=== PATIENT | male | born 1970 | race Caucasian/White ===

== ENCOUNTER 2018-02-09 08:24 | Day surgery (SDC) | payer OTHER ==
[2018-02-07 12:22] VITALS: BMI 23.4
[~2018-02-09 08:24] MED LIST: LACTATED RINGERS 1,000 ML IV SCH; LIDOCAINE 1% 20 ML VIAL (10MG/ML) FOR IV START INTRADERMA PRN; MIDAZOLAM 2 MG/2 ML VIAL IV PRN; TETRACAINE 0.5% OPHTH (PF) DROPS 4 ML BTL OP ONE
[2018-02-09] MEDS: CYCLOPENTOLATE 1% OPHTH SOLN 2 ML BTL OP ONE ×3 (09:08→09:19)
[2018-02-09] MEDS: PHENYLEPHRINE 2.5% OPHTH DRP 2ML OP NR ×3 (09:11→09:33)
[2018-02-09 09:20] VITALS: TEMP 97.7
[2018-02-09] MEDS ORDERED: MIDAZOLAM 2 MG/2 ML VIAL ONE (10:08)
[2018-02-09] MEDS ORDERED: fentaNYL (PF) 50 MCG/ML 2 ML AMP ONE (10:08)
[2018-02-09] MEDS ORDERED: EPINEPHrine (PF) 0.3 ML in BALANCED SALT IRRIG SOLN COMB2 500 ML IRRIGATION ONE (10:10)
[2018-02-09] MEDS ORDERED: DUOVISC KIT (GREEN BOX) INTRAOCULA ONE ×2 (10:11→10:18)
[2018-02-09] MEDS ORDERED: BALANCED SALT IRRIG SOLN COMB2 15 ML IRRIG.SOLN INTRAOCULA ONE ×2 (10:11→10:18)
[2018-02-09] MEDS: MOXIFLOXACIN HCL 0.5% DROPS 3 ML BTL OP ONE ×2 (10:12→10:18)
[2018-02-09] MEDS ORDERED: LIDOCAINE 1% (PF) 10MG/ML VIAL MISCELLANE ONE ×2 (10:12→10:18)
[2018-02-09] MEDS: TIMOLOL 0.5% OPHTH DROPS 5 ML BTL OP ONE ×2 (10:12→10:18)
--- NOTE | 2018-02-09 10:38 | P.OP ---
Date of Procedure: 02/09/18 Preoperative Diagnosis: NS & CS & PSC Postoperative Diagnosis: same Procedure(s) Performed: PIOL, OD Implants: PCB00 21.00 Anesthesia: MAC Surgeon: Blanco Farah Estimated Blood Loss (ml): 0 Pathology: none sent Condition: stable Disposition: same day Indications for Procedure: blurry vision Operative Findings: No complications
[2018-02-09 10:46] VITALS: RESP 16
[2018-02-09 11:11] VITALS: BP 125/72; PULSE 57
--- NOTE | 2018-02-09 12:34 | OP ---
OPERATIVE REPORT DATE OF SURGERY: 02/09/2018 PROCEDURE: Phacoemulsification of cataract and intraocular lens implant of the right eye. PREOPERATIVE DIAGNOSIS: Nuclear sclerosis, cortical sclerosis. POSTOPERATIVE DIAGNOSIS:: Subcapsular cataract. OPERATION:: Clear cornea phacoemulsification of cataract of the right eye. ESTIMATED BLOOD LOSS:: Zero. SPECIMEN TAKEN:: None. NARRATIVE:: After obtaining the appropriate consent, the patient was brought to the Operating Room where the patient was placed under cardiac monitoring and prepped and draped in the usual sterile manner. At the 11 o'clock position a 15 degree super sharp blade was used to create a paracentesis followed by instillation of 1% Xylocaine MPF 50:50 mix with BSS into the anterior chamber. This was followed by Duovisc to stabilize the anterior chamber. At the 9 o'clock position a self-sealing corneal flap incision was created using 2.8 mm anselmo keratome. A cystatome was used to initiate a continuous tear capsulorrhexis which was completed with the Utrata forceps. A Binkhorst cannula was used to hydrodissect the lens nucleus followed by hydrodelineation. Phacoemulsification of the lens was performed utilizing phacochop in 14.48 seconds at 11% power. The remaining cortical material was removed using the irrigation aspiration mode followed by additional 1% Xylocaine MPF into the anterior chamber followed by viscoelastic to stabilize the capsular bag. An [id number] 21.0 Diopters posterior chamber lens was placed into the capsular bag without difficulty. The remaining viscoelastic material was removed from the anterior chamber with the irrigation/aspiration. Balanced salt solution was used to normalize the intraocular pressure. The incision was checked for watertight integrity. The patient then received two drops of 0.5% timolol followed by two drops Vigamox, was lightly patched and shielded in the usual manner. There were no complications from the procedure. The patient tolerated the procedure well and was returned to recovery in good condition. MMODL / IJN: [id number] /
== END 2018-02-09 11:28 | disposition home or self-care (01) ==
LOC: OR 08:24
PROVIDERS: ATTEND Ophthalmology
DX: H25.13 Age-related nuclear cataract, bilateral (principal); H25.043 Posterior subcapsular polar age-related cataract, bilateral; H52.13 Myopia, bilateral; H52.4 Presbyopia; H25.013 Cortical age-related cataract, bilateral; F17.210 Nicotine dependence, cigarettes, uncomplicated; H04.203 Unspecified epiphora, bilateral; Z79.899 Other long term (current) drug therapy
CPT/HCPCS: 66984; C1780; J2250; J0171; J3010; J2001

== ENCOUNTER 2018-02-23 08:22 | Day surgery (SDC) | payer OTHER ==
[2018-02-17 11:14] VITALS: BMI 23.7
[~2018-02-23 08:22] MED LIST changes: +DEXAMETHASONE SOD PHOSPHATE 10 MG/ML 1 ML VIAL IV ONE; -MIDAZOLAM 2 MG/2 ML VIAL IV PRN; -TETRACAINE 0.5% OPHTH (PF) DROPS 4 ML BTL OP ONE
[2018-02-23 08:58] VITALS: RESP 18; TEMP 98.4
[2018-02-23] MEDS: CYCLOPENTOLATE 1% OPHTH SOLN 2 ML BTL OP ONE ×3 (09:02→09:14)
[2018-02-23] MEDS: PHENYLEPHRINE 2.5% OPHTH DRP 2ML OP NR ×3 (09:05→09:20)
[2018-02-23] MEDS ORDERED: HYALURONATE SODIUM INTRAOCULAR 1 EACH SYRINGE (12MG/ML) INTRAOCULA ONE (10:04)
[2018-02-23] MEDS ORDERED: BALANCED SALT IRRIG SOLN COMB2 15 ML IRRIG.SOLN IRRIGATION ONE (10:05)
[2018-02-23] MEDS ORDERED: LIDOCAINE 1% (PF) 10MG/ML VIAL SQ ONE (10:05)
[2018-02-23] MEDS ORDERED: EPINEPHrine (PF) 0.3 ML in BALANCED SALT IRRIG SOLN COMB2 500 ML IRRIGATION ONE (10:06)
[2018-02-23] MEDS ORDERED: MIDAZOLAM 2 MG/2 ML VIAL ONE (10:09)
[2018-02-23] MEDS ORDERED: fentaNYL (PF) 50 MCG/ML 2 ML AMP ONE (10:09)
[2018-02-23] MEDS ORDERED: FLUORESCEIN STRIPS 1 MG STRIP LEFT EYE ONE (10:38)
[2018-02-23] MEDS ORDERED: TETRACAINE 0.5% OPHTH (PF) DROPS 4 ML BTL LEFT EYE ONE (10:39)
--- NOTE | 2018-02-23 10:42 | P.OP ---
Date of Procedure: 02/23/18 Preoperative Diagnosis: NS & CS & PSC Postoperative Diagnosis: same Procedure(s) Performed: PIOL, OS Implants: PCB00 19.00 & CTR [id number] Anesthesia: MAC Surgeon: Blanco Farah Estimated Blood Loss (ml): 0 Pathology: none sent Condition: stable Disposition: same day Indications for Procedure: blurry vision Operative Findings: No complications
[2018-02-23 11:00] VITALS: PULSE 59
[2018-02-23 11:11] VITALS: BP 157/90
--- NOTE | 2018-02-23 21:55 | OP ---
OPERATIVE REPORT DATE OF SURGERY: 02/23/2018 PROCEDURE: Phacoemulsification of cataract and intraocular lens implant of the left eye. PREOPERATIVE DIAGNOSIS: Nuclear sclerosis, cortical sclerosis, posterior subcapsular cataract. POSTOPERATIVE DIAGNOSIS: Nuclear sclerosis, cortical sclerosis, posterior subcapsular cataract with zonular dehiscence. SURGEON: Dr. Blanco Farah. ANESTHESIA: Topical. ESTIMATED BLOOD LOSS: None. SPECIMEN TAKEN: None. NARRATIVE: After obtaining the appropriate consent, the patient was brought to the operating room. There he was placed on cardiac monitoring, prepped and draped in the usual sterile manner. He was approached from his left temporal side, and at the 5 o'clock position a 1.1 mm stab blade was used to create a paracentesis port. Through this opening 1% Xylocaine MPF 50/50 mix with balanced salt solution was injected into the anterior chamber. This was followed by stabilization of the anterior chamber with Amvisc. At the 3 o'clock position a 2.5 mm keratome was used to create a self-sealing corneal flap incision in a Langerman's fashion. Through this opening a cystotome was introduced to begin a continuous tear capsulorrhexis which was completed using the Utrata forceps. Hydrodissection and hydrodelineation of the lens was accomplished with balanced salt solution. Phacoemulsification of the lens utilizing phaco chop was accomplished in 2.31 seconds at 12% power. Additional Xylocaine MPF was instilled into the anterior chamber of the eye. Irrigation and aspiration of the posterior capsule was begun, including careful polishing of the posterior capsule. However, during the course of the cleaning of the posterior capsule there was some zonular laxity and some folding of the posterior capsule from the 10 o'clock to 2 o'clock position. Additional careful posterior capsule polishing was accomplished away from this area to avoid any further damage to the zonules. Amvisc was then used to stabilize the capsular bag and an JAZZMINE capsular tension ring model [id number] was inserted in a clockwise fashion without difficulty. Once the capsular tension ring was placed, an JAZZMINE PCB00 19.0 diopter posterior chamber intraocular lens was then inserted into the capsular bag without incident. Removal of the viscoelastic was accomplished in and around the intraocular lens under irrigation and aspiration. The eye was then brought to normal intraocular pressure through the paracentesis port with balanced salt solution, confirming the incisions to be watertight. The patient then received 2 drops of 0.5% timolol followed by 2 drops of Vigamox and then was lightly patched and shielded in the usual manner. There were no additional difficulties encountered during the procedure. He tolerated the procedure well and was returned to Outpatient Recovery in good condition. DINA / CRIS: [id number] /
[2018-02-24] MEDS ORDERED: MOXIFLOXACIN HCL 0.5% DROPS 3 ML BTL OP ONE (05:00)
[2018-02-24] MEDS ORDERED: TETRACAINE 0.5% OPHTH (PF) DROPS 4 ML BTL OP ONE (05:00)
[2018-02-24] MEDS ORDERED: TIMOLOL 0.5% OPHTH DROPS 5 ML BTL OP ONE (05:00)
== END 2018-02-23 11:22 | disposition home or self-care (01) ==
LOC: OR 08:22
PROVIDERS: ATTEND Ophthalmology
DX: H52.13 Myopia, bilateral (principal); H52.4 Presbyopia; Z96.1 Presence of intraocular lens; F17.210 Nicotine dependence, cigarettes, uncomplicated; Z79.52 Long term (current) use of systemic steroids; Z79.899 Other long term (current) drug therapy
CPT/HCPCS: 66984; L8610; C1780; J2250; J0171; J3010; J2001

== ENCOUNTER 2018-05-29 19:15 | Emergency (ER) | payer OTHER ==
[2018-05-29 20:03] VITALS: BP 143/82; PULSE 61; RESP 20; TEMP 97.8
--- NOTE | 2018-05-29 20:32 | ED ---
Lower Extremity Injury HPI - General Chief Complaint: Extremity Injury, Lower Stated Complaint: pain in right thigh Time Seen by Provider: 05/29/18 20:20 Source: patient, RN notes reviewed Mode of arrival: ambulatory Limitations: no limitations - History of Present Illness Initial Comments: This a 48-year-old male with past history of left eye cataract who presents today for chief complaint of bruising to the right upper thigh. 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 He was tied into a tree cutting down the top of it when a large branch about 6 inches in diameter hit him in the right upper thigh. He stated that he continued to work and didnt think anything of it. He was able to fully weight bear and it didnt hurt "that bad". Pt denied hitting his head, falling from tree , injury to any other extremity. When he got home he noticed it was sore, he took tylenol and alleve for pain mgmt. Pt noticed bruising at area of contact, as well as an overlying redness that appeared to be ontop of the bruise pt stated. He thought that it was an abrasion but he looked closer and noticed it was actually just his skin turned this color. Pt was concerned and presented to the ER today for further evaluation. Pt states that his tetatnus is up to date. Patient denies any urinary color changes, malaise, weakness, pain out of proportion, difficulty in breathing, decreased range motion, numbness, tingling , paresthesia or loss of sensation, muscle weakness, open abrasion or laceration , pallor or coolness of extremity. Remainder of ROS (-) - Related Data Home Medications Medication Instructions Recorded Confirmed No Known Home Medications 02/07/18 05/29/18 Allergies Allergy/AdvReac Type Severity Reaction Status Date / Time ibuprofen [From Motrin] AdvReac Nausea & Verified 05/29/18 20:04 Vomiting Review of Systems ROS Statement: Those systems with pertinent positive or pertinent negative responses have been documented in the HPI. ROS Other: All systems not noted in ROS Statement are negative. Constitutional: Denies: fever, chills Respiratory: Denies: cough, dyspnea, wheezes, hemoptysis, stridor Cardiovascular: Denies: chest pain, palpitations Gastrointestinal: Denies: abdominal pain, nausea, vomiting, diarrhea, constipation Genitourinary: Denies: urgency, dysuria, frequency, hematuria, discharge Musculoskeletal: Reports: myalgia. Denies: back pain, joint swelling, arthralgia Skin: Reports: as per HPI. Denies: rash, lesions, change in color Neurological: Denies: headache, weakness, numbness, paresthesias, confusion, abnormal gait Past Medical History Past Medical History: No Reported History, Eye Disorder Additional Past Medical History / Comment(s): LT CATARACT History of Any Multi-Drug Resistant Organisms: None Reported Past Surgical History: Orthopedic Surgery Additional Past Surgical History / Comment(s): rt leg plates and screws. RT CATARACT REMOVED 02/09/18 Past Anesthesia/Blood Transfusion Reactions: No Reported Reaction Past Psychological History: No Psychological Hx Reported Smoking Status: Current every day smoker Past Alcohol Use History: None Reported Past Drug Use History: None Reported - Past Family History Mother Family Medical History: Cancer, COPD General Exam - General Exam Comments Initial Comments: General: The patient is awake and alert, in no distress, and does not appear acutely ill. Eye: +3 mm pupils are equal, round and reactive to light, extra-ocular movements are intact. No nystagmus. There is normal conjunctiva bilaterally. No signs of icterus. Neck: The neck is supple, there is no tenderness or JVD. Cardiovascular: There is a regular rate and rhythm. No murmur, rub or gallop is appreciated. Respiratory: Lungs are clear to auscultation, respirations are non-labored, breath sounds are equal. No wheezes, stridor, rales, or rhonchi. Musculoskeletal: No gross deformity, visible masses, abrasion or lesions over thighs b/l. There is a 4cm in diameter circular area of ecchymosis, no palpable masses or hematoma. There are broken capillary of the skin over the area of ecchymosis. Full ROM with hip flexion, extension, internal and external rotation, as well as knee extension/flexion, without tenderness with motions. Strength with all motions 5/5. Pt able to fully weight bear without pain. Sensation intact of the LE equally b/l. DP pulses equal bilaterally 2+. Neurological: A&O x 3. CN II-XII intact, There are no obvious motor or sensory deficits. Coordination appears grossly intact. Speech is normal. Skin: Skin is warm and dry and no rashes. Psychiatric: Cooperative, appropriate mood & affect, normal judgment. . Limitations: no limitations Course Vital Signs 05/29/18 20:00 Temperature 97.8 F Pulse Rate 61 Respiratory 20 Rate Blood Pressure 143/82 O2 Sat by Pulse 98 Oximetry Medical Decision Making - Medical Decision Making 48yo with CC of bruising to right anterior thigh. Upon physical exam, there was no evidence of muscular rupture/tear- no palpable muscle belly or masses. Pt is not extremely tender to palpation. There are overlying broken capillary beds on the area of ecchymosis that pt mistook for an abrasion and was concerned about. There is no palpable hematoma. At this time given ROM and no pain with weight bearing I have no suspicion for a femur fracture at this time. Compartments are soft and compressible, pt neurovascuarly intact. I inquired about signs and symptoms of rhabdo although I have low suspicions including urine colors changes (coke colored urine), oliguria, general malaise, weakness or muscle aches. Pt denies these symptoms at this time. I feel pt has a contusion to the right anterior thigh. Pt can apply ice and heat alternating for symptoms relief as well as continue over the counter pain relievers for pain mgmt as needed. Case discussed in detail with Dr. Nj who agreed pt is stable for d/c with PCP f/u. I answered all patients questions to the best of my ability and pt was discharged in stable condition. Disposition Clinical Impression: Thigh contusion Disposition: HOME SELF-CARE Condition: Good Instructions: Contusion in Adults (ED) Additional Instructions: Please use over the counter medication as discussed. Please follow-up with family doctor in the next 2 days of symptoms have not improved. Please return to emergency room if the symptoms increase or worsen or for any other concerns, as discussed including urine changes, generalized weakness, pain out of proportion, increased warmth/tenderness. Is patient prescribed a controlled substance at d/c from ED?: No Referrals: Nazario Lima DO [Primary Care Provider] - 1-2 days Time of Disposition: 20:32
== END 2018-05-29 20:47 | disposition home or self-care (01) ==
LOC: EC 19:15
DX: S70.11XA Contusion of right thigh, initial encounter (principal); F17.200 Nicotine dependence, unspecified, uncomplicated; Z98.890 Other specified postprocedural states; Z88.6 Allergy status to analgesic agent; W20.8XXA Other cause of strike by thrown, projected or falling object, initial encounter; Y92.69 Other specified industrial and construction area as the place of occurrence of the external cause; Y99.0 Civilian activity done for income or pay
CPT/HCPCS: 99283

== ENCOUNTER 2018-07-22 02:34 | Emergency (ER) | payer OTHER ==
[2018-07-22 02:41] VITALS: TEMP 98
[2018-07-22] MEDS ORDERED: SODIUM CHLORIDE 0.9% 1,000 ML IV ONE (03:12)
[2018-07-22] MEDS ORDERED: KETOROLAC 30 MG/ML 1 ML VIAL IVP STA (03:12)
--- NOTE | 2018-07-22 03:19 | ED ---
Extremity Problem HPI - General Source: patient Mode of arrival: ambulatory Limitations: no limitations <Jeaneth Nevarez - Last Filed: 07/22/18 04:42> <Dipika Mayen - Last Filed: 07/22/18 05:13> - General Chief complaint: Extremity Problem,Nontraumatic Stated complaint: hand pain Time Seen by Provider: 07/22/18 03:05 - History of Present Illness Initial comments: 48-year-old male patient presents to the emergency department today with multiple complaints. Patient states she is complaint is left hand and wrist pain and swelling. Patient states that the pain and swelling started spontaneously couple of days ago. Patient states the hand is hot. Patient states that the pain increases whenever he attempts to move his fingers or arm. Patient states pain radiates into his forearm. Patient denies any numbness or tingling to the arm. States he is also having pain and swelling to the right forearm. Sensation states that this area started to become painful and swollen approximately 2 days ago. States that that started as a pimple and worsened. Patient states it is painful and tender to touch. States he did try to drain it but no drainage came out. Patient is also complaining of left foot pain. Patient states he was at work yesterday when he dropped a log on top of his boot. 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 Patient also reports lower abdominal pain. She describes the pain as a burning. States that when he lifted a log at the pain towards to his abdomen. States that occasionally he will still have pain. He denies any diarrhea, hematuria, dysuria, urinary frequency, urinary urgency. Denies any fevers or chills. States he did take ibuprofen earlier but it did not help. Patient denies any recent rash, shortness breath, chest pain, nausea, vomiting, back pain, dizziness, weakness, hematuria, dysuria , urinary urgency, urinary frequency, headache, visual changes, or any other complaints. (Jeaneth Nevarez) - Related Data Previous Rx's Medication Instructions Recorded Ibuprofen [Motrin] 600 mg PO Q8HR PRN #30 tab 07/22/18 Sulfamethoxazole/Trimethoprim 1 each PO BID #20 tablet 07/22/18 [Bactrim DS 800-160 mg] Allergies Allergy/AdvReac Type Severity Reaction Status Date / Time ibuprofen [From Motrin] AdvReac Nausea & Verified 07/22/18 02:41 Vomiting Review of Systems ROS Other: All systems not noted in ROS Statement are negative. <Jeaneth Nevarez M - Last Filed: 07/22/18 04:42> ROS Other: All systems not noted in ROS Statement are negative. <Dipika Mayen P - Last Filed: 07/22/18 05:13> ROS Statement: Those systems with pertinent positive or pertinent negative responses have been documented in the HPI. Past Medical History Past Medical History: No Reported History, Eye Disorder Additional Past Medical History / Comment(s): LT CATARACT History of Any Multi-Drug Resistant Organisms: None Reported Past Surgical History: Orthopedic Surgery Additional Past Surgical History / Comment(s): rt leg plates and screws. RT CATARACT REMOVED 02/09/18 Past Anesthesia/Blood Transfusion Reactions: No Reported Reaction Past Psychological History: No Psychological Hx Reported Smoking Status: Current every day smoker Past Alcohol Use History: None Reported Past Drug Use History: None Reported - Past Family History Mother Family Medical History: Cancer, COPD <Jeaneth Nevarez Abhilash - Last Filed: 07/22/18 04:42> General Exam Limitations: no limitations General appearance: alert, in no apparent distress, other (This is a well- developed, well-nourished adult male patient in no acute distress. Vital signs upon presentation are temperature 98.0F, pulse 71, respirations 18, blood pressure 152/96, pulse ox 99% on room air.) Eye exam: Present: normal appearance, PERRL, EOMI. Absent: scleral icterus, conjunctival injection, periorbital swelling ENT exam: Present: normal exam, normal oropharynx, mucous membranes moist Respiratory exam: Present: normal lung sounds bilaterally. Absent: respiratory distress, wheezes, rales, rhonchi, stridor Cardiovascular Exam: Present: regular rate, normal rhythm, normal heart sounds. Absent: systolic murmur, diastolic murmur, rubs, gallop, clicks GI/Abdominal exam: Present: soft, normal bowel sounds. Absent: distended, tenderness, guarding, rebound, rigid Extremities exam: Present: full ROM, tenderness (Patient has tenderness over the dorsum of the left wrist and hand. Tenderness over the volar aspect of the right forearm. Tenderness over the dorsal aspect of foot.), normal capillary refill, other (Patient has left hand and wrist swelling, generalized, nonpitting. Tenderness over the dorsum of the hand and wrist. No erythema, no pain with passive range of motion, temperature is normal. Patient also has evidence of abscess to the volar aspect of the right forearm, there is surrounding cellulitis with lymphangitis extending up to the antecubital region. Patient has ecchymosis noted to the dorsal aspect of the left foot. Patient has full range of motion of the toes. Remainder of skin to all extremities is pink, warm, and dry. Cap refills less than 3 seconds. Radial pulses 2+ and equal bilaterally. Pedal pulses 2+.) Neurological exam: Present: alert, oriented X3, CN II-XII intact Psychiatric exam: Present: normal affect, normal mood Skin exam: Present: warm, dry, intact, normal color. Absent: rash <Jeaneth Nevarez M - Last Filed: 07/22/18 04:42> Vital Signs 07/22/18 07/22/18 02:38 04:41 Temperature 98.0 F Pulse Rate 71 64 Respiratory 18 19 Rate Blood Pressure 152/96 141/89 O2 Sat by Pulse 99 100 Oximetry Medical Decision Making - Lab Data Result diagrams: 07/22/18 03:00 07/22/18 03:00 - Radiology Data Radiology results: report reviewed, image reviewed <Jeaneth Nevarez - Last Filed: 07/22/18 04:42> - Lab Data Result diagrams: 07/22/18 03:00 07/22/18 03:00 <Dipika Mayen - Last Filed: 07/22/18 05:13> - Medical Decision Making 48-year-old male patient presented to the emergency department today for multiple complaints. Patient is complaining of left hand pain and swelling, right forearm erythema and pain, and left foot pain. Patient also mentioned some abdominal discomfort. Physical examination did reveal generalized swelling to the right hand and wrist. There was some dorsal hand tenderness. Patient has full range of motion of the hand, no pain on passive range of motion , no erythema, hand was normal temperature. Radial pulses 2+ and equal bilaterally. Right volar forearm did exhibit a tiny abscess with surrounding cellulitis. No fluctuance. Left-sided did exhibit some dorsal ecchymosis and tenderness. X-ray of the left foot was negative for any evidence of fracture. Did obtain x-ray of the left hand and right forearm which showed no evidence for foreign body, bony infection, or free air. Labs reviewed and did reveal a normal white blood cell count. Patient did have mildly elevated liver enzymes and lipase. Asians abdomen was soft and nontender. Patient is unable to provide urine sample while in the department despite receiving IV fluids. Patient will be discharged home with prescription for anti-inflammatories. Patient does have an ALLERGY listed to ibuprofen but his complaint is nausea, he is instructed to take this medication with a nail to avoid this. He'll be given a starter pack of Tylenol with codeine for breakthrough pain. He is instructed to apply warm compresses to the right forearm. He is instructed to ice and elevate the left hand and the left foot. Patient will be given follow- up with hand specialty for further evaluation of the left hand. He is also instructed to follow-up with his primary care physician for recheck in 1-2 days. He was educated regarding return parameters he verbalizes understanding and agrees with this plan. My attending Dr. Mayen was in to evaluate the patient, she agrees with this plan. (Jeaneth Nevarez) I personally saw and examined the patient. I reviewed and agree with the mid- level provider findings including all diagnostic interpretations and treatment plans as written unless otherwise stated. I was present for bender portions of any procedures performed. (Dipika Mayen) - Lab Data Lab Results 07/22/18 07/22/18 Range/Units 03:00 03:00 WBC 5.6 (3.8-10.6) k/uL RBC 4.14 L (4.30-5.90) m/uL Hgb 13.1 (13.0-17.5) gm/dL Hct 39.3 (39.0-53.0) % MCV 94.8 (80.0-100.0) fL MCH 31.5 (25.0-35.0) pg MCHC 33.3 (31.0-37.0) g/dL RDW 13.1 (11.5-15.5) % Plt Count 171 (150-450) k/uL Neutrophils % 55 % Lymphocytes % 34 % Monocytes % 7 % Eosinophils % 3 % Basophils % 0 % Neutrophils # 3.1 (1.3-7.7) k/uL Lymphocytes # 1.9 (1.0-4.8) k/uL Monocytes # 0.4 (0-1.0) k/uL Eosinophils # 0.2 (0-0.7) k/uL Basophils # 0.0 (0-0.2) k/uL Sodium 137 (137-145) mmol/L Potassium 3.7 (3.5-5.1) mmol/L Chloride 100 (98-107) mmol/L Carbon Dioxide 26 (22-30) mmol/L Anion Gap 11 mmol/L BUN 12 (9-20) mg/dL Creatinine 0.85 (0.66-1.25) mg/dL Est GFR (CKD-EPI)AfAm >90 (>60 ml/min/1.73 sqM) Est GFR (CKD-EPI)NonAf >90 (>60 ml/min/1.73 sqM) Glucose 92 (74-99) mg/dL Calcium 9.2 (8.4-10.2) mg/dL Total Bilirubin 0.5 (0.2-1.3) mg/dL AST 119 H (17-59) U/L ALT 162 H (21-72) U/L Alkaline Phosphatase 77 (38-126) U/L Total Protein 7.3 (6.3-8.2) g/dL Albumin 4.4 (3.5-5.0) g/dL Amylase 74 (30-110) U/L Lipase 475 H (23-300) U/L - Radiology Data Views of the left foot are obtained. Metatarsals appear intact. This no fracture nor dislocation. Joint spaces appear normal. There is small plantar calcaneal spur. Impression by Dr. Becerra shows no acute abnormality of the left foot. (Jeaneth Nevarez) Disposition Is patient prescribed a controlled substance at d/c from ED?: No Time of Disposition: 04:40 <Jeaneth Nevarez - Last Filed: 07/22/18 04:42> <Dipika Mayen - Last Filed: 07/22/18 05:13> Clinical Impression: Arthritis of left hand, Abscess of right forearm, Contusion of left foot Disposition: HOME SELF-CARE Condition: Good Instructions: Contusion in Adults (ED), Abscess (ED), Arthralgia (ED) Additional Instructions: Apply warm compresses to the right forearm 20 minutes at a time at least 4 times daily. Keep left hand elevated apply ice. Take medications as directed. Take ibuprofen with a meal to avoid nausea. Follow-up with the orthopedic hand specialist for further evaluation. Return here immediately for any new, worsening, or concerning symptoms. Prescriptions: Ibuprofen [Motrin] 600 mg PO Q8HR PRN #30 tab PRN Reason: Pain Sulfamethoxazole/Trimethoprim [Bactrim DS 800-160 mg] 1 each PO BID #20 tablet Referrals: Nazario Lima DO [Primary Care Provider] - 1-2 days Clement Box DO [Doctor of Osteopathic Medicine] - 1-2 days
[2018-07-22 03:33] LABS: ALT 162 U/L (21-72); AST 119 U/L (17-59); Albumin 4.4 g/dL (3.5-5.0); Alkaline Phosphatase 77 U/L (38-126); Amylase 74 U/L (30-110); Anion Gap 11 mmol/L; Blood Urea Nitrogen 12 mg/dL (9-20); Calcium 9.2 mg/dL (8.4-10.2); Carbon Dioxide 26 mmol/L (22-30); Chloride 100 mmol/L (98-107); Glucose 92 mg/dL (74-99); Lipase 475 U/L (23-300); Potassium 3.7 mmol/L (3.5-5.1); Sodium 137 mmol/L (137-145); Total Bilirubin 0.5 mg/dL (0.2-1.3); Total Protein 7.3 g/dL (6.3-8.2)
--- NOTE | 2018-07-22 03:35 | XR ---
EXAMINATION TYPE: XR foot complete LT DATE OF EXAM: 07/22/2018 COMPARISON: NONE HISTORY: Bruising TECHNIQUE: 3 views FINDINGS: Metatarsals appear intact. I see no fracture nor dislocation. Joint spaces appear normal. T here is small plantar calcaneal spur. IMPRESSION: No acute abnormality of the left foot.
[2018-07-22 03:36] LABS: Basophils % (A) 0 %; Eosinophils # (A) 0.2 k/uL (0-0.7); Eosinophils % (A) 3 %; HCT 39.3 % (39.0-53.0); HGB 13.1 gm/dL (13.0-17.5); Lymphocytes # (A) 1.9 k/uL (1.0-4.8); Lymphocytes % (A) 34 %; MCH 31.5 pg (25.0-35.0); MCHC 33.3 g/dL (31.0-37.0); MCV 94.8 fL (80.0-100.0); Mean Platelet Volume 7.8; Monocytes # (A) 0.4 k/uL (0-1.0); Monocytes % (A) 7 %; Neutrophils # (A) 3.1 k/uL (1.3-7.7); Neutrophils % (A) 55 %; Platelet Count 171 k/uL (150-450); RBC 4.14 m/uL (4.30-5.90); RDW 13.1 % (11.5-15.5); WBC 5.6 k/uL (3.8-10.6)
[2018-07-22] MEDS ORDERED: ACET/COD 300 MG/30 MG STARTER PACK 6 TAB BTL PO STA (04:36)
[2018-07-22] MEDS ORDERED: IBUPROFEN 600 MG STARTER PACK 4 TAB BTL PO STA (04:37)
[2018-07-22 04:42] VITALS: BP 141/89; PULSE 64; RESP 19
--- NOTE | 2018-07-22 04:48 | XR ---
EXAM: XR Right Forearm, 2 Views CLINICAL HISTORY: Pain TECHNIQUE: Frontal and lateral views of the right forearm. COMPARISON: No relevant prior studies available. FINDINGS: Bones/joints: Unremarkable. No acute fracture. No dislocation. Soft tissues: Unremarkable. IMPRESSION: Normal right forearm x-rays.
[2018-07-22] MEDS ORDERED: SULFAMETH-TMP DS STARTER PACK 2 TAB BTL PO STA (04:49)
--- NOTE | 2018-07-22 04:50 | XR ---
EXAM: XR Left Hand Complete, 3 or More Views CLINICAL HISTORY: Pain TECHNIQUE: Frontal, lateral and oblique views of the left hand. COMPARISON: No relevant prior studies available. FINDINGS: Bones/joints: Unremarkable. No acute fracture. No dislocation. Soft tissues: Unremarkable. No radiopaque foreign body. IMPRESSION: Normal left hand x-rays.
== END 2018-07-22 05:03 | disposition home or self-care (01) ==
LOC: EC 02:34
DX: S90.32XA Contusion of left foot, initial encounter (principal); L02.413 Cutaneous abscess of right upper limb; M19.042 Primary osteoarthritis, left hand; R74.8 Abnormal levels of other serum enzymes; R10.30 Lower abdominal pain, unspecified; F17.200 Nicotine dependence, unspecified, uncomplicated; Z88.6 Allergy status to analgesic agent; W20.8XXA Other cause of strike by thrown, projected or falling object, initial encounter
CPT/HCPCS: 36415; 80053; 82150; 83690; 85025; 87040; 73090; 73130; 73630; 99284; 96374; 96361; J1885

== ENCOUNTER 2021-01-10 20:16 | Inpatient (IN) | payer OTHER ==
[2021-01-10] MEDS ORDERED: SODIUM CHLORIDE 0.9% 500 ML 500 ML IV ONE ×2 (20:20→22:11)
--- NOTE | 2021-01-10 20:23 | ED ---
General Adult HPI - General Stated complaint: Cardiac Arrest Time Seen by Provider: 01/10/21 20:17 Source: EMS, RN notes reviewed, old records reviewed - History of Present Illness Initial comments: 50-year-old male who presents as out of Hospital unwitnessed cardiac arrest. Patient had been found down on his driveway. There was some vomit adjacent to the patient. He was asystole upon water filtration technician arrival. CPR was initiated unknown how long the patient had been down. He was intubated, chest compressions initiated and 3 rounds of epinephrine did result in return of spontaneous circulation. He was transported to the hospital for evaluation treatment. Patient had been intubated with a 7.5 ET tube prior to arrival. He had an elevated blood pressure and was sinus rhythm on the monitor during transport. EMS did find pink vomiting in the oropharynx. - Related Data Home Medications Medication Instructions Recorded Confirmed No Known Home Medications 01/10/21 01/10/21 Allergies Allergy/AdvReac Type Severity Reaction Status Date / Time ibuprofen [From Motrin] AdvReac Nausea & Verified 01/10/21 20:44 Vomiting Review of Systems ROS Statement: Those systems with pertinent positive or pertinent negative responses have been documented in the HPI. ROS Other: All systems not noted in ROS Statement are negative. Past Medical History Past Medical History: No Reported History, Eye Disorder Additional Past Medical History / Comment(s): LT CATARACT History of Any Multi-Drug Resistant Organisms: None Reported Past Surgical History: Orthopedic Surgery Additional Past Surgical History / Comment(s): rt leg plates and screws. RT CATARACT REMOVED 02/09/18 Past Anesthesia/Blood Transfusion Reactions: No Reported Reaction Past Psychological History: No Psychological Hx Reported Past Alcohol Use History: None Reported Past Drug Use History: None Reported - Past Family History Mother Family Medical History: Cancer, COPD General Exam General appearance: other (Intubated, BVM, cyanotic) Head exam: Present: other (Abrasion forehead) Eye exam: Present: PERRL (3 mm bilaterally, sluggish) ENT exam: Present: other (ET tube 25 at the teeth) Respiratory exam: Present: respiratory distress, rhonchi, other (Bilateral breath sounds with BVM) Cardiovascular Exam: Present: regular rate, normal rhythm GI/Abdominal exam: Present: soft. Absent: distended, tenderness, guarding Extremities exam: Absent: normal capillary refill, pedal edema Neurological exam: Present: other (Patient intubated, no spontaneous movement, no corneal reflex, no gag reflex) Skin exam: Present: warm, cyanosis Course Vital Signs 01/10/21 01/10/21 01/10/21 20:21 20:52 20:55 Temperature 97.3 F L Pulse Rate 91 89 Respiratory 18 18 16 Rate Blood Pressure 167/97 128/73 128/73 O2 Sat by Pulse 98 100 Oximetry 01/10/21 01/10/21 01/10/21 21:00 21:05 21:10 Temperature Pulse Rate 92 95 82 Respiratory 17 21 20 Rate Blood Pressure 138/84 135/77 135/72 O2 Sat by Pulse 99 94 L 97 Oximetry EKG Findings - EKG Comments: EKG Findings:: Normal sinus rhythm, rate of 86, HI interval 176, QRS duration 108, QTC 449, no ST segment elevation. Medical Decision Making - Medical Decision Making 50-year-old male status post cardiac arrest, unwitnessed out of Hospital cardiac arrest, asystole initial rhythm patient did have return of spontaneous circulation. He had been intubated by EMS prior to arrival. EMS reported vomiting in the oropharynx, there was concern for aspiration. Chest x-ray showing a right air space infiltrate possible aspiration. Patient started on antibiotics. He started on IV fluids. He is responsive and requiring sedation in the emergency department. Vitals are stable throughout, stable blood pressure, normal heart rate, normal oxygenation on a ventilator. He has leukocytosis 21.2. She renal failure with a creatinine 2.32. Lactic acid 10.9 status post cardiac arrest. He has an elevated troponin 0.14. CT of the brain is negative for intracranial hemorrhage or mass effect. Patient will continue IV antibiotics for suspected aspiration pneumonia. He will be continued on IV fluids. Case has been discussed both with the admitting physician Dr. Sung, and Dr. Margaret dubon for the ICU. Urine drug screen is positive for both methamphetamine and cocaine. Uncertain if this contributed to the restaurant this was aspiration and hypoxia. - Lab Data Result diagrams: 01/10/21 20:25 01/10/21 20:25 Lab Results 01/10/21 01/10/21 01/10/21 Range/Units 20:25 20:25 20:25 WBC 21.2 H (3.8-10.6) k/uL RBC 4.46 (4.30-5.90) m/uL Hgb 14.6 (13.0-17.5) gm/dL Hct 43.5 (39.0-53.0) % MCV 97.4 (80.0-100.0) fL MCH 32.8 (25.0-35.0) pg MCHC 33.7 (31.0-37.0) g/dL RDW 12.5 (11.5-15.5) % Plt Count 257 (150-450) k/uL MPV 7.5 Neutrophils % 53 % Lymphocytes % 37 % Monocytes % 6 % Eosinophils % 1 % Basophils % 1 % Neutrophils # 11.2 H (1.3-7.7) k/uL Lymphocytes # 7.9 H (1.0-4.8) k/uL Monocytes # 1.4 H (0-1.0) k/uL Eosinophils # 0.2 (0-0.7) k/uL Basophils # 0.2 (0-0.2) k/uL PT 12.1 H (9.0-12.0) sec INR 1.2 H (<1.2) APTT 21.2 L (22.0-30.0) sec VBG pH (7.31-7.41) VBG pCO2 (37-51) mmHg VBG HCO3 (24-28) mmol/L Sodium 138 (137-145) mmol/L Potassium 5.2 H (3.5-5.1) mmol/L Chloride 99 (98-107) mmol/L Carbon Dioxide 17 L (22-30) mmol/L Anion Gap 22 mmol/L BUN 41 H (9-20) mg/dL Creatinine 2.23 H (0.66-1.25) mg/dL Est GFR (CKD-EPI)AfAm 38 (>60 ml/min/1.73 sqM) Est GFR (CKD-EPI)NonAf 33 (>60 ml/min/1.73 sqM) Glucose 383 H (74-99) mg/dL Plasma Lactic Acid Paresh (0.7-2.0) mmol/L Calcium 8.6 (8.4-10.2) mg/dL Magnesium 3.8 H (1.6-2.3) mg/dL Total Bilirubin 1.7 H (0.2-1.3) mg/dL AST 414 H (17-59) U/L ALT 104 H (4-49) U/L Alkaline Phosphatase 40 (38-126) U/L Troponin I (0.000-0.034) ng/mL Total Protein 7.5 (6.3-8.2) g/dL Albumin 4.7 (3.5-5.0) g/dL Urine Color Urine Appearance (Clear) Urine pH (5.0-8.0) Ur Specific Egnar (1.001-1.035) Urine Protein (Negative) Urine Glucose (UA) (Negative) Urine Ketones (Negative) Urine Blood (Negative) Urine Nitrite (Negative) Urine Bilirubin (Negative) Urine Urobilinogen (<2.0) mg/dL Ur Leukocyte Esterase (Negative) Urine RBC (0-5) /hpf Urine WBC (0-5) /hpf Ur Squamous Epith Cells (0-4) /hpf Urine Bacteria (None) /hpf Hyaline Casts (0-2) /lpf Urine Mucus (None) /hpf Urine Opiates Screen (NotDetected) Ur Oxycodone Screen (NotDetected) Urine Methadone Screen (NotDetected) Ur Propoxyphene Screen (NotDetected) Ur Barbiturates Screen (NotDetected) U Tricyclic Antidepress (NotDetected) Ur Phencyclidine Scrn (NotDetected) Ur Amphetamines Screen (NotDetected) U Methamphetamines Scrn (NotDetected) U Benzodiazepines Scrn (NotDetected) Urine Cocaine Screen (NotDetected) U Marijuana (THC) Screen (NotDetected) Serum Alcohol <10 mg/dL 01/10/21 01/10/21 01/10/21 Range/Units 20:25 20:25 20:25 WBC (3.8-10.6) k/uL RBC (4.30-5.90) m/uL Hgb (13.0-17.5) gm/dL Hct (39.0-53.0) % MCV (80.0-100.0) fL MCH (25.0-35.0) pg MCHC (31.0-37.0) g/dL RDW (11.5-15.5) % Plt Count (150-450) k/uL MPV Neutrophils % % Lymphocytes % % Monocytes % % Eosinophils % % Basophils % % Neutrophils # (1.3-7.7) k/uL Lymphocytes # (1.0-4.8) k/uL Monocytes # (0-1.0) k/uL Eosinophils # (0-0.7) k/uL Basophils # (0-0.2) k/uL PT (9.0-12.0) sec INR (<1.2) APTT (22.0-30.0) sec VBG pH (7.31-7.41) VBG pCO2 (37-51) mmHg VBG HCO3 (24-28) mmol/L Sodium (137-145) mmol/L Potassium (3.5-5.1) mmol/L Chloride (98-107) mmol/L Carbon Dioxide (22-30) mmol/L Anion Gap mmol/L BUN (9-20) mg/dL Creatinine (0.66-1.25) mg/dL Est GFR (CKD-EPI)AfAm (>60 ml/min/1.73 sqM) Est GFR (CKD-EPI)NonAf (>60 ml/min/1.73 sqM) Glucose (74-99) mg/dL Plasma Lactic Acid Paresh 10.9 H* (0.7-2.0) mmol/L Calcium (8.4-10.2) mg/dL Magnesium (1.6-2.3) mg/dL Total Bilirubin (0.2-1.3) mg/dL AST (17-59) U/L ALT (4-49) U/L Alkaline Phosphatase (38-126) U/L Troponin I 0.114 H* (0.000-0.034) ng/mL Total Protein (6.3-8.2) g/dL Albumin (3.5-5.0) g/dL Urine Color Yellow Urine Appearance Cloudy (Clear) Urine pH 5.5 (5.0-8.0) Ur Specific Egnar 1.030 (1.001-1.035) Urine Protein 2+ H (Negative) Urine Glucose (UA) 1+ H (Negative) Urine Ketones Trace H (Negative) Urine Blood Moderate H (Negative) Urine Nitrite Negative (Negative) Urine Bilirubin Negative (Negative) Urine Urobilinogen <2.0 (<2.0) mg/dL Ur Leukocyte Esterase Negative (Negative) Urine RBC 1 (0-5) /hpf Urine WBC 4 (0-5) /hpf Ur Squamous Epith Cells <1 (0-4) /hpf Urine Bacteria Occasional H (None) /hpf Hyaline Casts 3 H (0-2) /lpf Urine Mucus Occasional H (None) /hpf Urine Opiates Screen Detected H (NotDetected) Ur Oxycodone Screen Not Detected (NotDetected) Urine Methadone Screen Not Detected (NotDetected) Ur Propoxyphene Screen Not Detected (NotDetected) Ur Barbiturates Screen Not Detected (NotDetected) U Tricyclic Antidepress Not Detected (NotDetected) Ur Phencyclidine Scrn Not Detected (NotDetected) Ur Amphetamines Screen Not Detected (NotDetected) U Methamphetamines Scrn Detected H (NotDetected) U Benzodiazepines Scrn Not Detected (NotDetected) Urine Cocaine Screen Detected H (NotDetected) U Marijuana (THC) Screen Not Detected (NotDetected) Serum Alcohol mg/dL 01/10/21 Range/Units 20:25 WBC (3.8-10.6) k/uL RBC (4.30-5.90) m/uL Hgb (13.0-17.5) gm/dL Hct (39.0-53.0) % MCV (80.0-100.0) fL MCH (25.0-35.0) pg MCHC (31.0-37.0) g/dL RDW (11.5-15.5) % Plt Count (150-450) k/uL MPV Neutrophils % % Lymphocytes % % Monocytes % % Eosinophils % % Basophils % % Neutrophils # (1.3-7.7) k/uL Lymphocytes # (1.0-4.8) k/uL Monocytes # (0-1.0) k/uL Eosinophils # (0-0.7) k/uL Basophils # (0-0.2) k/uL PT (9.0-12.0) sec INR (<1.2) APTT (22.0-30.0) sec VBG pH 7.00 L* (7.31-7.41) VBG pCO2 74 H* (37-51) mmHg VBG HCO3 17 L (24-28) mmol/L Sodium (137-145) mmol/L Potassium (3.5-5.1) mmol/L Chloride (98-107) mmol/L Carbon Dioxide (22-30) mmol/L Anion Gap mmol/L BUN (9-20) mg/dL Creatinine (0.66-1.25) mg/dL Est GFR (CKD-EPI)AfAm (>60 ml/min/1.73 sqM) Est GFR (CKD-EPI)NonAf (>60 ml/min/1.73 sqM) Glucose (74-99) mg/dL Plasma Lactic Acid Paresh (0.7-2.0) mmol/L Calcium (8.4-10.2) mg/dL Magnesium (1.6-2.3) mg/dL Total Bilirubin (0.2-1.3) mg/dL AST (17-59) U/L ALT (4-49) U/L Alkaline Phosphatase (38-126) U/L Troponin I (0.000-0.034) ng/mL Total Protein (6.3-8.2) g/dL Albumin (3.5-5.0) g/dL Urine Color Urine Appearance (Clear) Urine pH (5.0-8.0) Ur Specific Egnar (1.001-1.035) Urine Protein (Negative) Urine Glucose (UA) (Negative) Urine Ketones (Negative) Urine Blood (Negative) Urine Nitrite (Negative) Urine Bilirubin (Negative) Urine Urobilinogen (<2.0) mg/dL Ur Leukocyte Esterase (Negative) Urine RBC (0-5) /hpf Urine WBC (0-5) /hpf Ur Squamous Epith Cells (0-4) /hpf Urine Bacteria (None) /hpf Hyaline Casts (0-2) /lpf Urine Mucus (None) /hpf Urine Opiates Screen (NotDetected) Ur Oxycodone Screen (NotDetected) Urine Methadone Screen (NotDetected) Ur Propoxyphene Screen (NotDetected) Ur Barbiturates Screen (NotDetected) U Tricyclic Antidepress (NotDetected) Ur Phencyclidine Scrn (NotDetected) Ur Amphetamines Screen (NotDetected) U Methamphetamines Scrn (NotDetected) U Benzodiazepines Scrn (NotDetected) Urine Cocaine Screen (NotDetected) U Marijuana (THC) Screen (NotDetected) Serum Alcohol mg/dL Critical Care Time Critical Care Time: Yes Total Critical Care Time: 35 Disposition Clinical Impression: Cardiac arrest, Signs of return of spontaneous circulation, Aspiration into respiratory tract, Lactic acid acidosis Disposition: ADMITTED IP TO THIS HOSP Condition: Serious Is patient prescribed a controlled substance at d/c from ED?: No Referrals: None,Stated [Primary Care Provider] - 1-2 days Decision to Admit Reason: Admit from EC Decision Date: 01/10/21 Decision Time: 22:15
[2021-01-10] MEDS: SODIUM CHLORIDE 0.9% 1,000 ML IV SCH (20:32)
[2021-01-10 20:35] LABS: Basophils # (A) 0.2 k/uL (0-0.2); Basophils % (A) 1 %; Eosinophils # (A) 0.2 k/uL (0-0.7); Eosinophils % (A) 1 %; HCT 43.5 % (39.0-53.0); HGB 14.6 gm/dL (13.0-17.5); Lymphocytes # (A) 7.9 k/uL (1.0-4.8); Lymphocytes % (A) 37 %; MCH 32.8 pg (25.0-35.0); MCHC 33.7 g/dL (31.0-37.0); MCV 97.4 fL (80.0-100.0); Mean Platelet Volume 7.5; Monocytes # (A) 1.4 k/uL (0-1.0); Monocytes % (A) 6 %; Neutrophils # (A) 11.2 k/uL (1.3-7.7); Neutrophils % (A) 53 %; Platelet Count 257 k/uL (150-450); RBC 4.46 m/uL (4.30-5.90); RDW 12.5 % (11.5-15.5); WBC 21.2 k/uL (3.8-10.6)
[2021-01-10 20:39] LABS: Appearance,Urine Cloudy (Clear); Bacteria,Urine Occasional /hpf; Bilirubin,Urine Negative (Negative); Blood,Urine Moderate (Negative); Color,Urine Yellow; Glucose,Urine (UA) 1+ (Negative); Hyaline Casts,Urine 3 /lpf (0-2); Ketones,Urine Trace (Negative); Leukocyte Esterase,Urine Negative (Negative); Mucus,Urine Occasional /hpf; Nitrite,Urine Negative (Negative); PH, Urine 5.5 (5.0-8.0); Protein,Urine 2+ (Negative); RBC,Urine 1 /hpf (0-5); Squamous Epithelial Cell,Urine <1 /hpf (0-4); Urobilinogen,Urine <2.0 mg/dL (<2.0); WBC,Urine 4 /hpf (0-5)
[2021-01-10 20:50] LABS: AST 414 U/L (17-59); African American GFR (CKD) 38 (>60 ml/min/1.73 sqM); Albumin 4.7 g/dL (3.5-5.0); Alcohol <10 mg/dL; Alkaline Phosphatase 40 U/L (38-126); Anion Gap 22 mmol/L; Blood Urea Nitrogen 41 mg/dL (9-20); Calcium 8.6 mg/dL (8.4-10.2); Carbon Dioxide 17 mmol/L (22-30); Chloride 99 mmol/L (98-107); Glucose 383 mg/dL (74-99); Magnesium 3.8 mg/dL (1.6-2.3); Non-African American GFR(CKD) 33 (>60 ml/min/1.73 sqM); Sodium 138 mmol/L (137-145); Total Bilirubin 1.7 mg/dL (0.2-1.3); Total Protein 7.5 g/dL (6.3-8.2)
[2021-01-10 20:56] LABS: ALT 104 U/L (4-49)
[2021-01-10 20:58] LABS: Potassium 5.2 mmol/L (3.5-5.1)
[2021-01-10 21:00] LABS: Amphetamine Screen,Urine Not Detected (NotDetected); Barbiturate Screen,Urine Not Detected (NotDetected); Benzodiazepines Screen,Urine Not Detected (NotDetected); Cocaine Screen,Urine Detected (NotDetected); Methadone Screen, Urine Not Detected (NotDetected); Opiate Screen,Urine Detected (NotDetected); Oxycodone Screen, Urine Not Detected (NotDetected); Phencyclidine Screen,Urine Not Detected (NotDetected); Tricyclic Antidepressant,Urine Not Detected (NotDetected); Urn Cannabinoid Scrn Not Detected (NotDetected)
[2021-01-10 21:04] LABS: ABG Base Excess -11.4 mmol/L; ABG HCO3 20 mmol/L (21-25); ABG Oxygen Saturation 98.8 % (94-97); ABG PO2 214 mmHg (83-108); ABG TCO2 22 mmol/L (19-24); Allen Test Performed? Yes
--- NOTE | 2021-01-10 21:10 | XR ---
EXAMINATION TYPE: XR chest 1V portable DATE OF EXAM: 01/10/2021 COMPARISON: None INDICATION: Cardiac arrest TECHNIQUE: Single frontal view of the chest is obtained. FINDINGS: The heart size is normal. The pulmonary vasculature is prominent. There are increased infiltrates in the upper lung marroquin greater on the right. These appear more cent ral. Findings are nonspecific. There is been placement of an endotracheal tube with the tip 2.5 cm above the poli. Nasogastric tub e transverses the thorax with the tip in the midline. Cardiac pads are present. Small nodules in the periphery of the right lower lung field. IMPRESSION: 1. Lines and catheters discussed above. 2. Increased central upper lobe lung markings of uncertain etiology. This is greater on the right. Fo llow-up is recommended.
[2021-01-10] MEDS ORDERED: AMPICILLIN-SULBACTAM 3 GM in SODIUM CHLORIDE 0.9% 100 ML IVPB STA (21:12)
[2021-01-10 21:23] LABS: INR 1.2 (<1.2); Partial Thromboplastin Time 21.2 sec (22.0-30.0); Prothrombin Time 12.1 sec (9.0-12.0)
--- NOTE | 2021-01-10 22:04 | CT ---
EXAMINATION TYPE: CT brain cspine wo con DATE OF EXAM: 01/10/2021 COMPARISON: 06/10/2013 HISTORY: ams, unresponsive CT DLP: 1639.2 mGycm, Automated exposure control for dose reduction was used. CONTRAST: None CT of the brain is performed utilizing 3 mm thick sections through the posterior fossa and 3 mm thick sections through the remaining calvarium. Study is performed within 24 hours of arrival to the hospital. No abnormal hyperdensity is present to suggest an acute intracranial hemorrhage. No mass lesion is evident. No acute infarcts are evident. Ventricles and sulci are appropriate for the patient age. There is an air-fluid level within the left maxillary sinus. Mucosal thickening is 2 ethmoid air cell s. Some fluid is in the posterior nasal passage. Findings could be related to patient's intubation an d nasogastric tube. Mastoid air cells remain clear. IMPRESSIONS: 1. No acute intracranial process. CT cervical spine. COMPARISON: None CT of the cervical spine is performed in the axial plane at 2 mm thick sections. Reconstructed image s in the coronal, and sagittal plane are reviewed on the computer. No acute fractures are evident. Vertebral body alignment is normal. Disc heights are preserved. Vertebral body heights are preserved. No spinal canal stenosis is evident. No neural foraminal stenosis is evident. Patient is intubated and has a nasogastric tube. This may account for air-fluid level within the left maxillary sinus and mucosal thickening through the ethmoid air cells. Some right apical infiltrate is present. Correlate for pneumonia. Consider atypical pneumonia. This w ould be an unusual location for aspiration. IMPRESSIONS: 1. Acute osseous abnormality cervical spine
[2021-01-10] MEDS ORDERED: HYDROmorphone 0.5 MG/0.5 ML SYRINGE IVP PRN (22:09)
[2021-01-10] MEDS ORDERED: NALOXONE 0.4 MG/ML 1 ML VIAL IV PRN (22:09)
[2021-01-10 23:21] LABS: ABG Base Excess -3.5 mmol/L; ABG HCO3 23 mmol/L (21-25); ABG Oxygen Saturation 99.7 % (94-97); ABG PCO2 51 mmHg (35-45); ABG PH 7.27 (7.35-7.45); ABG PO2 226 mmHg (83-108); ABG TCO2 25 mmol/L (19-24); Allen Test Performed? Yes
[2021-01-11] MEDS: AMPICILLIN-SULBACTAM 3 GM in SODIUM CHLORIDE 0.9% 100 ML IVPB SCH ×3 (00:31→17:54)
--- NOTE | 2021-01-11 01:14 | P.HPIM ---
History of Present Illness H&P Date: 01/11/21 The patient is a 50-year-old male with a PMH of cataracts who was brought in after an unwitnessed arrest. The patient was found laying in his driveway by his significant other who subsequently activated EMS. As per the ED physician, the patient was found by EMS with vomitus nearby. Patient was intubated and CPR was performed with IVP Epinephrine x 3 with subsequent ROSC. Patient was also reported to have pink vomitus appearing material in the oropharynx during the intubation. The patient was intubated during the interview and thereby history obtained from the chart review. Attended to contact the daughter on the listed number in the chart with no answer. Head and cervical spine CT in the emergency room was unremarkable with EKG also showing normal sinus rhythm at [address]/T-wave changes noted as reviewed by me. Chest x-ray revealed increased infiltrates in the upper lung marroquin with right greater than left. After evaluation was remarkable for leukocytosis 21.2, lactic acid 10.9, troponin 0.114, magnesium 3.8, total bili 1.7, AST 414, ALT 104, glucose 383, BUN 41, cr eatinine 2.23, potassium 5.2 (hemolyzed specimen), with urine toxicology positive for amphetamines and cocaine. Review of Systems Pertinent positives and negatives as discussed in HPI, a complete review of systems was performed and all other systems are negative. Past Medical History Past Medical History: No Reported History, Eye Disorder Additional Past Medical History / Comment(s): LT CATARACT History of Any Multi-Drug Resistant Organisms: None Reported Past Surgical History: Orthopedic Surgery Additional Past Surgical History / Comment(s): rt leg plates and screws. RT CATARACT REMOVED 02/09/18 Past Anesthesia/Blood Transfusion Reactions: No Reported Reaction Past Psychological History: No Psychological Hx Reported Past Alcohol Use History: None Reported Past Drug Use History: None Reported - Past Family History Mother Family Medical History: Cancer, COPD Medications and Allergies Home Medications Medication Instructions Recorded Confirmed Type No Known Home Medications 01/10/21 01/10/21 History Allergies Allergy/AdvReac Type Severity Reaction Status Date / Time ibuprofen [From Motrin] AdvReac Nausea & Verified 01/10/21 20:44 Vomiting Physical Exam Vitals: Vital Signs Temp Pulse Resp BP Pulse Ox 01/10/21 21:10 82 20 135/72 97 01/10/21 21:05 95 21 135/77 94 L 01/10/21 21:00 92 17 138/84 99 01/10/21 20:55 89 16 128/73 01/10/21 20:52 18 128/73 100 01/10/21 20:21 97.3 F L 91 18 167/97 98 Intake and Output 01/10/21 01/10/21 01/10/21 06:59 14:59 22:59 Intake Total 1.721 Balance 1.721 Intake: Intake, IV Titration 1.721 Amount propofoL 1,000 mg In 1.721 Empty Bag 1 bag @ Titrate IV .Q0M [facility] Rx#: [id number] Other: Weight 92.986 kg General: Intubated male, non toxic, no distress, appears at stated age, overweight Derm: no unusual rashes/lesions no unusual ecchymoses, warm, dry Head: atraumatic, normocephalic, symmetric Eyes: anicteric sclera, pupils equal round reactive to light ENT: Nose and ears atraumatic, no thrush, no pharyngeal erythema Neck: No thyromegaly, no cervical lymphadenopathy, trachea midline, supple Mouth: no lip lesion, ET tube in place Cardiovascular: S1S2 reg, no murmur, positive posterior tibial pulse bilateral, no edema, capillary refill less than 2 seconds Lungs: CTA bilateral, no rhonchi, no rales , no accessory muscle use Abdominal: soft, nontender to palpation, no guarding, no appreciable organomegaly, normal bowel sounds Ext: Unable to perform, patient grimacing on noxious stimuli Neuro: Patient grimacing on noxious stimuli, unable to perform, moving all extremities Results CBC & Chem 7: 01/10/21 20:25 01/10/21 20:25 Labs: Abnormal Lab Results - Last 24 Hours (Table) 01/10/21 01/10/21 01/10/21 Range/Units 20:25 20:25 20:25 WBC 21.2 H (3.8-10.6) k/uL Neutrophils # 11.2 H (1.3-7.7) k/uL Lymphocytes # 7.9 H (1.0-4.8) k/uL Monocytes # 1.4 H (0-1.0) k/uL VBG pH (7.31-7.41) VBG pCO2 (37-51) mmHg VBG HCO3 (24-28) mmol/L Potassium 5.2 H (3.5-5.1) mmol/L Carbon Dioxide 17 L (22-30) mmol/L BUN 41 H (9-20) mg/dL Creatinine 2.23 H (0.66-1.25) mg/dL Glucose 383 H (74-99) mg/dL Plasma Lactic Acid Paresh (0.7-2.0) mmol/L Magnesium 3.8 H (1.6-2.3) mg/dL Total Bilirubin 1.7 H (0.2-1.3) mg/dL AST 414 H (17-59) U/L ALT 104 H (4-49) U/L Troponin I 0.114 H* (0.000-0.034) ng/mL Urine Protein (Negative) Urine Glucose (UA) (Negative) Urine Ketones (Negative) Urine Blood (Negative) Urine Bacteria (None) /hpf Hyaline Casts (0-2) /lpf Urine Mucus (None) /hpf Urine Opiates Screen (NotDetected) U Methamphetamines Scrn (NotDetected) Urine Cocaine Screen (NotDetected) 01/10/21 01/10/21 01/10/21 Range/Units 20:25 20:25 20:25 WBC (3.8-10.6) k/uL Neutrophils # (1.3-7.7) k/uL Lymphocytes # (1.0-4.8) k/uL Monocytes # (0-1.0) k/uL VBG pH 7.00 L* (7.31-7.41) VBG pCO2 74 H* (37-51) mmHg VBG HCO3 17 L (24-28) mmol/L Potassium (3.5-5.1) mmol/L Carbon Dioxide (22-30) mmol/L BUN (9-20) mg/dL Creatinine (0.66-1.25) mg/dL Glucose (74-99) mg/dL Plasma Lactic Acid Paresh 10.9 H* (0.7-2.0) mmol/L Magnesium (1.6-2.3) mg/dL Total Bilirubin (0.2-1.3) mg/dL AST (17-59) U/L ALT (4-49) U/L Troponin I (0.000-0.034) ng/mL Urine Protein 2+ H (Negative) Urine Glucose (UA) 1+ H (Negative) Urine Ketones Trace H (Negative) Urine Blood Moderate H (Negative) Urine Bacteria Occasional H (None) /hpf Hyaline Casts 3 H (0-2) /lpf Urine Mucus Occasional H (None) /hpf Urine Opiates Screen Detected H (NotDetected) U Methamphetamines Scrn Detected H (NotDetected) Urine Cocaine Screen Detected H (NotDetected) Assessment and Plan Plan: Unwitnessed cardiac arrest, suspected secondary to aspiration -Trend troponin -Cardiology consult -Cardiac monitoring -Continue with ventilator bundle -Continue with Unasyn -Follow-up sputum cultures Lactic acidosis -Monitor for resolution -IV fluids Elevated troponin, unclear if type II AL versus NSTEMI -Continue to trend for now -Cardiac monitoring Hyperglycemia -Check A1c -Lispro insulin sliding scale blood glucose monitoring Abnormal kidney function, acute versus chronic -Continue with IV fluids -Monitor BMP for now Leukocytosis -Likely due to acute stressor Substance abuse -Monitor for signs of withdrawal DVT prophylaxis -Heparin The patient is admitted with an anticipated greater than 2 midnight stay for evaluation of cardiac arrest CODE STATUS: Full Code Discussed with: RN Anticipated discharge date: 4-[address]: Home A total of 40 minutes was spent on the care of this complex patient more than 50% of the time was spent in counseling and care coordination.
[2021-01-11 05:38] LABS: HCT 38.7 % (39.0-53.0); HGB 13.7 gm/dL (13.0-17.5); MCH 33.2 pg (25.0-35.0); MCHC 35.5 g/dL (31.0-37.0); MCV 93.7 fL (80.0-100.0); Mean Platelet Volume 7.1; Platelet Count 197 k/uL (150-450); RBC 4.13 m/uL (4.30-5.90); RDW 12.6 % (11.5-15.5); WBC 14.4 k/uL (3.8-10.6)
[2021-01-11 05:49] LABS: Albumin 3.7 g/dL (3.5-5.0); Calcium 7.5 mg/dL (8.4-10.2); Potassium 5.7 mmol/L (3.5-5.1); Total Protein 6.3 g/dL (6.3-8.2)
[2021-01-11 06:55] LABS: Glucose,Whole Blood 139 mg/dL (75-99)
[2021-01-11] MEDS ORDERED: INSULIN ASPART (NovoLOG) 100 UNIT/ML VIAL SQ SCH (07:30)
--- NOTE | 2021-01-11 10:16 | P.CNPUL ---
History of Present Illness Consult date: 01/11/21 Requesting physician: Olena Sung Reason for consult: other Chief complaint: Out of hospital cardiopulmonary arrest. History of present illness: 50-year-old male, who had a unwitnessed cardiac arrest, out of the hospital. He was apparently found down on his driveway. Apparently there was also some vomit neck to the patient, so I it was thought that he may be aspirated. When EMS arrived, he was asystole. CPR was initiated, but it was unclear how long he was down. He underwent chest compressions, rounds of epinephrine, and then eventually had return of spontaneous circulation. He was intubated in the field with a 7-1/2 endotracheal tube. I was called by the ER physician. The patien t's currently in the emergency room still. He isn't ER trauma to room. He is on the ventilator. He is on the volume assist control mode, rate 20, tidal volume 450, FiO2 50%, PEEP of 5. Gases from yesterday, show a PaO2 of 226, pCO2 of 51, and pH is 7.27. Repeat blood gases have not yet been done. The patient's on propofol at 5 g kilogram per minute, and saline at 75 mL an hour. Appears to be an infiltrate in the right midlung right upper lobe, may be from aspiration. Head CT and C-spine x-rays are all negative. Patient is currently unresponsive in part related to his sedation. Apparently there is no past medical history other than a cataract in the left eye, and some sort of surgery with plates and screws to his right leg. White count 14.4, hemoglobin 13.7, hematocrit 38.7, platelet count 197,000. Sodium 139, potassium 5.7, chlorides 108, CO2 26, anion gap 5, BUN 36, creatinine 1.39. AST was 42, ALT 95, troponin 0.147. Coronavirus testing was negative. Review of Systems REVIEW OF SYSTEMS: Review of systems cannot be obtained as the patient is currently ventilated, and unresponsive. CONSTITUTIONAL: [Negative.] NEUROLOGIC: [ Negative.] HEENT: [ Negative.] CARDIAC: [Negative.] PULMONARY: [Negative.] GI: [Negative.] : [Negative.] RHEUMATOLOGIC: [ Negative.] IMMUNOLOGIC: [ Negative.] ENDOCRINE: [Negative. ] DERMATOLOGIC: [Negative.] Past Medical History Past Medical History: No Reported History, Eye Disorder Additional Past Medical History / Comment(s): LT CATARACT History of Any Multi-Drug Resistant Organisms: None Reported Past Surgical History: Orthopedic Surgery Additional Past Surgical History / Comment(s): rt leg plates and screws. RT CATARACT REMOVED 02/09/18 Past Anesthesia/Blood Transfusion Reactions: No Reported Reaction Past Psychological History: No Psychological Hx Reported Past Alcohol Use History: None Reported Past Drug Use History: None Reported - Past Family History Mother Family Medical History: Cancer, COPD Medications and Allergies Home Medications Medication Instructions Recorded Confirmed Type No Known Home Medications 01/10/21 01/10/21 History Allergies Allergy/AdvReac Type Severity Reaction Status Date / Time ibuprofen [From Motrin] AdvReac Nausea & Verified 01/10/21 20:44 Vomiting Physical Exam Osteopathic Statement: *. No significant issues noted on an osteopathic structural exam other than those noted in the History and Physical/Consult. Vitals: Vital Signs Temp Pulse Resp BP Pulse Ox 01/11/21 09:00 72 20 102/53 95 01/11/21 08:37 92 22 129/63 96 01/11/21 08:00 78 20 99/57 01/11/21 07:00 64 20 98/61 98 01/11/21 06:00 99.0 F 64 20 101/57 98 01/11/21 05:00 64 20 103/57 98 01/11/21 04:00 64 20 108/60 98 01/11/21 03:00 66 20 110/59 98 01/11/21 02:00 70 20 107/60 98 01/11/21 01:00 62 20 110/64 98 01/11/21 00:00 75 20 107/67 99 01/10/21 22:50 66 15 104/65 97 01/10/21 22:45 68 19 106/61 98 01/10/21 22:40 69 23 102/62 98 01/10/21 22:35 71 14 103/63 98 01/10/21 22:30 72 22 103/62 98 01/10/21 22:25 74 24 98/58 99 01/10/21 22:20 75 24 104/64 100 01/10/21 22:15 74 21 104/66 100 01/10/21 22:10 76 25 H 106/66 100 01/10/21 22:05 77 15 113/67 100 01/10/21 22:00 82 25 H 103/65 99 01/10/21 21:55 93 8 L 111/63 97 01/10/21 21:40 98 18 129/69 01/10/21 21:35 88 16 129/69 01/10/21 21:30 93 15 124/74 98 01/10/21 21:25 94 22 125/72 96 01/10/21 21:20 94 21 130/86 98 01/10/21 21:15 93 19 127/69 99 01/10/21 21:10 82 20 135/72 97 01/10/21 21:05 95 21 135/77 94 L 01/10/21 21:00 92 17 138/84 99 01/10/21 20:55 89 16 128/73 01/10/21 20:52 18 128/73 100 01/10/21 20:37 18 01/10/21 20:21 97.3 F L 91 18 167/97 98 Intake and Output 01/10/21 01/11/21 01/11/21 22:59 06:59 14:59 Intake Total 13.438 35.385 Output Total 700 Balance 13.438 -700 35.385 Intake: Intake, IV Titration 13.438 35.385 Amount propofoL 1,000 mg In 13.438 35.385 Empty Bag 1 bag @ Titrate IV .Q0M [facility] Rx#: [id number] Output: Urine 700 Other: Weight 92.986 kg No acute distress, sedated, and mechanically ventilated. HEENT examination is grossly unremarkable. There is an orally placed endotracheal tube and NG tube. Neck supple. Full range of motion. No adenopathy thyromegaly or neck vein distention. Cardiovascular examination reveals regular rhythm rate. S1-S2 normal. No S3 or S4. No discernible murmur noted. Heart sounds are distant. Heart rate 72 bpm. Lungs reveal mostly clear breath sounds. A few scattered rhonchi are noted. No wheezes or crackles. Breath sounds equal. Abdomen soft bowel sounds are heard. No masses or tenderness. Extremities are intact. No cyanosis clubbing or edema. Skin is without rash or lesion. Neurologic examination cannot be adequately assessed. The patient is currently ventilated and sedated. Results - Laboratory Findings CBC and BMP: 01/11/21 05:05 01/11/21 05:05 ABG ABG pH 7.27 (7.35-7.45) L 01/10/21 23:16 ABG pCO2 51 mmHg (35-45) H 01/10/21 23:16 ABG pO2 226 mmHg (83-108) H 01/10/21 23:16 ABG O2 Saturation 99.7 % (94-97) H 01/10/21 23:16 PT/INR, D-dimer PT 12.1 sec (9.0-12.0) H 01/10/21 20:25 INR 1.2 (<1.2) H 01/10/21 20:25 Abnormal lab findings: Abnormal Labs 01/10/21 01/10/21 01/10/21 20:25 20:25 20:25 WBC 21.2 H RBC Hct Neutrophils # 11.2 H Lymphocytes # 7.9 H Monocytes # 1.4 H PT 12.1 H INR 1.2 H APTT 21.2 L ABG pH ABG pCO2 ABG pO2 ABG Total CO2 ABG O2 Saturation VBG pH VBG pCO2 VBG HCO3 Potassium 5.2 H Chloride Carbon Dioxide 17 L BUN 41 H Creatinine 2.23 H Glucose 383 H POC Glucose (mg/dL) Plasma Lactic Acid Paresh Calcium Magnesium 3.8 H Total Bilirubin 1.7 H AST 414 H ALT 104 H Troponin I Urine Protein Urine Glucose (UA) Urine Ketones Urine Blood Urine Bacteria Hyaline Casts Urine Mucus Urine Opiates Screen U Methamphetamines Scrn Urine Cocaine Screen 01/10/21 01/10/21 01/10/21 20:25 20:25 20:25 WBC RBC Hct Neutrophils # Lymphocytes # Monocytes # PT INR APTT ABG pH ABG pCO2 ABG pO2 ABG Total CO2 ABG O2 Saturation VBG pH VBG pCO2 VBG HCO3 Potassium Chloride Carbon Dioxide BUN Creatinine Glucose POC Glucose (mg/dL) Plasma Lactic Acid Paresh 10.9 H* Calcium Magnesium Total Bilirubin AST ALT Troponin I 0.114 H* Urine Protein 2+ H Urine Glucose (UA) 1+ H Urine Ketones Trace H Urine Blood Moderate H Urine Bacteria Occasional H Hyaline Casts 3 H Urine Mucus Occasional H Urine Opiates Screen Detected H U Methamphetamines Scrn Detected H Urine Cocaine Screen Detected H 01/10/21 01/10/21 01/11/21 20:25 23:16 05:05 WBC 14.4 H RBC 4.13 L Hct 38.7 L Neutrophils # Lymphocytes # Monocytes # PT INR APTT ABG pH 7.27 L ABG pCO2 51 H ABG pO2 226 H ABG Total CO2 25 H ABG O2 Saturation 99.7 H VBG pH 7.00 L* VBG pCO2 74 H* VBG HCO3 17 L Potassium Chloride Carbon Dioxide BUN Creatinine Glucose POC Glucose (mg/dL) Plasma Lactic Acid Paresh Calcium Magnesium Total Bilirubin AST ALT Troponin I Urine Protein Urine Glucose (UA) Urine Ketones Urine Blood Urine Bacteria Hyaline Casts Urine Mucus Urine Opiates Screen U Methamphetamines Scrn Urine Cocaine Screen 01/11/21 01/11/21 01/11/21 05:05 05:05 06:53 WBC RBC Hct Neutrophils # Lymphocytes # Monocytes # PT INR APTT ABG pH ABG pCO2 ABG pO2 ABG Total CO2 ABG O2 Saturation VBG pH VBG pCO2 VBG HCO3 Potassium 5.7 H Chloride 108 H Carbon Dioxide BUN 36 H Creatinine 1.39 H Glucose 115 H POC Glucose (mg/dL) 139 H Plasma Lactic Acid Paresh Calcium 7.5 L Magnesium Total Bilirubin AST 242 H ALT 95 H Troponin I 0.147 H* Urine Protein Urine Glucose (UA) Urine Ketones Urine Blood Urine Bacteria Hyaline Casts Urine Mucus Urine Opiates Screen U Methamphetamines Scrn Urine Cocaine Screen - Diagnostic Findings Chest x-ray: image reviewed Assessment and Plan Assessment: [id number] cardiopulmonary arrest, with unknown downtime, status post cardiopulmonary resuscitation with return of spontaneous circulation (CPA/CPR/ROSC). The patient is currently sedated, intubated and mechanically ventilated in the emergency room. Rule out anoxic brain injury. Possible aspiration pneumonia, right upper lung. History of cataract, left eye. Plan: Plan dated 01/11/2021. Currently, the patient is on Unasyn. He is also getting IV fluids. The patient should be started on albuterol sulfate, and ipratropium bromide, every 4 hours around the clock. He also needs both GI and DVT prophylaxis. We will attempt to make a bed for him in the intensive care unit. Additional recommendations and suggestions are forthcoming. Prognosis is guarded. He will likely need an arterial line, and a central line. Chest x-ray, labs, and medications are all reviewed. Time with Patient: Greater than 30
[2021-01-11 11:24] LABS: Glucose,Whole Blood 163 mg/dL (75-99)
[2021-01-11] MEDS: INSULIN ASPART (NovoLOG) 100 UNIT/ML VIAL SQ SCH ×3 (11:35→18:40)
[2021-01-11] MEDS: SODIUM CHLORIDE 0.9% 1,000 ML IV SCH (11:43)
[2021-01-11] MEDS: HEPARIN SODIUM,PORCINE/PF 5,000 UNIT/0.5 ML SYRINGE SQ SCH ×2 (11:47→17:53)
[2021-01-11] MEDS: ACETAMINOPHEN SUPPOSITORY 650 MG SUPP RECTAL PRN (11:48)
--- NOTE | 2021-01-11 12:00 | P.PN ---
Subjective Progress Note Date: 01/11/21 Pt is intubated and sedated. Has + gag reflex, ALVAREZ. Objective - Vital Signs Vital signs: Vital Signs Temp 99.0 F 01/11/21 06:00 Pulse 70 01/11/21 11:00 Resp 20 01/11/21 11:00 BP 98/51 01/11/21 11:00 Pulse Ox 95 01/11/21 11:00 Intake & Output 01/10/21 01/11/21 01/11/21 18:59 06:59 18:59 Intake Total 13.438 35.385 Output Total 700 600 Balance -686.562 -564.615 Weight 92.986 kg Intake: Intake, IV Titration 13.438 35.385 Amount propofoL 1,000 mg In 13.438 35.385 Empty Bag 1 bag @ Titrate IV .Q0M [facility] Rx#: [id number] Output: Urine 700 600 - Exam Gen: Intubated, sedated HEENT: normocephalic, atraumatic, good hearing acuity, moist mucous membranes Resp: good air exchange, breathing comfortably with no accessory muscle use CVS: good distal perfusion x 4, GI: soft, NTTP, ND : no SPT, no CVAT, manuel catheter is present MSK: no pitting edema, no clubbing Neuro: Positive gag reflex, moving all extremities - Labs CBC & Chem 7: 01/11/21 05:05 01/11/21 05:05 Labs: Abnormal Lab Results - Last 24 Hours (Table) 01/10/21 01/10/21 01/10/21 Range/Units 20:25 20:25 20:25 WBC 21.2 H (3.8-10.6) k/uL RBC (4.30-5.90) m/uL Hct (39.0-53.0) % Neutrophils # 11.2 H (1.3-7.7) k/uL Lymphocytes # 7.9 H (1.0-4.8) k/uL Monocytes # 1.4 H (0-1.0) k/uL PT 12.1 H (9.0-12.0) sec INR 1.2 H (<1.2) APTT 21.2 L (22.0-30.0) sec ABG pH (7.35-7.45) ABG pCO2 (35-45) mmHg ABG pO2 (83-108) mmHg ABG Total CO2 (19-24) mmol/L ABG O2 Saturation (94-97) % VBG pH (7.31-7.41) VBG pCO2 (37-51) mmHg VBG HCO3 (24-28) mmol/L Potassium 5.2 H (3.5-5.1) mmol/L Chloride (98-107) mmol/L Carbon Dioxide 17 L (22-30) mmol/L BUN 41 H (9-20) mg/dL Creatinine 2.23 H (0.66-1.25) mg/dL Glucose 383 H (74-99) mg/dL POC Glucose (mg/dL) (75-99) mg/dL Plasma Lactic Acid Paresh (0.7-2.0) mmol/L Calcium (8.4-10.2) mg/dL Magnesium 3.8 H (1.6-2.3) mg/dL Total Bilirubin 1.7 H (0.2-1.3) mg/dL AST 414 H (17-59) U/L ALT 104 H (4-49) U/L Troponin I (0.000-0.034) ng/mL Urine Protein (Negative) Urine Glucose (UA) (Negative) Urine Ketones (Negative) Urine Blood (Negative) Urine Bacteria (None) /hpf Hyaline Casts (0-2) /lpf Urine Mucus (None) /hpf Urine Opiates Screen (NotDetected) U Methamphetamines Scrn (NotDetected) Urine Cocaine Screen (NotDetected) 01/10/21 01/10/21 01/10/21 Range/Units 20:25 20:25 20:25 WBC (3.8-10.6) k/uL RBC (4.30-5.90) m/uL Hct (39.0-53.0) % Neutrophils # (1.3-7.7) k/uL Lymphocytes # (1.0-4.8) k/uL Monocytes # (0-1.0) k/uL PT (9.0-12.0) sec INR (<1.2) APTT (22.0-30.0) sec ABG pH (7.35-7.45) ABG pCO2 (35-45) mmHg ABG pO2 (83-108) mmHg ABG Total CO2 (19-24) mmol/L ABG O2 Saturation (94-97) % VBG pH (7.31-7.41) VBG pCO2 (37-51) mmHg VBG HCO3 (24-28) mmol/L Potassium (3.5-5.1) mmol/L Chloride (98-107) mmol/L Carbon Dioxide (22-30) mmol/L BUN (9-20) mg/dL Creatinine (0.66-1.25) mg/dL Glucose (74-99) mg/dL POC Glucose (mg/dL) (75-99) mg/dL Plasma Lactic Acid Paresh 10.9 H* (0.7-2.0) mmol/L Calcium (8.4-10.2) mg/dL Magnesium (1.6-2.3) mg/dL Total Bilirubin (0.2-1.3) mg/dL AST (17-59) U/L ALT (4-49) U/L Troponin I 0.114 H* (0.000-0.034) ng/mL Urine Protein 2+ H (Negative) Urine Glucose (UA) 1+ H (Negative) Urine Ketones Trace H (Negative) Urine Blood Moderate H (Negative) Urine Bacteria Occasional H (None) /hpf Hyaline Casts 3 H (0-2) /lpf Urine Mucus Occasional H (None) /hpf Urine Opiates Screen Detected H (NotDetected) U Methamphetamines Scrn Detected H (NotDetected) Urine Cocaine Screen Detected H (NotDetected) 01/10/21 01/10/21 01/11/21 Range/Units 20:25 23:16 05:05 WBC 14.4 H (3.8-10.6) k/uL RBC 4.13 L (4.30-5.90) m/uL Hct 38.7 L (39.0-53.0) % Neutrophils # (1.3-7.7) k/uL Lymphocytes # (1.0-4.8) k/uL Monocytes # (0-1.0) k/uL PT (9.0-12.0) sec INR (<1.2) APTT (22.0-30.0) sec ABG pH 7.27 L (7.35-7.45) ABG pCO2 51 H (35-45) mmHg ABG pO2 226 H (83-108) mmHg ABG Total CO2 25 H (19-24) mmol/L ABG O2 Saturation 99.7 H (94-97) % VBG pH 7.00 L* (7.31-7.41) VBG pCO2 74 H* (37-51) mmHg VBG HCO3 17 L (24-28) mmol/L Potassium (3.5-5.1) mmol/L Chloride (98-107) mmol/L Carbon Dioxide (22-30) mmol/L BUN (9-20) mg/dL Creatinine (0.66-1.25) mg/dL Glucose (74-99) mg/dL POC Glucose (mg/dL) (75-99) mg/dL Plasma Lactic Acid Paresh (0.7-2.0) mmol/L Calcium (8.4-10.2) mg/dL Magnesium (1.6-2.3) mg/dL Total Bilirubin (0.2-1.3) mg/dL AST (17-59) U/L ALT (4-49) U/L Troponin I (0.000-0.034) ng/mL Urine Protein (Negative) Urine Glucose (UA) (Negative) Urine Ketones (Negative) Urine Blood (Negative) Urine Bacteria (None) /hpf Hyaline Casts (0-2) /lpf Urine Mucus (None) /hpf Urine Opiates Screen (NotDetected) U Methamphetamines Scrn (NotDetected) Urine Cocaine Screen (NotDetected) 01/11/21 01/11/21 01/11/21 Range/Units 05:05 05:05 06:53 WBC (3.8-10.6) k/uL RBC (4.30-5.90) m/uL Hct (39.0-53.0) % Neutrophils # (1.3-7.7) k/uL Lymphocytes # (1.0-4.8) k/uL Monocytes # (0-1.0) k/uL PT (9.0-12.0) sec INR (<1.2) APTT (22.0-30.0) sec ABG pH (7.35-7.45) ABG pCO2 (35-45) mmHg ABG pO2 (83-108) mmHg ABG Total CO2 (19-24) mmol/L ABG O2 Saturation (94-97) % VBG pH (7.31-7.41) VBG pCO2 (37-51) mmHg VBG HCO3 (24-28) mmol/L Potassium 5.7 H (3.5-5.1) mmol/L Chloride 108 H (98-107) mmol/L Carbon Dioxide (22-30) mmol/L BUN 36 H (9-20) mg/dL Creatinine 1.39 H (0.66-1.25) mg/dL Glucose 115 H (74-99) mg/dL POC Glucose (mg/dL) 139 H (75-99) mg/dL Plasma Lactic Acid Paresh (0.7-2.0) mmol/L Calcium 7.5 L (8.4-10.2) mg/dL Magnesium (1.6-2.3) mg/dL Total Bilirubin (0.2-1.3) mg/dL AST 242 H (17-59) U/L ALT 95 H (4-49) U/L Troponin I 0.147 H* (0.000-0.034) ng/mL Urine Protein (Negative) Urine Glucose (UA) (Negative) Urine Ketones (Negative) Urine Blood (Negative) Urine Bacteria (None) /hpf Hyaline Casts (0-2) /lpf Urine Mucus (None) /hpf Urine Opiates Screen (NotDetected) U Methamphetamines Scrn (NotDetected) Urine Cocaine Screen (NotDetected) 01/11/21 Range/Units 11:22 WBC (3.8-10.6) k/uL RBC (4.30-5.90) m/uL Hct (39.0-53.0) % Neutrophils # (1.3-7.7) k/uL Lymphocytes # (1.0-4.8) k/uL Monocytes # (0-1.0) k/uL PT (9.0-12.0) sec INR (<1.2) APTT (22.0-30.0) sec ABG pH (7.35-7.45) ABG pCO2 (35-45) mmHg ABG pO2 (83-108) mmHg ABG Total CO2 (19-24) mmol/L ABG O2 Saturation (94-97) % VBG pH (7.31-7.41) VBG pCO2 (37-51) mmHg VBG HCO3 (24-28) mmol/L Potassium (3.5-5.1) mmol/L Chloride (98-107) mmol/L Carbon Dioxide (22-30) mmol/L BUN (9-20) mg/dL Creatinine (0.66-1.25) mg/dL Glucose (74-99) mg/dL POC Glucose (mg/dL) 163 H (75-99) mg/dL Plasma Lactic Acid Paresh (0.7-2.0) mmol/L Calcium (8.4-10.2) mg/dL Magnesium (1.6-2.3) mg/dL Total Bilirubin (0.2-1.3) mg/dL AST (17-59) U/L ALT (4-49) U/L Troponin I (0.000-0.034) ng/mL Urine Protein (Negative) Urine Glucose (UA) (Negative) Urine Ketones (Negative) Urine Blood (Negative) Urine Bacteria (None) /hpf Hyaline Casts (0-2) /lpf Urine Mucus (None) /hpf Urine Opiates Screen (NotDetected) U Methamphetamines Scrn (NotDetected) Urine Cocaine Screen (NotDetected) Microbiology - Last 24 Hours (Table) 01/11/21 01:54 Sputum Culture - Preliminary Sputum 01/10/21 21:04 Sputum Culture - Preliminary Sputum Assessment and Plan Assessment: Unwitnessed cardiac arrest, suspected secondary to aspiration -Trend troponin -Cardiology consult -Cardiac monitoring -Continue with ventilator bundle -Continue with Unasyn -Follow-up sputum cultures Lactic acidosis -Monitor for resolution -IV fluids Elevated troponin, unclear if type II [place] versus NSTEMI -Continue to trend for now -Cardiac monitoring Hyperglycemia -Check A1c -Lispro insulin sliding scale blood glucose monitoring Abnormal kidney function, acute versus chronic -Continue with IV fluids -Monitor BMP for now Leukocytosis -Likely due to acute stressor Substance abuse -Monitor for signs of withdrawal DVT prophylaxis -Heparin The patient is admitted with an anticipated greater than 2 midnight stay for evaluation of cardiac arrest CODE STATUS: Full Code Discussed with: ENA Anticipated discharge date: 4-[address]: Home
--- NOTE | 2021-01-11 12:32 | P.CRDCN ---
History of Present Illness Consult date: 01/11/21 History of present illness: This is a 50-year-old gentleman who requested to see as a consult in the intensive care unit for further evaluation of cardiopulmonary arrest. The patient currently is intubated and he is on mechanical ventilation. The history was taken from the chart as well as from the nurse taking care of the patient. Apparently the patient found down on his driveway with unknown down time. EMS arrived and the patient was in asystole. CPR was initiated and the patient was brought to normal sinus rhythm. The CPR time is unknown at this point. The patient was intubated on the field and he was brought to the emergency department. Currently the patient is on ventilator and he is on mechanical ventilation. No history of coronary artery disease or congestive heart failure or cardiac arrhythmia and as a matter of fact the patient doesn't take any medications at home. He underwent a computed tomography scan of the brain and that showed no acute injury. Troponin was checked and came in to be slightly elevated. The creatinine is slightly elevated. Also the potassium is elevated. Hemoglobin is within normal limits. Platelet within normal limits. Sodium is within normal is. Liver function tests are within normal limits. The patient was tested for COVID-19 and the test came in to be unremarkable. The patient currently is hemodynamically stable and he is not on any vasopressors. Past Medical History Past Medical History: No Reported History, Eye Disorder Additional Past Medical History / Comment(s): LT CATARACT History of Any Multi-Drug Resistant Organisms: None Reported Past Surgical History: Orthopedic Surgery Additional Past Surgical History / Comment(s): rt leg plates and screws. RT CATARACT REMOVED 02/09/18 Past Anesthesia/Blood Transfusion Reactions: No Reported Reaction Past Psychological History: No Psychological Hx Reported Past Alcohol Use History: None Reported Past Drug Use History: None Reported - Past Family History Mother Family Medical History: Cancer, COPD Medications and Allergies Home Medications Medication Instructions Recorded Confirmed Type No Known Home Medications 01/10/21 01/10/21 History Allergies Allergy/AdvReac Type Severity Reaction Status Date / Time ibuprofen [From Motrin] AdvReac Nausea & Verified 01/10/21 20:44 Vomiting Physical Exam Vitals: Vital Signs Temp Pulse Resp BP Pulse Ox 01/11/21 12:00 101.3 F H 69 20 94/59 95 01/11/21 11:00 70 20 98/51 95 01/11/21 10:00 71 20 95/52 95 01/11/21 09:00 72 20 102/53 95 01/11/21 08:37 92 22 129/63 96 01/11/21 08:00 78 20 99/57 01/11/21 07:00 64 20 98/61 98 01/11/21 06:00 99.0 F 64 20 101/57 98 01/11/21 05:00 64 20 103/57 98 01/11/21 04:00 64 20 108/60 98 01/11/21 03:00 66 20 110/59 98 01/11/21 02:00 70 20 107/60 98 01/11/21 01:00 62 20 110/64 98 01/11/21 00:00 75 20 107/67 99 01/10/21 22:50 66 15 104/65 97 01/10/21 22:45 68 19 106/61 98 01/10/21 22:40 69 23 102/62 98 01/10/21 22:35 71 14 103/63 98 01/10/21 22:30 72 22 103/62 98 01/10/21 22:25 74 24 98/58 99 01/10/21 22:20 75 24 104/64 100 01/10/21 22:15 74 21 104/66 100 01/10/21 22:10 76 25 H 106/66 100 01/10/21 22:05 77 15 113/67 100 01/10/21 22:00 82 25 H 103/65 99 01/10/21 21:55 93 8 L 111/63 97 01/10/21 21:40 98 18 129/69 01/10/21 21:35 88 16 129/69 01/10/21 21:30 93 15 124/74 98 01/10/21 21:25 94 22 125/72 96 01/10/21 21:20 94 21 130/86 98 01/10/21 21:15 93 19 127/69 99 01/10/21 21:10 82 20 135/72 97 01/10/21 21:05 95 21 135/77 94 L 01/10/21 21:00 92 17 138/84 99 01/10/21 20:55 89 16 128/73 01/10/21 20:52 18 128/73 100 04/09/21 20:37 18 01/10/21 20:21 97.3 F L 91 18 167/97 98 Intake and Output 01/10/21 01/11/21 01/11/21 22:59 06:59 14:59 Intake Total 13.438 185.385 Output Total 700 696 Balance 13.438 -700 -510.615 Intake: Intake, IV Titration 13.438 185.385 Amount Sodium Chloride 0.9% 1, 150 000 ml @ 75 mls/hr IV . [id number] [facility] Rx#:[id number] propofoL 1,000 mg In 438 35.385 Empty Bag 1 bag @ Titrate IV .Q0M [facility] Rx#: [id number] Output: Urine 700 696 Other: Weight 92.986 kg - Constitutional General appearance: no acute distress - Respiratory Respiratory: bilateral: CTA - Cardiovascular Rhythm: regular Heart sounds: normal: S1, S2 Results 01/11/21 05:05 01/11/21 05:05 Cardiac Enzymes 01/10/21 01/10/21 01/11/21 Range/Units 20:25 20:25 05:05 AST 414 H 242 H (17-59) U/L Troponin I 0.114 H* (0.000-0.034) ng/mL 01/11/21 Range/Units 05:05 AST (17-59) U/L Troponin I 0.147 H* (0.000-0.034) ng/mL Coagulation 01/10/21 Range/Units 20:25 PT 12.1 H (9.0-12.0) sec APTT 21.2 L (22.0-30.0) sec CBC 01/10/21 01/11/21 Range/Units 20:25 05:05 WBC 21.2 H 14.4 H (3.8-10.6) k/uL RBC 4.46 4.13 L (4.30-5.90) m/uL Hgb 14.6 13.7 (13.0-17.5) gm/dL Hct 43.5 38.7 L (39.0-53.0) % Plt Count 257 197 (150-450) k/uL Comprehensive Metabolic Panel 01/10/21 01/11/21 Range/Units 20:25 05:05 Sodium 138 139 (137-145) mmol/L Potassium 5.2 H 5.7 H (3.5-5.1) mmol/L Chloride 99 108 H (98-107) mmol/L Carbon Dioxide 17 L 26 (22-30) mmol/L BUN 41 H 36 H (9-20) mg/dL Creatinine 2.23 H 1.39 H (0.66-1.25) mg/dL Glucose 383 H 115 H (74-99) mg/dL Calcium 8.6 7.5 L (8.4-10.2) mg/dL AST 414 H 242 H (17-59) U/L ALT 104 H 95 H (4-49) U/L Alkaline Phosphatase 40 46 (38-126) U/L Total Protein 7.5 6.3 (6.3-8.2) g/dL Albumin 4.7 3.7 (3.5-5.0) g/dL Current Medications Generic Name Dose Route Start Last Admin Trade Name Freq PRN Reason Stop Dose Admin Acetaminophen 650 mg 01/10/21 22:09 01/11/21 11:48 Acetaminophen Suppository 650 Mg Supp RECTAL 650 mg Q4HR PRN Administration Fever And/ Or Mild Pain Aspirin 81 mg 01/11/21 12:30 Aspirin 81 Mg PO DAILY [facility] Heparin Sodium (Porcine) 5,000 unit 01/11/21 08:00 01/11/21 11:47 Heparin Sodium,Porcine/Pf 5,000 Unit/0.5 Ml Syringe SQ 5,000 unit Q8HR [facility] Administration Hydromorphone HCl 0.5 mg 01/10/21 22:09 Hydromorphone 0.5 Mg/0.5 Ml Syringe IVP Q2HR PRN Pain Scale 4 to 5 Sodium Chloride 1,000 mls @ 75 mls/hr 01/10/21 20:30 01/11/21 11:43 Saline 0.9% IV 75 mls/hr .[id number] [facility] Administration Propofol 1,000 mg/ IV Solution 100 mls @ 0 mls/hr 01/10/21 20:45 01/11/21 09:30 IV 20 mcg/kg/min .Q0M [facility] 11.158 mls/hr Titration Protocol Titrate Ampicillin Sodium/Sulbactam 100 mls @ 200 mls/hr 01/11/21 00:00 01/11/21 10:55 Sodium 3 gm/ Sodium Chloride IVPB 200 mls/hr Q8HR [facility] Administration Insulin Aspart 0 unit 01/11/21 08:00 01/11/21 11:47 Insulin Aspart (Novolog) 100 Unit/Ml Vial SQ 1 unit Q6HR [facility] Administration Protocol Naloxone HCl 0.2 mg 01/10/21 22:09 Naloxone 0.4 Mg/Ml 1 Ml Vial IV Q2M PRN Opioid Reversal Intake and Output 01/10/21 01/11/21 01/11/21 22:59 06:59 14:59 Intake Total 13.438 185.385 Output Total 700 696 Balance 13.438 -700 -510.615 Intake: Intake, IV Titration 13.438 185.385 Amount Sodium Chloride 0.9% 1, 150 000 ml @ 75 mls/hr IV . [id number] [facility] Rx#:[id number] propofoL 1,000 mg In 13.438 35.385 Empty Bag 1 bag @ Titrate IV .Q0M [facility] Rx#: [id number] Output: Urine 700 696 Other: Weight 92.986 kg 01/11/21 05:05 01/11/21 05:05 Assessment and Plan Assessment: Assessment #1 out of the hospital cardiopulmonary arrest #2 renal failure #3 hyperkalemia #4 history of drug abuse Plan #1 rule out anoxic encephalopathy #2 obtain an echocardiogram to assess ejection fraction and rule out any cardiomyopathy which could be substrate for cardiac arrhythmia like V. fib or V. tach #3 monitor the kidney function and electrolytes #4 avoid any nephrotoxic medications #5 start the patient on aspirin #6 follow-up with the patient
[2021-01-11] MEDS ORDERED: CISATRACURIUM 2 MG/ML 5 ML VIAL IV ONE ×2 (13:08→13:09)
[2021-01-11] MEDS ORDERED: Dextrose 25% Syringe (PEDs) 10 ML SYRINGE IVP STA (13:33)
[2021-01-11 13:49] LABS: ABG HCO3 26 mmol/L (21-25); ABG Oxygen Saturation 97.6 % (94-97); ABG PCO2 45 mmHg (35-45); ABG PH 7.38 (7.35-7.45); ABG PO2 94 mmHg (83-108); ABG TCO2 28 mmol/L (19-24)
--- NOTE | 2021-01-11 13:52 | XR ---
EXAMINATION TYPE: XR chest 1V portable DATE OF EXAM: 01/11/2021 COMPARISON: 01/10/2021 INDICATION: Central line nasogastric tube insertion TECHNIQUE: Single frontal view of the chest is obtained. FINDINGS: The heart size is normal. The pulmonary vasculature is normal. Perihilar increase infiltrates are present. This may have some improvement over the interval. Upper l alexandra infiltrates. Diminished over the interval. Cardiac pads are present. Endotracheal tube tip is above the poli. Nasogastric tube transverses the thorax with tip in the left upper quadrant of the abdomen. Left central venous catheter has been vern aleksandra with the tip in the proximal right atrium. No pneumothorax is evident. IMPRESSION: 1. No pneumothorax post central line catheter placement, tip is in the proximal right atrium. 2. Nasogastric tube transverses the thorax with the tip in the left upper quadrant of the abdomen. 3. Mild perihilar infiltrates appear improved from comparison.
[2021-01-11] MEDS: ASPIRIN 81 MG PO SCH (13:57)
[2021-01-11] MEDS: SODIUM CHLORIDE 0.9% 1,000 ML IV ONE ×2 (13:58→14:36)
[2021-01-11] MEDS ORDERED: DEXTROSE 50% SYRINGE 50 ML IVP ONE (14:00)
[2021-01-11] MEDS ORDERED: INSULIN REGULAR 100 UNIT/ML VIAL IV ONE (14:15)
[2021-01-11] MEDS ORDERED: NOREPINEPHRIN 4 MG-0.9% NS PMX 0 MG/0 ML ML IV ONE (14:18)
[2021-01-11 14:35] LABS: ABG PCO2 76 mmHg (35-45); ABG PH 7.02 (7.35-7.45)
[2021-01-11] MEDS ORDERED: SODIUM CHLORIDE 0.9% 1,000 ML IV ONE (14:35)
[2021-01-11 15:18] LABS: Hemoglobin A1C 5.3 % (4.0-6.0)
--- NOTE | 2021-01-11 16:38 | PCN ---
PROCEDURE NOTE PROCEDURE PERFORMED: Left subclavian triple-lumen catheter. PREOP DIAGNOSIS: Administration of fluids and pressors. POSTOP DIAGNOSIS: Administration of fluids and pressors. FRONT DESK MANAGER: Dr. Robles and Dr. Mariscal. There was informed consent and universal timeout. TRIPLE LUMEN CATHETER PLACEMENT: Indication: Hemodynamic monitoring/Intravenous access. A time-out was completed verifying correct patient, procedure, site, positioning, and implant(s) or special equipment if applicable. The patient was placed in a dependent position appropriate for triple lumen catheter placement based on the vein to be cannulated. The patient's left shoulder was prepped and draped in sterile fashion. 1% Lidocaine was used to anesthetize the surrounding skin area. A triple lumen 9F Cordis catheter was introduced into the subclavian vein using Seldinger technique. The catheter was threaded smoothly over the guide wire and appropriate blood return was obtained. Each lumen of the catheter was evacuated of air and flushed with sterile saline. The catheter was then sutured in place to the skin and a sterile dressing applied. Perfusion to the extremity distal to the point of catheter insertion was checked and found to be adequate. There was no immediate complication. There was good blood return from all 3 ports. The tip of the catheter was seen in the area of the junction of the supra superior vena cava and right atrium. There was no immediate complication. The catheter was sutured in place. Sterile dressing was applied by the nurse. A chest x-ray was ordered to check placement. Again no immediate complication. The patient tolerated the procedure very well. MMODL / IJN: [id number] /
--- NOTE | 2021-01-11 16:41 | OP ---
OPERATIVE REPORT PROCEDURE PERFORMED: Right radial art line. PREOP DIAGNOSIS: Frequent blood draws. POSTOP DIAGNOSIS: Frequent blood draws. OPERATORS: Dr. Robles and Dr. Mariscal. There was informed consent and universal timeout. ARTERIAL LINE PLACEMENT: Indications: Hemodynamic monitoring. A time-out was completed verifying correct patient, procedure, site, positioning, and implant(s) or special equipment if applicable. Martell's test was performed to ensure adequate perfusion. The patient's right wrist was prepped and draped in sterile fashion. 1% Lidocaine was used to anesthetize the area. An 18G Arrow arterial line was introduced into the radial artery. The catheter was threaded over the guide wire and the needle was removed with appropriate pulsatile blood return. Blood loss was minimal. The catheter was then sutured in place to the skin and a sterile dressing applied. Perfusion to the extremity distal to the point of catheter insertion was checked and found to be adequate. The patient tolerated the procedure well and there were no complications. There was no immediate complication. There was good blood return and waveform. The catheter was sutured into place. A sterile dressing applied by the nurse. There was no immediate complication. The patient tolerated the procedure very well. MMODL / IJN: [id number] /
[2021-01-11] MEDS: NOREPINEPHRINE 8 MG in SODIUM CHLORIDE 0.9% 250 ML IV SCH (17:54)
[2021-01-11 18:29] LABS: Glucose,Whole Blood 100 mg/dL (75-99)
[2021-01-12 01:00] LABS: Glucose,Whole Blood 77 mg/dL (75-99)
[2021-01-12] MEDS: SODIUM CHLORIDE 0.9% 1,000 ML IV SCH ×2 (01:40→13:12)
[2021-01-12] MEDS: AMPICILLIN-SULBACTAM 3 GM in SODIUM CHLORIDE 0.9% 100 ML IVPB SCH ×4 (01:42→23:14)
[2021-01-12] MEDS: HEPARIN SODIUM,PORCINE/PF 5,000 UNIT/0.5 ML SYRINGE SQ SCH ×4 (01:42→23:14)
[2021-01-12] MEDS: INSULIN ASPART (NovoLOG) 100 UNIT/ML VIAL SQ SCH ×5 (01:43→23:23)
[2021-01-12 05:28] LABS: Glucose,Whole Blood 95 mg/dL (75-99)
[2021-01-12 05:28] LABS: Basophils % (A) 0 %; Eosinophils # (A) 0.1 k/uL (0-0.7); Eosinophils % (A) 1 %; HCT 35.4 % (39.0-53.0); HGB 12.6 gm/dL (13.0-17.5); Lymphocytes # (A) 1.5 k/uL (1.0-4.8); Lymphocytes % (A) 17 %; MCH 33.8 pg (25.0-35.0); MCHC 35.6 g/dL (31.0-37.0); MCV 94.9 fL (80.0-100.0); Mean Platelet Volume 7.5; Monocytes # (A) 0.5 k/uL (0-1.0); Monocytes % (A) 6 %; Neutrophils # (A) 6.5 k/uL (1.3-7.7); Neutrophils % (A) 75 %; Platelet Count 145 k/uL (150-450); RBC 3.73 m/uL (4.30-5.90); RDW 12.8 % (11.5-15.5); WBC 8.7 k/uL (3.8-10.6)
[2021-01-12 05:42] LABS: ABG Base Excess -1.8 mmol/L; ABG HCO3 24 mmol/L (21-25); ABG Oxygen Saturation 97.4 % (94-97); ABG PCO2 46 mmHg (35-45); ABG PH 7.33 (7.35-7.45); ABG PO2 94 mmHg (83-108); ABG TCO2 26 mmol/L (19-24); Allen Test Performed? Yes
[2021-01-12 05:43] LABS: AST 152 U/L (17-59); African American GFR (CKD) >90 (>60 ml/min/1.73 sqM); Albumin 3.1 g/dL (3.5-5.0); Alkaline Phosphatase 46 U/L (38-126); Blood Urea Nitrogen 21 mg/dL (9-20); Carbon Dioxide 24 mmol/L (22-30); Chloride 112 mmol/L (98-107); Glucose 89 mg/dL (74-99); Non-African American GFR(CKD) 87 (>60 ml/min/1.73 sqM); Total Bilirubin 0.7 mg/dL (0.2-1.3); Total Protein 5.5 g/dL (6.3-8.2)
[2021-01-12 05:45] LABS: ALT 64 U/L (4-49); Anion Gap 5 mmol/L; Calcium 7.5 mg/dL (8.4-10.2); Potassium 4.2 mmol/L (3.5-5.1); Sodium 141 mmol/L (137-145)
[2021-01-12] MEDS: ASPIRIN 81 MG PO SCH (09:15)
--- NOTE | 2021-01-12 11:18 | P.PN ---
Subjective Progress Note Date: 01/12/21 Principal diagnosis: Cardiopulmonary arrest This is a 50-year-old gentleman who we consulted yesterday for further evaluation off out of the hospital cardiopulmonary arrest. The patient was in renal failure and he had hyperkalemia. An echocardiogram was ordered and still in process to be done. The patient does have history of drug abuse in the past. The patient was seen today January 122020. He continues to be intubated on mechanical ventilation. Hemodynamically he is stable and not on any vasopressors was marginally low blood pressure. The kidney function has imp roved. The potassium has improved as well. There is some concern about anoxic encephalopathy because the down time is unknown at this point. Objective - Vital Signs Vital signs: Vital Signs Temp 99.9 F H 01/12/21 04:00 Pulse 67 01/12/21 05:00 Resp 20 01/12/21 05:00 BP 78/47 01/11/21 16:00 Pulse Ox 95 01/12/21 05:00 Intake & Output 01/11/21 01/12/21 01/12/21 18:59 06:59 18:59 Intake Total 2816.562 1407.306 152.253 Output Total 876 575 50 Balance 1940.562 832.306 102.253 Weight 87 kg 89.1 kg Intake: IV 30 897 81 .9 pressure bag 30 72 6 Sodium Chloride 0.9% 1, 825 75 000 ml @ 75 mls/hr IV . [id number] [facility] Rx#:[id number] Intake, IV Titration 2786.562 330.306 71.253 Amount Ampicillin-Sulbactam 3 gm 100 In Sodium Chloride 0.9% 100 ml @ 200 mls/hr IVPB Q8HR [facility] Rx#:[id number] Sodium Chloride 0.9% 1, 600 75 000 ml @ 75 mls/hr IV . [id number] [facility] Rx#:[id number] Sodium Chloride 0.9% 1, 2000 000 ml @ 999 mls/hr IV . Q1H1M [facility] Rx#:[id number] propofoL 1,000 mg In 86.562 255.306 71.253 Empty Bag 1 bag @ Titrate IV .Q0M [facility] Rx#: [id number] Tube Feeding 120 Other 60 Output: Urine 876 575 50 Other: Voiding Method Indwelling Catheter Indwelling Catheter ABP, PAP, CO, CI - Last Documented Arterial Blood Pressure 92/53 - Constitutional General appearance: Present: no acute distress - Respiratory Respiratory: bilateral: CTA - Cardiovascular Rhythm: regular - Labs CBC & Chem 7: 01/12/21 04:55 01/12/21 04:55 Labs: Abnormal Lab Results - Last 24 Hours (Table) 01/10/21 01/11/21 01/11/21 Range/Units 20:57 11:22 12:46 RBC (4.30-5.90) m/uL Hgb (13.0-17.5) gm/dL Hct (39.0-53.0) % Plt Count (150-450) k/uL ABG pH 7.02 L* (7.35-7.45) ABG pCO2 76 H* (35-45) mmHg ABG pO2 214 H (83-108) mmHg ABG HCO3 20 L (21-25) mmol/L ABG Total CO2 (19-24) mmol/L ABG O2 Saturation 98.8 H (94-97) % Chloride (98-107) mmol/L BUN (9-20) mg/dL POC Glucose (mg/dL) 163 H (75-99) mg/dL Calcium (8.4-10.2) mg/dL AST (17-59) U/L ALT (4-49) U/L Troponin I 0.100 H* (0.000-0.034) ng/mL Total Protein (6.3-8.2) g/dL Albumin (3.5-5.0) g/dL 01/11/21 01/11/21 01/12/21 Range/Units 13:47 18:26 04:55 RBC 3.73 L (4.30-5.90) m/uL Hgb 12.6 L (13.0-17.5) gm/dL Hct 35.4 L (39.0-53.0) % Plt Count 145 L (150-450) k/uL ABG pH (7.35-7.45) ABG pCO2 (35-45) mmHg ABG pO2 (83-108) mmHg ABG HCO3 26 H (21-25) mmol/L ABG Total CO2 28 H (19-24) mmol/L ABG O2 Saturation 97.6 H (94-97) % Chloride (98-107) mmol/L BUN (9-20) mg/dL POC Glucose (mg/dL) 100 H (75-99) mg/dL Calcium (8.4-10.2) mg/dL AST (17-59) U/L ALT (4-49) U/L Troponin I (0.000-0.034) ng/mL Total Protein (6.3-8.2) g/dL Albumin (3.5-5.0) g/dL 01/12/21 01/12/21 Range/Units 04:55 05:38 RBC (4.30-5.90) m/uL Hgb (13.0-17.5) gm/dL Hct (39.0-53.0) % Plt Count (150-450) k/uL ABG pH 7.33 L (7.35-7.45) ABG pCO2 46 H (35-45) mmHg ABG pO2 (83-108) mmHg ABG HCO3 (21-25) mmol/L ABG Total CO2 26 H (19-24) mmol/L ABG O2 Saturation 97.4 H (94-97) % Chloride 112 H (98-107) mmol/L BUN 21 H (9-20) mg/dL POC Glucose (mg/dL) (75-99) mg/dL Calcium 7.5 L (8.4-10.2) mg/dL AST 152 H (17-59) U/L ALT 64 H (4-49) U/L Troponin I (0.000-0.034) ng/mL Total Protein 5.5 L (6.3-8.2) g/dL Albumin 3.1 L (3.5-5.0) g/dL Microbiology - Last 24 Hours (Table) 01/10/21 21:04 Gram Stain - Preliminary Sputum Sputum Culture - Preliminary Strep agalactiae - (group b) 01/11/21 01:54 Gram Stain - Preliminary Sputum Sputum Culture - Preliminary Assessment and Plan Assessment: Assessment #1 out of the hospital cardiopulmonary arrest #2 renal failure #3 hyperkalemia #4 history of drug abuse Plan #1 rule out anoxic encephalopathy #2 obtain an echocardiogram to assess ejection fraction and rule out any cardiomyopathy which could be substrate for cardiac arrhythmia like V. fib or V. tach #3 the kidney function and electrolytes has improved #4 follow-up with the patient
--- NOTE | 2021-01-12 12:17 | P.PN ---
Subjective Progress Note Date: 01/12/21 Pt is still intubated/sedated. Sedation holiday with neuro exam pending today. Objective - Vital Signs Vital signs: Vital Signs Temp 99.9 F H 01/12/21 04:00 Pulse 67 01/12/21 05:00 Resp 20 01/12/21 05:00 BP 78/47 01/11/21 16:00 Pulse Ox 95 01/12/21 05:00 Intake & Output 01/11/21 01/12/21 01/12/21 18:59 06:59 18:59 Intake Total 2816.562 1407.306 152.253 Output Total 876 575 50 Balance 1940.562 832.306 102.253 Weight 87 kg 89.1 kg Intake: IV 30 897 81 .9 pressure bag 30 72 6 Sodium Chloride 0.9% 1, 825 75 000 ml @ 75 mls/hr IV . [id number] [facility] Rx#:[id number] Intake, IV Titration 2786.562 330.306 71.253 Amount Ampicillin-Sulbactam 3 gm 100 In Sodium Chloride 0.9% 100 ml @ 200 mls/hr IVPB Q8HR [facility] Rx#:[id number] Sodium Chloride 0.9% 1, 600 75 000 ml @ 75 mls/hr IV . [id number] [facility] Rx#:[id number] Sodium Chloride 0.9% 1, 2000 000 ml @ 999 mls/hr IV . Q1H1M [facility] Rx#:[id number] propofoL 1,000 mg In 86.562 255.306 71.253 Empty Bag 1 bag @ Titrate IV .Q0M [facility] Rx#: [id number] Tube Feeding 120 Other 60 Output: Urine 876 575 50 Other: Voiding Method Indwelling Catheter Indwelling Catheter ABP, PAP, CO, CI - Last Documented Arterial Blood Pressure 92/53 - Exam Gen: Intubated, sedated HEENT: normocephalic, atraumatic, good hearing acuity, moist mucous membranes Resp: good air exchange, breathing comfortably with no accessory muscle use CVS: good distal perfusion x 4, GI: soft, NTTP, ND : no SPT, no CVAT, manuel catheter is present MSK: no pitting edema, no clubbing Neuro: Positive gag reflex, moving all extremities - Labs CBC & Chem 7: 01/12/21 04:55 01/12/21 04:55 Labs: Abnormal Lab Results - Last 24 Hours (Table) 01/10/21 01/11/21 01/11/21 Range/Units 20:57 12:46 13:47 RBC (4.30-5.90) m/uL Hgb (13.0-17.5) gm/dL Hct (39.0-53.0) % Plt Count (150-450) k/uL ABG pH 7.02 L* (7.35-7.45) ABG pCO2 76 H* (35-45) mmHg ABG pO2 214 H (83-108) mmHg ABG HCO3 20 L 26 H (21-25) mmol/L ABG Total CO2 28 H (19-24) mmol/L ABG O2 Saturation 98.8 H 97.6 H (94-97) % Chloride (98-107) mmol/L BUN (9-20) mg/dL POC Glucose (mg/dL) (75-99) mg/dL Calcium (8.4-10.2) mg/dL AST (17-59) U/L ALT (4-49) U/L Troponin I 0.100 H* (0.000-0.034) ng/mL Total Protein (6.3-8.2) g/dL Albumin (3.5-5.0) g/dL 01/11/21 01/12/21 01/12/21 Range/Units 18:26 04:55 04:55 RBC 3.73 L (4.30-5.90) m/uL Hgb 12.6 L (13.0-17.5) gm/dL Hct 35.4 L (39.0-53.0) % Plt Count 145 L (150-450) k/uL ABG pH (7.35-7.45) ABG pCO2 (35-45) mmHg ABG pO2 (83-108) mmHg ABG HCO3 (21-25) mmol/L ABG Total CO2 (19-24) mmol/L ABG O2 Saturation (94-97) % Chloride 112 H (98-107) mmol/L BUN 21 H (9-20) mg/dL POC Glucose (mg/dL) 100 H (75-99) mg/dL Calcium 7.5 L (8.4-10.2) mg/dL AST 152 H (17-59) U/L ALT 64 H (4-49) U/L Troponin I (0.000-0.034) ng/mL Total Protein 5.5 L (6.3-8.2) g/dL Albumin 3.1 L (3.5-5.0) g/dL 01/12/21 Range/Units 05:38 RBC (4.30-5.90) m/uL Hgb (13.0-17.5) gm/dL Hct (39.0-53.0) % Plt Count (150-450) k/uL ABG pH 7.33 L (7.35-7.45) ABG pCO2 46 H (35-45) mmHg ABG pO2 (83-108) mmHg ABG HCO3 (21-25) mmol/L ABG Total CO2 26 H (19-24) mmol/L ABG O2 Saturation 97.4 H (94-97) % Chloride (98-107) mmol/L BUN (9-20) mg/dL POC Glucose (mg/dL) (75-99) mg/dL Calcium (8.4-10.2) mg/dL AST (17-59) U/L ALT (4-49) U/L Troponin I (0.000-0.034) ng/mL Total Protein (6.3-8.2) g/dL Albumin (3.5-5.0) g/dL Microbiology - Last 24 Hours (Table) 01/10/21 21:04 Gram Stain - Preliminary Sputum Sputum Culture - Preliminary Strep agalactiae - (group b) 01/11/21 01:54 Gram Stain - Preliminary Sputum Sputum Culture - Preliminary Assessment and Plan Assessment: Unwitnessed cardiac arrest, suspected secondary to aspiration -Trend troponin -Cardiology consult -Cardiac monitoring -Continue with ventilator bundle -Continue with Unasyn -Follow-up sputum cultures Lactic acidosis -Monitor for resolution -IV fluids Elevated troponin, unclear if type II MT versus NSTEMI -Continue to trend for now -Cardiac monitoring Hyperglycemia -Check A1c -Lispro insulin sliding scale blood glucose monitoring Abnormal kidney function, acute versus chronic -Continue with IV fluids -Monitor BMP for now Leukocytosis -Likely due to acute stressor Substance abuse -Monitor for signs of withdrawal DVT prophylaxis -Heparin The patient is admitted with an anticipated greater than 2 midnight stay for evaluation of cardiac arrest CODE STATUS: Full Code Discussed with: RN Anticipated discharge date: 4-[address]: Home
[2021-01-12 13:06] LABS: Glucose,Whole Blood 62 mg/dL (75-99)
--- NOTE | 2021-01-12 13:16 | XR ---
EXAMINATION TYPE: XR chest 1V portable DATE OF EXAM: 01/12/2021 COMPARISON: 01/11/2021 INDICATION: Difficulty breathing TECHNIQUE: Single frontal view of the chest is obtained. FINDINGS: The heart size is normal. The pulmonary vasculature is normal. Right lower lobe infiltrate is present. Correlate for aspiration pneumonia. Endotracheal tube tip is above the poli. Nasogastric tube transverses the thorax. Left central veno us catheter tip is in distal superior vena cava region. IMPRESSION: 1. Developing right lower lobe infiltrate.: For aspiration
--- NOTE | 2021-01-12 13:39 | P.PN ---
Subjective Progress Note Date: 01/12/21 Principal diagnosis: Cardiac arrest. 50-year-old male, who had a unwitnessed cardiac arrest, out of the hospital. He was apparently found down on his driveway. Apparently there was also some vomit neck to the patient, so I it was thought that he may be aspirated. When EMS arr ived, he was asystole. CPR was initiated, but it was unclear how long he was down. He underwent chest compressions, rounds of epinephrine, and then eventually had return of spontaneous circulation. He was intubated in the field with a 7-1/2 endotracheal tube. I was called by the ER physician. The patient's currently in the emergency room still. He isn't ER trauma to room. He is on the ventilator. He is on the volume assist control mode, rate 20, tidal volume 450, FiO2 50%, PEEP of 5. Gases from yesterday, show a PaO2 of 226, pCO2 of 51, and pH is 7.27. Repeat blood gases have not yet been done. The patient's on propofol at 5 g kilogram per minute, and saline at 75 mL an hour. Appears to be an infiltrate in the right midlung right upper lobe, may be from aspiration. Head CT and C-spine x-rays are all negative. Patient is currently unresponsive in part related to his sedation. Apparently there is no past medical history other than a cataract in the left eye, and some sort of surgery with plates and screws to his right leg. White count 14.4, hemoglobin 13.7, hematocrit 38.7, platelet count 197,000. Sodium 139, potassium 5.7, chlorides 108, CO2 26, anion gap 5, BUN 36, creatinine 1.39. AST was 42, ALT 95, troponin 0.147. Coronavirus testing was negative. Progress note dated 01/12/2021. 50-year-old male, who had an [id number] cardiopulmonary arrest. He had an unknown downtime, he had cardiopulmonary resuscitation with return of spontaneous circulation. The patient is currently in the intensive care unit, in room 266. He remains on the mechanical ventilator, volume assist control mode, rate of 20, tidal volume 450, FiO2 40%, PEEP of 5. Blood gases show a PaO2 of 94, pCO2 of 46, and a pH of 7.33. The patient's on propofol at 35 mcg/kg/m, saline at 75 mL an hour, and vital 1.2, at 60 miles every 4 hours. We will attempt a daily eruption of sedation today. Head CT and spine x-rays were all negative. White count 8.7, hemoglobin 12.6, hematocrit 35.4, and platelet count 145,000. Sodium 141, potassium 4.2, chlorides 112, CO2 24, anion gap 5, the UN 21, and creatinine 0.99. Albumin was 3.1. Chest x-ray was consistent with a right lower lobe infiltrate. The patient likely aspirated. Objective - Vital Signs Vital signs: Vital Signs Temp 99.9 F H 01/12/21 04:00 Pulse 67 01/12/21 05:00 Resp 20 01/12/21 05:00 BP 78/47 01/11/21 16:00 Pulse Ox 95 01/12/21 05:00 Intake & Output 01/11/21 01/12/21 01/12/21 18:59 06:59 18:59 Intake Total 2816.562 1407.306 224.420 Output Total 876 575 50 Balance 1940.562 832.306 174.420 Weight 87 kg 89.1 kg Intake: IV 30 897 81 .9 pressure bag 30 72 6 Sodium Chloride 0.9% 1, 825 75 000 ml @ 75 mls/hr IV . [id number] [facility] Rx#:[id number] Intake, IV Titration 2786.562 330.306 143.420 Amount Ampicillin-Sulbactam 3 gm 100 In Sodium Chloride 0.9% 100 ml @ 200 mls/hr IVPB Q8HR [facility] Rx#:[id number] Sodium Chloride 0.9% 1, 600 75 000 ml @ 75 mls/hr IV . [id number] [facility] Rx#:[id number] Sodium Chloride 0.9% 1, 2000 000 ml @ 999 mls/hr IV . Q1H1M [facility] Rx#:[id number] propofoL 1,000 mg In 86.562 255.306 143.420 Empty Bag 1 bag @ Titrate IV .[facility] Rx#: [id number] Tube Feeding 120 Other 60 Output: Urine 876 575 50 Other: Voiding Method Indwelling Catheter Indwelling Catheter ABP, PAP, CO, CI - Last Documented Arterial Blood Pressure 92/53 - Exam No acute distress, sedated, and mechanically ventilated. HEENT examination is grossly unremarkable. There is an orally placed endotracheal tube and NG tube. Neck supple. Full range of motion. No adenopathy thyromegaly or neck vein distention. Cardiovascular examination reveals regular rhythm rate. S1-S2 normal. No S3 or S4. No discernible murmur noted. Heart sounds are distant. Heart rate 67 bpm. Lungs reveal mostly clear breath sounds. A few scattered rhonchi are noted. No wheezes or crackles. Breath sounds equal. Abdomen soft bowel sounds are heard. No masses or tenderness. Extremities are intact. No cyanosis clubbing or edema. Skin is without rash or lesion. Neurologic examination cannot be adequately assessed. The patient is currently ventilated and sedated. - Labs CBC & Chem 7: 01/12/21 04:55 01/12/21 04:55 Labs: Abnormal Lab Results - Last 24 Hours (Table) 01/10/21 01/11/21 01/11/21 Range/Units 20:57 12:46 13:47 RBC (4.30-5.90) m/uL Hgb (13.0-17.5) gm/dL Hct (39.0-53.0) % Plt Count (150-450) k/uL ABG pH 7.02 L* (7.35-7.45) ABG pCO2 76 H* (35-45) mmHg ABG pO2 214 H (83-108) mmHg ABG HCO3 20 L 26 H (21-25) mmol/L ABG Total CO2 28 H (19-24) mmol/L ABG O2 Saturation 98.8 H 97.6 H (94-97) % Chloride (98-107) mmol/L BUN (9-20) mg/dL POC Glucose (mg/dL) (75-99) mg/dL Calcium (8.4-10.2) mg/dL AST (17-59) U/L ALT (4-49) U/L Troponin I 0.100 H* (0.000-0.034) ng/mL Total Protein (6.3-8.2) g/dL Albumin (3.5-5.0) g/dL 01/11/21 01/12/21 01/12/21 Range/Units 18:26 04:55 04:55 RBC 3.73 L (4.30-5.90) m/uL Hgb 12.6 L (13.0-17.5) gm/dL Hct 35.4 L (39.0-53.0) % Plt Count 145 L (150-450) k/uL ABG pH (7.35-7.45) ABG pCO2 (35-45) mmHg ABG pO2 (83-108) mmHg ABG HCO3 (21-25) mmol/L ABG Total CO2 (19-24) mmol/L ABG O2 Saturation (94-97) % Chloride 112 H (98-107) mmol/L BUN 21 H (9-20) mg/dL POC Glucose (mg/dL) 100 H (75-99) mg/dL Calcium 7.5 L (8.4-10.2) mg/dL AST 152 H (17-59) U/L ALT 64 H (4-49) U/L Troponin I (0.000-0.034) ng/mL Total Protein 5.5 L (6.3-8.2) g/dL Albumin 3.1 L (3.5-5.0) g/dL 01/12/21 01/12/21 Range/Units 05:38 13:04 RBC (4.30-5.90) m/uL Hgb (13.0-17.5) gm/dL Hct (39.0-53.0) % Plt Count (150-450) k/uL ABG pH 7.33 L (7.35-7.45) ABG pCO2 46 H (35-45) mmHg ABG pO2 (83-108) mmHg ABG HCO3 (21-25) mmol/L ABG Total CO2 26 H (19-24) mmol/L ABG O2 Saturation 97.4 H (94-97) % Chloride (98-107) mmol/L BUN (9-20) mg/dL POC Glucose (mg/dL) 62 L (75-99) mg/dL Calcium (8.4-10.2) mg/dL AST (17-59) U/L ALT (4-49) U/L Troponin I (0.000-0.034) ng/mL Total Protein (6.3-8.2) g/dL Albumin (3.5-5.0) g/dL Microbiology - Last 24 Hours (Table) 01/10/21 21:04 Gram Stain - Preliminary Sputum Sputum Culture - Preliminary Strep agalactiae - (group b) 01/11/21 01:54 Gram Stain - Preliminary Sputum Sputum Culture - Preliminary Assessment and Plan Assessment: [id number] cardiopulmonary arrest, with unknown downtime, status post cardiopulmonary resuscitation with return of spontaneous circulation (CPA/ CPR/ROSC). The patient is currently sedated, intubated and mechanically ventilated in the emergency room. Rule out anoxic brain injury. Possible aspiration pneumonia, right lung. History of cataract, left eye. Plan: Plan dated 01/11/2021. Currently, the patient is on Unasyn. He is also getting IV fluids. The patient should be started on albuterol sulfate, and ipratropium bromide, every 4 hours around the clock. He also needs both GI and DVT prophylaxis. We will attempt to make a bed for him in the intensive care unit. Additional recommendations and suggestions are forthcoming. Prognosis is guarded. He will likely need an arterial line, and a central line. Chest x-ray, labs, and medications are all reviewed. Plan dated 01/12/2021. The patient appears to be relatively stable. He continues on Unasyn. We will do a daily interruption of sedation today. Additional recommendations and suggestions are forthcoming. The patient may have sustained anoxic brain in jury. We will continue to follow. Prognosis is guarded. He's currently on GI and DVT prophylaxis. We will continue to follow make recommendations were appropriate. Time with Patient: Greater than 30
[2021-01-12 14:12] LABS: Glucose,Whole Blood 91 mg/dL (75-99)
[2021-01-12] MEDS: NOREPINEPHRINE 8 MG in SODIUM CHLORIDE 0.9% 250 ML IV SCH (14:18)
[2021-01-12] MEDS: IPRATROPIUM-ALBUTEROL 3 ML NEB INHALATION SCH ×2 (15:24→19:26)
[2021-01-12 17:37] LABS: Glucose,Whole Blood 78 mg/dL (75-99)
[2021-01-12 23:23] LABS: Glucose,Whole Blood 85 mg/dL (75-99)
[2021-01-13] MEDS: IPRATROPIUM-ALBUTEROL 3 ML NEB INHALATION SCH ×7 (00:05→23:00)
[2021-01-13 04:58] LABS: Basophils % (A) 0 %; Eosinophils # (A) 0.2 k/uL (0-0.7); Eosinophils % (A) 2 %; HCT 34.4 % (39.0-53.0); HGB 12.1 gm/dL (13.0-17.5); Lymphocytes # (A) 1.9 k/uL (1.0-4.8); Lymphocytes % (A) 16 %; MCH 33.6 pg (25.0-35.0); MCHC 35.2 g/dL (31.0-37.0); MCV 95.5 fL (80.0-100.0); Mean Platelet Volume 7.7; Monocytes # (A) 0.8 k/uL (0-1.0); Monocytes % (A) 6 %; Neutrophils # (A) 9.2 k/uL (1.3-7.7); Neutrophils % (A) 76 %; Platelet Count 142 k/uL (150-450); RBC 3.61 m/uL (4.30-5.90); RDW 12.8 % (11.5-15.5); WBC 12.2 k/uL (3.8-10.6)
[2021-01-13] MEDS: SODIUM CHLORIDE 0.9% 1,000 ML IV SCH ×2 (05:08→15:48)
[2021-01-13 05:11] LABS: ALT 51 U/L (4-49); AST 128 U/L (17-59); African American GFR (CKD) >90 (>60 ml/min/1.73 sqM); Albumin 3.1 g/dL (3.5-5.0); Alkaline Phosphatase 52 U/L (38-126); Anion Gap 6 mmol/L; Blood Urea Nitrogen 13 mg/dL (9-20); Calcium 7.9 mg/dL (8.4-10.2); Carbon Dioxide 24 mmol/L (22-30); Chloride 112 mmol/L (98-107); Glucose 96 mg/dL (74-99); Non-African American GFR(CKD) >90 (>60 ml/min/1.73 sqM); Sodium 142 mmol/L (137-145); Total Bilirubin 0.9 mg/dL (0.2-1.3); Total Protein 5.8 g/dL (6.3-8.2)
[2021-01-13 05:17] LABS: Glucose,Whole Blood 78 mg/dL (75-99)
--- NOTE | 2021-01-13 05:22 | P.PN ---
Subjective Progress Note Date: 01/13/21 01/13/2021, I am seeing this 50-year-old male patient who is post cardiac arrest. The patient was found on his driveway. He has aspirated and he had emesis on his head and face and neck. He was in asystole. Received CPR and compressions and epinephrine with a prolonged downtime. The patient was in tubated and placed on a mechanical ventilator and the patient was brought into the hospital. Is negative for COVID: 19. The patient remains on mechanical ventilator. Currently is on sedation with propofol running at 35 mcg/kg per minute. The patient on a assist-control mode of ventilation volume cycle with a tidal volume of 450, rate of 20, FiO2 of 40% with a PEEP of 5. CAT scan of the brain and the spine were negative. The patient's wish showing a right lower lobe pulmonary infiltration consistent with with aspiration and the patient is currently on IV Unasyn. Hemodynamically stable. The patient is not requiring any pressors. Kidney function improved. Potassium level is also improved. There is a concern of anoxic encephalopathy. The patient has history of drug abuse in the past. Echocardiogram was ordered by cardiology. There is a minimal troponin leak on his blood work. The urine drug screen was positive for methamphetamine, cocaine and opiates. As such, the patient has history of drug abuse. Confirmed by urine drug screen. The patient's this morning he remains sedated. White cell count is at 12.2 with a hemoglobin of 12.1. The rest of the electrolytes are all within normal and the patient is a normal renal function. Blood gases from today still pending. The chest x-ray from today was completed and the patient has a quick positioning of the ET tube. There is a right lower lobe consolidation and also some atelectasis/effusion and left lower lobe. The patient is a triple-lumen catheter in the left subclavian vein. The patient remains on IV fluids running at 75 mL an hour. Patient is receiving vital AF boluses asked to feeds. Is having low-grade fever. No pressors. Echocardiogram results is not available in the records. Objective - Vital Signs Vital signs: Vital Signs Temp 98.2 F 01/13/21 04:00 Pulse 73 01/13/21 05:00 Resp 17 01/13/21 05:00 BP 78/47 01/11/21 16:00 Pulse Ox 96 01/13/21 05:00 Intake & Output 01/12/21 01/12/21 01/13/21 06:59 18:59 06:59 Intake Total 3029.915 5713.729 1513.867 Output Total 575 505 460 Balance 056.617 8152.729 1053.867 Weight 89.1 kg 90.2 kg Intake: IV 897 1050 735 .9 pressure bag 72 75 60 Sodium Chloride 0.9% 1, 825 975 675 000 ml @ 75 mls/hr IV . [id number] [facility] Rx#:[id number] Intake, IV Titration 330.306 338.729 178.867 Amount Ampicillin-Sulbactam 3 gm 100 In Sodium Chloride 0.9% 100 ml @ 200 mls/hr IVPB Q8HR [facility] Rx#:[id number] Sodium Chloride 0.9% 1, 75 000 ml @ 75 mls/hr IV . [id number] [facility] Rx#:[id number] propofoL 1,000 mg In 255.306 238.729 178.867 Empty Bag 1 bag @ Titrate IV .Q0M [facility] Rx#: [id number] Tube Feeding 120 180 540 Other 60 60 Output: Urine 575 505 460 Other: Voiding Method Indwelling Catheter Indwelling Catheter Indwelling Catheter ABP, PAP, CO, CI - Last Documented Arterial Blood Pressure 114/56 - Exam No acute distress, sedated, and mechanically ventilated. HEENT examination is grossly unremarkable. There is an orally placed endotracheal tube and NG tube. Neck supple. Full range of motion. No adenopathy thyromegaly or neck vein distention. Cardiovascular examination reveals regular rhythm rate. S1-S2 normal. No S3 or S4. No discernible murmur noted. Heart sounds are distant. Lungs reveal mostly clear breath sounds. A few scattered rhonchi are noted. No wheezes or crackles. Breath sounds equal. Abdomen soft bowel sounds are heard. No masses or tenderness. Extremities are intact. No cyanosis clubbing or edema. Skin is without rash or lesion. Neurologic examination cannot be adequately assessed. The patient is currently ventilated and sedated. - Labs CBC & Chem 7: 01/13/21 04:45 01/13/21 04:45 Labs: Abnormal Lab Results - Last 24 Hours (Table) 01/12/21 01/12/21 01/12/21 Range/Units 04:55 04:55 05:38 WBC (3.8-10.6) k/uL RBC 3.73 L (4.30-5.90) m/uL Hgb 12.6 L (13.0-17.5) gm/dL Hct 35.4 L (39.0-53.0) % Plt Count 145 L (150-450) k/uL Neutrophils # (1.3-7.7) k/uL ABG pH 7.33 L (7.35-7.45) ABG pCO2 46 H (35-45) mmHg ABG Total CO2 26 H (19-24) mmol/L ABG O2 Saturation 97.4 H (94-97) % Chloride 112 H (98-107) mmol/L BUN 21 H (9-20) mg/dL POC Glucose (mg/dL) (75-99) mg/dL Calcium 7.5 L (8.4-10.2) mg/dL AST 152 H (17-59) U/L ALT 64 H (4-49) U/L Total Protein 5.5 L (6.3-8.2) g/dL Albumin 3.1 L (3.5-5.0) g/dL 01/12/21 01/13/21 01/13/21 Range/Units 13:04 04:45 04:45 WBC 12.2 H (3.8-10.6) k/uL RBC 3.61 L (4.30-5.90) m/uL Hgb 12.1 L (13.0-17.5) gm/dL Hct 34.4 L (39.0-53.0) % Plt Count 142 L (150-450) k/uL Neutrophils # 9.2 H (1.3-7.7) k/uL ABG pH (7.35-7.45) ABG pCO2 (35-45) mmHg ABG Total CO2 (19-24) mmol/L ABG O2 Saturation (94-97) % Chloride 112 H (98-107) mmol/L BUN (9-20) mg/dL POC Glucose (mg/dL) 62 L (75-99) mg/dL Calcium 7.9 L (8.4-10.2) mg/dL AST 128 H (17-59) U/L ALT 51 H (4-49) U/L Total Protein 5.8 L (6.3-8.2) g/dL Albumin 3.1 L (3.5-5.0) g/dL Microbiology - Last 24 Hours (Table) 01/11/21 14:27 Blood Culture - Preliminary Blood No Growth after 24 hours 01/10/21 21:04 Gram Stain - Preliminary Sputum Sputum Culture - Preliminary Strep agalactiae - (group b) 01/11/21 01:54 Gram Stain - Preliminary Sputum Sputum Culture - Preliminary Assessment and Plan Plan: 1 [id number] cardiopulmonary arrest, with unknown downtime, status post cardiopulmonary resuscitation with return of spontaneous circulation (CPA/CPR/ROSC). The patient is currently sedated, intubated and mechanically ventilated in the emergency room. The patient is currently hemodynamically stable. Cardiac rhythm is sinus. Echocardiogram was ordered by cardiology and the results are still pending for now. 2 Anoxic brain injury, secondary to cardiac arrest 3 Right lung aspiration pneumonia currently on IV Unasyn 4 troponin leak 5 multiple drug abuse and the patient was positive for cocaine, opiates and methamphetamine Plan Plan d give the patient is sedation holiday and assess the patient's mental status Consult neurology Order EEG for this morning repeat CAT scan of the brain specially there is no clinical response once the patient is off sedation Continue IV fluids 75 mL an hour of normal saline Continue IV Unasyn as there is concern of a lower lobe pneumonia of an aspiration type Neurologist on the case regarding hypoxic encephalopathy Cardiology consultation is in progress and awaiting the echocardiogram Hemodynamically stable Monitor right lower lobe pneumonia We'll continue to follow. Condition is critical. Critically care evaluation done more than 30 minutes Time with Patient: Greater than 30
[2021-01-13 06:04] LABS: ABG Base Excess -1.1 mmol/L; ABG HCO3 24 mmol/L (21-25); ABG Oxygen Saturation 93.8 % (94-97); ABG PCO2 43 mmHg (35-45); ABG PH 7.36 (7.35-7.45); ABG PO2 66 mmHg (83-108); ABG TCO2 26 mmol/L (19-24); Allen Test Performed? Yes
[2021-01-13] MEDS: INSULIN ASPART (NovoLOG) 100 UNIT/ML VIAL SQ SCH ×4 (07:11→23:33)
[2021-01-13] MEDS: CLEVIDIPINE BUTYRATE 25 MG in EMPTY BAG 1 BAG IV SCH (07:12)
--- NOTE | 2021-01-13 09:08 | XR ---
EXAMINATION TYPE: XR chest 1V portable DATE OF EXAM: 01/13/2021 COMPARISON: 01/12/2021 HISTORY: Shortness of breath TECHNIQUE: Single frontal view of the chest is obtained. FINDINGS: ET and NG tube and central line stable. Calcified granuloma right lower lobe. Bilateral lo wer lobe infiltrate and small effusion greater on the right stable. Mild interstitial prominence is n o pneumothorax. IMPRESSION: 1. Stable pleural-parenchymal findings correlate for pneumonia. Underlying CHF not excluded
--- NOTE | 2021-01-13 09:39 | PN ---
PROGRESS NOTE Mr. Fernando is a 50-year-old male who presented with cardiac arrest and unresponsiveness. It is unclear if it was related to drug overdose. He is negative for COVID-19. He is intubated. He is in sinus mechanism, require no vasopressor. His urine output is stable. His drug screen methamphetamine, cocaine, and opiate. He had no episode of ventricular tachycardia. He had an echocardiogram ordered and the results are not available at this point. He continues to be on low-dose aspirin, Unasyn, Protonix and heparin subcu. PHYSICAL EXAMINATION: Blood pressure 114/50 with the heart rate in 70s. Unresponsive to painful stimuli. LUNGS: Clear. HEART: Regular rate and rhythm. S1, S2. No S3. No rub. ABDOMEN: Soft. Positive bowel sounds. No organomegaly. EXTREMITIES: No edema. LAB DATA: Lab data revealed BUN and creatinine 13 and 0.91. His hemoglobin is 12.1. A pH 7.36 and his troponin peaked at 0.147. IMPRESSION: 1. Cardiac arrest and etiology unclear. No clear evidence to suggest primary ischemic event, could be related to drug overdose. 2. Probable anoxic brain injury. 3. Troponin elevation related to the cardiac arrest. 4. Multi drug abuse in the past. 5. Aspiration pneumonia. RECOMMENDATION: We will review the results of his echocardiogram. Continue supportive care. Weaning plan will be addressed by the pulmonary service and depending on his progress, further recommendation will made. The prognosis remains guarded. MMODL / IJN: [id number] /
--- NOTE | 2021-01-13 09:53 | ECHOF ---
Referral Reason:cardiac arrest MEASUREMENTS -------- HEIGHT: 177.8 cm WEIGHT: 93.0 kg BP: 94/59 RVIDd: 2.9 cm (< 3.3) IVSd: 1.3 cm (0.6 - 1.1) LVIDd: 3.4 cm (3.9 - 5.3) LVPWd: 1.2 cm (0.6 - 1.1) IVSs: 2.3 cm LVIDs: 2.7 cm LVPWs: 1.7 cm LA Diam: 3.4 cm (2.7 - 3.8) Ao Diam: 3.0 cm (2.0 - 3.7) MV EXCURSION: 25.770 mm (> 18.000) MV EF SLOPE: 144 mm/s (70 - 150) EPSS: 0.1 cm MV E Jarett: 0.62 m/s MV DecT: 306 ms MV A Jarett: 0.65 m/s MV E/A Ratio: 0.95 RAP: 5.00 mmHg RVSP: 20.18 mmHg FINDINGS -------- Sinus rhythm. This was a technically difficult study with suboptimal views. The left ventricular size is normal. There is mild concentric left ventricular hypertrophy. Overa ll left ventricular systolic function is normal with, an EF between 60 - 65 %. The right ventricle is normal in size. The left atrium is normal in size. The right atrium was not well visualized. 5 ml of Lumason was utilized for enhancement of images. Interatrial and interventricular septum intact. Aortic valve is trileaflet and is mildly thickened. The mitral valve is normal. Mild tricuspid regurgitation present. Right ventricular systolic pressure is normal at < 35 mmHg. There is no pulmonic regurgitation present. The aortic root size is normal. Normal inferior vena cava with normal inspiratory collapse consistent with estimated right atrial pre ssure of 5 mmHg. There is no pericardial effusion. CONCLUSIONS -------- 1. This was a technically difficult study with suboptimal views. 2. The left ventricular size is normal. 3. There is mild concentric left ventricular hypertrophy. 4. Overall left ventricular systolic function is normal with, an EF between 60 - 65 %. 5. 5 ml of Lumason was utilized for enhancement of images. 6. Aortic valve is trileaflet and is mildly thickened. 7. Mild tricuspid regurgitation present. 8. There is no pericardial effusion. CUSTOMER RETENTION SPECIALIST: Dulce Lee RDCS
[2021-01-13] MEDS: AMPICILLIN-SULBACTAM 3 GM in SODIUM CHLORIDE 0.9% 100 ML IVPB SCH ×3 (09:58→23:22)
[2021-01-13] MEDS: ASPIRIN 81 MG PO SCH (09:58)
[2021-01-13] MEDS: PANTOPRAZOLE 40 MG/10 ML VIAL IVP SCH (09:58)
[2021-01-13] MEDS: CHLORHEXIDINE GLUCONATE 15 ML CUP MUCOUS MEM SCH ×2 (09:59→21:12)
[2021-01-13] MEDS: HEPARIN SODIUM,PORCINE/PF 5,000 UNIT/0.5 ML SYRINGE SQ SCH ×3 (09:59→23:21)
--- NOTE | 2021-01-13 10:42 | P.CNNES ---
History of Present Illness Consult date: 01/13/21 Requesting physician: Sarita Cerrato Reason for Consult: post cardiac arrest History of Present Illness: This is a 50-year-old gentleman who presented emergency department on 01/10/2021 after a cardiac arrest. History is obtained from medical record since patient unable to provide that information. The patient was found on his driveway and he was found aspirated and had emesis on his head as well as the face. Patient was found to be in asystole. Per medical record seems that the patient the downtown was prolonged. It is unknown how long the patient was down for. Patient received CPR also he received epinephrine. As a result the patient was intubated and placed on mechanical ventilation and then was a brought to the hospital. Currently the patient is on Propfol 40mcg/kg/min. per the patient nurse she stated that it is noted that possibly the patient was down for 15 minutes per EMS. Also per the patient's nurse she spoke to one of the family members and they stated the patient has history of drug use and was in half-way in the past but nothing otherwise no terminal violation. Also seems that the patient choked on a hot dog but again the stories vague. CT of the head is reported as no acute intracranial process. CT of the cervical spine is a reported as acute osseous abnormality cervical s pine. And the body of the report it is reported as no acute fracture are evident. The vertebral body alignment is normal. Disc heights are preserved. No spinal canal stenosis is evident. It is reported that consider atypical pneumonia. Otherwise seems that that report stating acute osseous abnormality of the cervical spine might be the a missed dictation since I don't see any abnormality in the body of the report. EKG is reported as normal sinus rhythm. Normal EKG. Patient Covid 19 was negative. Patient the urine drug screen was positive for amphetamine, cocaine and opiate. Serum alcohol level is less than 10. Patient initial white blood cell was 21.2 and the last white blood cell is 12.2. Patient sodium is 142 on initial presentation was also normal was 138. Initial POC glucose on presentation was 139 during the hospital stay and it's been between 70 to 90s. Patient had 1 episode of 62 which is midly low. Calcium on initial presentation is 8.6. Last calcium is 7.9. Initial AST is 414 and the last AST is 128 which was done today. While ALT on initial presentation is 104 and the last ALT is 51. TSH is 0.731 which is normal. Magnesium was 3.8 on initial presentation which is elevated. Hemoglobin A1c is 5.3 which is considered normal. Initial creatinine is 2.23 and the last one is 0.91. On initial blood gas the venous pH was 7.0 the CO2 is 74 bicarb is 17. As a result of the patient's aspiration pneumonia patient is on IV unasyn. The patient that it continues to be on mechanical ventilation. Patient was on propofol IV drip running at 35mcg/kg/min. The patient has troponin leak and cardiology is on board. A 2-D echo was done and pending report. Review of Systems Review of system is limited the prone positive and negative as per HPI. Past Medical History Past Medical History: No Reported History, Eye Disorder Additional Past Medical History / Comment(s): LT CATARACT History of Any Multi-Drug Resistant Organisms: None Reported Past Surgical History: Orthopedic Surgery Additional Past Surgical History / Comment(s): rt leg plates and screws. RT CATARACT REMOVED 02/09/18 Past Anesthesia/Blood Transfusion Reactions: No Reported Reaction Past Psychological History: No Psychological Hx Reported Past Alcohol Use History: None Reported Past Drug Use History: None Reported - Past Family History Mother Family Medical History: Cancer, COPD Medications and Allergies Home Medications Medication Instructions Recorded Confirmed Type No Known Home Medications 01/10/21 01/10/21 History Allergies Allergy/AdvReac Type Severity Reaction Status Date / Time ibuprofen [From Motrin] AdvReac Nausea & Verified 01/10/21 20:44 Vomiting Physical Examination - Vital Signs Vital Signs: Vital Signs Temp Pulse Pulse Resp Pulse Ox 01/13/21 05:00 73 17 96 01/13/21 04:00 98.2 F 69 18 98 01/13/21 03:00 69 20 97 01/13/21 02:00 70 18 96 01/13/21 01:00 69 18 96 01/13/21 00:33 72 01/13/21 00:06 72 01/13/21 00:00 72 20 97 01/12/21 23:27 68 19 98 01/12/21 23:00 101 F H 67 20 98 01/12/21 22:00 65 20 98 01/12/21 21:00 67 20 98 01/12/21 20:00 101.0 F H 65 20 98 01/12/21 19:35 66 01/12/21 19:26 66 01/12/21 19:00 69 20 96 01/12/21 18:00 74 20 97 01/12/21 17:00 64 20 98 01/12/21 16:00 99.7 F H 65 20 99 01/12/21 15:00 63 20 98 01/12/21 14:00 69 23 97 01/12/21 13:38 70 20 97 01/12/21 13:00 60 22 01/12/21 12:00 58 L 27 H 01/12/21 11:00 62 20 01/12/21 10:00 64 20 01/12/21 09:00 60 20 Intake and Output 01/12/21 01/13/21 01/13/21 22:59 06:59 14:59 Intake Total 1223.262 967.914 Output Total 315 320 Balance 908.262 647.914 Intake: IV 570 567 .9 pressure bag 45 42 Sodium Chloride 0.9% 1, 525 525 000 ml @ 75 mls/hr IV . [id number] VERONICA Rx#:[id number] Intake, IV Titration 173.262 100.914 Amount propofoL 1,000 mg In 173.262 100.914 Empty Bag 1 bag @ Titrate IV .Q0M VERONICA Rx#: [id number] Tube Feeding 480 240 Other 60 Output: Urine 315 320 Other: Voiding Method Indwelling Catheter Indwelling Catheter Weight 90.2 kg ABP, PAP, CO, CI - Last 8 Hours Arterial Blood Pressure 114/56 Arterial Blood Pressure 119/56 Arterial Blood Pressure 122/56 Arterial Blood Pressure 108/55 Arterial Blood Pressure 118/54 GENERAL: The patient is lying in bed and does not seem in acute distress. The patient is intubated on ventilator and on IV propofol 40mcg/kg/min. HENT: NO nuchal rigidity. CHEST: The heart rate is regular rate rhythm. No murmurs to auscultation. No carotid bruit bilaterally. LUNG: Intubated on ventilator and on IV propofol 40mcg/kg/min. Clear to au scultation bilaterally throughout. Not labored breathing. Breathing over the vent. ABDOMEN/GI: Bowel sounds present in all 4 quadrants. No tenderness to palpation throughout. NEUROLOGICAL: Limited since patient is on IV Propofol 40mcg/kg/min and intubated and on ventilator. Higher mental function: GCS: 7 (E1, VT1, M5). Patient is comatose, non responsive or following commands. Cranial nerves: Pupils are 2mm and sluggishly reactive to light bilaterally. Primary gaze is midline. Negative corneal reflex bilaterally or oculocephalic reflex. No facial weakness throughout. +gag and cough. Motor: Strength: 0/5 throughout. No sponateous movement noted throughout. No posture noted. Normal bulk. Normal tone. Cerebellum: Could not assess. Sensation: Could not assess painful stimuli. Reflexes (right/left): Patellar 3+ bilaterally otherwise 2+ throughout. Plantars are upgoing bilaterally. Results Initial coagulation study: PT of 12.1, INR 1.2, PTT of 21.2. Urine drug screen is negative for urinary tract infection. - Laboratory Findings CBC and BMP: 01/13/21 04:45 01/13/21 04:45 Abnormal Lab Findings: Abnormal Labs 01/10/21 01/10/21 01/10/21 20:25 20:25 20:25 WBC 21.2 H RBC Hgb Hct Plt Count Neutrophils # 11.2 H Lymphocytes # 7.9 H Monocytes # 1.4 H PT 12.1 H INR 1.2 H APTT 21.2 L ABG pH ABG pCO2 ABG pO2 ABG HCO3 ABG Total CO2 ABG O2 Saturation VBG pH VBG pCO2 VBG HCO3 Potassium 5.2 H Chloride Carbon Dioxide 17 L BUN 41 H Creatinine 2.23 H Glucose 383 H POC Glucose (mg/dL) Plasma Lactic Acid Paresh Calcium Magnesium 3.8 H Total Bilirubin 1.7 H AST 414 H ALT 104 H Troponin I Total Protein Albumin Urine Protein Urine Glucose (UA) Urine Ketones Urine Blood Urine Bacteria Hyaline Casts Urine Mucus Urine Opiates Screen U Methamphetamines Scrn Urine Cocaine Screen 01/10/21 01/10/21 01/10/21 20:25 20:25 20:25 WBC RBC Hgb Hct Plt Count Neutrophils # Lymphocytes # Monocytes # PT INR APTT ABG pH ABG pCO2 ABG pO2 ABG HCO3 ABG Total CO2 ABG O2 Saturation VBG pH VBG pCO2 VBG HCO3 Potassium Chloride Carbon Dioxide BUN Creatinine Glucose POC Glucose (mg/dL) Plasma Lactic Acid Paresh 10.9 H* Calcium Magnesium Total Bilirubin AST ALT Troponin I 0.114 H* Total Protein Albumin Urine Protein 2+ H Urine Glucose (UA) 1+ H Urine Ketones Trace H Urine Blood Moderate H Urine Bacteria Occasional H Hyaline Casts 3 H Urine Mucus Occasional H Urine Opiates Screen Detected H U Methamphetamines Scrn Detected H Urine Cocaine Screen Detected H 01/10/21 01/10/21 01/10/21 20:25 20:57 23:16 WBC RBC Hgb Hct Plt Count Neutrophils # Lymphocytes # Monocytes # PT INR APTT ABG pH 7.02 L* 7.27 L ABG pCO2 76 H* 51 H ABG pO2 214 H 226 H ABG HCO3 20 L ABG Total CO2 25 H ABG O2 Saturation 98.8 H 99.7 H VBG pH 7.00 L* VBG pCO2 74 H* VBG HCO3 17 L Potassium Chloride Carbon Dioxide BUN Creatinine Glucose POC Glucose (mg/dL) Plasma Lactic Acid Paresh Calcium Magnesium Total Bilirubin AST ALT Troponin I Total Protein Albumin Urine Protein Urine Glucose (UA) Urine Ketones Urine Blood Urine Bacteria Hyaline Casts Urine Mucus Urine Opiates Screen U Methamphetamines Scrn Urine Cocaine Screen 01/11/21 01/11/21 01/11/21 05:05 05:05 05:05 WBC 14.4 H RBC 4.13 L Hgb Hct 38.7 L Plt Count Neutrophils # Lymphocytes # Monocytes # PT INR APTT ABG pH ABG pCO2 ABG pO2 ABG HCO3 ABG Total CO2 ABG O2 Saturation VBG pH VBG pCO2 VBG HCO3 Potassium 5.7 H Chloride 108 H Carbon Dioxide BUN 36 H Creatinine 1.39 H Glucose 115 H POC Glucose (mg/dL) Plasma Lactic Acid Paresh Calcium 7.5 L Magnesium Total Bilirubin AST 242 H ALT 95 H Troponin I 0.147 H* Total Protein Albumin Urine Protein Urine Glucose (UA) Urine Ketones Urine Blood Urine Bacteria Hyaline Casts Urine Mucus Urine Opiates Screen U Methamphetamines Scrn Urine Cocaine Screen 01/11/21 01/11/21 01/11/21 06:53 11:22 12:46 WBC RBC Hgb Hct Plt Count Neutrophils # Lymphocytes # Monocytes # PT INR APTT ABG pH ABG pCO2 ABG pO2 ABG HCO3 ABG Total CO2 ABG O2 Saturation VBG pH VBG pCO2 VBG HCO3 Potassium Chloride Carbon Dioxide BUN Creatinine Glucose POC Glucose (mg/dL) 139 H 163 H Plasma Lactic Acid Paresh Calcium Magnesium Total Bilirubin AST ALT Troponin I 0.100 H* Total Protein Albumin Urine Protein Urine Glucose (UA) Urine Ketones Urine Blood Urine Bacteria Hyaline Casts Urine Mucus Urine Opiates Screen U Methamphetamines Scrn Urine Cocaine Screen 01/11/21 01/11/21 01/12/21 13:47 18:26 04:55 WBC RBC 3.73 L Hgb 12.6 L Hct 35.4 L Plt Count 145 L Neutrophils # Lymphocytes # Monocytes # PT INR APTT ABG pH ABG pCO2 ABG pO2 ABG HCO3 26 H ABG Total CO2 28 H ABG O2 Saturation 97.6 H VBG pH VBG pCO2 VBG HCO3 Potassium Chloride Carbon Dioxide BUN Creatinine Glucose POC Glucose (mg/dL) 100 H Plasma Lactic Acid Paresh Calcium Magnesium Total Bilirubin AST ALT Troponin I Total Protein Albumin Urine Protein Urine Glucose (UA) Urine Ketones Urine Blood Urine Bacteria Hyaline Casts Urine Mucus Urine Opiates Screen U Methamphetamines Scrn Urine Cocaine Screen 01/12/21 01/12/21 01/12/21 04:55 05:38 13:04 WBC RBC Hgb Hct Plt Count Neutrophils # Lymphocytes # Monocytes # PT INR APTT ABG pH 7.33 L ABG pCO2 46 H ABG pO2 ABG HCO3 ABG Total CO2 26 H ABG O2 Saturation 97.4 H VBG pH VBG pCO2 VBG HCO3 Potassium Chloride 112 H Carbon Dioxide BUN 21 H Creatinine Glucose POC Glucose (mg/dL) 62 L Plasma Lactic Acid Paresh Calcium 7.5 L Magnesium Total Bilirubin AST 152 H ALT 64 H Troponin I Total Protein 5.5 L Albumin 3.1 L Urine Protein Urine Glucose (UA) Urine Ketones Urine Blood Urine Bacteria Hyaline Casts Urine Mucus Urine Opiates Screen U Methamphetamines Scrn Urine Cocaine Screen 01/13/21 01/13/21 01/13/21 04:45 04:45 05:59 WBC 12.2 H RBC 3.61 L Hgb 12.1 L Hct 34.4 L Plt Count 142 L Neutrophils # 9.2 H Lymphocytes # Monocytes # PT INR APTT ABG pH ABG pCO2 ABG pO2 66 L ABG HCO3 ABG Total CO2 26 H ABG O2 Saturation 93.8 L VBG pH VBG pCO2 VBG HCO3 Potassium Chloride 112 H Carbon Dioxide BUN Creatinine Glucose POC Glucose (mg/dL) Plasma Lactic Acid Paresh Calcium 7.9 L Magnesium Total Bilirubin AST 128 H ALT 51 H Troponin I Total Protein 5.8 L Albumin 3.1 L Urine Protein Urine Glucose (UA) Urine Ketones Urine Blood Urine Bacteria Hyaline Casts Urine Mucus Urine Opiates Screen U Methamphetamines Scrn Urine Cocaine Screen Assessment and Plan Assessment: Altered mental status due to multifactorial: metabolic encephalopathy (elevated LFT, HEIDY--improved and due to drug use (cocaine, amphetamine and opiates) and right lung aspiration pneumonia and sedation effect (Propofol) 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 The severity of the anoxic brain injury is unknown at this point Out of the hospital cardiopulmonary arrest unknown down time status post card iopulmonary resuscitation with return of spontaneous circulation Elevated LFT (AST 414 and ALT 104 on presentation. Since AST is >2 of ALT is concerning of alcohol use). Long aspiration pneumonia Troponin leak Polysubstance use (cocaine, amphetamine and opiates) Plan: EEG is ordered by ICU team. I will not start the patient on antiepileptic drug unless there is epidural performed discharge or seizure on the EEG. Also the ICU team ordered a repeat CT of the head. I ordered the ammonia level. Started the patient on thiamine 100 mg daily. Since the patient seems to have alcohol use I also ordered the vitamin B12 and folate level. Cardiology team is on board. A 2-D echo was done and pending report. Recommend [facility] protocol for concern of alcohol withdrawl seizure but will defer it to ICU team and primary team. We'll defer the rest of the medical management to the primary team as well as ICU team. We'll get more information from the family regarding the patient's event of what transpired. The plan is discussed with the patient nurse. Thank you for the consultation. UPDATE: STAT EEG: Is an abnormal routine EEG. The back was slowing is suggestive of se ashanti encephalopathy. The rare to occasional sharp and slow wave over the bilateral frontal degenerative is concerning for a couple from discharges. There is no seizure during this recording. The upper body jerks, predominantly left were captured during this recording without EEG correlation. Since the patient has these body jerks and especially with the patients with anoxic brain injury they have increased risk of seizures therefore am treating the patient the clinically even though it's not seen on the EEG especially that we don't have prolonged the manager long term care EEG. I ordered 2 mg Ativan stat then I loaded the patient with Keppra 2000 mg once and start with the patient on 750 mg of Keppra every 12 hours. I personally spoke with the patient's son (Jaime) who is at bedside regarding the patient's condition. Giorgio Robles M.D. Neuro-hospitalist Time with Patient: Greater than 30
[2021-01-13] MEDS: THIAMINE 100 MG/ML 2 ML VIAL IVP SCH (11:22)
--- NOTE | 2021-01-13 13:15 | P.PN ---
Subjective Progress Note Date: 01/13/21 Remains intubated on the ventilator. Objective - Vital Signs Vital signs: Vital Signs Temp 98.5 F 01/13/21 09:00 Pulse 68 01/13/21 12:00 Resp 20 01/13/21 12:00 BP 78/47 01/11/21 16:00 Pulse Ox 98 01/13/21 12:00 Intake & Output 01/12/21 01/13/21 01/13/21 18:59 06:59 18:59 Intake Total 9128.349 1939.867 846.695 Output Total 505 500 260 Balance 9100.611 7388.867 586.695 Weight 90.2 kg Intake: IV 1050 810 567 .9 pressure bag 75 60 42 Sodium Chloride 0.9% 1, 975 750 525 000 ml @ 75 mls/hr IV . [id number] VERONICA Rx#:[id number] Intake, IV Titration 338.729 178.867 99.695 Amount Ampicillin-Sulbactam 3 gm 100 In Sodium Chloride 0.9% 100 ml @ 200 mls/hr IVPB Q8HR VERONICA Rx#:[id number] propofoL 1,000 mg In 238.729 178.867 99.695 Empty Bag 1 bag @ Titrate IV .Q0M VERONICA Rx#: [id number] Tube Feeding 180 540 180 Other 60 Output: Urine 505 500 260 Other: Voiding Method Indwelling Catheter Indwelling Catheter Indwelling Catheter ABP, PAP, CO, CI - Last Documented Arterial Blood Pressure 99/45 - Exam Gen: Intubated, sedated, on ventilator HEENT: normocephalic, atraumatic Resp: Decreased breath sounds, no wheezing CVS: good distal perfusion x 4, GI: soft, nontender nondistended positive bowel sounds : no SPT, no CVAT, manuel catheter is present MSK: No clubbing cyanosis or edema Neuro: Intubated on vent - Labs CBC & Chem 7: 01/13/21 04:45 01/13/21 04:45 Labs: Abnormal Lab Results - Last 24 Hours (Table) 01/12/21 01/13/21 01/13/21 Range/Units 13:04 04:45 04:45 WBC 12.2 H (3.8-10.6) k/uL RBC 3.61 L (4.30-5.90) m/uL Hgb 12.1 L (13.0-17.5) gm/dL Hct 34.4 L (39.0-53.0) % Plt Count 142 L (150-450) k/uL Neutrophils # 9.2 H (1.3-7.7) k/uL ABG pO2 (83-108) mmHg ABG Total CO2 (19-24) mmol/L ABG O2 Saturation (94-97) % Chloride 112 H (98-107) mmol/L POC Glucose (mg/dL) 62 L (75-99) mg/dL Calcium 7.9 L (8.4-10.2) mg/dL AST 128 H (17-59) U/L ALT 51 H (4-49) U/L Total Protein 5.8 L (6.3-8.2) g/dL Albumin 3.1 L (3.5-5.0) g/dL 01/13/21 Range/Units 05:59 WBC (3.8-10.6) k/uL RBC (4.30-5.90) m/uL Hgb (13.0-17.5) gm/dL Hct (39.0-53.0) % Plt Count (150-450) k/uL Neutrophils # (1.3-7.7) k/uL ABG pO2 66 L (83-108) mmHg ABG Total CO2 26 H (19-24) mmol/L ABG O2 Saturation 93.8 L (94-97) % Chloride (98-107) mmol/L POC Glucose (mg/dL) (75-99) mg/dL Calcium (8.4-10.2) mg/dL AST (17-59) U/L ALT (4-49) U/L Total Protein (6.3-8.2) g/dL Albumin (3.5-5.0) g/dL Microbiology - Last 24 Hours (Table) 01/11/21 01:54 Gram Stain - Final Sputum Sputum Culture - Final 01/10/21 21:04 Gram Stain - Final Sputum Sputum Culture - Final Strep agalactiae - (group b) 01/11/21 14:27 Blood Culture - Preliminary Blood No Growth after 24 hours Assessment and Plan Plan: Unwitnessed cardiac arrest, suspected secondary to aspiration -Trend troponin -Cardiology consult -Cardiac monitoring -Continue with ventilator bundle -2-D echo pending results -Continue with Unasyn Neurology following Now on thiamine Lactic acidosis -Monitor Elevated troponin secondary to cardiac -Continue to trend for now -Cardiac monitoring Hyperglycemia -Lispro insulin sliding scale blood glucose monitoring Acute kidney injury -Continue with IV fluids scr up to 2.2 Leukocytosis -Likely due to acute stressor wbc up to 21,000 on abxs Substance abuse -Monitor for signs of withdrawal with meth and cocaine Right lung aspiration pneumonia : continue on IV Unasyn DVT prophylaxis -Heparin metabolic acidosis 2/2 suzanne bicarb down to 17,000 Disposition: pending clinical progression
[2021-01-13 13:50] LABS: Glucose,Whole Blood 96 mg/dL (75-99)
[2021-01-13] MEDS ORDERED: LORazepam 2 MG/ML INJ IV STA (14:58)
[2021-01-13] MEDS ORDERED: levETIRAcetam IV 2,000 MG in SODIUM CHLORIDE 0.9% 250 ML IVPB STA (14:59)
--- NOTE | 2021-01-13 15:29 | EEG ---
ELECTROENCEPHALOGRAM REPORT DATE OF SERVICE: 01/13/2021. CLINICAL HISTORY: This is a 50-year-old gentleman who had a cardiac arrest who continues to have altered mental status. This video EEG is obtained to evaluate for seizure epileptiform activity. RELEVANT MEDICATION: Patient is on IV propofol drip at 50 mcg/kg per minute. EEG TYPE: A routine 21-channel EEG was performed with video using the 10/20 electrode placement system. DESCRIPTION: The patient is intubated on a ventilator and is on IV propofol drip of 50 mcg/kg per minute. The background consists of moderate voltage, semi-rhythmic to nonrhythmic 1-2 hertz generalized delta slowing. During stimulation, there is a myogenic artifact. There is no focal slowing seen. Interictal and ictal: There are rare to occasional sharp and slow waves over the bilateral frontal derivatives without any evolution to seizures. During the recording, the patient had multiple brief jerks of the upper extremities, mostly the left, without any electrographic correlation. ACTIVATION PROCEDURE: Photic stimulation did not evoke a posterior driving response. Hyperventilation is not performed because of the patient's condition. CLINICAL INTERPRETATION: This is an abnormal routine EEG. The background slowing is suggestive of severe encephalopathy. The rare to occasional sharp and slow waves over the bilateral frontal derivatives is concerning of epileptiform discharges which increases risk of seizures. There is no seizures seen during this recording. The upper body jerk, predominantly left, were captured during this recording without EEG correlation. Clinical correlation is recommended. DINA / CRIS: [id number] / MTDD
--- NOTE | 2021-01-13 15:45 | CT ---
EXAMINATION TYPE: CT brain wo con DATE OF EXAM: 01/13/2021 COMPARISON: 01/10/2021 HISTORY: 50-year-old male confusion, Altered mental status TECHNIQUE: Examination was done in axial plane without intravenous contrast. Coronal and sagittal r econstructions performed. CT DLP: 1082.4 mGycm Automated exposure control for dose reduction was used. FINDINGS: There is no evidence of acute intracranial hemorrhage, acute ischemic changes, mass, mass-effect, or extra-axial fluid collection. There is no effacement of cerebral sulci or basal subarachnoid cister ns. There is no hydrocephalus. There is no midline shift. Cee-white matter distinction is preserv ed. Air-fluid levels in the maxillary, sphenoid, and frontal sinuses. Moderate to severe mucosal thickeni ng throughout the ethmoid air cells. Partial opacification within the mastoid air cells. Cerumen with in the right external auditory canal. Orbits and globes are intact. IMPRESSION: Pansinus air-fluid levels. Correlate for acute sinusitis. Some trapped fluid within the mastoid air c ells as well. Correlate for any mastoid pain to exclude mastoiditis. No acute intracranial abnormalit y seen.
--- NOTE | 2021-01-13 16:24 | CDI ---
Documentation Clarification Form Date: 01/13/2021 04:14:09 PM From: Helena Meyers RN, CCDS Admit Date: 01/10/2021 10:09:00 PM Patient Name: Rian Fernando Visit Number: [id number] ATTENTION: The Clinical Documentation Specialists (CDI) and [facility] Coding Staff appreciate your assistance in clarifying documentation. Please respond to the clarification below the line at the bottom and electronically sign. The CDI & [facility] Coding staff will review the response and follow-up if needed. Please note: Queries are made part of the Legal Health Record. If you have any questions, please contact the author of this message via ITS. Dr. Sarita Cerrato Your patient has been intubated and on the mechanical ventilator since admission. Based on this information and the findings below, is there an additional diagnosis that is clinically appropriate for this patient? History/Risk Factors: Cardiopulmonary Arrest with unknown downtime out of hospital Clinical Indicators: 01/10 2021 Vital signs: Temp 97.3, HR 91, RR 18, B/P 167/97, Spo2 98% MV 01/13 Pulmonary Lung/Breathing assessment: "Lungs reveal mostly clear breath sounds. A few scattered rhonchi are noted. No wheezes or crackles. Breath sounds equal." 01/10 2057 Admission ABG/CBG: pH: 7.02 pO2: 214 pCO2: 76 HCO3: 20 Base Excess -11.4 on 100% FIO2 Treatment: Breathing TX: Duoneb Q 4 hrs. scheduled Continuous Pulse ox: per ICU Protocol Vent Settings (as of 01/13 1615): AC 20, TV 450, Fio2 40% PEEP 5 Is there an additional diagnosis that is clinically appropriate for this patient? [ x] Acute Hypoxic Respiratory Failure (pO2 <60 mm Hg or SpO2 <91% on room air) [ ] Acute Hypercapnic Respiratory Failure (pCO2 >50 and pH <7.35) [ ] Other Diagnosis, please specify [ ] Unable to determine (Template Last Revised: December 2020) MTDD
[2021-01-13] MEDS: NOREPINEPHRINE 8 MG in SODIUM CHLORIDE 0.9% 250 ML IV SCH (17:21)
[2021-01-13 18:21] LABS: Glucose,Whole Blood 81 mg/dL (75-99)
[2021-01-13 19:29] LABS: Folate, Serum 19.6 ng/mL
[2021-01-13] MEDS: levETIRAcetam IV 750 MG in SODIUM CHLORIDE 0.9% 100 ML IVPB SCH (21:12)
[2021-01-13 23:35] LABS: Glucose,Whole Blood 102 mg/dL (75-99)
[2021-01-14] MEDS: IPRATROPIUM-ALBUTEROL 3 ML NEB INHALATION SCH ×5 (03:03→21:10)
[2021-01-14 04:13] LABS: Basophils % (A) 0 %; Eosinophils # (A) 0.4 k/uL (0-0.7); Eosinophils % (A) 5 %; HCT 32.4 % (39.0-53.0); HGB 11.5 gm/dL (13.0-17.5); Lymphocytes # (A) 1.3 k/uL (1.0-4.8); Lymphocytes % (A) 17 %; MCH 33.6 pg (25.0-35.0); MCHC 35.6 g/dL (31.0-37.0); MCV 94.3 fL (80.0-100.0); Mean Platelet Volume 8.3; Monocytes # (A) 0.5 k/uL (0-1.0); Monocytes % (A) 6 %; Neutrophils # (A) 5.2 k/uL (1.3-7.7); Neutrophils % (A) 70 %; Platelet Count 130 k/uL (150-450); RBC 3.43 m/uL (4.30-5.90); RDW 12.8 % (11.5-15.5); WBC 7.5 k/uL (3.8-10.6)
[2021-01-14 04:51] LABS: ALT 40 U/L (4-49); AST 92 U/L (17-59); African American GFR (CKD) >90 (>60 ml/min/1.73 sqM); Albumin 2.5 g/dL (3.5-5.0); Alkaline Phosphatase 46 U/L (38-126); Anion Gap 1 mmol/L; Blood Urea Nitrogen 12 mg/dL (9-20); Calcium 7.8 mg/dL (8.4-10.2); Carbon Dioxide 25 mmol/L (22-30); Chloride 116 mmol/L (98-107); Glucose 102 mg/dL (74-99); Non-African American GFR(CKD) >90 (>60 ml/min/1.73 sqM); Sodium 142 mmol/L (137-145); Total Bilirubin 0.8 mg/dL (0.2-1.3)
--- NOTE | 2021-01-14 05:29 | P.PN ---
Subjective Progress Note Date: 01/14/21 01/13/2021, I am seeing this 50-year-old male patient who is post cardiac arrest. The patient was found on his driveway. He has aspirated and he had emesis on his head and face and neck. He was in asystole. Received CPR and compressions and epinephrine with a prolonged downtime. The patient was in tubated and placed on a mechanical ventilator and the patient was brought into the hospital. Is negative for COVID: 19. The patient remains on mechanical ventilator. Currently is on sedation with propofol running at 35 mcg/kg per minute. The patient on a assist-control mode of ventilation volume cycle with a tidal volume of 450, rate of 20, FiO2 of 40% with a PEEP of 5. CAT scan of the brain and the spine were negative. The patient's wish showing a right lower lobe pulmonary infiltration consistent with with aspiration and the patient is currently on IV Unasyn. Hemodynamically stable. The patient is not requiring any pressors. Kidney function improved. Potassium level is also improved. There is a concern of anoxic encephalopathy. The patient has history of drug abuse in the past. Echocardiogram was ordered by cardiology. There is a minimal troponin leak on his blood work. The urine drug screen was positive for methamphetamine, cocaine and opiates. As such, the patient has history of drug abuse. Confirmed by urine drug screen. The patient's this morning he remains sedated. White cell count is at 12.2 with a hemoglobin of 12.1. The rest of the electrolytes are all within normal and the patient is a normal renal function. Blood gases from today still pending. The chest x-ray from today was completed and the patient has a quick positioning of the ET tube. There is a right lower lobe consolidation and also some atelectasis/effusion and left lower lobe. The patient is a triple-lumen catheter in the left subclavian vein. The patient remains on IV fluids running at 75 mL an hour. Patient is receiving vital AF boluses asked to feeds. Is having low-grade fever. No pressors. Echocardiogram results is not available in the records. 01/14/2021 on seeing the patient for a follow-up. The patient is post cardiac arrest and anoxic encephalopathy. He is still on sedation for now and propofol is running at 46 mcg/kg per minute. Yesterday we give the patient sedation holiday which she failed. He became very tachycardic and tachypneic and asynchronous with a mechanical ventilator. He was thrashing and he was not following any commands. Based on that, the child was discontinued. This morning, the family will be done. Meanwhile, the patient remains on a mechanical ventilator. He is an assist-control mode rate of 20 with tidal volume of 450 and FiO2 of 40% with a PEEP of 5. Blood gases from this morning is still pending. Otherwise, the rest of the labs are all within normal limits. The CAT scan of the brain was repeated yesterday and it showed no acute abnormalities. There is some 10 sinus air fluid levels, questionable sinusitis and some Fluid within the mastoid air cells as well. Also, EEG of the brain was also done and it showed abnormal EEG with background slowing suggestive of severe encephalopathy. There were some rare sharp and slow waves over the bilateral the liver tests concerning for epileptic discharges. The patient was seen by neurology already. He is currently on Keppra 750 mg every 12 hours. Is also on Unasyn for suspected aspiration pneumonia of the right lower lobe. Note that the chest x-ray from yesterday showed bilateral lower lobe pulmonary infiltrates. He remains nothing by mouth. IV fluids are running at 75 mL an hour. Otherwise, no other significant events overnight. He remains hemodyna mically stable on no pressors. No further cardiac arrhythmias. Echocardiogram was also done that showed a preserved LV function without any underlying abnormalities with an ejection fraction of 60-65%. Objective - Vital Signs Vital signs: Vital Signs Temp 98.9 F 01/14/21 04:00 Pulse 60 01/14/21 04:00 Resp 20 01/14/21 04:00 BP 78/47 01/11/21 16:00 Pulse Ox 97 01/14/21 04:00 Intake & Output 01/13/21 01/13/21 01/14/21 06:59 18:59 06:59 Intake Total 6680.203 6333.695 1302.525 Output Total 500 805 300 Balance 1088.867 280.219 8049.525 Weight 90.2 kg Intake: IV 810 1147 729 .9 pressure bag 60 72 54 Sodium Chloride 0.9% 1, 750 975 675 000 ml @ 75 mls/hr IV . [id number] [facility] Rx#:[id number] unasyn 100 Intake, IV Titration 178.867 199.695 183.525 Amount levETIRAcetam IV 750 mg 100 In Sodium Chloride 0.9% 100 ml @ 400 mls/hr IVPB Q12HR [facility] Rx#:[id number] propofoL 1,000 mg In 178.867 199.695 83.525 Empty Bag 1 bag @ Titrate IV .Q0M [facility] Rx#: [id number] Tube Feeding 540 360 360 Other 60 30 Output: Urine 500 805 300 Other: Voiding Method Indwelling Catheter Indwelling Catheter Indwelling Catheter ABP, PAP, CO, CI - Last Documented Arterial Blood Pressure 104/48 - Exam No acute distress, sedated, and mechanically ventilated. HEENT examination is grossly unremarkable. There is an orally placed endotr acheal tube and NG tube. Neck supple. Full range of motion. No adenopathy thyromegaly or neck vein distention. Cardiovascular examination reveals regular rhythm rate. S1-S2 normal. No S3 or S4. No discernible murmur noted. Heart sounds are distant. Lungs reveal mostly clear breath sounds. A few scattered rhonchi are noted. No wheezes or crackles. Breath sounds equal. Abdomen soft bowel sounds are heard. No masses or tenderness. Extremities are intact. No cyanosis clubbing or edema. Skin is without rash or lesion. Neurologic examination cannot be adequately assessed. The patient is currently ventilated and sedated. The patient is unresponsive to any painful stimulation. Pupils are round to 3 mm in size and there/reactive. No nystagmus. No clonus. No Babinski. No overt seizure activity noted on today's evaluation. Motor function cannot be assessed. The patient remains on propofol and sedation holiday will be offered. - Labs CBC & Chem 7: 01/14/21 03:50 01/14/21 03:50 Labs: Abnormal Lab Results - Last 24 Hours (Table) 01/13/21 01/13/21 01/14/21 Range/Units 05:59 23:33 03:50 RBC 3.43 L (4.30-5.90) m/uL Hgb 11.5 L (13.0-17.5) gm/dL Hct 32.4 L (39.0-53.0) % Plt Count 130 L (150-450) k/uL ABG pO2 66 L (83-108) mmHg ABG Total CO2 26 H (19-24) mmol/L ABG O2 Saturation 93.8 L (94-97) % Chloride (98-107) mmol/L Glucose (74-99) mg/dL POC Glucose (mg/dL) 102 H (75-99) mg/dL Calcium (8.4-10.2) mg/dL AST (17-59) U/L Total Protein (6.3-8.2) g/dL Albumin (3.5-5.0) g/dL 01/14/21 Range/Units 03:50 RBC (4.30-5.90) m/uL Hgb (13.0-17.5) gm/dL Hct (39.0-53.0) % Plt Count (150-450) k/uL ABG pO2 (83-108) mmHg ABG Total CO2 (19-24) mmol/L ABG O2 Saturation (94-97) % Chloride 116 H (98-107) mmol/L Glucose 102 H (74-99) mg/dL POC Glucose (mg/dL) (75-99) mg/dL Calcium 7.8 L (8.4-10.2) mg/dL AST 92 H (17-59) U/L Total Protein 5.0 L (6.3-8.2) g/dL Albumin 2.5 L (3.5-5.0) g/dL Microbiology - Last 24 Hours (Table) 01/11/21 14:27 Blood Culture - Preliminary Blood No Growth after 48 hours 01/11/21 01:54 Gram Stain - Final Sputum Sputum Culture - Final 01/10/21 21:04 Gram Stain - Final Sputum Sputum Culture - Final Strep agalactiae - (group b) Assessment and Plan Plan: 1 [id number] cardiopulmonary arrest, with unknown downtime, status post cardiopulmonary resuscitation with return of spontaneous circulation (CPA/CPR/ROSC). The patient is currently sedated, intubated and mechanically ventilated in the emergency room. The patient is currently hemodynamically stable. Cardiac rhythm is sinus. Echocardiogram is within normal and the patient remains hemodynamically stable. 2 Anoxic brain injury, secondary to cardiac arrest, with a CAT scan of the brain showing no acute abnormalities other than some chronic sinus disease and the patient has EEG that shows diffuse slowing with some questionable epileptic foci bilaterally and for that reason the patient was started on Keppra. He is also on propofol. 3 bilateral lower lobe pulmonary infiltrates, consider aspiration pneumonia currently on IV Unasyn. Chest x-ray from today showing bilateral lower lobe infiltrates/consolidation along with possibly development of a right-sided pleural effusion. 4 troponin leak 5 multiple drug abuse and the patient was positive for cocaine, opiates and methamphetamine Plan Sedation holiday and assess the patient's mental status Consult neurology was done and their input is appreciated EEG was noted and the repeat CAT scan was also noted. The patient will be started on feeding for nutritional support and dietary consultation will be obtained Continue IV Unasyn as there is concern of a lower lobe pneumonia of an aspiration type Echo was normal Hemodynamically stable We'll continue to follow. Condition is critical. Critically care evaluation done more than 30 minutes
[2021-01-14 05:35] LABS: ABG Base Excess 0.4 mmol/L; ABG HCO3 26 mmol/L (21-25); ABG Oxygen Saturation 96.6 % (94-97); ABG PCO2 45 mmHg (35-45); ABG PH 7.37 (7.35-7.45); ABG PO2 81 mmHg (83-108); ABG TCO2 27 mmol/L (19-24)
[2021-01-14] MEDS: SODIUM CHLORIDE 0.9% 1,000 ML IV SCH ×2 (07:02→16:02)
[2021-01-14] MEDS: INSULIN ASPART (NovoLOG) 100 UNIT/ML VIAL SQ SCH ×3 (08:29→19:06)
[2021-01-14] MEDS: CLEVIDIPINE BUTYRATE 25 MG in EMPTY BAG 1 BAG IV SCH (08:30)
[2021-01-14] MEDS: ASPIRIN 81 MG PO SCH (08:41)
[2021-01-14] MEDS: levETIRAcetam IV 750 MG in SODIUM CHLORIDE 0.9% 100 ML IVPB SCH (08:41)
[2021-01-14] MEDS: CHLORHEXIDINE GLUCONATE 15 ML CUP MUCOUS MEM SCH (08:41)
[2021-01-14] MEDS: HEPARIN SODIUM,PORCINE/PF 5,000 UNIT/0.5 ML SYRINGE SQ SCH ×2 (08:41→16:02)
[2021-01-14] MEDS: AMPICILLIN-SULBACTAM 3 GM in SODIUM CHLORIDE 0.9% 100 ML IVPB SCH (08:42)
[2021-01-14] MEDS: PANTOPRAZOLE 40 MG/10 ML VIAL IVP SCH (08:43)
[2021-01-14] MEDS: THIAMINE 100 MG/ML 2 ML VIAL IVP SCH (08:43)
--- NOTE | 2021-01-14 08:47 | PN ---
PROGRESS NOTE Mr. Fernando is a 50-year-old male who presented with a cardiac arrest. He is intubated. He was found in the drive way and there is evidence of aspiration. He has history of drug use. He remains intubated. Attempts to do a sedation holiday failed. He was nonresponsive. He is in sinus mechanism. His blood pressure is stable. There is no evidence of malignant arrhythmia. The echocardiogram revealed a preserved systolic function. He had an EEG that showed background slowing suggestive of severe encephalopathy. He continues to be at this time on aspirin in addition to thiamine, Unasyn, subcu heparin, insulin, Keppra. PHYSICAL EXAMINATION: Blood pressure running in the 120s with the heart rate in the 60s. LUNGS: Clear. HEART: Regular rate and rhythm. S1, S2. No S3. No rub. ABDOMEN: Soft. No organomegaly. EXTREMITIES: No significant edema. LAB DATA: Lab data revealed a hemoglobin of 11.5. BUN and creatinine 12 and 0.7. A pH 7.37, pCO2 of 45, pO2 of 81. IMPRESSION: 1. Out of hospital cardiac arrest. No evidence to suggest primary cardiac event could be related to drug use. 2. Respiratory failure. 3. Possible aspiration pneumonia. RECOMMENDATION: From the cardiac standpoint, will continue current therapy. Continue supportive care. Unfortunately prognosis is poor. We will see him on as-needed basis. Please feel free to call us for any question. MMODL / IJN: [id number] /
--- NOTE | 2021-01-14 08:48 | XR ---
EXAMINATION TYPE: XR chest 1V portable DATE OF EXAM: 01/14/2021 COMPARISON: 01/13/2021 HISTORY: Shortness of breath TECHNIQUE: Single frontal view of the chest is obtained. FINDINGS: ET and NG tube and central line stable. Calcified granuloma right lower lobe. Bilateral lo wer lobe infiltrate and small effusion greater on the right stable. Mild interstitial prominence is n o pneumothorax. IMPRESSION: Stable pleural-parenchymal findings correlate for pneumonia. Underlying CHF not excluded
[2021-01-14] MEDS ORDERED: CYANOCOBALAMIN 1,000 MCG/ML 1 ML VIAL IM ONE (09:30)
--- NOTE | 2021-01-14 10:32 | P.PN ---
Subjective Progress Note Date: 01/14/21 Patient was seen at bedside and he continues to be on IV sedation (Propofol 45mcg/kg/min). Per the patient nurse the patient was on a higher dose of propofol of 50 mics per kg per min. She stated once the patient is titrated down on the sedation patient's gets that the Neck desats as well as the blood pr essure is in the systolic in the 200s that would last for 10-15 minutes. She notices a very rare left upper extremity jerks. His white blood cell is trending now currently at its normal 7.5. His AST is 92 which is elevated and the ALT is 40 which is normal. Ammonia level is 9 which is normal. Vitamin B12 is 229 which is low normal (the normal ranges between 200 and 944). Folate level is 19.6 which is considered normal TSH is 0.73 which is normal range. Repeat CT of the head on 01/13/2021 is reported as pansinus air fluid level. Correlate for acute sinusitis. Some trapped fluid within the mastoid air cells as well. Correlate for any mastoid pain to exclude mastoiditis. No acute intracranial abnormality seen. Objective - Vital Signs Vital signs: Vital Signs Temp 98.4 F 01/14/21 08:00 Pulse 66 01/14/21 09:00 Resp 20 01/14/21 09:00 BP 78/47 01/11/21 16:00 Pulse Ox 97 01/14/21 09:00 Intake & Output 01/13/21 01/14/21 01/14/21 18:59 06:59 18:59 Intake Total 4865.592 9760.583 Output Total 805 395 Balance 303.653 0496.583 Weight 93.4 kg Intake: IV 1147 963 .9 pressure bag 72 63 Sodium Chloride 0.9% 1, 975 900 000 ml @ 75 mls/hr IV . [id number] [facility] Rx#:[id number] unasyn 100 Intake, IV Titration 199.695 264.583 Amount levETIRAcetam IV 750 mg 100 In Sodium Chloride 0.9% 100 ml @ 400 mls/hr IVPB Q12HR [facility] Rx#:[id number] propofoL 1,000 mg In 199.695 164.583 Empty Bag 1 bag @ Titrate IV .Q0M [facility] Rx#: [id number] Tube Feeding 360 360 Other 30 Output: Urine 805 395 Other: Voiding Method Indwelling Catheter Indwelling Catheter ABP, PAP, CO, CI - Last Documented Arterial Blood Pressure 159/69 - Exam GENERAL: The patient is lying in bed and does not seem in acute distress. The patient is intubated on ventilator and on IV propofol 45mcg/kg/min. HENT: NO nuchal rigidity. LUNG: Intubated on ventilator. Clear to auscultation bilaterally throughout. Not labored breathing. Breathing over the vent. Was coughing during exam. NEUROLOGICAL: Limited since patient is on IV Propofol 45mcg/kg/min and intubated and on ventilator. Higher mental function: GCS: 6 (E1, VT1, M4). Patient is comatose, non r esponsive or following commands. Cranial nerves: Pupils are 2mm and sluggishly reactive to light bilaterally. Primary gaze is midline. Positive corneal reflex. No facial weakness throughout. +gag and cough. Motor: Strength: 0/5 throughout. No sponateous movement noted throughout. No posture noted. Normal bulk. Normal tone. has minimall withdrawl of lower extremity to painful stimuli. Cerebellum: Could not assess. Sensation: Could not assess painful stimuli. Reflexes (right/left): Patellar 3+ bilaterally otherwise 2+ throughout. Plantars are upgoing bilaterally. Upon turning off sedation patient oxygen desaturated in 87-89%, coughing and blood pressure was in 200 systolic. - Labs CBC & Chem 7: 01/14/21 03:50 01/14/21 03:50 Labs: Abnormal Lab Results - Last 24 Hours (Table) 01/13/21 01/14/21 01/14/21 Range/Units 23:33 03:50 03:50 RBC 3.43 L (4.30-5.90) m/uL Hgb 11.5 L (13.0-17.5) gm/dL Hct 32.4 L (39.0-53.0) % Plt Count 130 L (150-450) k/uL ABG pO2 (83-108) mmHg ABG HCO3 (21-25) mmol/L ABG Total CO2 (19-24) mmol/L Chloride 116 H (98-107) mmol/L Glucose 102 H (74-99) mg/dL POC Glucose (mg/dL) 102 H (75-99) mg/dL Calcium 7.8 L (8.4-10.2) mg/dL AST 92 H (17-59) U/L Total Protein 5.0 L (6.3-8.2) g/dL Albumin 2.5 L (3.5-5.0) g/dL 01/14/21 Range/Units 05:29 RBC (4.30-5.90) m/uL Hgb (13.0-17.5) gm/dL Hct (39.0-53.0) % Plt Count (150-450) k/uL ABG pO2 81 L (83-108) mmHg ABG HCO3 26 H (21-25) mmol/L ABG Total CO2 27 H (19-24) mmol/L Chloride (98-107) mmol/L Glucose (74-99) mg/dL POC Glucose (mg/dL) (75-99) mg/dL Calcium (8.4-10.2) mg/dL AST (17-59) U/L Total Protein (6.3-8.2) g/dL Albumin (3.5-5.0) g/dL Microbiology - Last 24 Hours (Table) 01/11/21 14:27 Blood Culture - Preliminary Blood No Growth after 48 hours 01/11/21 01:54 Gram Stain - Final Sputum Sputum Culture - Final 01/10/21 21:04 Gram Stain - Final Sputum Sputum Culture - Final Strep agalactiae - (group b) Assessment and Plan Assessment: Altered mental status due to multifactorial: metabolic encephalopathy (elevated LFT, HEIDY--improved and due to drug use (cocaine, amphetamine and opiates) and right lung aspiration pneumonia and sedation effect (Propofol) 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 The s everity of the anoxic brain injury is unknown at this point Out of the hospital cardiopulmonary arrest unknown down time status post cardiopulmonary resuscitation with return of spontaneous circulation Elevated LFT (AST 414 and ALT 104 on presentation. Since AST is >2 of ALT is concerning of alcohol use)---improving Low Vitamin B12 level (229 Normal is 200-944) Aspiration pneumonia Troponin leak Polysubstance use (cocaine, amphetamine and opiates) Plan: EEG: Is an abnormal routine EEG. The back was slowing is suggestive of severe encephalopathy. The rare to occasional sharp and slow wave over the bilateral frontal degenerative is concerning for epileptiform discharges. There is no seizure during this recording. The upper body jerks, predominantly left were c aptured during this recording without EEG correlation. Becaise pf continued body jerks, I increased Keppra from 750mg q 12 hours to 1500mg q 12. Ordered repeat EEG study. His AST is 92 which is elevated and the ALT is 40 which is normal. Ammonia level is 9 which is normal. Vitamin B12 is 229 which is low normal (the normal ranges between 200 and 944). I started the patient on vitamin B12 1000 g daily. Folate level is 19.6 which is considered normal TSH is 0.73 which is normal range. Repeat CT of the head on 01/13/2021 is reported as pansinus air fluid level. Correlate for acute sinusitis. Some trapped fluid within the mastoid air cells as well. Correlate for any mastoid pain to exclude mastoiditis. No acute intracranial abnormality seen. Started the patient on thiamine 100 mg daily. 2-D echo was reported as left ventricle size is normal. Mild concentric left ventricular hypertrophy. Ejection fraction between 60-65%. Cardiology team is on board. Recommend [facility] protocol for concern of alcohol withdrawl seizure but will defer it to ICU team and primary team. We'll defer the rest of the medical management to the primary team as well as ICU team. The patient prognosis appears poor due to: It is unknown exact down time but was notified it appears to be prolonged cardiac arrest; has only brainstem reflexes, jerking of upper extremities (predominately left) concerning for seizure). The plan is discussed with the patient nurse and ICU attending. Giorgio Robles M.D. Neuro-hospitalist Time with Patient: Less than 30
[2021-01-14 11:34] LABS: Glucose,Whole Blood 89 mg/dL (75-99)
[2021-01-14] MEDS: NOREPINEPHRINE 8 MG in SODIUM CHLORIDE 0.9% 250 ML IV SCH (11:38)
[2021-01-14] MEDS ORDERED: SODIUM CHLORIDE 0.9% 1,000 ML IV ONE (12:08)
--- NOTE | 2021-01-14 12:26 | P.PN ---
Subjective Progress Note Date: 01/14/21 Remains intubated on the ventilator. Objective - Vital Signs Vital signs: Vital Signs Temp 98.4 F 01/14/21 08:00 Pulse 56 L 01/14/21 12:00 Resp 16 01/14/21 12:00 BP 96/53 01/14/21 12:00 Pulse Ox 95 01/14/21 12:00 Intake & Output 01/13/21 01/14/21 01/14/21 18:59 06:59 18:59 Intake Total 4142.571 6245.583 917.699 Output Total 805 395 432 Balance 360.670 9310.583 485.699 Weight 93.4 kg 93.4 kg Intake: IV 1147 963 605 .9 pressure bag 72 63 30 Sodium Chloride 0.9% 1, 975 900 375 000 ml @ 75 mls/hr IV . [id number] [facility] Rx#:[id number] levETIRAcetam IV 750 mg 100 In Sodium Chloride 0.9% 100 ml @ 400 mls/hr IVPB Q12HR [facility] Rx#:[id number] unasyn 100 100 Intake, IV Titration 199.695 264.583 102.699 Amount Norepinephrine 8 mg In 2.699 Sodium Chloride 0.9% 250 ml @ 0.05 MCG/KG/MIN 8. 996 mls/hr IV .Q24H [facility] Rx#:[id number] levETIRAcetam IV 750 mg 100 In Sodium Chloride 0.9% 100 ml @ 400 mls/hr IVPB Q12HR [facility] Rx#:[id number] propofoL 1,000 mg In 199.695 164.583 100 Empty Bag 1 bag @ Titrate IV .Q0M [facility] Rx#: [id number] Tube Feeding 360 360 180 Other 30 30 Output: Gastric Drainage 300 Urine 805 395 130 Emesis 2 Other: Voiding Method Indwelling Catheter Indwelling Catheter ABP, PAP, CO, CI - Last Documented Arterial Blood Pressure 115/62 - Exam Gen: Intubated, sedated, on ventilator HEENT: normocephalic, atraumatic Resp: Decreased breath sounds, no wheezing CVS: good distal perfusion x 4, GI: soft, nontender nondistended positive bowel sounds MSK: No clubbing cyanosis or edema Neuro: Intubated on vent - Labs CBC & Chem 7: 01/14/21 03:50 01/14/21 03:50 Labs: Abnormal Lab Results - Last 24 Hours (Table) 01/13/21 01/13/21 01/14/21 Range/Units 04:45 23:33 03:50 RBC 3.43 L (4.30-5.90) m/uL Hgb 11.5 L (13.0-17.5) gm/dL Hct 32.4 L (39.0-53.0) % Plt Count 130 L (150-450) k/uL ABG pO2 (83-108) mmHg ABG HCO3 (21-25) mmol/L ABG Total CO2 (19-24) mmol/L Chloride (98-107) mmol/L Glucose (74-99) mg/dL POC Glucose (mg/dL) 102 H (75-99) mg/dL Calcium (8.4-10.2) mg/dL AST (17-59) U/L Total Protein (6.3-8.2) g/dL Albumin (3.5-5.0) g/dL RBC Folate 798 H (280 - 791) ng/mL 01/14/21 01/14/21 Range/Units 03:50 05:29 RBC (4.30-5.90) m/uL Hgb (13.0-17.5) gm/dL Hct (39.0-53.0) % Plt Count (150-450) k/uL ABG pO2 81 L (83-108) mmHg ABG HCO3 26 H (21-25) mmol/L ABG Total CO2 27 H (19-24) mmol/L Chloride 116 H (98-107) mmol/L Glucose 102 H (74-99) mg/dL POC Glucose (mg/dL) (75-99) mg/dL Calcium 7.8 L (8.4-10.2) mg/dL AST 92 H (17-59) U/L Total Protein 5.0 L (6.3-8.2) g/dL Albumin 2.5 L (3.5-5.0) g/dL RBC Folate (280 - 791) ng/mL Microbiology - Last 24 Hours (Table) 01/11/21 14:27 Blood Culture - Preliminary Blood No Growth after 48 hours 01/11/21 01:54 Gram Stain - Final Sputum Sputum Culture - Final 01/10/21 21:04 Gram Stain - Final Sputum Sputum Culture - Final Strep agalactiae - (group b) Assessment and Plan Plan: Unwitnessed cardiac arrest, suspected secondary to aspiration -Cardiology consult, input appreciated -Cardiac monitoring -Continue with ventilator bundle -2-D echo ejection fraction 60-65% -Continue with Unasyn Neurology following Now on thiamine Lactic acidosis -Monitor Elevated troponin secondary to cardiac -Continue to monitor -Cardiac monitoring Hyperglycemia -Lispro insulin sliding scale blood glucose monitoring Acute kidney injury -Continue with IV fluids scr up to 2.2 pounds normalized Leukocytosis -Likely due to acute stressor wbc up to 21,000 on abxs , WBC normalized Substance abuse -Monitor for signs of withdrawal with meth and cocaine Right lung aspiration pneumonia : continue on IV Unasyn DVT prophylaxis -Heparin metabolic acidosis 2/2 suzanne bicarb normalized Disposition: pending clinical progression
[2021-01-14] MEDS: PIPERACILLIN-TAZOBACTAM 3.375 GM in SODIUM CHLORIDE 0.9% 100 ML IVPB SCH (16:02)
[2021-01-14 17:45] LABS: Glucose,Whole Blood 74 mg/dL (75-99)
--- NOTE | 2021-01-14 18:31 | EEG ---
ELECTROENCEPHALOGRAM REPORT DATE OF SERVICE: 01/14/2021. CLINICAL HISTORY: This is a 50-year-old gentleman who was brought to the hospital after a cardiac arrest of unknown duration and continues to have altered mental status. This video EEG is obtained to evaluate for seizure and epileptiform activity. RELEVANT MEDICATION: Propofol IV drip as well as Keppra. EEG TYPE: A routine 21-channel EEG is performed with video using the 10/20 electrode placement system. DESCRIPTION: The patient is intubated on a ventilator and on IV propofol at 50 mcg/kg per minute. The background consists of diffuse low to moderate voltage of 0.5 to 1.5 hertz non- rhythmic delta activity. There was no physiological stage II sleep. There is no focal slowing seen. INTERICTAL AND ICTAL: There are occasional sharp and slow waves over the bilateral frontal derivatives without any evolution to seizures. ACTIVATION PROCEDURES: Photic stimulation did not evoke a posterior driving response. Hyperventilation is not performed. CLINICAL INTERPRETATION: This is an abnormal routine EEG. The background slowing is suggestive of severe encephalopathy. The occasional to rare epileptiform discharges over the bilateral frontal increase the risk of seizure. There are no focal slowing or seizure during this recording. Clinical correlation is recommended. Of note, today's EEG is similar to yesterday's EEG (01/13/2021). MMODL / IJN: [id number] / MTDD
[2021-01-14] MEDS ORDERED: propofoL 100 ML IV ONE (19:55)
[2021-01-15] MEDS: IPRATROPIUM-ALBUTEROL 3 ML NEB INHALATION SCH ×6 (00:02→20:20)
[2021-01-15 00:22] LABS: Glucose,Whole Blood 90 mg/dL (75-99)
[2021-01-15] MEDS: INSULIN ASPART (NovoLOG) 100 UNIT/ML VIAL SQ SCH ×5 (00:34→23:34)
[2021-01-15] MEDS: PIPERACILLIN-TAZOBACTAM 3.375 GM in SODIUM CHLORIDE 0.9% 100 ML IVPB SCH ×4 (00:51→23:36)
[2021-01-15] MEDS: levETIRAcetam IV 1,500 MG in SALINE 1 100ML.BAG IVPB SCH ×3 (00:51→20:40)
[2021-01-15] MEDS: HEPARIN SODIUM,PORCINE/PF 5,000 UNIT/0.5 ML SYRINGE SQ SCH ×4 (00:52→23:36)
[2021-01-15] MEDS: CHLORHEXIDINE GLUCONATE 15 ML CUP MUCOUS MEM SCH ×3 (00:52→20:40)
[2021-01-15 04:24] LABS: HCT 29.6 % (39.0-53.0); HGB 10.7 gm/dL (13.0-17.5); MCH 34.2 pg (25.0-35.0); MCV 94.8 fL (80.0-100.0); Mean Platelet Volume 7.4; Platelet Count 129 k/uL (150-450); RBC 3.12 m/uL (4.30-5.90); WBC 7.6 k/uL (3.8-10.6)
[2021-01-15 04:44] LABS: African American GFR (CKD) >90 (>60 ml/min/1.73 sqM); Anion Gap 7 mmol/L; Blood Urea Nitrogen 9 mg/dL (9-20); Calcium 7.6 mg/dL (8.4-10.2); Carbon Dioxide 22 mmol/L (22-30); Chloride 112 mmol/L (98-107); Glucose 85 mg/dL (74-99); Non-African American GFR(CKD) >90 (>60 ml/min/1.73 sqM); Potassium 3.7 mmol/L (3.5-5.1); Sodium 141 mmol/L (137-145)
[2021-01-15] MEDS ORDERED: POTASSIUM BICARBONATE/CIT AC 20 MEQ TABLET.EFF NG-TUBE SCH (05:00)
[2021-01-15 05:55] LABS: ABG Base Excess 0.1 mmol/L; ABG HCO3 24 mmol/L (21-25); ABG Oxygen Saturation 96.3 % (94-97); ABG PCO2 34 mmHg (35-45); ABG PH 7.45 (7.35-7.45); ABG PO2 74 mmHg (83-108); ABG TCO2 25 mmol/L (19-24); Allen Test Performed? Yes
[2021-01-15] MEDS: SODIUM CHLORIDE 0.9% 1,000 ML IV SCH ×2 (07:45→23:33)
--- NOTE | 2021-01-15 08:56 | P.PN ---
Subjective Remains intubated on the ventilator. No major clinical changes. Objective - Vital Signs Vital signs: Vital Signs Temp 100.4 F H 01/15/21 04:00 Pulse 64 01/15/21 07:00 Resp 21 01/15/21 07:00 BP 124/72 01/15/21 07:00 Pulse Ox 94 L 01/15/21 07:00 Intake & Output 01/14/21 01/15/21 01/15/21 18:59 06:59 18:59 Intake Total 3684.699 1405.234 91 Output Total 757 855 80 Balance 2927.699 550.234 11 Weight 93.4 kg 97.8 kg Intake: IV 3272 1091 81 .9 pressure bag 72 66 6 Piperacillin-Tazobactam 3 100 100 .375 gm In Sodium Chloride 0.9% 100 ml @ 25 mls/hr IVPB Q8HR [facility] Rx# :[id number] Sodium Chloride 0.9% 1, 900 825 75 000 ml @ 75 mls/hr IV . [id number] [facility] Rx#:[id number] Sodium Chloride 0.9% 1, 2000 000 ml @ 999 mls/hr IV . Q1H1M [facility] Rx#:[id number] levETIRAcetam IV 750 mg 100 100 In Sodium Chloride 0.9% 100 ml @ 400 mls/hr IVPB Q12HR [facility] Rx#:[id number] unasyn 100 Intake, IV Titration 202.699 294.234 Amount Norepinephrine 8 mg In 2.699 108.68 Sodium Chloride 0.9% 250 ml @ 0.05 MCG/KG/MIN 8. 996 mls/hr IV .Q24H [facility] Rx#:[id number] propofoL 1,000 mg In 200 185.554 Empty Bag 1 bag @ Titrate IV .Q0M [facility] Rx#: [id number] Tube Feeding 180 20 10 Other 30 Output: Gastric Drainage 300 Urine 455 855 80 Emesis 2 Other: Voiding Method Indwelling Catheter Indwelling Catheter ABP, PAP, CO, CI - Last Documented Arterial Blood Pressure 118/48 - Exam Gen: Intubated, on ventilator HEENT: normocephalic, atraumatic Resp: Decreased breath sounds, no wheezing CVS: S1-S2 normal, no murmurs, rubs or gallops GI: soft, nontender nondistended positive bowel sounds MSK: No clubbing cyanosis or edema Neuro: Intubated on vent - Labs CBC & Chem 7: 01/15/21 04:00 01/15/21 04:00 Labs: Abnormal Lab Results - Last 24 Hours (Table) 01/13/21 01/14/21 01/15/21 Range/Units 04:45 17:44 04:00 RBC 3.12 L (4.30-5.90) m/uL Hgb 10.7 L (13.0-17.5) gm/dL Hct 29.6 L (39.0-53.0) % Plt Count 129 L (150-450) k/uL ABG pCO2 (35-45) mmHg ABG pO2 (83-108) mmHg ABG Total CO2 (19-24) mmol/L Chloride (98-107) mmol/L POC Glucose (mg/dL) 74 L (75-99) mg/dL Calcium (8.4-10.2) mg/dL RBC Folate 798 H (280 - 791) ng/mL 01/15/21 01/15/21 Range/Units 04:00 05:51 RBC (4.30-5.90) m/uL Hgb (13.0-17.5) gm/dL Hct (39.0-53.0) % Plt Count (150-450) k/uL ABG pCO2 34 L (35-45) mmHg ABG pO2 74 L (83-108) mmHg ABG Total CO2 25 H (19-24) mmol/L Chloride 112 H (98-107) mmol/L POC Glucose (mg/dL) (75-99) mg/dL Calcium 7.6 L (8.4-10.2) mg/dL RBC Folate (280 - 791) ng/mL Microbiology - Last 24 Hours (Table) 01/11/21 14:27 Blood Culture - Preliminary Blood No Growth after 72 hours Assessment and Plan Plan: Unwitnessed cardiac arrest, suspected secondary to aspiration -Cardiology consult, input appreciated -Cardiac monitoring -Continue with ventilator bundle -2-D echo ejection fraction 60-65% -Continue with Zosyn Neurology following Continue on thiamine Lactic acidosis -Monitor Elevated troponin secondary to cardiac -Continue to monitor -Cardiac monitoring Hyperglycemia -Lispro insulin sliding scale blood glucose monitoring Acute kidney injury -Continue with IV fluids scr up to 2.2 normalized Leukocytosis -Likely due to acute stressor wbc up to 21,000 on abxs , WBC normalized Substance abuse -Monitor for signs of withdrawal with meth and cocaine Right lung aspiration pneumonia : continue on IV Zosyn Thrombocytopenia Monitor platelets, 129 DVT prophylaxis -Heparin metabolic acidosis 2/2 suzanne bicarb normalized Disposition: pending clinical progression
--- NOTE | 2021-01-15 09:29 | XR ---
EXAMINATION TYPE: XR chest 1V portable DATE OF EXAM: 01/15/2021 COMPARISON: Chest x-ray 01/14/2021 HISTORY: Intubated TECHNIQUE: Single frontal view of the chest is obtained. FINDINGS: Endotracheal tube, NG tube, left subclavian central venous catheter are overlying appropri ate positions. No evident pneumothorax. Bilateral lower lobe airspace disease is present, hemidiaphra gms are obscured. Cardiac mediastinal silhouette is likely stable. IMPRESSION: Correlate for pneumonia, edema, ARDS, possible effusions
--- NOTE | 2021-01-15 09:53 | P.PN ---
Subjective Progress Note Date: 01/15/21 01/13/2021, I am seeing this 50-year-old male patient who is post cardiac arrest. The patient was found on his driveway. He has aspirated and he had emesis on his head and face and neck. He was in asystole. Received CPR and compressions and epinephrine with a prolonged downtime. The patient was int ubated and placed on a mechanical ventilator and the patient was brought into the hospital. Is negative for COVID: 19. The patient remains on mechanical ventilator. Currently is on sedation with propofol running at 35 mcg/kg per minute. The patient on a assist-control mode of ventilation volume cycle with a tidal volume of 450, rate of 20, FiO2 of 40% with a PEEP of 5. CAT scan of the brain and the spine were negative. The patient's wish showing a right lower lobe pulmonary infiltration consistent with with aspiration and the patient is currently on IV Unasyn. Hemodynamically stable. The patient is not requiring any pressors. Kidney function improved. Potassium level is also improved. There is a concern of anoxic encephalopathy. The patient has history of drug abuse in the past. Echocardiogram was ordered by cardiology. There is a minimal troponin leak on his blood work. The urine drug screen was positive for methamphetamine, cocaine and opiates. As such, the patient has history of drug abuse. Confirmed by urine drug screen. The patient's this morning he remains sedated. White cell count is at 12.2 with a hemoglobin of 12.1. The rest of the electrolytes are all within normal and the patient is a normal renal function. Blood gases from today still pending. The chest x-ray from today was completed and the patient has a quick positioning of the ET tube. There is a right lower lobe consolidation and also some atelectasis/effusion and left lower lobe. The patient is a triple-lumen catheter in the left subclavian vein. The patient remains on IV fluids running at 75 mL an hour. Patient is receiving vital AF boluses asked to feeds. Is having low-grade fever. No pressors. Echocardiogram results is not available in the records. 01/14/2021 on seeing the patient for a follow-up. The patient is post cardiac arrest and anoxic encephalopathy. He is still on sedation for now and propofol is running at 46 mcg/kg per minute. Yesterday we give the patient sedation holiday which she failed. He became very tachycardic and tachypneic and asynchronous with a mechanical ventilator. He was thrashing and he was not following any commands. Based on that, the child was discontinued. This morning, the family will be done. Meanwhile, the patient remains on a mechanical ventilator. He is an assist-control mode rate of 20 with tidal volume of 450 and FiO2 of 40% with a PEEP of 5. Blood gases from this morning is still pending. Otherwise, the rest of the labs are all within normal limits. The CAT scan of the brain was repeated yesterday and it showed no acute abnormalities. There is some 10 sinus air fluid levels, questionable sinusitis and some Fluid within the mastoid air cells as well. Also, EEG of the brain was also done and it showed abnormal EEG with background slowing suggestive of severe encephalopathy. There were some rare sharp and slow waves over the bilateral the liver tests concerning for epileptic discharges. The patient was seen by neurology already. He is currently on Keppra 750 mg every 12 hours. Is also on Unasyn for suspected aspiration pneumonia of the right lower lobe. Note that the chest x-ray from yesterday showed bilateral lower lobe pulmonary infiltrates. He remains nothing by mouth. IV fluids are running at 75 mL an hour. Otherwise, no other significant events overnight. He remains hemodynam ically stable on no pressors. No further cardiac arrhythmias. Echocardiogram was also done that showed a preserved LV function without any underlying abnormalities with an ejection fraction of 60-65%. On today's evaluation of 021 the patient remains sedated with propofol. Attempts to take him off the propofol is failed. The patient was given a sedation holiday. He did poorly with that. He would become agitated and restless and tachypneic and tachycardic and he would desaturate. No meaningful neurologic recovery to the point where the patient was follow commands or answer questions. He continues to have some episodic myoclonic jerks once taken off the propofol. This is discussed with neurology and it is kind of hypoxic encephalopathy and the patient remains on Keppra 750 mg every 12 hours. There repeat EEG from yesterday showed severe encephalopathy with occasional rare ep ileptiform discharges bilaterally from the frontal lobes. Meanwhile, the patient's is on a mechanical ventilator. On today's evaluation is an assist- control at the rate of 20 with a tidal volume of 450 and FiO2 of 40% with a PEEP of 10. We had increased his PEEP as the patient was becoming more hypoxic yesterday. His chest x-ray is showing worsening in consolidation lower lobes and the patient probably is developing a right-sided pleural effusion. PH is at 7.45 with a pCO2 of 34 and pO2 of 74. He was running a lower urine output and the patient was given a total of 2 L of IV fluid yesterday and the patient was also given IV Zosyn am was stopped Unasyn. The fluid balance over the past 24 hours and then +3.5 L. The patient is currently on no pressors. He is receiving enteral feeding for nutritional support and he is on vital HP Rate of 10 mL an hour. The sputum samples showed normal respiratory dimitri, strep agalactiae. Objective - Vital Signs Vital signs: Vital Signs Temp 100.4 F H 01/15/21 04:00 Pulse 64 01/15/21 09:39 Resp 21 01/15/21 07:00 BP 124/72 01/15/21 07:00 Pulse Ox 94 L 01/15/21 07:00 Intake & Output 01/14/21 01/15/21 01/15/21 18:59 06:59 18:59 Intake Total 3684.699 1405.234 91 Output Total 757 855 80 Balance 2927.699 550.234 11 Weight 93.4 kg 97.8 kg Intake: IV 3272 1091 81 .9 pressure bag 72 66 6 Piperacillin-Tazobactam 3 100 100 .375 gm In Sodium Chloride 0.9% 100 ml @ 25 mls/hr IVPB Q8HR [facility] Rx# :[id number] Sodium Chloride 0.9% 1, 900 825 75 000 ml @ 75 mls/hr IV . [id number] [facility] Rx#:[id number] Sodium Chloride 0.9% 1, 2000 000 ml @ 999 mls/hr IV . Q1H1M [facility] Rx#:[id number] levETIRAcetam IV 750 mg 100 100 In Sodium Chloride 0.9% 100 ml @ 400 mls/hr IVPB Q12HR [facility] Rx#:[id number] unasyn 100 Intake, IV Titration 202.699 294.234 Amount Norepinephrine 8 mg In 2.699 108.68 Sodium Chloride 0.9% 250 ml @ 0.05 MCG/KG/MIN 8. 996 mls/hr IV .Q24H [facility] Rx#:[id number] propofoL 1,000 mg In 200 185.554 Empty Bag 1 bag @ Titrate IV .Q0M [facility] Rx#: [id number] Tube Feeding 180 20 10 Other 30 Output: Gastric Drainage 300 Urine 455 855 80 Emesis 2 Other: Voiding Method Indwelling Catheter Indwelling Catheter ABP, PAP, CO, CI - Last Documented Arterial Blood Pressure 118/48 - Exam No acute distress, sedated, and mechanically ventilated. HEENT examination is grossly unremarkable. There is an orally placed endotracheal tube and NG tube. Neck supple. Full range of motion. No adenopathy thyromegaly or neck vein distention. Cardiovascular examination reveals regular rhythm rate. S1-S2 normal. No S3 or S4. No discernible murmur noted. Heart sounds are distant. Lungs reveal mostly clear breath sounds. A few scattered rhonchi are noted. No wheezes or crackles. Breath sounds equal. The breath sounds are rather coarse at this point in time. Abdomen soft bowel sounds are heard. No masses or tenderness. Extremities are intact. No cyanosis clubbing or edema. Skin is without rash or lesion. Neurologic examination. The patient is currently ventilated and sedated. The patient is unresponsive to any painful stimulation. Pupils are round to 3 mm in size and there/reactive. No nystagmus. No clonus. No Babinski. No overt seizure activity noted on today's evaluation. Motor function cannot be assessed. The patient with cough on a nightly he would get any time he is off sedation. He also develops an autonomic reaction when he becomes hypertensive tachypneic and tachycardic. The motor function cannot be accurately assessed. Reflexes are equal and symmetrical in all 4 extremities. - Labs CBC & Chem 7: 01/15/21 04:00 01/15/21 04:00 Labs: Abnormal Lab Results - Last 24 Hours (Table) 01/13/21 01/14/21 01/15/21 Range/Units 04:45 17:44 04:00 RBC 3.12 L (4.30-5.90) m/uL Hgb 10.7 L (13.0-17.5) gm/dL Hct 29.6 L (39.0-53.0) % Plt Count 129 L (150-450) k/uL ABG pCO2 (35-45) mmHg ABG pO2 (83-108) mmHg ABG Total CO2 (19-24) mmol/L Chloride (98-107) mmol/L POC Glucose (mg/dL) 74 L (75-99) mg/dL Calcium (8.4-10.2) mg/dL RBC Folate 798 H (280 - 791) ng/mL 01/15/21 01/15/21 Range/Units 04:00 05:51 RBC (4.30-5.90) m/uL Hgb (13.0-17.5) gm/dL Hct (39.0-53.0) % Plt Count (150-450) k/uL ABG pCO2 34 L (35-45) mmHg ABG pO2 74 L (83-108) mmHg ABG Total CO2 25 H (19-24) mmol/L Chloride 112 H (98-107) mmol/L POC Glucose (mg/dL) (75-99) mg/dL Calcium 7.6 L (8.4-10.2) mg/dL RBC Folate (280 - 791) ng/mL Microbiology - Last 24 Hours (Table) 01/11/21 14:27 Blood Culture - Preliminary Blood No Growth after 72 hours Assessment and Plan Plan: 1 [id number] cardiopulmonary arrest, with unknown downtime, status post cardiopulmonary resuscitation with return of spontaneous circulation (CPA/CPR/ROSC). The patient is currently sedated, intubated and mechanically ventilated in the emergency room. The patient is currently hemodynamically stable. Cardiac rhythm is sinus. Echocardiogram is within normal and the fl tient remains hemodynamically stable. 2 Anoxic brain injury, secondary to cardiac arrest, with a CAT scan of the brain showing no acute abnormalities other than some chronic sinus disease [facility] has EEG that shows diffuse slowing with some questionable epileptic foci bilaterally and for that reason the patient was started on Keppra. He is also on propofol. Unable to get off the propofol. The patient is still having episodic seizure activity, currently on Keppra, please refer to the most recent EEG showed encephalopathy in addition to some rare epileptiform discharge frontal lobes. He does have positive Babinski's. Reflexes are equal and symmetrical, neurologically impaired and unresponsive, pupils are round 2 mm in size, nonreactive, no nystagmus. 3 bilateral lower lobe pulmonary infiltrates, consider aspiration pneumonia currently on Zosyn. Chest x-ray from today showing bilateral lower lobe infiltrates/consolidation along with possibly development of a right-sided p leural effusion. There is interval worsening of the bilateral pulmonary infiltrates. The patient had another bout of aspiration yesterday while being positioned and turned by the nursing staff. His rhythm is showing strep. 4 troponin leak 5 multiple drug abuse and the patient was positive for cocaine, opiates and methamphetamine Plan This is a case of severe anoxic encephalopathy. The patient is not showing any signs of neurologic recovery. He is having episodic seizures. He is currently on Keppra. EEG was noted. Neurologist on the case. He is failing sedation holidays because of severe autonomic reactions. EEG was noted and the repeat CAT scan was also noted. Enteral nutrition Continue IV Zosyn for bilateral lower lobe pneumonia of an aspiration type Echo was normal Hemodynamically stable We'll continue to follow. Condition is critical. Doses poor baseline above-mentioned comorbidities. I have not seen any significant neurologic recovery. Affect the patient's is having some worsening of the chest x-ray finding. He had also some issues with hypotension and the patient was given IV fluids. He is hemodynamically stable for now. We'll continue to follow. Family will be updated of the condition. Dr. Robles has periodically talking to the family about poor neuro status and I would not suggest any sedation holidays today because of the above mentioned autonomic reaction this is obtained off sedation. Critically care evaluation more than 30 minutes Time with Patient: Greater than 30
[2021-01-15] MEDS: ASPIRIN 81 MG PO SCH (10:17)
[2021-01-15] MEDS: PANTOPRAZOLE 40 MG/10 ML VIAL IVP SCH (10:18)
[2021-01-15] MEDS: THIAMINE 100 MG/ML 2 ML VIAL IVP SCH (10:18)
[2021-01-15] MEDS: CYANOCOBALAMIN 500 MCG TAB PO SCH (10:18)
--- NOTE | 2021-01-15 11:50 | P.PN ---
Subjective Progress Note Date: 01/15/21 I'm seeing the patient today at bedside and he seems about the same today compared to yesterday. Currently the patient is on Propofol 60mcg/kg/min. Last blood blood cells 7.6 which is normal. His liver function tests is trending down the ALT has resolved the AST slightly elevated and the level was 92 and that was on 01/14/2021. Ammonia level is 9 which is normal. I did repeat EEG on 01/14/2021 and it was essentially about the same as 01/13/2021. The background slowing suggestive of severe encephalopathy. Occasional to rare epileptiform discharges over the bilateral frontal increases the risk of seizure. There are no focal slowing or seizure during this recording. Objective - Vital Signs Vital signs: Vital Signs Temp 100.4 F H 01/15/21 04:00 Pulse 64 01/15/21 09:39 Resp 21 01/15/21 07:00 BP 124/72 01/15/21 07:00 Pulse Ox 94 L 01/15/21 07:00 Intake & Output 01/14/21 01/15/21 01/15/21 18:59 06:59 18:59 Intake Total 3684.699 1405.234 91 Output Total 757 855 80 Balance 2927.699 550.234 11 Weight 93.4 kg 97.8 kg Intake: IV 3272 1091 81 .9 pressure bag 72 66 6 Piperacillin-Tazobactam 3 100 100 .375 gm In Sodium Chloride 0.9% 100 ml @ 25 mls/hr IVPB Q8HR [facility] Rx# :[id number] Sodium Chloride 0.9% 1, 900 825 75 000 ml @ 75 mls/hr IV . [id number] [facility] Rx#:[id number] Sodium Chloride 0.9% 1, 2000 000 ml @ 999 mls/hr IV . Q1H1M [facility] Rx#:[id number] levETIRAcetam IV 750 mg 100 100 In Sodium Chloride 0.9% 100 ml @ 400 mls/hr IVPB Q12HR [facility] Rx#:[id number] unasyn 100 Intake, IV Titration 202.699 294.234 Amount Norepinephrine 8 mg In 2.699 108.68 Sodium Chloride 0.9% 250 ml @ 0.05 MCG/KG/MIN 8. 996 mls/hr IV .Q24H [facility] Rx#:[id number] propofoL 1,000 mg In 200 185.554 Empty Bag 1 bag @ Titrate IV .Q0M [facility] Rx#: [id number] Tube Feeding 180 20 10 Other 30 Output: Gastric Drainage 300 Urine 455 855 80 Emesis 2 Other: Voiding Method Indwelling Catheter Indwelling Catheter ABP, PAP, CO, CI - Last Documented Arterial Blood Pressure 118/48 - Exam GENERAL: The patient is lying in bed and does not seem in acute distress. The patient is intubated on ventilator and on IV propofol 60mcg/kg/min. HENT: NO nuchal rigidity. LUNG: Intubated on ventilator. Clear to auscultation bilaterally throughout. Not labored breathing. Breathing over the vent (A/C setting is 20). NEUROLOGICAL: Limited since patient is on IV Propofol 60mcg/kg/min and intubated and on ventilator. Higher mental function: GCS: 3 (E1, VT1, M1). Patient is comatose, non responsive or following commands. Cranial nerves: Pupils are 2mm and sluggishly reactive to light bilaterally. Primary gaze is midline. Positive corneal reflex bilaterally. No facial weakness throughout. +ve occulocephalic reflex. +gag and cough. Motor: Strength: 0/5 throughout. No sponateous movement noted throughout. No posture noted. Normal bulk. Normal tone. No withdrawl to painful stimuli to any of extremities. Cerebellum: Could not assess. Sensation: Could not assess painful stimuli. Reflexes (right/left): Patellar 3+ bilaterally otherwise 2+ throughout. Plantars are upgoing bilaterally. - Labs CBC & Chem 7: 01/15/21 04:00 01/15/21 04:00 Labs: Abnormal Lab Results - Last 24 Hours (Table) 01/13/21 01/14/21 01/15/21 Range/Units 04:45 17:44 04:00 RBC 3.12 L (4.30-5.90) m/uL Hgb 10.7 L (13.0-17.5) gm/dL Hct 29.6 L (39.0-53.0) % Plt Count 129 L (150-450) k/uL ABG pCO2 (35-45) mmHg ABG pO2 (83-108) mmHg ABG Total CO2 (19-24) mmol/L Chloride (98-107) mmol/L POC Glucose (mg/dL) 74 L (75-99) mg/dL Calcium (8.4-10.2) mg/dL RBC Folate 798 H (280 - 791) ng/mL 01/15/21 01/15/21 Range/Units 04:00 05:51 RBC (4.30-5.90) m/uL Hgb (13.0-17.5) gm/dL Hct (39.0-53.0) % Plt Count (150-450) k/uL ABG pCO2 34 L (35-45) mmHg ABG pO2 74 L (83-108) mmHg ABG Total CO2 25 H (19-24) mmol/L Chloride 112 H (98-107) mmol/L POC Glucose (mg/dL) (75-99) mg/dL Calcium 7.6 L (8.4-10.2) mg/dL RBC Folate (280 - 791) ng/mL Microbiology - Last 24 Hours (Table) 01/11/21 14:27 Blood Culture - Preliminary Blood No Growth after 72 hours Assessment and Plan Assessment: Altered mental status due to multifactorial: metabolic encephalopathy (elevated LFT and due to drug use (cocaine, amphetamine and opiates) and right lung aspiration pneumonia and sedation effect (Propofol) 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 The severity of the anoxic brain injury is unknown at this point Out of the hospital cardiopulmonary arrest unknown down time status post cardiopulmonary resuscitation with return of spontaneous circulation Elevated LFT (AST 414 and ALT 104 on presentation. Since AST is >2 of ALT is concerning of alcohol use)---improving Low Vitamin B12 level (229 Normal is 200-944) Aspiration pneumonia Troponin leak Polysubstance use (cocaine, amphetamine and opiates) Plan: EEG 01/13/21: Is an abnormal routine EEG. The back was slowing is suggestive of severe encephalopathy. The rare to occasional sharp and slow wave over the bilateral frontal degenerative is concerning for epileptiform discharges. There is no seizure during this recording. The upper body jerks, predominantly left were captured during this recording without EEG correlation. Repeat EEG on 01/14/2021 and it was essentially about the same as 01/13/2021. The background slowing suggestive of severe encephalopathy. Occasional to rare epileptiform discharges over the bilateral frontal increases the risk of seizure. There are no focal slowing or seizure during this recording. Continue Keppra 1500mg q 12 hours. Vitamin B12 is 229 which is low normal (the normal ranges between 200 and 944). I started the patient on vitamin B12 1000 g daily. Folate level is 19.6 which is considered normal TSH is 0.73 which is normal range. Repeat CT of the head on 01/13/2021 is reported as pansinus air fluid level. Correlate for acute sinusitis. Some trapped fluid within the mastoid air cells as well. Correlate for any mastoid pain to exclude mastoiditis. No acute intracranial abnormality seen. Ordered repeat CT head to see if any change. Continue thiamine 100 mg daily. 2-D echo was reported as left ventricle size is normal. Mild concentric left ventricular hypertrophy. Ejection fraction between 60-65%. Cardiology team is on board. We'll defer the rest of the medical management to the primary team as well as ICU team. The patient prognosis appears poor due to: It is unknown exact down time but was notified it appears to be prolonged cardiac arrest; has only brainstem reflexes, jerking of upper extremities (predominately left) concerning for seizure). The plan is discussed with the patient nurse and ICU attending. Giorgio Robles M.D. Neuro-hospitalist Time with Patient: Less than 30
[2021-01-15] MEDS: CLEVIDIPINE BUTYRATE 25 MG in EMPTY BAG 1 BAG IV SCH (12:01)
[2021-01-15 12:03] LABS: Glucose,Whole Blood 89 mg/dL (75-99)
[2021-01-15] MEDS: NOREPINEPHRINE 8 MG in SODIUM CHLORIDE 0.9% 250 ML IV SCH (20:38)
--- NOTE | 2021-01-15 22:02 | CT ---
EXAMINATION TYPE: CT brain wo con DATE OF EXAM: 01/15/2021 COMPARISON: 01/13/2021 HISTORY: Altered mental status. CT DLP: 1202.4 mGycm Automated exposure control for dose reduction was used. Ventricles and sulci appear normal. There is no mass effect nor midline shift. There is no sign of in tracranial hemorrhage. There is no evidence of cerebral edema. Calvarium is intact. There is incomple te pneumatization of the mastoid sinuses. There is mucosal moderate thickening of the maxillary ethmo id sphenoid sinuses and frontal sinuses. IMPRESSION: No acute intracranial abnormality. Pansinusitis. Bilateral mastoiditis. No significant change.
--- NOTE | 2021-01-15 22:46 | XR ---
EXAMINATION TYPE: XR chest 1V portable DATE OF EXAM: 01/15/2021 COMPARISON: Today HISTORY: Check tube placement There is nasogastric tube and the tip appears to be in the gastric fundus. There is pulmonary inters titial and airspace edema. There is left subclavian catheter with tip in the superior vena cava. The endotracheal tube is 5.5 cm from the poli. Trachea is midline. There is no pneumothorax. There is b lunting of the costophrenic angles. IMPRESSION: There is pulmonary edema with pleural effusions unchanged compared to exam this morning.
[2021-01-15 23:37] LABS: Glucose,Whole Blood 87 mg/dL (75-99)
[2021-01-16] MEDS: IPRATROPIUM-ALBUTEROL 3 ML NEB INHALATION SCH ×6 (00:17→20:21)
[2021-01-16] MEDS: CLEVIDIPINE BUTYRATE 25 MG in EMPTY BAG 1 BAG IV SCH (04:38)
[2021-01-16 04:51] LABS: African American GFR (CKD) >90 (>60 ml/min/1.73 sqM); Anion Gap 3 mmol/L; Blood Urea Nitrogen 13 mg/dL (9-20); Calcium 7.8 mg/dL (8.4-10.2); Carbon Dioxide 25 mmol/L (22-30); Chloride 110 mmol/L (98-107); Glucose 98 mg/dL (74-99); Non-African American GFR(CKD) >90 (>60 ml/min/1.73 sqM); Potassium 3.4 mmol/L (3.5-5.1); Sodium 138 mmol/L (137-145)
[2021-01-16 05:06] LABS: HCT 33.8 % (39.0-53.0); HGB 11.5 gm/dL (13.0-17.5); MCH 32.6 pg (25.0-35.0); MCHC 34.1 g/dL (31.0-37.0); MCV 95.7 fL (80.0-100.0); Mean Platelet Volume 7.6; Platelet Count 164 k/uL (150-450); RBC 3.53 m/uL (4.30-5.90); RDW 13.4 % (11.5-15.5); WBC 7.1 k/uL (3.8-10.6)
[2021-01-16] MEDS: POTASSIUM CHLORIDE 20 MEQ in WATER FOR INJECTION 1 100ML.BAG IVPB SCH ×2 (05:35→07:47)
[2021-01-16 05:38] LABS: ABG Base Excess 1.9 mmol/L; ABG HCO3 26 mmol/L (21-25); ABG Oxygen Saturation 95.3 % (94-97); ABG PCO2 36 mmHg (35-45); ABG PH 7.46 (7.35-7.45); ABG PO2 72 mmHg (83-108); ABG TCO2 27 mmol/L (19-24)
[2021-01-16 05:59] LABS: Allen Test Performed? no
[2021-01-16] MEDS: INSULIN ASPART (NovoLOG) 100 UNIT/ML VIAL SQ SCH ×3 (06:26→17:38)
[2021-01-16 06:27] LABS: Glucose,Whole Blood 87 mg/dL (75-99)
[2021-01-16] MEDS: HEPARIN SODIUM,PORCINE/PF 5,000 UNIT/0.5 ML SYRINGE SQ SCH ×3 (07:48→23:58)
[2021-01-16] MEDS: ASPIRIN 81 MG PO SCH (07:48)
[2021-01-16] MEDS: PANTOPRAZOLE 40 MG/10 ML VIAL IVP SCH (07:48)
[2021-01-16] MEDS: levETIRAcetam IV 1,500 MG in SALINE 1 100ML.BAG IVPB SCH ×2 (07:48→21:10)
[2021-01-16] MEDS: CHLORHEXIDINE GLUCONATE 15 ML CUP MUCOUS MEM SCH ×2 (07:48→20:06)
[2021-01-16] MEDS: CYANOCOBALAMIN 500 MCG TAB PO SCH (07:48)
--- NOTE | 2021-01-16 08:13 | XR ---
EXAMINATION TYPE: XR chest 1V portable DATE OF EXAM: 01/16/2021 COMPARISON: Chest x-ray 01/15/2021 HISTORY: Intubated TECHNIQUE: Single frontal view of the chest is obtained. FINDINGS: Endotracheal tube, )G tube, left subclavian central venous catheter are overlying appropri ate positions. Pleural parenchymal changes within the lungs are stable, cardiac mediastinal silhouett e is unchanged, there is no pneumothorax. IMPRESSION: Essentially stable findings. Correlate for pneumonia, edema, ARDS, difficult to exclude effusion
[2021-01-16] MEDS: THIAMINE 100 MG/ML 2 ML VIAL IVP SCH (08:28)
[2021-01-16] MEDS: PIPERACILLIN-TAZOBACTAM 3.375 GM in SODIUM CHLORIDE 0.9% 100 ML IVPB SCH ×3 (08:28→23:58)
--- NOTE | 2021-01-16 09:16 | P.PN ---
Subjective Progress Note Date: 01/16/21 01/13/2021, I am seeing this 50-year-old male patient who is post cardiac arrest. The patient was found on his driveway. He has aspirated and he had emesis on his head and face and neck. He was in asystole. Received CPR and compressions and epinephrine with a prolonged downtime. The patient was int ubated and placed on a mechanical ventilator and the patient was brought into the hospital. Is negative for COVID: 19. The patient remains on mechanical ventilator. Currently is on sedation with propofol running at 35 mcg/kg per minute. The patient on a assist-control mode of ventilation volume cycle with a tidal volume of 450, rate of 20, FiO2 of 40% with a PEEP of 5. CAT scan of the brain and the spine were negative. The patient's wish showing a right lower lobe pulmonary infiltration consistent with with aspiration and the patient is currently on IV Unasyn. Hemodynamically stable. The patient is not requiring any pressors. Kidney function improved. Potassium level is also improved. There is a concern of anoxic encephalopathy. The patient has history of drug abuse in the past. Echocardiogram was ordered by cardiology. There is a minimal troponin leak on his blood work. The urine drug screen was positive for methamphetamine, cocaine and opiates. As such, the patient has history of drug abuse. Confirmed by urine drug screen. The patient's this morning he remains sedated. White cell count is at 12.2 with a hemoglobin of 12.1. The rest of the electrolytes are all within normal and the patient is a normal renal function. Blood gases from today still pending. The chest x-ray from today was completed and the patient has a quick positioning of the ET tube. There is a right lower lobe consolidation and also some atelectasis/effusion and left lower lobe. The patient is a triple-lumen catheter in the left subclavian vein. The patient remains on IV fluids running at 75 mL an hour. Patient is receiving vital AF boluses asked to feeds. Is having low-grade fever. No pressors. Echocardiogram results is not available in the records. 01/14/2021 on seeing the patient for a follow-up. The patient is post cardiac arrest and anoxic encephalopathy. He is still on sedation for now and propofol is running at 46 mcg/kg per minute. Yesterday we give the patient sedation holiday which she failed. He became very tachycardic and tachypneic and asynchronous with a mechanical ventilator. He was thrashing and he was not following any commands. Based on that, the child was discontinued. This morning, the family will be done. Meanwhile, the patient remains on a mechanical ventilator. He is an assist-control mode rate of 20 with tidal volume of 450 and FiO2 of 40% with a PEEP of 5. Blood gases from this morning is still pending. Otherwise, the rest of the labs are all within normal limits. The CAT scan of the brain was repeated yesterday and it showed no acute abnormalities. There is some 10 sinus air fluid levels, questionable sinusitis and some Fluid within the mastoid air cells as well. Also, EEG of the brain was also done and it showed abnormal EEG with background slowing suggestive of severe encephalopathy. There were some rare sharp and slow waves over the bilateral the liver tests concerning for epileptic discharges. The patient was seen by neurology already. He is currently on Keppra 750 mg every 12 hours. Is also on Unasyn for suspected aspiration pneumonia of the right lower lobe. Note that the chest x-ray from yesterday showed bilateral lower lobe pulmonary infiltrates. He remains nothing by mouth. IV fluids are running at 75 mL an hour. Otherwise, no other significant events overnight. He remains hemodynam ically stable on no pressors. No further cardiac arrhythmias. Echocardiogram was also done that showed a preserved LV function without any underlying abnormalities with an ejection fraction of 60-65%. On today's evaluation of 021 the patient remains sedated with propofol. Attempts to take him off the propofol is failed. The patient was given a sedation holiday. He did poorly with that. He would become agitated and restless and tachypneic and tachycardic and he would desaturate. No meaningful neurologic recovery to the point where the patient was follow commands or answer questions. He continues to have some episodic myoclonic jerks once taken off the propofol. This is discussed with neurology and it is kind of hypoxic encephalopathy and the patient remains on Keppra 750 mg every 12 hours. There repeat EEG from yesterday showed severe encephalopathy with occasional rare ep ileptiform discharges bilaterally from the frontal lobes. Meanwhile, the patient's is on a mechanical ventilator. On today's evaluation is an assist- control at the rate of 20 with a tidal volume of 450 and FiO2 of 40% with a PEEP of 10. We had increased his PEEP as the patient was becoming more hypoxic yesterday. His chest x-ray is showing worsening in consolidation lower lobes and the patient probably is developing a right-sided pleural effusion. PH is at 7.45 with a pCO2 of 34 and pO2 of 74. He was running a lower urine output and the patient was given a total of 2 L of IV fluid yesterday and the patient was also given IV Zosyn am was stopped Unasyn. The fluid balance over the past 24 hours and then +3.5 L. The patient is currently on no pressors. He is receiving enteral feeding for nutritional support and he is on vital HP Rate of 10 mL an hour. The sputum samples showed normal respiratory dimitri, strep agalactiae. 01/16/2021, the patient is being given a sedation holiday as usual every morning. The holiday that was given yesterday failed as the patient was unresponsive, and had developed a severe autonomic reaction slightly became tachycardic and tachypneic and he was desaturating. His been off sedation since 6:00 this morning and his been off the propofol. He is comfortable at this point in time. He remains unresponsive. Nevertheless, synchronous with the mechanical ventilator. He is gradually becoming more hypertensive. His current vent settings include an assist-control at the rate of 20 with a tidal volume of 450 and FiO2 of 40% with a PEEP of 10. Blood gases from today shows a pH of 7.46 with a pCO2 of 36 and pO2 of 72. Peak airway pressures 17. Chest x-ray from today is showing adequate positioning of the orotracheal tube. The patient also has a NG tube in place. There is evidence of bilateral lower lobe pneumonia worse on the right. Findings are essentially stable compared to yesterday. There may be development of a right-sided plural effusion. Hemodynamically, the patient is on IV fluids at the rate of 75 mL an hour of normal saline. Is producing adequate amount of urine output. He is on no pressors and is maintaining his own blood pressure. Is also receiving enteral feeding for nutritional support and currently is on vital high protein. This is running at 30 mL an hour. No seizure activity has been noted while being off the propofol this morning. A repeat CAT scan of the brain was done yesterday that showed no acute abnormalities. EEG was abnormal on 01/14/2021.. He is afebrile for now. He remains on a broad-spectrum antibiotic coverage with IV Zosyn. Uterine was consistent with normal dimitri, strep Objective - Vital Signs Vital signs: Vital Signs Temp 99.5 F 01/16/21 08:00 Pulse 72 01/16/21 08:08 Resp 24 01/16/21 08:00 BP 163/78 01/16/21 08:00 Pulse Ox 95 01/16/21 08:00 Intake & Output 01/15/21 01/16/21 01/16/21 18:59 06:59 18:59 Intake Total 1384 1674.478 352 Output Total 1210 1520 340 Balance 174 154.478 12 Weight 96.9 kg Intake: IV 929 997 262 .9 pressure bag 54 72 12 Piperacillin-Tazobactam 3 200 .375 gm In Sodium Chloride 0.9% 100 ml @ 25 mls/hr IVPB Q8HR [facility] Rx# :[id number] Potassium Chloride 20 meq 100 100 In Water For Injection 1 100ml.bag @ 50 mls/hr IVPB Q2H [facility] Rx#: [id number] Sodium Chloride 0.9% 1, 675 825 150 000 ml @ 75 mls/hr IV . [id number] [facility] Rx#:[id number] Intake, IV Titration 200 297.478 Amount propofoL 1,000 mg In 200 297.478 Empty Bag 1 bag @ Titrate IV .Q0M [facility]ON[facility] Rx#: [id number] Tube Feeding 180 290 60 Other 75 90 30 Output: Urine 1210 1520 340 Other: Voiding Method Indwelling Catheter Indwelling Catheter Indwelling Catheter ABP, PAP, CO, CI - Last Documented Arterial Blood Pressure 172/68 - Exam No acute distress, sedated, and mechanically ventilated. Head exam was generally normal. There was no scleral icterus or corneal arcus. Mucous membranes were moist. Neck was supple and without jugular venous distension, thyromegaly, or carotid bruits. Carotids were easily palpable bilaterally. There was no adenopathy. HEENT examination is grossly unremarkable. There is an orally placed endotracheal tube and NG tube. Neck supple. Full range of motion. No adenopathy thyromegaly or neck vein distention. Cardiovascular examination reveals regular rhythm rate. S1-S2 normal. No S3 or S4. No discernible murmur noted. Heart sounds are distant. Lungs reveal mostly clear breath sounds. A few scattered rhonchi are noted. No wheezes or crackles. Breath sounds equal. The breath sounds are rather coarse at this point in time. Abdomen soft bowel sounds are heard. No masses or tenderness. Extremities are intact. No cyanosis clubbing or edema. Skin is without rash or lesion. Neurologic examination. The patient is currently ventilated and sedated. The patient is unresponsive to any painful stimulation. Pupils are round to 3 mm in size and there/reactive. No nystagmus. No clonus. No Babinski. No overt seizure activity noted on today's evaluation. Motor function cannot be assessed. The patient with cough on a nightly he would get any time he is off sedation. He also develops an autonomic reaction when he becomes hypertensive tachypneic and tachycardic. The motor function cannot be accurately assessed. Reflexes are equal and symmetrical in all 4 extremities. Currently the patient is in the process of receiving another sedation holiday since 6:00 this morning. - Labs CBC & Chem 7: 01/16/21 04:30 01/16/21 04:30 Labs: Abnormal Lab Results - Last 24 Hours (Table) 01/16/21 01/16/21 01/16/21 Range/Units 04:30 04:30 05:36 RBC 3.53 L (4.30-5.90) m/uL Hgb 11.5 L (13.0-17.5) gm/dL Hct 33.8 L (39.0-53.0) % ABG pH 7.46 H (7.35-7.45) ABG pO2 72 L (83-108) mmHg ABG HCO3 26 H (21-25) mmol/L ABG Total CO2 27 H (19-24) mmol/L Potassium 3.4 L (3.5-5.1) mmol/L Chloride 110 H (98-107) mmol/L Creatinine 0.63 L (0.66-1.25) mg/dL Calcium 7.8 L (8.4-10.2) mg/dL Microbiology - Last 24 Hours (Table) 01/15/21 09:56 Gram Stain - Preliminary Sputum Sputum Culture - Preliminary 01/11/21 14:27 Blood Culture - Preliminary Blood No Growth after 96 hours Assessment and Plan Plan: 1 [id number] cardiopulmonary arrest, with unknown downtime, status post ca rdiopulmonary resuscitation with return of spontaneous circulation (CPA/CPR/ROSC). The patient is currently sedated, intubated and mechanically ventilated in the emergency room. The patient is currently hemodynamically stable. Cardiac rhythm is sinus. Echocardiogram is within normal and the nancy ent remains hemodynamically stable. 2 Anoxic brain injury, secondary to cardiac arrest, with a CAT scan of the brain showing no acute abnormalities other than some chronic sinus disease and the patient has EEG that shows diffuse slowing with some questionable epileptic foci bilaterally and for that reason the patient was started on Keppra. He is also on propofol. Unable to get off the propofol. The patient is still having episodic seizure activity, currently on Keppra, please refer to the most recent EEG showed encephalopathy in addition to some rare epileptiform discharge frontal lobes. He does have positive Babinski's. Reflexes are equal and symmetrical, neurologically impaired and unresponsive, pupils are round 2 mm in size, nonreactive, no nystagmus. On today's undergoing another sedation holiday. No neurologic recovery. The patient remains unresponsive on today's evaluation. The CAT scan from yesterday is evaluation showing no acute changes. 3 bilateral lower lobe pulmonary infiltrates, consider aspiration pneumonia currently on Zosyn. Chest x-ray from today showing bilateral lower lobe infiltrates/consolidation along with possibly development of a right-sided ple ural effusion. Remains on a mechanical ventilator. The chest x-ray findings are stable for now. . 4 troponin leak 5 multiple drug abuse and the patient was positive for cocaine, opiates and methamphetamine Plan This is a case of severe anoxic encephalopathy. Unchanged since yesterday Neurology follow-up Continue Keppra. EEG was noted. Neurologist on the case. He is failing sedation holidays because of severe autonomic reactions, and he is going to have a reevaluation today. EEG was noted and the repeat CAT scan was also noted. Enteral nutrition Continue IV Zosyn for bilateral lower lobe pneumonia of an aspiration type , chest x-ray findings are stable and the patient is developing a right-sided pleural effusion Hemodynamically stable May restart Diprivan if sedation holidays failed and the patient becomes quite asynchronous and develops autonomic reaction. We'll continue to follow. Condition is critical. Critically care evaluation more than 30 minutes
[2021-01-16 11:40] LABS: Glucose,Whole Blood 125 mg/dL (75-99)
[2021-01-16] MEDS: SODIUM CHLORIDE 0.9% 1,000 ML IV SCH (12:04)
[2021-01-16] MEDS: NOREPINEPHRINE 8 MG in SODIUM CHLORIDE 0.9% 250 ML IV SCH (12:05)
--- NOTE | 2021-01-16 12:13 | P.PN ---
Subjective Progress Note Date: 01/16/21 She was seen at bedside and the patient nurse she held the propofol for about close to 3 hours and the patient was withdrawing of the lower extremity more than upper but the head no seizure-like activity or following commands or responding to her commands. Since the patient gets agitated and restless the propofol was a restarted again on IV propofol 60mcg/kg/min. CT of the head on 01/15/21 is reported as no acute intracranial abnormality. Patient is side is. Bilateral mastoiditis. No significant change. Patient blood sugar has been in the range of predominantly in the 80s and that's POC glucose. Objective - Vital Signs Vital signs: Vital Signs Temp 98.9 F 01/16/21 12:00 Pulse 64 01/16/21 12:03 Resp 26 H 01/16/21 12:00 BP 138/67 01/16/21 12:00 Pulse Ox 96 01/16/21 12:00 Intake & Output 01/15/21 01/16/21 01/16/21 18:59 06:59 18:59 Intake Total 1384 1674.478 776 Output Total 1210 1520 1100 Balance 174 154.478 -324 Weight 96.9 kg Intake: IV 929 997 686 .9 pressure bag 54 72 36 Piperacillin-Tazobactam 3 200 100 .375 gm In Sodium Chloride 0.9% 100 ml @ 25 mls/hr IVPB Q8HR [facility] Rx# :[id number] Potassium Chloride 20 meq 100 100 In Water For Injection 1 100ml.bag @ 50 mls/hr IVPB Q2H [facility] Rx#: [id number] Sodium Chloride 0.9% 1, 675 825 450 000 ml @ 75 mls/hr IV . [id number] [facility] Rx#:[id number] Intake, IV Titration 200 297.478 Amount propofoL 1,000 mg In 200 297.478 Empty Bag 1 bag @ Titrate IV .Q0M [facility] Rx#: [id number] Tube Feeding 180 290 60 Other 75 90 30 Output: Urine 1210 1520 1100 Other: Voiding Method Indwelling Catheter Indwelling Catheter Indwelling Catheter ABP, PAP, CO, CI - Last Documented Arterial Blood Pressure 152/61 - Exam GENERAL: The patient is lying in bed and does not seem in acute distress. The patient is intubated on ventilator and on IV propofol 60mcg/kg/min. HENT: NO nuchal rigidity. LUNG: Intubated on ventilator. Clear to auscultation bilaterally throughout. Not labored breathing. Breathing over the vent (A/C setting is 20). NEUROLOGICAL: Limited since patient is on IV Propofol 60mcg/kg/min and intubated and on ventilator. Higher mental function: GCS: 3 (E1, VT1, M1). Patient is comatose, non responsive or following commands. Cranial nerves: Pupils are 2mm and sluggishly reactive to light bilaterally. Primary gaze is midline. Positive corneal reflex bilaterally. No facial weakness throughout. +ve occulocephalic reflex. +gag and cough. Motor: Strength: 0/5 throughout. No sponateous movement noted throughout. No posture noted. Normal bulk. Normal tone. No withdrawl to painful stimuli to any of extremities. Cerebellum: Could not assess. Sensation: Could not assess painful stimuli. Reflexes (right/left): Patellar 3+ bilaterally otherwise 2+ throughout. Plantars are upgoing bilaterally. - Labs CBC & Chem 7: 01/16/21 04:30 01/16/21 04:30 Labs: Abnormal Lab Results - Last 24 Hours (Table) 01/16/21 01/16/21 01/16/21 Range/Units 04:30 04:30 05:36 RBC 3.53 L (4.30-5.90) m/uL Hgb 11.5 L (13.0-17.5) gm/dL Hct 33.8 L (39.0-53.0) % ABG pH 7.46 H (7.35-7.45) ABG pO2 72 L (83-108) mmHg ABG HCO3 26 H (21-25) mmol/L ABG Total CO2 27 H (19-24) mmol/L Potassium 3.4 L (3.5-5.1) mmol/L Chloride 110 H (98-107) mmol/L Creatinine 0.63 L (0.66-1.25) mg/dL POC Glucose (mg/dL) (75-99) mg/dL Calcium 7.8 L (8.4-10.2) mg/dL 01/16/21 Range/Units 11:28 RBC (4.30-5.90) m/uL Hgb (13.0-17.5) gm/dL Hct (39.0-53.0) % ABG pH (7.35-7.45) ABG pO2 (83-108) mmHg ABG HCO3 (21-25) mmol/L ABG Total CO2 (19-24) mmol/L Potassium (3.5-5.1) mmol/L Chloride (98-107) mmol/L Creatinine (0.66-1.25) mg/dL POC Glucose (mg/dL) 125 H (75-99) mg/dL Calcium (8.4-10.2) mg/dL Microbiology - Last 24 Hours (Table) 01/15/21 09:56 Gram Stain - Preliminary Sputum Sputum Culture - Preliminary Yeast species 01/11/21 14:27 Blood Culture - Preliminary Blood No Growth after 96 hours Assessment and Plan Assessment: Altered mental status due to multifactorial: metabolic encephalopathy (elevated LFT and due to drug use (cocaine, amphetamine and opiates) and right lung aspiration pneumonia and sedation effect (Propofol) 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 Out of the hospital cardiopulmonary arrest unknown down time status post cardiopulmonary resuscitation with return of spontaneous circulation Elevated LFT (AST 414 and ALT 104 on presentation. Since AST is >2 of ALT is concerning of alcohol use)---trending down Low Vitamin B12 level (229 Normal is 200-944) Aspiration pneumonia Troponin leak Polysubstance use (cocaine, amphetamine and opiates) Plan: EEG 01/13/21: Is an abnormal routine EEG. The back was slowing is suggestive of severe encephalopathy. The rare to occasional sharp and slow wave over the bilateral frontal degenerative is concerning for epileptiform discharges. There is no seizure during this recording. The upper body jerks, predominantly left were captured during this recording without EEG correlation. Repeat EEG on 01/14/2021 and it was essentially about the same as 01/13/2021. The background slowing suggestive of severe encephalopathy. Occasional to rare epileptiform discharges over the bilateral frontal increases the risk of seizure. There are no focal slowing or seizure during this recording. CT of the head on 01/15/21 is reported as no acute intracranial abnormality. Patient is side is. Bilateral mastoiditis. No significant change. Continue Keppra 1500mg q 12 hours. Continue thiamine 100 mg daily. Vitamin B12 is 229 which is low normal (the normal ranges between 200 and 944). Continue vitamin B12 1000 g daily. Folate level is 19.6 which is considered normal TSH is 0.73 which is normal range. I ordered repeat AST, ALT and ammonia level. Ammonia is elevated will defer the management to the primary as well as ICU team. 2-D echo was reported as left ventricle size is normal. Mild concentric left ventricular hypertrophy. Ejection fraction between 60-65%. Cardiology team is on board. We'll defer the rest of the medical management to the primary team as well as ICU team. The patient prognosis is very guarded and appears to be poor due to: It is unknown exact down time but was notified it appears to be prolonged cardiac arrest; has only brainstem reflexes, jerking of upper extremities (predominately left) concerning for seizure). He is not brain and has only brainstem reflexes. I cannot definitely state that it is a poor prognosis, since most of the times I examined the patient and he was on sedation and once off sedation he become unstable. I explained my impression the patient's son (Jaime) who is at bedside and he said they will have a family meeting. He will notify us the outcome of the meeting. The plan is discussed with the patient nurse. Giorgio Robles M.D. Neuro-hospitalist Time with Patient: Less than 30
--- NOTE | 2021-01-16 12:14 | P.PN ---
Subjective Progress Note Date: 01/16/21 Remains intubated on the ventilator. Objective - Vital Signs Vital signs: Vital Signs Temp 98.9 F 01/16/21 12:00 Pulse 64 01/16/21 12:03 Resp 26 H 01/16/21 12:00 BP 138/67 01/16/21 12:00 Pulse Ox 96 01/16/21 12:00 Intake & Output 01/15/21 01/16/21 01/16/21 18:59 06:59 18:59 Intake Total 1384 1674.478 776 Output Total 1210 1520 1100 Balance 174 154.478 -324 Weight 96.9 kg Intake: IV 929 997 686 .9 pressure bag 54 72 36 Piperacillin-Tazobactam 3 200 100 .375 gm In Sodium Chloride 0.9% 100 ml @ 25 mls/hr IVPB Q8HR [facility] Rx# :[id number] Potassium Chloride 20 meq 100 100 In Water For Injection 1 100ml.bag @ 50 mls/hr IVPB Q2H [facility] Rx#: [id number] Sodium Chloride 0.9% 1, 675 825 450 000 ml @ 75 mls/hr IV . [id number] [facility] Rx#:[id number] Intake, IV Titration 200 297.478 0 Amount propofoL 1,000 mg In 200 297.478 0 Empty Bag 1 bag @ Titrate IV .Q0M [facility] Rx#: [id number] Tube Feeding 180 290 60 Other 75 90 30 Output: Urine 1210 1520 1100 Other: Voiding Method Indwelling Catheter Indwelling Catheter Indwelling Catheter ABP, PAP, CO, CI - Last Documented Arterial Blood Pressure 152/61 - Exam Gen: Intubated, on ventilator HEENT: normocephalic, atraumatic Resp: Decreased breath sounds, no wheezing CVS: S1-S2 normal, no murmurs, rubs or gallops GI: soft, nontender nondistended MSK: No clubbing cyanosis or edema Neuro: Intubated on vent - Labs CBC & Chem 7: 01/16/21 04:30 01/16/21 04:30 Labs: Abnormal Lab Results - Last 24 Hours (Table) 01/16/21 01/16/21 01/16/21 Range/Units 04:30 04:30 05:36 RBC 3.53 L (4.30-5.90) m/uL Hgb 11.5 L (13.0-17.5) gm/dL Hct 33.8 L (39.0-53.0) % ABG pH 7.46 H (7.35-7.45) ABG pO2 72 L (83-108) mmHg ABG HCO3 26 H (21-25) mmol/L ABG Total CO2 27 H (19-24) mmol/L Potassium 3.4 L (3.5-5.1) mmol/L Chloride 110 H (98-107) mmol/L Creatinine 0.63 L (0.66-1.25) mg/dL POC Glucose (mg/dL) (75-99) mg/dL Calcium 7.8 L (8.4-10.2) mg/dL 01/16/21 Range/Units 11:28 RBC (4.30-5.90) m/uL Hgb (13.0-17.5) gm/dL Hct (39.0-53.0) % ABG pH (7.35-7.45) ABG pO2 (83-108) mmHg ABG HCO3 (21-25) mmol/L ABG Total CO2 (19-24) mmol/L Potassium (3.5-5.1) mmol/L Chloride (98-107) mmol/L Creatinine (0.66-1.25) mg/dL POC Glucose (mg/dL) 125 H (75-99) mg/dL Calcium (8.4-10.2) mg/dL Microbiology - Last 24 Hours (Table) 01/15/21 09:56 Gram Stain - Preliminary Sputum Sputum Culture - Preliminary Yeast species 01/11/21 14:27 Blood Culture - Preliminary Blood No Growth after 96 hours Assessment and Plan Plan: Unwitnessed cardiac arrest, suspected secondary to aspiration -Cardiology consult, input appreciated -Cardiac monitoring -Continue with ventilator bundle -2-D echo ejection fraction 60-65% -Continue with Zosyn Neurology following Continue on thiamine Lactic acidosis -Monitor Elevated troponin secondary to cardiac -Continue to monitor -Cardiac monitoring Hyperglycemia -Lispro insulin sliding scale blood glucose monitoring Acute kidney injury -Continue with IV fluids scr up to 2.2 normalized Leukocytosis -Likely due to acute stressor wbc up to 21,000 on abxs , WBC normalized, monitor. Substance abuse -Monitor for signs of withdrawal with meth and cocaine Right lung aspiration pneumonia : continue on IV Zosyn Thrombocytopenia Monitor platelets, normalized DVT prophylaxis -Heparin metabolic acidosis 2/2 suzanne bicarb normalized Metabolic encephalopathy, multifactorial Neurology following Disposition: pending clinical progression Will discuss with family
[2021-01-16 16:10] LABS: ALT 24 U/L (4-49); AST 50 U/L (17-59)
[2021-01-16 17:33] LABS: Glucose,Whole Blood 81 mg/dL (75-99)
[2021-01-16 23:50] LABS: Glucose,Whole Blood 92 mg/dL (75-99)
[2021-01-17] MEDS: SODIUM CHLORIDE 0.9% 1,000 ML IV SCH
[2021-01-17] MEDS: IPRATROPIUM-ALBUTEROL 3 ML NEB INHALATION SCH ×7 (00:14→23:15)
[2021-01-17 03:57] LABS: ABG Base Excess 2.1 mmol/L; ABG HCO3 26 mmol/L (21-25); ABG Oxygen Saturation 96.9 % (94-97); ABG PCO2 37 mmHg (35-45); ABG PH 7.46 (7.35-7.45); ABG PO2 82 mmHg (83-108); ABG TCO2 27 mmol/L (19-24); Allen Test Performed? Yes
[2021-01-17 04:07] LABS: HCT 33.7 % (39.0-53.0); MCH 33.2 pg (25.0-35.0); MCHC 35.5 g/dL (31.0-37.0); MCV 93.6 fL (80.0-100.0); Mean Platelet Volume 7.9; Platelet Count 187 k/uL (150-450); RBC 3.61 m/uL (4.30-5.90); RDW 12.7 % (11.5-15.5); WBC 9.2 k/uL (3.8-10.6)
[2021-01-17 04:22] LABS: African American GFR (CKD) >90 (>60 ml/min/1.73 sqM); Anion Gap 5 mmol/L; Blood Urea Nitrogen 15 mg/dL (9-20); Calcium 8.1 mg/dL (8.4-10.2); Carbon Dioxide 23 mmol/L (22-30); Chloride 110 mmol/L (98-107); Glucose 117 mg/dL (74-99); Non-African American GFR(CKD) >90 (>60 ml/min/1.73 sqM); Potassium 3.6 mmol/L (3.5-5.1); Sodium 138 mmol/L (137-145)
[2021-01-17 06:24] LABS: Glucose,Whole Blood 114 mg/dL (75-99)
[2021-01-17] MEDS: INSULIN ASPART (NovoLOG) 100 UNIT/ML VIAL SQ SCH ×4 (06:30→17:08)
[2021-01-17] MEDS ORDERED: POTASSIUM BICARBONATE/CIT AC 20 MEQ TABLET.EFF NG-TUBE SCH (07:00)
--- NOTE | 2021-01-17 07:56 | XR ---
EXAMINATION TYPE: XR chest 1V portable DATE OF EXAM: 01/17/2021 COMPARISON: 01/17/2020 HISTORY: Tube placement TECHNIQUE: Single frontal view of the chest is obtained. FINDINGS: Heart is enlarged and there is bilateral infiltrate and pleural effusion with diffuse inte rstitial pattern. NG tube stable. ET tube stable. Central line unchanged. Calcified granuloma right l alexandra stable. IMPRESSION: Correlate for CHF or diffuse interstitial pneumonia. Findings slightly improved relative to prior
[2021-01-17] MEDS: CLEVIDIPINE BUTYRATE 25 MG in EMPTY BAG 1 BAG IV SCH ×3 (08:12→21:51)
[2021-01-17] MEDS: HEPARIN SODIUM,PORCINE/PF 5,000 UNIT/0.5 ML SYRINGE SQ SCH ×2 (08:24→18:07)
[2021-01-17] MEDS: PIPERACILLIN-TAZOBACTAM 3.375 GM in SODIUM CHLORIDE 0.9% 100 ML IVPB SCH ×2 (08:25→18:07)
[2021-01-17] MEDS: CHLORHEXIDINE GLUCONATE 15 ML CUP MUCOUS MEM SCH ×2 (08:25→21:51)
[2021-01-17] MEDS: ASPIRIN 81 MG PO SCH (08:25)
[2021-01-17] MEDS: levETIRAcetam IV 1,500 MG in SALINE 1 100ML.BAG IVPB SCH ×2 (08:25→21:51)
[2021-01-17] MEDS: CYANOCOBALAMIN 500 MCG TAB PO SCH (08:25)
[2021-01-17] MEDS: PANTOPRAZOLE 40 MG/10 ML VIAL IVP SCH (08:26)
[2021-01-17] MEDS: THIAMINE 100 MG/ML 2 ML VIAL IVP SCH (08:26)
--- NOTE | 2021-01-17 08:41 | P.PN ---
Subjective Remains intubated on the ventilator. No purposeful movements Objective - Vital Signs Vital signs: Vital Signs Temp 99.1 F 01/17/21 04:00 Pulse 68 01/17/21 08:23 Resp 26 H 01/17/21 07:00 BP 139/70 01/17/21 07:00 Pulse Ox 94 L 01/17/21 07:00 Intake & Output 01/16/21 01/17/21 01/17/21 18:59 06:59 18:59 Intake Total 3338.239 9059.000 180 Output Total 2003 1620 190 Balance -462.026 -326.000 -10 Weight 93.9 kg Intake: IV 923 486 26 .9 pressure bag 48 66 6 Keppra 100 Piperacillin-Tazobactam 3 100 100 .375 gm In Sodium Chloride 0.9% 100 ml @ 25 mls/hr IVPB Q8HR [facility] Rx# :[id number] Potassium Chloride 20 meq 100 In Water For Injection 1 100ml.bag @ 50 mls/hr IVPB Q2H [facility] Rx#: [id number] Sodium Chloride 0.9% 1, 675 220 20 000 ml @ 20 mls/hr IV . Q24H [facility] Rx#:[id number] Intake, IV Titration 178.974 200.000 101 Amount propofoL 1,000 mg In 178.974 200.000 101 Empty Bag 1 bag @ Titrate IV .Q0M [facility] Rx#: [id number] Tube Feeding 380 518 53 Other 60 90 Output: Urine 2003 1620 190 Other: Voiding Method Indwelling Catheter Indwelling Catheter ABP, PAP, CO, CI - Last Documented Arterial Blood Pressure 152/62 - Exam Gen: Intubated, on ventilator HEENT: normocephalic, atraumatic Resp: Decreased breath sounds, no wheezing CVS: S1-S2 normal, no murmurs, rubs or gallops GI: soft, nontender nondistended MSK: No clubbing cyanosis or edema Neuro: Intubated on vent - Labs CBC & Chem 7: 01/17/21 03:50 01/17/21 03:50 Labs: Abnormal Lab Results - Last 24 Hours (Table) 01/16/21 01/17/21 01/17/21 Range/Units 11:28 03:50 03:50 RBC 3.61 L (4.30-5.90) m/uL Hgb 12.0 L (13.0-17.5) gm/dL Hct 33.7 L (39.0-53.0) % ABG pH (7.35-7.45) ABG pO2 (83-108) mmHg ABG HCO3 (21-25) mmol/L ABG Total CO2 (19-24) mmol/L Chloride 110 H (98-107) mmol/L Creatinine 0.59 L (0.66-1.25) mg/dL Glucose 117 H (74-99) mg/dL POC Glucose (mg/dL) 125 H (75-99) mg/dL Calcium 8.1 L (8.4-10.2) mg/dL 01/17/21 01/17/21 Range/Units 03:50 06:23 RBC (4.30-5.90) m/uL Hgb (13.0-17.5) gm/dL Hct (39.0-53.0) % ABG pH 7.46 H (7.35-7.45) ABG pO2 82 L (83-108) mmHg ABG HCO3 26 H (21-25) mmol/L ABG Total CO2 27 H (19-24) mmol/L Chloride (98-107) mmol/L Creatinine (0.66-1.25) mg/dL Glucose (74-99) mg/dL POC Glucose (mg/dL) 114 H (75-99) mg/dL Calcium (8.4-10.2) mg/dL Microbiology - Last 24 Hours (Table) 01/11/21 14:27 Blood Culture - Preliminary Blood No Growth after 120 hours 01/15/21 09:56 Gram Stain - Preliminary Sputum Sputum Culture - Preliminary Yeast species Assessment and Plan Plan: Unwitnessed cardiac arrest, suspected secondary to aspiration -Cardiology consult, input appreciated -Cardiac monitoring -Continue with ventilator bundle -2-D echo ejection fraction 60-65% -Continue with Zosyn Neurology following Continue on thiamine Lactic acidosis -Monitor Elevated troponin secondary to cardiac -Continue to monitor -Cardiac monitoring Hyperglycemia Continue sliding scale Acute kidney injury -Continue with IV fluids scr up to 2.2 normalized Resolved. Leukocytosis -Likely due to acute stressor wbc up to 21,000 on abxs , WBC normalized, monitor. Substance abuse -Monitor for signs of withdrawal with meth and cocaine Right lung aspiration pneumonia : continue on IV Zosyn, monitor. Thrombocytopenia Monitor platelets, normalized, monitor platelets DVT prophylaxis -Heparin metabolic acidosis 2/2 suzanne bicarb normalized Metabolic encephalopathy, multifactorial Neurology following Possible seizure-like activity, started on Keppra Disposition: pending clinical progression Plan for family meeting today. Will follow
--- NOTE | 2021-01-17 10:01 | P.PN ---
Subjective Progress Note Date: 01/17/21 01/13/2021, I am seeing this 50-year-old male patient who is post cardiac arrest. The patient was found on his driveway. He has aspirated and he had emesis on his head and face and neck. He was in asystole. Received CPR and compressions and epinephrine with a prolonged downtime. The patient was int ubated and placed on a mechanical ventilator and the patient was brought into the hospital. Is negative for COVID: 19. The patient remains on mechanical ventilator. Currently is on sedation with propofol running at 35 mcg/kg per minute. The patient on a assist-control mode of ventilation volume cycle with a tidal volume of 450, rate of 20, FiO2 of 40% with a PEEP of 5. CAT scan of the brain and the spine were negative. The patient's wish showing a right lower lobe pulmonary infiltration consistent with with aspiration and the patient is currently on IV Unasyn. Hemodynamically stable. The patient is not requiring any pressors. Kidney function improved. Potassium level is also improved. There is a concern of anoxic encephalopathy. The patient has history of drug abuse in the past. Echocardiogram was ordered by cardiology. There is a minimal troponin leak on his blood work. The urine drug screen was positive for methamphetamine, cocaine and opiates. As such, the patient has history of drug abuse. Confirmed by urine drug screen. The patient's this morning he remains sedated. White cell count is at 12.2 with a hemoglobin of 12.1. The rest of the electrolytes are all within normal and the patient is a normal renal function. Blood gases from today still pending. The chest x-ray from today was completed and the patient has a quick positioning of the ET tube. There is a right lower lobe consolidation and also some atelectasis/effusion and left lower lobe. The patient is a triple-lumen catheter in the left subclavian vein. The patient remains on IV fluids running at 75 mL an hour. Patient is receiving vital AF boluses asked to feeds. Is having low-grade fever. No pressors. Echocardiogram results is not available in the records. 01/14/2021 on seeing the patient for a follow-up. The patient is post cardiac arrest and anoxic encephalopathy. He is still on sedation for now and propofol is running at 46 mcg/kg per minute. Yesterday we give the patient sedation holiday which she failed. He became very tachycardic and tachypneic and asynchronous with a mechanical ventilator. He was thrashing and he was not following any commands. Based on that, the child was discontinued. This morning, the family will be done. Meanwhile, the patient remains on a mechanical ventilator. He is an assist-control mode rate of 20 with tidal volume of 450 and FiO2 of 40% with a PEEP of 5. Blood gases from this morning is still pending. Otherwise, the rest of the labs are all within normal limits. The CAT scan of the brain was repeated yesterday and it showed no acute abnormalities. There is some 10 sinus air fluid levels, questionable sinusitis and some Fluid within the mastoid air cells as well. Also, EEG of the brain was also done and it showed abnormal EEG with background slowing suggestive of severe encephalopathy. There were some rare sharp and slow waves over the bilateral the liver tests concerning for epileptic discharges. The patient was seen by neurology already. He is currently on Keppra 750 mg every 12 hours. Is also on Unasyn for suspected aspiration pneumonia of the right lower lobe. Note that the chest x-ray from yesterday showed bilateral lower lobe pulmonary infiltrates. He remains nothing by mouth. IV fluids are running at 75 mL an hour. Otherwise, no other significant events overnight. He remains hemodynam ically stable on no pressors. No further cardiac arrhythmias. Echocardiogram was also done that showed a preserved LV function without any underlying abnormalities with an ejection fraction of 60-65%. On today's evaluation of 021 the patient remains sedated with propofol. Attempts to take him off the propofol is failed. The patient was given a sedation holiday. He did poorly with that. He would become agitated and restless and tachypneic and tachycardic and he would desaturate. No meaningful neurologic recovery to the point where the patient was follow commands or answer questions. He continues to have some episodic myoclonic jerks once taken off the propofol. This is discussed with neurology and it is kind of hypoxic encephalopathy and the patient remains on Keppra 750 mg every 12 hours. There repeat EEG from yesterday showed severe encephalopathy with occasional rare ep ileptiform discharges bilaterally from the frontal lobes. Meanwhile, the patient's is on a mechanical ventilator. On today's evaluation is an assist- control at the rate of 20 with a tidal volume of 450 and FiO2 of 40% with a PEEP of 10. We had increased his PEEP as the patient was becoming more hypoxic yesterday. His chest x-ray is showing worsening in consolidation lower lobes and the patient probably is developing a right-sided pleural effusion. PH is at 7.45 with a pCO2 of 34 and pO2 of 74. He was running a lower urine output and the patient was given a total of 2 L of IV fluid yesterday and the patient was also given IV Zosyn am was stopped Unasyn. The fluid balance over the past 24 hours and then +3.5 L. The patient is currently on no pressors. He is receiving enteral feeding for nutritional support and he is on vital HP Rate of 10 mL an hour. The sputum samples showed normal respiratory dimitri, strep agalactiae. 01/16/2021, the patient is being given a sedation holiday as usual every morning. The holiday that was given yesterday failed as the patient was unresponsive, and had developed a severe autonomic reaction slightly became tachycardic and tachypneic and he was desaturating. His been off sedation since 6:00 this morning and his been off the propofol. He is comfortable at this point in time. He remains unresponsive. Nevertheless, synchronous with the mechanical ventilator. He is gradually becoming more hypertensive. His current vent settings include an assist-control at the rate of 20 with a tidal volume of 450 and FiO2 of 40% with a PEEP of 10. Blood gases from today shows a pH of 7.46 with a pCO2 of 36 and pO2 of 72. Peak airway pressures 17. Chest x-ray from today is showing adequate positioning of the orotracheal tube. The patient also has a NG tube in place. There is evidence of bilateral lower lobe pneumonia worse on the right. Findings are essentially stable compared to yesterday. There may be development of a right-sided plural effusion. Hemodynamically, the patient is on IV fluids at the rate of 75 mL an hour of normal saline. Is producing adequate amount of urine output. He is on no pressors and is maintaining his own blood pressure. Is also receiving enteral feeding for nutritional support and currently is on vital high protein. This is running at 30 mL an hour. No seizure activity has been noted while being off the propofol this morning. A repeat CAT scan of the brain was done yesterday that showed no acute abnormalities. EEG was abnormal on 01/14/2021.. He is afebrile for now. He remains on a broad-spectrum antibiotic coverage with IV Zosyn. Uterine was consistent with normal dimitri, strep 01/17/2021, patient is being seen for follow-up. After being off sedation for a total of 3 hours, the patient became restless and he went into coughing spells and he started getting oxygen desaturation. He was placed back on propofol yesterday. His been on propofol since and around 7:00 this morning the sedation was again discontinued. A neuro evaluation was done. Based on neurology's evaluation, there are signs of encephalopathy. The patient remains unresponsive. No myoclonic jerks. No purposeful movements. Does not follow commands. Does not withdraw to any painful stimulation. Brainstem reflexes are present. He remains currently on assist control mode at the rate of 20 with a tidal volume of 450 and FiO2 of 40% with a PEEP of 10. Blood gases showing a pH of 7.46 with a pCO2 of 37 and pO2 of 82. The chest x-ray from today is showing lower lobe pulmonary infiltrates more so on the right and there is also right pleural effusion. The orotracheal tube remains in a good location. The patient remains on IV Zosyn. Sputum was positive for streptococcal growth. Fact, on today's evaluation, there is interval improvement in the right lower lobe consolidation compared to yesterday. He remains on IV Zosyn. He is receiving enteral feeding for nutritional support and the patient is currently on vital high protein at the rate of 50 mL an hour. He remains on Keppra. Hemodyn amically stable. T-max was 99.5. He had a bowel movement. White cell count is at 9.2 with a hemoglobin of 12, renal functions of the stable and there has been no other significant events over the past 24 hours. As mentioned, the chest x- ray is obviously improved on today's evaluation. Objective - Vital Signs Vital signs: Vital Signs Temp 99.2 F 01/17/21 08:00 Pulse 69 01/17/21 09:00 Resp 32 H 01/17/21 09:00 BP 161/76 01/17/21 09:00 Pulse Ox 96 01/17/21 09:00 Intake & Output 01/16/21 01/17/21 01/17/21 18:59 06:59 18:59 Intake Total 7985.874 8889.000 432 Output Total 2003 1620 450 Balance -462.026 -326.000 -18 Weight 93.9 kg Intake: IV 923 486 278 .9 pressure bag 48 66 18 Keppra 100 100 Piperacillin-Tazobactam 3 100 100 100 .375 gm In Sodium Chloride 0.9% 100 ml @ 25 mls/hr IVPB Q8HR [facility] Rx# :[id number] Potassium Chloride 20 meq 100 In Water For Injection 1 100ml.bag @ 50 mls/hr IVPB Q2H [facility] Rx#: [id number] Sodium Chloride 0.9% 1, 675 220 60 000 ml @ 20 mls/hr IV . Q24H [facility] Rx#:[id number] Intake, IV Titration 178.974 200.000 101 Amount propofoL 1,000 mg In 178.974 200.000 101 Empty Bag 1 bag @ Titrate IV .Q0M [facility] Rx#: [id number] Tube Feeding 380 518 53 Other 60 90 Output: Urine 2003 1620 450 Other: Voiding Method Indwelling Catheter Indwelling Catheter Indwelling Catheter ABP, PAP, CO, CI - Last Documented Arterial Blood Pressure 152/62 - Exam No acute distress, sedated, and mechanically ventilated. Head exam was generally normal. There was no scleral icterus or corneal arcus. Mucous membranes were moist. Neck was supple and without jugular venous distension, thyromegaly, or carotid bruits. Carotids were easily palpable bilaterally. There was no adenopathy. HEENT examination is grossly unremarkable. There is an orally placed e ndotracheal tube and NG tube. Neck supple. Full range of motion. No adenopathy thyromegaly or neck vein distention. Cardiovascular examination reveals regular rhythm rate. S1-S2 normal. No S3 or S4. No discernible murmur noted. Heart sounds are distant. Lungs reveal mostly clear breath sounds. A few scattered rhonchi are noted. No wheezes or crackles. Breath sounds equal. The breath sounds are rather coarse at this point in time. Abdomen soft bowel sounds are heard. No masses or tenderness. Extremities are intact. No cyanosis clubbing or edema. Skin is without rash or lesion. Neurologic examination. The patient is currently ventilated and sedated. Unresponsive does not follow any commands unresponsive and does not follow any commands once of sedation. The cranial nerve reflexes are present. His morning, his been off sedation since have an a.m. and the propofol has been discontinued to reevaluate his underlying mental status. - Labs CBC & Chem 7: 01/17/21 03:50 01/17/21 03:50 Labs: Abnormal Lab Results - Last 24 Hours (Table) 01/16/21 01/17/21 01/17/21 Range/Units 11:28 03:50 03:50 RBC 3.61 L (4.30-5.90) m/uL Hgb 12.0 L (13.0-17.5) gm/dL Hct 33.7 L (39.0-53.0) % ABG pH (7.35-7.45) ABG pO2 (83-108) mmHg ABG HCO3 (21-25) mmol/L ABG Total CO2 (19-24) mmol/L Chloride 110 H (98-107) mmol/L Creatinine 0.59 L (0.66-1.25) mg/dL Glucose 117 H (74-99) mg/dL POC Glucose (mg/dL) 125 H (75-99) mg/dL Calcium 8.1 L (8.4-10.2) mg/dL 01/17/21 01/17/21 Range/Units 03:50 06:23 RBC (4.30-5.90) m/uL Hgb (13.0-17.5) gm/dL Hct (39.0-53.0) % ABG pH 7.46 H (7.35-7.45) ABG pO2 82 L (83-108) mmHg ABG HCO3 26 H (21-25) mmol/L ABG Total CO2 27 H (19-24) mmol/L Chloride (98-107) mmol/L Creatinine (0.66-1.25) mg/dL Glucose (74-99) mg/dL POC Glucose (mg/dL) 114 H (75-99) mg/dL Calcium (8.4-10.2) mg/dL Microbiology - Last 24 Hours (Table) 01/11/21 14:27 Blood Culture - Preliminary Blood No Growth after 120 hours 01/15/21 09:56 Gram Stain - Preliminary Sputum Sputum Culture - Preliminary Yeast species Assessment and Plan Plan: 1 [id number] cardiopulmonary arrest, with unknown downtime, status post cardiopulmonary resuscitation with return of spontaneous circulation (CPA/CPR/ROSC). The patient is currently sedated, intubated and mechanically ventilated in the emergency room. The patient is currently hemodynamically stable. Cardiac rhythm is sinus. Echocardiogram is within normal and the patient remains hemodynamically stable. 2 Anoxic brain injury, secondary to cardiac arrest, with a CAT scan of the brain showing no acute abnormalities other than some chronic sinus disease and the patient has EEG that shows diffuse slowing with some questionable epileptic foci bilaterally and for that reason the patient was started on Keppra. The patient is currently off sedation. Overall neuro status and neurologic examinations remain unchanged the patient is showing signs of anoxic encephalopathy. No seizure activity has been witnessed. No purposeful movement. Does not follow any commands. Cranial nerve reflexes are present. 3 bilateral lower lobe pulmonary infiltrates, consider aspiration pneumonia currently on Zosyn. Chest x-ray from today is showing improvement in the right lower lobe consolidation. 4 troponin leak 5 multiple drug abuse and the patient was positive for cocaine, opiates and methamphetamine Plan This is a case of severe anoxic encephalopathy. Unchanged since yesterday and neurologic function is unchanged. Neurology follow-up Continue Keppra. EEG was noted. Neurologist on the case. He is failing sedation holidays because of severe autonomic reactions, and he is going to have a reevaluation today. EEG was noted and the repeat CAT scan was also noted. Enteral nutrition Continue IV Zosyn for bilateral lower lobe pneumonia of an aspiration type , improved on today's chest x-ray Hemodynamically stable Keep the patient off sedation Dropped a PEEP down to 8 and later on also 6 if the saturation remains above 90% Family is to make it final decision on his CODE STATUS and further care There was also vague history of a liver cancer this patient. I'm going to do an ultrasound of his liver and check AFP level We'll continue to follow. Condition is critical. Critically care evaluation more than 30 minutes Time with Patient: Greater than 30
[2021-01-17] MEDS: NOREPINEPHRINE 8 MG in SODIUM CHLORIDE 0.9% 250 ML IV SCH (13:58)
[2021-01-17 17:03] LABS: Glucose,Whole Blood 117 mg/dL (75-99)
--- NOTE | 2021-01-17 19:06 | P.PN ---
Subjective Progress Note Date: 01/17/21 Patient was seen at bedside and per the patient nurse his condition remains to be about the same. Per the patient's nurse unsure of the family's decision yet. Continues to be intubated on a ventilator and the was on the propofol 50 mics per kick per minute in the morning. He has no further seizure-like episodes. Objective - Vital Signs Vital signs: Vital Signs Temp 99.4 F 01/17/21 16:00 Pulse 73 01/17/21 18:00 Resp 25 H 01/17/21 18:00 BP 162/83 01/17/21 18:00 Pulse Ox 96 01/17/21 18:00 Intake & Output 01/16/21 01/17/21 01/17/21 18:59 06:59 18:59 Intake Total 5449.956 1946.000 766 Output Total 2003 1620 1610 Balance -462.026 -326.000 -844 Weight 93.9 kg 93.9 kg Intake: IV 923 486 612 .9 pressure bag 48 66 72 Keppra 100 100 Piperacillin-Tazobactam 3 100 100 200 .375 gm In Sodium Chloride 0.9% 100 ml @ 25 mls/hr IVPB Q8HR [facility] Rx# :[id number] Potassium Chloride 20 meq 100 In Water For Injection 1 100ml.bag @ 50 mls/hr IVPB Q2H [facility] Rx#: [id number] Sodium Chloride 0.9% 1, 675 220 240 000 ml @ 20 mls/hr IV . Q24H [facility] Rx#:[id number] Intake, IV Titration 178.974 200.000 101 Amount propofoL 1,000 mg In 178.974 200.000 101 Empty Bag 1 bag @ Titrate IV .Q0M [facility] Rx#: [id number] Tube Feeding 380 518 53 Other 60 90 Output: Urine 2003 1620 1610 Other: Voiding Method Indwelling Catheter Indwelling Catheter Indwelling Catheter ABP, PAP, CO, CI - Last Documented Arterial Blood Pressure 152/62 - Exam GENERAL: The patient is lying in bed and does not seem in acute distress. The patient is intubated on ventilator and on IV propofol 50mcg/kg/min that was held for 1 1/2 hours for my examination. HENT: NO nuchal rigidity. LUNG: Intubated on ventilator. Clear to auscultation bilaterally throughout. Not labored breathing. Breathing over the vent (A/C setting is 20). NEUROLOGICAL: Limited: Sedation was held for 1 1/2 hours for my exam. Higher mental function: GCS: 3 (E1, VT1, M1). Patient is comatose, non responsive or following commands. Cranial nerves: Pupils are 2mm and sluggishly reactive to light bilaterally. Primary gaze is midline. Positive corneal reflex bilaterally. No facial weakness throughout. +ve occulocephalic reflex. +gag and cough. Motor: Strength: 0/5 throughout. No sponateous movement noted throughout. No posture noted. Normal bulk. Normal tone. No localizing withdrawl to painful stimuli to any of extremities but has peripheral reflex withdrawl on lower extremities (ankle). Cerebellum: Could not assess. Sensation: Could not assess painful stimuli. Reflexes (right/left): Patellar 3+ bilaterally otherwise 2+ throughout. Plantars are upgoing bilaterally. - Labs CBC & Chem 7: 01/17/21 03:50 01/17/21 03:50 Labs: Abnormal Lab Results - Last 24 Hours (Table) 01/17/21 01/17/21 01/17/21 Range/Units 03:50 03:50 03:50 RBC 3.61 L (4.30-5.90) m/uL Hgb 12.0 L (13.0-17.5) gm/dL Hct 33.7 L (39.0-53.0) % ABG pH 7.46 H (7.35-7.45) ABG pO2 82 L (83-108) mmHg ABG HCO3 26 H (21-25) mmol/L ABG Total CO2 27 H (19-24) mmol/L Chloride 110 H (98-107) mmol/L Creatinine 0.59 L (0.66-1.25) mg/dL Glucose 117 H (74-99) mg/dL POC Glucose (mg/dL) (75-99) mg/dL Calcium 8.1 L (8.4-10.2) mg/dL 01/17/21 01/17/21 Range/Units 06:23 17:01 RBC (4.30-5.90) m/uL Hgb (13.0-17.5) gm/dL Hct (39.0-53.0) % ABG pH (7.35-7.45) ABG pO2 (83-108) mmHg ABG HCO3 (21-25) mmol/L ABG Total CO2 (19-24) mmol/L Chloride (98-107) mmol/L Creatinine (0.66-1.25) mg/dL Glucose (74-99) mg/dL POC Glucose (mg/dL) 114 H 117 H (75-99) mg/dL Calcium (8.4-10.2) mg/dL Microbiology - Last 24 Hours (Table) 01/11/21 14:27 Blood Culture - Final Blood No Growth after 144 hours 01/15/21 09:56 Gram Stain - Preliminary Sputum Sputum Culture - Preliminary Sangita albicans Gram Neg Bacilli Assessment and Plan Assessment: Altered mental status due to multifactorial: metabolic encephalopathy (elevated LFT and due to drug use (cocaine, amphetamine and opiates) and right lung aspiration pneumonia and sedation effect (Propofol) 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 Out of the hospital cardiopulmonary arrest unknown down time status post cardiopulmonary resuscitation with return of spontaneous circulation Elevated LFT (AST 414 and ALT 104 on presentation. Since AST is >2 of ALT is concerning of alcohol use)---trending down Low Vitamin B12 level (229 Normal is 200-944) Aspiration pneumonia Troponin leak Polysubstance use (cocaine, amphetamine and opiates) Plan: EEG 01/13/21: Is an abnormal routine EEG. The back was slowing is suggestive of severe encephalopathy. The rare to occasional sharp and slow wave over the bilateral frontal degenerative is concerning for epileptiform discharges. There is no seizure during this recording. The upper body jerks, predominantly left were captured during this recording without EEG correlation. Repeat EEG on 01/14/2021 and it was essentially about the same as 01/13/2021. The background slowing suggestive of severe encephalopathy. Occasional to rare epileptiform discharges over the bilateral frontal increases the risk of seizure. There are no focal slowing or seizure during this recording. CT of the head on 01/15/21 is reported as no acute intracranial abnormality. Patient is side is. Bilateral mastoiditis. No significant change. Continue Keppra 1500mg q 12 hours. Continue thiamine 100 mg daily. Vitamin B12 is 229 which is low normal (the normal ranges between 200 and 944). Continue vitamin B12 1000 g daily. Folate level is 19.6 which is considered normal TSH is 0.73 which is normal range. AST: 50 (normal), ALT 24 (normal) and ammonia level: 23 (normal). 2-D echo was reported as left ventricle size is normal. Mild concentric left ventricular hypertrophy. Ejection fraction between 60-65%. Cardiology team is on board. We'll defer the rest of the medical management to the primary team as well as ICU team. The patient prognosis appears to be poor due to: It is unknown exact down time but was notified it appears to be prolonged cardiac arrest; has only brainstem reflexes, jerking of upper extremities (predominately left) concerning for seizure--jerking resolved). He is not brain and has only brainstem reflexes. He was off sedations for 1 1/2 hour for my exam and no improvement on examination. Pending family decision of how to proceed. The plan is discussed with the patient nurse. Giorgio Robles M.D. Neuro-hospitalist Time with Patient: Less than 30
[2021-01-18] MEDS: CLEVIDIPINE BUTYRATE 25 MG in EMPTY BAG 1 BAG IV SCH ×8 (00:08→20:43)
[2021-01-18 00:13] LABS: Glucose,Whole Blood 111 mg/dL (75-99)
[2021-01-18] MEDS: INSULIN ASPART (NovoLOG) 100 UNIT/ML VIAL SQ SCH ×4 (00:20→18:01)
[2021-01-18] MEDS: PIPERACILLIN-TAZOBACTAM 3.375 GM in SODIUM CHLORIDE 0.9% 100 ML IVPB SCH ×3 (00:58→16:12)
[2021-01-18] MEDS: HEPARIN SODIUM,PORCINE/PF 5,000 UNIT/0.5 ML SYRINGE SQ SCH ×3 (01:51→16:12)
[2021-01-18] MEDS: IPRATROPIUM-ALBUTEROL 3 ML NEB INHALATION SCH ×5 (03:27→20:06)
[2021-01-18 04:15] LABS: Basophils % (A) 0 %; Eosinophils # (A) 0.3 k/uL (0-0.7); Eosinophils % (A) 3 %; HCT 37.6 % (39.0-53.0); Lymphocytes # (A) 1.5 k/uL (1.0-4.8); Lymphocytes % (A) 13 %; MCH 32.5 pg (25.0-35.0); MCHC 34.6 g/dL (31.0-37.0); MCV 93.9 fL (80.0-100.0); Mean Platelet Volume 7.6; Monocytes # (A) 0.5 k/uL (0-1.0); Monocytes % (A) 4 %; Neutrophils # (A) 8.7 k/uL (1.3-7.7); Neutrophils % (A) 78 %; Platelet Count 231 k/uL (150-450); RBC 4.01 m/uL (4.30-5.90); RDW 12.8 % (11.5-15.5); WBC 11.2 k/uL (3.8-10.6)
[2021-01-18 04:39] LABS: Prothrombin Time 10.6 sec (9.0-12.0)
[2021-01-18 05:04] LABS: ALT 23 U/L (4-49); AST 52 U/L (17-59); African American GFR (CKD) >90 (>60 ml/min/1.73 sqM); Albumin 3.1 g/dL (3.5-5.0); Alkaline Phosphatase 58 U/L (38-126); Anion Gap 6 mmol/L; Bilirubin, Delta 0.2 mg/dL (0.0-0.2); Bilirubin,Unconjugated 0.4 mg/dL (0.0-1.1); Blood Urea Nitrogen 17 mg/dL (9-20); Calcium 8.5 mg/dL (8.4-10.2); Carbon Dioxide 22 mmol/L (22-30); Chloride 108 mmol/L (98-107); Glucose 114 mg/dL (74-99); Magnesium 2.2 mg/dL (1.6-2.3); Non-African American GFR(CKD) >90 (>60 ml/min/1.73 sqM); Phosphorus 3.4 mg/dL (2.5-4.5); Potassium 3.8 mmol/L (3.5-5.1); Sodium 136 mmol/L (137-145); Total Bilirubin 0.6 mg/dL (0.2-1.3)
[2021-01-18 05:31] LABS: ABG Base Excess -0.1 mmol/L; ABG HCO3 24 mmol/L (21-25); ABG Oxygen Saturation 99.1 % (94-97); ABG PCO2 33 mmHg (35-45); ABG PH 7.47 (7.35-7.45); ABG PO2 116 mmHg (83-108); ABG TCO2 25 mmol/L (19-24)
[2021-01-18 05:40] LABS: Allen Test Performed? no
[2021-01-18 05:45] LABS: Glucose,Whole Blood 118 mg/dL (75-99)
[2021-01-18] MEDS ORDERED: Potassium Replacement Protocol 1 EACH MISC MISCELLANE PRN (07:18)
--- NOTE | 2021-01-18 08:22 | P.PN ---
Subjective Progress Note Date: 01/18/21 Remains intubated on the ventilator. No purposeful movements, no major changes Objective - Vital Signs Vital signs: Vital Signs Temp 98.8 F 01/18/21 04:00 Pulse 84 01/18/21 07:00 Resp 28 H 01/18/21 07:00 BP 139/67 01/18/21 07:00 Pulse Ox 98 01/18/21 07:00 Intake & Output 01/17/21 01/18/21 01/18/21 18:59 06:59 18:59 Intake Total 766 1519.532 79 Output Total 1610 1695 125 Balance -844 -175.468 -46 Weight 93.9 kg 90.7 kg Intake: IV 612 692 26 .9 pressure bag 72 72 6 Keppra 100 100 Piperacillin-Tazobactam 3 200 100 .375 gm In Sodium Chloride 0.9% 100 ml @ 25 mls/hr IVPB Q8HR [facility] Rx# :[id number] Sodium Chloride 0.9% 1, 240 420 20 000 ml @ 20 mls/hr IV . Q24H [facility] Rx#:[id number] Intake, IV Titration 101 154.532 Amount Clevidipine Butyrate 25 154.532 mg In Empty Bag 1 bag @ 1 MG/HR 2 mls/hr IV .Q24H [facility] Rx#:[id number] propofoL 1,000 mg In 101 Empty Bag 1 bag @ Titrate IV .Q0M [facility] Rx#: [id number] Tube Feeding 53 583 53 Other 90 Output: Urine 1610 1695 125 Other: Voiding Method Indwelling Catheter Indwelling Catheter # Bowel Movements 1 ABP, PAP, CO, CI - Last Documented Arterial Blood Pressure 147/54 - Exam Gen: Intubated, on ventilator HEENT: normocephalic, atraumatic Resp: Decreased breath sounds, no wheezing CVS: S1-S2 normal, no murmurs, rubs or gallops GI: soft, nontender nondistended , + BS MSK: No clubbing cyanosis or edema Neuro: Intubated on vent - Labs CBC & Chem 7: 01/18/21 03:45 01/18/21 03:45 Labs: Abnormal Lab Results - Last 24 Hours (Table) 01/17/21 01/18/21 01/18/21 Range/Units 17:01 00:12 03:45 WBC 11.2 H (3.8-10.6) k/uL RBC 4.01 L (4.30-5.90) m/uL Hct 37.6 L (39.0-53.0) % Neutrophils # 8.7 H (1.3-7.7) k/uL ABG pH (7.35-7.45) ABG pCO2 (35-45) mmHg ABG pO2 (83-108) mmHg ABG Total CO2 (19-24) mmol/L ABG O2 Saturation (94-97) % Sodium (137-145) mmol/L Chloride (98-107) mmol/L Creatinine (0.66-1.25) mg/dL Glucose (74-99) mg/dL POC Glucose (mg/dL) 117 H 111 H (75-99) mg/dL Total Protein (6.3-8.2) g/dL Albumin (3.5-5.0) g/dL 01/18/21 01/18/21 01/18/21 Range/Units 03:45 05:29 05:44 WBC (3.8-10.6) k/uL RBC (4.30-5.90) m/uL Hct (39.0-53.0) % Neutrophils # (1.3-7.7) k/uL ABG pH 7.47 H (7.35-7.45) ABG pCO2 33 L (35-45) mmHg ABG pO2 116 H (83-108) mmHg ABG Total CO2 25 H (19-24) mmol/L ABG O2 Saturation 99.1 H (94-97) % Sodium 136 L (137-145) mmol/L Chloride 108 H (98-107) mmol/L Creatinine 0.60 L (0.66-1.25) mg/dL Glucose 114 H (74-99) mg/dL POC Glucose (mg/dL) 118 H (75-99) mg/dL Total Protein 6.0 L (6.3-8.2) g/dL Albumin 3.1 L (3.5-5.0) g/dL Microbiology - Last 24 Hours (Table) 01/11/21 14:27 Blood Culture - Final Blood No Growth after 144 hours 01/15/21 09:56 Gram Stain - Preliminary Sputum Sputum Culture - Preliminary Sangita albicans Gram Neg Bacilli Assessment and Plan Plan: Unwitnessed cardiac arrest, suspected secondary to aspiration -Cardiology consult, input appreciated -2-D echo ejection fraction 60-65% -Continue with Zosyn Neurology following Continue on thiamine Lactic acidosis -Monitor Elevated troponin secondary to cardiac -Continue to monitor -Cardiac monitoring Hyperglycemia Continue sliding scale Acute kidney injury -Continue with IV fluids scr up to 2.2 normalized Resolved. Leukocytosis -Likely due to acute stressor wbc up to 21,000 on abxs , WBC normalized, monitor. Substance abuse -Monitor for signs of withdrawal with meth and cocaine Right lung aspiration pneumonia : continue on IV Zosyn, monitor. Thrombocytopenia Monitor platelets, normalized DVT prophylaxis -Heparin metabolic acidosis 2/2 suzanne resolved Metabolic encephalopathy, multifactorial Neurology following Possible seizure-like activity, on Keppra Disposition: pending clinical progression Discussed with patient's daughter over the phone, plan for extubation sometime next week.
[2021-01-18] MEDS: levETIRAcetam IV 1,500 MG in SALINE 1 100ML.BAG IVPB SCH ×2 (08:28→20:43)
[2021-01-18] MEDS: ASPIRIN 81 MG PO SCH (08:33)
[2021-01-18] MEDS: PANTOPRAZOLE 40 MG/10 ML VIAL IVP SCH (08:33)
[2021-01-18] MEDS: CYANOCOBALAMIN 500 MCG TAB PO SCH (08:33)
[2021-01-18] MEDS: CHLORHEXIDINE GLUCONATE 15 ML CUP MUCOUS MEM SCH ×2 (08:33→20:43)
[2021-01-18] MEDS: THIAMINE 100 MG/ML 2 ML VIAL IVP SCH (08:34)
[2021-01-18] MEDS: SODIUM CHLORIDE 0.9% 1,000 ML IV SCH (08:49)
--- NOTE | 2021-01-18 09:16 | P.PN ---
Subjective Progress Note Date: 01/18/21 01/13/2021, I am seeing this 50-year-old male patient who is post cardiac arrest. The patient was found on his driveway. He has aspirated and he had emesis on his head and face and neck. He was in asystole. Received CPR and compressions and epinephrine with a prolonged downtime. The patient was int ubated and placed on a mechanical ventilator and the patient was brought into the hospital. Is negative for COVID: 19. The patient remains on mechanical ventilator. Currently is on sedation with propofol running at 35 mcg/kg per minute. The patient on a assist-control mode of ventilation volume cycle with a tidal volume of 450, rate of 20, FiO2 of 40% with a PEEP of 5. CAT scan of the brain and the spine were negative. The patient's wish showing a right lower lobe pulmonary infiltration consistent with with aspiration and the patient is currently on IV Unasyn. Hemodynamically stable. The patient is not requiring any pressors. Kidney function improved. Potassium level is also improved. There is a concern of anoxic encephalopathy. The patient has history of drug abuse in the past. Echocardiogram was ordered by cardiology. There is a minimal troponin leak on his blood work. The urine drug screen was positive for methamphetamine, cocaine and opiates. As such, the patient has history of drug abuse. Confirmed by urine drug screen. The patient's this morning he remains sedated. White cell count is at 12.2 with a hemoglobin of 12.1. The rest of the electrolytes are all within normal and the patient is a normal renal function. Blood gases from today still pending. The chest x-ray from today was completed and the patient has a quick positioning of the ET tube. There is a right lower lobe consolidation and also some atelectasis/effusion and left lower lobe. The patient is a triple-lumen catheter in the left subclavian vein. The patient remains on IV fluids running at 75 mL an hour. Patient is receiving vital AF boluses asked to feeds. Is having low-grade fever. No pressors. Echocardiogram results is not available in the records. 01/14/2021 on seeing the patient for a follow-up. The patient is post cardiac arrest and anoxic encephalopathy. He is still on sedation for now and propofol is running at 46 mcg/kg per minute. Yesterday we give the patient sedation holiday which she failed. He became very tachycardic and tachypneic and asynchronous with a mechanical ventilator. He was thrashing and he was not following any commands. Based on that, the child was discontinued. This morning, the family will be done. Meanwhile, the patient remains on a mechanical ventilator. He is an assist-control mode rate of 20 with tidal volume of 450 and FiO2 of 40% with a PEEP of 5. Blood gases from this morning is still pending. Otherwise, the rest of the labs are all within normal limits. The CAT scan of the brain was repeated yesterday and it showed no acute abnormalities. There is some 10 sinus air fluid levels, questionable sinusitis and some Fluid within the mastoid air cells as well. Also, EEG of the brain was also done and it showed abnormal EEG with background slowing suggestive of severe encephalopathy. There were some rare sharp and slow waves over the bilateral the liver tests concerning for epileptic discharges. The patient was seen by neurology already. He is currently on Keppra 750 mg every 12 hours. Is also on Unasyn for suspected aspiration pneumonia of the right lower lobe. Note that the chest x-ray from yesterday showed bilateral lower lobe pulmonary infiltrates. He remains nothing by mouth. IV fluids are running at 75 mL an hour. Otherwise, no other significant events overnight. He remains hemodynam ically stable on no pressors. No further cardiac arrhythmias. Echocardiogram was also done that showed a preserved LV function without any underlying abnormalities with an ejection fraction of 60-65%. On today's evaluation of 021 the patient remains sedated with propofol. Attempts to take him off the propofol is failed. The patient was given a sedation holiday. He did poorly with that. He would become agitated and restless and tachypneic and tachycardic and he would desaturate. No meaningful neurologic recovery to the point where the patient was follow commands or answer questions. He continues to have some episodic myoclonic jerks once taken off the propofol. This is discussed with neurology and it is kind of hypoxic encephalopathy and the patient remains on Keppra 750 mg every 12 hours. There repeat EEG from yesterday showed severe encephalopathy with occasional rare ep ileptiform discharges bilaterally from the frontal lobes. Meanwhile, the patient's is on a mechanical ventilator. On today's evaluation is an assist- control at the rate of 20 with a tidal volume of 450 and FiO2 of 40% with a PEEP of 10. We had increased his PEEP as the patient was becoming more hypoxic yesterday. His chest x-ray is showing worsening in consolidation lower lobes and the patient probably is developing a right-sided pleural effusion. PH is at 7.45 with a pCO2 of 34 and pO2 of 74. He was running a lower urine output and the patient was given a total of 2 L of IV fluid yesterday and the patient was also given IV Zosyn am was stopped Unasyn. The fluid balance over the past 24 hours and then +3.5 L. The patient is currently on no pressors. He is receiving enteral feeding for nutritional support and he is on vital HP Rate of 10 mL an hour. The sputum samples showed normal respiratory dimitri, strep agalactiae. 01/16/2021, the patient is being given a sedation holiday as usual every morning. The holiday that was given yesterday failed as the patient was unresponsive, and had developed a severe autonomic reaction slightly became tachycardic and tachypneic and he was desaturating. His been off sedation since 6:00 this morning and his been off the propofol. He is comfortable at this point in time. He remains unresponsive. Nevertheless, synchronous with the mechanical ventilator. He is gradually becoming more hypertensive. His current vent settings include an assist-control at the rate of 20 with a tidal volume of 450 and FiO2 of 40% with a PEEP of 10. Blood gases from today shows a pH of 7.46 with a pCO2 of 36 and pO2 of 72. Peak airway pressures 17. Chest x-ray from today is showing adequate positioning of the orotracheal tube. The patient also has a NG tube in place. There is evidence of bilateral lower lobe pneumonia worse on the right. Findings are essentially stable compared to yesterday. There may be development of a right-sided plural effusion. Hemodynamically, the patient is on IV fluids at the rate of 75 mL an hour of normal saline. Is producing adequate amount of urine output. He is on no pressors and is maintaining his own blood pressure. Is also receiving enteral feeding for nutritional support and currently is on vital high protein. This is running at 30 mL an hour. No seizure activity has been noted while being off the propofol this morning. A repeat CAT scan of the brain was done yesterday that showed no acute abnormalities. EEG was abnormal on 01/14/2021.. He is afebrile for now. He remains on a broad-spectrum antibiotic coverage with IV Zosyn. Uterine was consistent with normal dimitri, strep 01/17/2021, patient is being seen for follow-up. After being off sedation for a total of 3 hours, the patient became restless and he went into coughing spells and he started getting oxygen desaturation. He was placed back on propofol yesterday. His been on propofol since and around 7:00 this morning the sedation was again discontinued. A neuro evaluation was done. Based on neurology's evaluation, there are signs of encephalopathy. The patient remains unresponsive. No myoclonic jerks. No purposeful movements. Does not follow commands. Does not withdraw to any painful stimulation. Brainstem reflexes are present. He remains currently on assist control mode at the rate of 20 with a tidal volume of 450 and FiO2 of 40% with a PEEP of 10. Blood gases showing a pH of 7.46 with a pCO2 of 37 and pO2 of 82. The chest x-ray from today is showing lower lobe pulmonary infiltrates more so on the right and there is also right pleural effusion. The orotracheal tube remains in a good location. The patient remains on IV Zosyn. Sputum was positive for streptococcal growth. Fact, on today's evaluation, there is interval improvement in the right lower lobe consolidation compared to yesterday. He remains on IV Zosyn. He is receiving enteral feeding for nutritional support and the patient is currently on vital high protein at the rate of 50 mL an hour. He remains on Keppra. Hemodyn amically stable. T-max was 99.5. He had a bowel movement. White cell count is at 9.2 with a hemoglobin of 12, renal functions of the stable and there has been no other significant events over the past 24 hours. As mentioned, the chest x- ray is obviously improved on today's evaluation. 01/18/2021,The patient is being seen in follow-up in the intensive care unit. His been off sedation for the past 24 hours. He is calm and comfortable. He is grimacing to deep painful stimulation. He is also withdrawing to painful stimulation for now. No seizure activity has been noted. The patient has been off sedation for the past 24 hours and went To keep him off sedation for now. He remains on a mechanical ventilator. On today's evaluation is an assist- control mode at the rate of 20 with tidal volume of 450 and FiO2 is at 40% with a PEEP of 8. The blood pressure with a pH of 7.47 with a pCO2 of 33 and PaO2 of 116 and the chest x-ray showing improvement in the bilateral lower lobe pulmonar y infiltrates. He remains on IV Zosyn. Note that the patient had aspiration pneumonia as the patient aspirated twice initially at the time of admission and second 20 was here in the intensive care unit. Currently is receiving enteral feeding for nutritional support with vital high protein at the rate of 50 mL an hour. He is having bowel movements activity. No abdominal distention. No emesis. On his blood work, the patient's white cell count is at 11.2 with hemoglobin of 13. Correlation profile is within normal limits. Renal function is stable. Blood sugar is also well controlled. No other significant events otherwise. Neurologist on the case. CAT scan of the brain that was done earlier showed no abnormalities. As for the alpha-fetoprotein levels, this was low. Objective - Vital Signs Vital signs: Vital Signs Temp 98.8 F 01/18/21 04:00 Pulse 84 01/18/21 07:00 Resp 28 H 01/18/21 07:00 BP 139/67 01/18/21 07:00 Pulse Ox 98 01/18/21 07:00 Intake & Output 01/17/21 01/18/21 01/18/21 18:59 06:59 18:59 Intake Total 766 1519.532 79 Output Total 1610 1695 125 Balance -844 -175.468 -46 Weight 93.9 kg 90.7 kg Intake: IV 612 692 26 .9 pressure bag 72 72 6 Keppra 100 100 Piperacillin-Tazobactam 3 200 100 .375 gm In Sodium Chloride 0.9% 100 ml @ 25 mls/hr IVPB Q8HR [facility] Rx# :[id number] Sodium Chloride 0.9% 1, 240 420 20 000 ml @ 20 mls/hr IV . Q24H [facility] Rx#:[id number] Intake, IV Titration 101 154.532 Amount Clevidipine Butyrate 25 154.532 mg In Empty Bag 1 bag @ 1 MG/HR 2 mls/hr IV .Q24H [facility] Rx#:[id number] propofoL 1,000 mg In 101 Empty Bag 1 bag @ Titrate IV .Q0M [facility] Rx#: [id number] Tube Feeding 53 583 53 Other 90 Output: Urine 1610 1695 125 Other: Voiding Method Indwelling Catheter Indwelling Catheter # Bowel Movements 1 ABP, PAP, CO, CI - Last Documented Arterial Blood Pressure 147/54 - Exam No acute distress, sedated, and mechanically ventilated. The orogastric and orotracheal tube are both in place. Head exam was generally normal. There was no scleral icterus or corneal arcus. Mucous membranes were moist. Neck was supple and without jugular venous distension, thyromegaly, or carotid bruits. Carotids were easily palpable bilaterally. There was no adenopathy. HEENT examination is grossly unremarkable. There is an orally placed endotracheal tube and NG tube. Neck supple. Full range of motion. No adenopathy thyromegaly or neck vein distention. Cardiovascular examination reveals regular rhythm rate. S1-S2 normal. No S3 or S4. No discernible murmur noted. Heart sounds are distant. Lungs reveal mostly clear breath sounds. A few scattered rhonchi are noted. No wheezes or crackles. Breath sounds equal. The breath sounds are rather coarse at this point in time. Abdomen soft bowel sounds are heard. No masses or tenderness. Extremities are intact. No cyanosis clubbing or edema. Skin is without rash or lesion. Neurologic examination. The patient is currently ventilated and sedated. Unresponsive does not follow any commands unresponsive and does not follow any commands once of sedation. The cranial nerve reflexes are present. The patient has a positive cough and gag. He grimaces to deep painful stimulation. He has been off propofol for the past 24 hours. - Labs CBC & Chem 7: 01/18/21 03:45 01/18/21 03:45 Labs: Abnormal Lab Results - Last 24 Hours (Table) 01/17/21 01/18/21 01/18/21 Range/Units 17:01 00:12 03:45 WBC 11.2 H (3.8-10.6) k/uL RBC 4.01 L (4.30-5.90) m/uL Hct 37.6 L (39.0-53.0) % Neutrophils # 8.7 H (1.3-7.7) k/uL ABG pH (7.35-7.45) ABG pCO2 (35-45) mmHg ABG pO2 (83-108) mmHg ABG Total CO2 (19-24) mmol/L ABG O2 Saturation (94-97) % Sodium (137-145) mmol/L Chloride (98-107) mmol/L Creatinine (0.66-1.25) mg/dL Glucose (74-99) mg/dL POC Glucose (mg/dL) 117 H 111 H (75-99) mg/dL Total Protein (6.3-8.2) g/dL Albumin (3.5-5.0) g/dL 01/18/21 01/18/21 01/18/21 Range/Units 03:45 05:29 05:44 WBC (3.8-10.6) k/uL RBC (4.30-5.90) m/uL Hct (39.0-53.0) % Neutrophils # (1.3-7.7) k/uL ABG pH 7.47 H (7.35-7.45) ABG pCO2 33 L (35-45) mmHg ABG pO2 116 H (83-108) mmHg ABG Total CO2 25 H (19-24) mmol/L ABG O2 Saturation 99.1 H (94-97) % Sodium 136 L (137-145) mmol/L Chloride 108 H (98-107) mmol/L Creatinine 0.60 L (0.66-1.25) mg/dL Glucose 114 H (74-99) mg/dL POC Glucose (mg/dL) 118 H (75-99) mg/dL Total Protein 6.0 L (6.3-8.2) g/dL Albumin 3.1 L (3.5-5.0) g/dL Microbiology - Last 24 Hours (Table) 01/15/21 09:56 Gram Stain - Final Sputum Sputum Culture - Final Sangita albicans Pseudomonas fluorescens/putida 01/11/21 14:27 Blood Culture - Final Blood No Growth after 144 hours Assessment and Plan Plan: 1 [id number] cardiopulmonary arrest, with unknown downtime, status post cardiopulmonary resuscitation with return of spontaneous circulation (CPA/C MO/ROSC). The patient is currently sedated, intubated and mechanically ventilated in the emergency room. The patient is currently hemodynamically stable. Cardiac rhythm is sinus. Echocardiogram is within normal and the patient remains hemodynamically stable. 2 Anoxic brain injury, secondary to cardiac arrest, with a CAT scan of the brain showing no acute abnormalities other than some chronic sinus disease and the patient has EEG that shows diffuse slowing with some questionable epileptic foci bilaterally and for that reason the patient was started on Keppra. The patient is currently off sedation. Overall neuro status and neurologic examinations remain unchanged the patient is showing signs of anoxic encephalopathy. No seizure activity has been witnessed. No purposeful movement. Does not follow any commands. Cranial nerve reflexes are present. Neurologically, the patient remains unresponsive after being off propofol for the past 24 hours. We are going to continue monitoring his mental status. Family is aware. They're contemplating comfort care measures and later stage specially if there is no improvement and has neurologic outcome. 3 bilateral lower lobe pulmonary infiltrates, consider aspiration pneumonia currently on Zosyn. Chest x-ray is showing significant improvement in lower lobe bilateral pulmonary infiltrates and the patient remains on a mechanical ventilator for now. He is on VC plus mode. The patient has been cultured to pseudomonas in his sputum. It is sensitive to Zosyn. 4 troponin leak 5 multiple drug abuse and the patient was positive for cocaine, opiates and methamphetamine Plan This is a case of severe anoxic encephalopathy. neurologic function is unchanged. Keep the patient off sedation. His been off propofol for the past 24 hours. Neurology follow-up Continue Keppra. EEG was noted. Neurologist on the case. EEG was noted and the repeat CAT scan was also noted. Enteral nutrition Continue IV Zosyn for bilateral lower lobe pneumonia of an aspiration type , the chest x-ray showing significant improvement Hemodynamically stable Dropped a PEEP down to 5 Family is to make it final decision for further care him a he remains a full code There was also vague history of a liver cancer this patient. I'm going to do an ultrasound of his liver and AFP level was low We'll continue to follow. Condition is critical. Critically care evaluation more than 30 minutes Time with Patient: Greater than 30
--- NOTE | 2021-01-18 09:37 | XR ---
EXAMINATION TYPE: XR chest 1V portable DATE OF EXAM: 01/18/2021 CLINICAL HISTORY: Difficulty breathing progress study. TECHNIQUE: Single AP portable semiupright view of the chest is obtained. COMPARISON: Chest x-ray from one day earlier and older studies. FINDINGS: Stable endotracheal and orogastric tubes. Stable left subclavian central venous catheter. Persistent mild cardiomegaly. Background chronic parenchymal change with patchy right basilar opacity . Patient more rotated to the right on current study. Left lung remains clear. Osseous structures are intact. IMPRESSION: Cardiomegaly with right basilar edema and/or infiltrates. No significant change from one day earlier.
--- NOTE | 2021-01-18 10:13 | US ---
EXAMINATION TYPE: US liver DATE OF EXAM: January 18, 2021 COMPARISON: CT abdomen and pelvis December 10, 2012 CLINICAL HISTORY: questionable Hx of liver cancer. ICU intubated patient. Patient was laying LLD. EXAM MEASUREMENTS: Liver Length: 18.4 cm Gallbladder Wall: 0.3 cm CBD: 0.4 cm Pancreas: Tail obscured by overlying bowel gas. Liver: Limited visualization due to breathing machine and patient position. Appears coarse lobular. Gallbladder: Multiple echogenic foci Evidence for sonographic Calderon's sign: neg CBD: wnl Right Kidney: No visualized due to patient positioning. Visualized liver is heterogeneously hyperechoic in appearance. Evaluation for focal masses suboptimal due to this along with inability to proper position patient who is currently ventilated. No surround ing ascites. Poor visualization of gallbladder which is contracted in appearance. Suspect intralumina l shadowing gallstones. IMPRESSION: Heterogeneous hyperechoic appearance of liver consistent with diffuse fatty infiltration and/or underlying hepatocellular disease. Suboptimal evaluation for masses due to this. No significan t ascites. No suspicious biliary dilatation. Suspect intraluminal gallstones in contracted gall[place]ina diaz
[2021-01-18 12:00] LABS: Glucose,Whole Blood 110 mg/dL (75-99)
[2021-01-18] MEDS ORDERED: CLEVIDIPINE BUTYRATE 25 MG/50 ML VIAL IV ONE (12:49)
--- NOTE | 2021-01-18 14:58 | P.PN ---
Subjective Progress Note Date: 01/18/21 Patient was seen at bedside and per the patient nurse the patient the has been off sedation for last 24 hours and no improvement in his condition. The patient's sister is at bedside (Abbie). Objective - Vital Signs Vital signs: Vital Signs Temp 99 F 01/18/21 12:00 Pulse 98 01/18/21 14:00 Resp 30 H 01/18/21 14:00 BP 145/70 01/18/21 14:00 Pulse Ox 97 01/18/21 14:00 Intake & Output 01/17/21 01/18/21 01/18/21 18:59 06:59 18:59 Intake Total 766 8165.904 4008 Output Total 1610 1695 1120 Balance -844 -175.468 18 Weight 93.9 kg 90.7 kg Intake: IV 612 692 408 .9 pressure bag 72 72 48 Keppra 100 100 100 Piperacillin-Tazobactam 3 200 100 100 .375 gm In Sodium Chloride 0.9% 100 ml @ 25 mls/hr IVPB Q8HR [facility] Rx# :[id number] Sodium Chloride 0.9% 1, 240 420 160 000 ml @ 20 mls/hr IV . Q24H [facility] Rx#:[id number] Intake, IV Titration 101 154.532 100 Amount Clevidipine Butyrate 25 154.532 100 mg In Empty Bag 1 bag @ 1 MG/HR 2 mls/hr IV .Q24H [facility] Rx#:[id number] propofoL 1,000 mg In 101 Empty Bag 1 bag @ Titrate IV .Q0M [facility]ON[facility] Rx#: [id number] Tube Feeding 53 583 530 Other 90 100 Output: Urine 1610 1695 1120 Other: Voiding Method Indwelling Catheter Indwelling Catheter Indwelling Catheter # Bowel Movements 1 ABP, PAP, CO, CI - Last Documented Arterial Blood Pressure 153/59 - Exam GENERAL: The patient is lying in bed and does not seem in acute distress. HENT: NO nuchal rigidity. LUNG: Intubated on ventilator. Clear to auscultation bilaterally throughout. Not labored breathing. Breathing over the vent. NEUROLOGICAL: Has been off sedation for the past 24 hours per the patient's sister. Higher mental function: GCS: 5 (E3, VT1, M1). Patient is comatose, non responsive or following commands. Cranial nerves: Pupils are 2mm and sluggishly reactive to light bilaterally. Primary gaze is midline. Positive corneal reflex bilaterally. No facial weakness throughout. +ve occulocephalic reflex. +gag and cough. Motor: Strength: 0/5 throughout. No sponateous movement noted throughout. No posture noted. Normal bulk. Normal tone. No localizing withdrawl to painful stimuli to any of extremities but has peripheral reflex withdrawl on lower extremities (ankle). Cerebellum: Could not assess. Sensation: Could not assess painful stimuli. Reflexes (right/left): Patellar 3+ bilaterally otherwise 2+ throughout. Plantars are upgoing bilaterally. - Labs CBC & Chem 7: 01/18/21 03:45 01/18/21 03:45 Labs: Abnormal Lab Results - Last 24 Hours (Table) 01/17/21 01/18/21 01/18/21 Range/Units 17:01 00:12 03:45 WBC 11.2 H (3.8-10.6) k/uL RBC 4.01 L (4.30-5.90) m/uL Hct 37.6 L (39.0-53.0) % Neutrophils # 8.7 H (1.3-7.7) k/uL ABG pH (7.35-7.45) ABG pCO2 (35-45) mmHg ABG pO2 (83-108) mmHg ABG Total CO2 (19-24) mmol/L ABG O2 Saturation (94-97) % Sodium (137-145) mmol/L Chloride (98-107) mmol/L Creatinine (0.66-1.25) mg/dL Glucose (74-99) mg/dL POC Glucose (mg/dL) 117 H 111 H (75-99) mg/dL Total Protein (6.3-8.2) g/dL Albumin (3.5-5.0) g/dL 01/18/21 01/18/21 01/18/21 Range/Units 03:45 05:29 05:44 WBC (3.8-10.6) k/uL RBC (4.30-5.90) m/uL Hct (39.0-53.0) % Neutrophils # (1.3-7.7) k/uL ABG pH 7.47 H (7.35-7.45) ABG pCO2 33 L (35-45) mmHg ABG pO2 116 H (83-108) mmHg ABG Total CO2 25 H (19-24) mmol/L ABG O2 Saturation 99.1 H (94-97) % Sodium 136 L (137-145) mmol/L Chloride 108 H (98-107) mmol/L Creatinine 0.60 L (0.66-1.25) mg/dL Glucose 114 H (74-99) mg/dL POC Glucose (mg/dL) 118 H (75-99) mg/dL Total Protein 6.0 L (6.3-8.2) g/dL Albumin 3.1 L (3.5-5.0) g/dL 01/18/21 Range/Units 11:57 WBC (3.8-10.6) k/uL RBC (4.30-5.90) m/uL Hct (39.0-53.0) % Neutrophils # (1.3-7.7) k/uL ABG pH (7.35-7.45) ABG pCO2 (35-45) mmHg ABG pO2 (83-108) mmHg ABG Total CO2 (19-24) mmol/L ABG O2 Saturation (94-97) % Sodium (137-145) mmol/L Chloride (98-107) mmol/L Creatinine (0.66-1.25) mg/dL Glucose (74-99) mg/dL POC Glucose (mg/dL) 110 H (75-99) mg/dL Total Protein (6.3-8.2) g/dL Albumin (3.5-5.0) g/dL Microbiology - Last 24 Hours (Table) 01/15/21 09:56 Gram Stain - Final Sputum Sputum Culture - Final Sangita albicans Pseudomonas fluorescens/putida 01/11/21 14:27 Blood Culture - Final Blood No Growth after 144 hours Assessment and Plan Assessment: 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 Altered mental status due to multifactorial: metabolic encephalopathy (elevated LFT and due to drug use (cocaine, amphetamine and opiates) and right lung a spiration pneumonia Out of the hospital cardiopulmonary arrest unknown down time status post cardiop ulmonary resuscitation with return of spontaneous circulation Elevated LFT (AST 414 and ALT 104 on presentation. Since AST is >2 of ALT is concerning of alcohol use)---trending down Low Vitamin B12 level (229 Normal is 200-944) Aspiration pneumonia Troponin leak Polysubstance use (cocaine, amphetamine and opiates) Plan: EEG 01/13/21: Is an abnormal routine EEG. The back was slowing is suggestive of severe encephalopathy. The rare to occasional sharp and slow wave over the bilateral frontal degenerative is concerning for epileptiform discharges. There is no seizure during this recording. The upper body jerks, predominantly left were captured during this recording without EEG correlation. Repeat EEG on 01/14/2021 and it was essentially about the same as 01/13/2021. The background slowing suggestive of severe encephalopathy. Occasional to rare epileptiform discharges over the bilateral frontal increases the risk of seizure. There are no focal slowing or seizure during this recording. CT of the head on 01/15/21 is reported as no acute intracranial abnormality. Patient is side is. Bilateral mastoiditis. No significant change. Continue Keppra 1500mg q 12 hours. Continue thiamine 100 mg daily. Vitamin B12 is 229 which is low normal (the normal ranges between 200 and 944). Continue vitamin B12 1000 g daily. Folate level is 19.6 which is considered normal TSH is 0.73 which is normal range. AST: 50 (normal), ALT 24 (normal) and ammonia level: 23 (normal). 2-D echo was reported as left ventricle size is normal. Mild concentric left ventricular hypertrophy. Ejection fraction between 60-65%. Cardiology team is on board. We'll defer the rest of the medical management to the primary team as well as ICU team. The patient prognosis appears to be poor due to: It is unknown exact down time but was notified it appears to be prolonged cardiac arrest; has only brainstem reflexes, jerking of upper extremities (predominately left) concerning for seizure--jerking resolved). He is not brain and has only brainstem reflexes. This was relayed to patient's sister (Abbie) who is at bedside. I also spoke with the patient's son (Jaime) regarding his father condition. Pending family decision of how to proceed. The plan is discussed with the patient nurse. Giorgio Robles M.D. Neuro-hospitalist Time with Patient: Less than 30
[2021-01-18 17:53] LABS: Glucose,Whole Blood 101 mg/dL (75-99)
[2021-01-19] MEDS: INSULIN ASPART (NovoLOG) 100 UNIT/ML VIAL SQ SCH ×4 (00:10→18:11)
[2021-01-19] MEDS: CLEVIDIPINE BUTYRATE 25 MG in EMPTY BAG 1 BAG IV SCH ×6 (00:14→11:21)
[2021-01-19] MEDS: HEPARIN SODIUM,PORCINE/PF 5,000 UNIT/0.5 ML SYRINGE SQ SCH ×3 (00:31→15:26)
[2021-01-19] MEDS: PIPERACILLIN-TAZOBACTAM 3.375 GM in SODIUM CHLORIDE 0.9% 100 ML IVPB SCH ×3 (00:31→15:26)
[2021-01-19 00:41] LABS: Glucose,Whole Blood 94 mg/dL (75-99)
[2021-01-19] MEDS: SODIUM CHLORIDE 0.9% 1,000 ML IV SCH (02:41)
[2021-01-19] MEDS: IPRATROPIUM-ALBUTEROL 3 ML NEB INHALATION SCH ×5 (03:51→20:59)
[2021-01-19 04:49] LABS: Basophils % (A) 0 %; Eosinophils # (A) 0.4 k/uL (0-0.7); Eosinophils % (A) 3 %; HCT 36.7 % (39.0-53.0); HGB 12.9 gm/dL (13.0-17.5); Lymphocytes % (A) 17 %; MCH 33.1 pg (25.0-35.0); MCHC 35.3 g/dL (31.0-37.0); MCV 93.8 fL (80.0-100.0); Mean Platelet Volume 7.7; Monocytes # (A) 0.6 k/uL (0-1.0); Monocytes % (A) 5 %; Neutrophils # (A) 8.4 k/uL (1.3-7.7); Neutrophils % (A) 73 %; Platelet Count 263 k/uL (150-450); RBC 3.91 m/uL (4.30-5.90); RDW 12.8 % (11.5-15.5); WBC 11.6 k/uL (3.8-10.6)
[2021-01-19 04:56] LABS: ABG HCO3 25 mmol/L (21-25); ABG Oxygen Saturation 98.2 % (94-97); ABG PCO2 33 mmHg (35-45); ABG PH 7.48 (7.35-7.45); ABG PO2 107 mmHg (83-108); ABG TCO2 26 mmol/L (19-24); Allen Test Performed? Yes
[2021-01-19 05:09] LABS: African American GFR (CKD) >90 (>60 ml/min/1.73 sqM); Anion Gap 5 mmol/L; Blood Urea Nitrogen 21 mg/dL (9-20); Calcium 8.4 mg/dL (8.4-10.2); Carbon Dioxide 23 mmol/L (22-30); Chloride 108 mmol/L (98-107); Glucose 107 mg/dL (74-99); Non-African American GFR(CKD) >90 (>60 ml/min/1.73 sqM); Potassium 3.8 mmol/L (3.5-5.1); Sodium 136 mmol/L (137-145)
[2021-01-19 06:06] LABS: Glucose,Whole Blood 96 mg/dL (75-99)
--- NOTE | 2021-01-19 06:11 | XR ---
EXAMINATION TYPE: XR chest 1V portable DATE OF EXAM: 01/19/2021 CLINICAL HISTORY: Difficulty breathing progress study. TECHNIQUE: Single AP portable semiupright view of the chest is obtained. COMPARISON: Chest x-ray from one day earlier and older studies. FINDINGS: Stable endotracheal and orogastric tubes. Stable left subclavian central venous catheter. Persistent mild cardiomegaly. Background chronic parenchymal change with patchy right basilar opacity . Patient more rotated to the right on current study. Left lung remains clear. Osseous structures are intact. IMPRESSION: Cardiomegaly with right basilar atelectasis and/or infiltrates with small to tiny right p leural effusion. No significant change from one day earlier.
[2021-01-19] MEDS ORDERED: POTASSIUM BICARBONATE/CIT AC 20 MEQ TABLET.EFF NG-TUBE SCH (07:00)
--- NOTE | 2021-01-19 08:35 | P.PN ---
Subjective Progress Note Date: 01/19/21 Remains intubated on the ventilator. no major changes Objective - Vital Signs Vital signs: Vital Signs Temp 99.8 F H 01/19/21 04:00 Pulse 86 01/19/21 07:00 Resp 27 H 01/19/21 07:00 BP 145/77 01/19/21 07:00 Pulse Ox 96 01/19/21 07:00 Intake & Output 01/18/21 01/19/21 01/19/21 18:59 06:59 18:59 Intake Total 1991.592 2806.266 129 Output Total 1630 1505 95 Balance -13.933 -67.734 34 Weight 89.3 kg Intake: IV 512 512 26 .9 pressure bag 72 72 6 Keppra 100 100 Piperacillin-Tazobactam 3 100 100 .375 gm In Sodium Chloride 0.9% 100 ml @ 25 mls/hr IVPB Q8HR [facility] Rx# :[id number] Sodium Chloride 0.9% 1, 240 240 20 000 ml @ 20 mls/hr IV . Q24H [facility] Rx#:[id number] Intake, IV Titration 179.067 198.266 50 Amount Clevidipine Butyrate 25 179.067 198.266 50 mg In Empty Bag 1 bag @ 1 MG/HR 2 mls/hr IV .Q24H [facility] Rx#:[id number] Tube Feeding 795 636 53 Other 130 91 Output: Urine 1630 1505 95 Other: Voiding Method Indwelling Catheter Indwelling Catheter # Bowel Movements 1 1 ABP, PAP, CO, CI - Last Documented Arterial Blood Pressure 138/57 - Exam Gen: Intubated, on ventilator HEENT: normocephalic, atraumatic Resp: Decreased breath sounds, no wheezing CVS: S1-S2 normal, no murmurs, rubs or gallops GI: soft, nontender nondistended , + BS MSK: No cce Neuro: Intubated on vent - Labs CBC & Chem 7: 01/19/21 03:55 01/19/21 03:55 Labs: Abnormal Lab Results - Last 24 Hours (Table) 01/18/21 01/18/21 01/19/21 Range/Units 11:57 17:50 03:55 WBC 11.6 H (3.8-10.6) k/uL RBC 3.91 L (4.30-5.90) m/uL Hgb 12.9 L (13.0-17.5) gm/dL Hct 36.7 L (39.0-53.0) % Neutrophils # 8.4 H (1.3-7.7) k/uL ABG pH (7.35-7.45) ABG pCO2 (35-45) mmHg ABG Total CO2 (19-24) mmol/L ABG O2 Saturation (94-97) % Sodium (137-145) mmol/L Chloride (98-107) mmol/L BUN (9-20) mg/dL Creatinine (0.66-1.25) mg/dL Glucose (74-99) mg/dL POC Glucose (mg/dL) 110 H 101 H (75-99) mg/dL 01/19/21 01/19/21 Range/Units 03:55 04:50 WBC (3.8-10.6) k/uL RBC (4.30-5.90) m/uL Hgb (13.0-17.5) gm/dL Hct (39.0-53.0) % Neutrophils # (1.3-7.7) k/uL ABG pH 7.48 H (7.35-7.45) ABG pCO2 33 L (35-45) mmHg ABG Total CO2 26 H (19-24) mmol/L ABG O2 Saturation 98.2 H (94-97) % Sodium 136 L (137-145) mmol/L Chloride 108 H (98-107) mmol/L BUN 21 H (9-20) mg/dL Creatinine 0.58 L (0.66-1.25) mg/dL Glucose 107 H (74-99) mg/dL POC Glucose (mg/dL) (75-99) mg/dL Microbiology - Last 24 Hours (Table) 01/15/21 09:56 Gram Stain - Final Sputum Sputum Culture - Final Sangita albicans Pseudomonas fluorescens/putida Assessment and Plan Plan: Unwitnessed cardiac arrest, suspected secondary to aspiration -Cardiology consult, input appreciated -2-D echo ejection fraction 60-65% -Continue with Zosyn Neurology following Continue on thiamine and Keppra Elevated troponin secondary to cardiac -Continue to monitor -Cardiac monitoring Hyperglycemia Continue sliding scale Acute kidney injury scr up to 2.2 Resolved. Leukocytosis -Likely due to acute stressor wbc up to 21,000 on abxs , WBC 11,000 Substance abuse -Monitor for signs of withdrawal with meth and cocaine Right lung aspiration pneumonia with Pseudomonas and Sangita: continue on IV Zosyn, monitor. Thrombocytopenia Monitor platelets, normalized DVT prophylaxis -Heparin metabolic acidosis 2/2 suzanne resolved Metabolic encephalopathy, multifactorial Neurology following Possible seizure-like activity, on Keppra Disposition: pending clinical progression Discussed with patient's daughter over the phone, plan for extubation sometime next week.Will follow
--- NOTE | 2021-01-19 09:18 | P.PN ---
Subjective Progress Note Date: 01/19/21 01/13/2021, I am seeing this 50-year-old male patient who is post cardiac arrest. The patient was found on his driveway. He has aspirated and he had emesis on his head and face and neck. He was in asystole. Received CPR and compressions and epinephrine with a prolonged downtime. The patient was int ubated and placed on a mechanical ventilator and the patient was brought into the hospital. Is negative for COVID: 19. The patient remains on mechanical ventilator. Currently is on sedation with propofol running at 35 mcg/kg per minute. The patient on a assist-control mode of ventilation volume cycle with a tidal volume of 450, rate of 20, FiO2 of 40% with a PEEP of 5. CAT scan of the brain and the spine were negative. The patient's wish showing a right lower lobe pulmonary infiltration consistent with with aspiration and the patient is currently on IV Unasyn. Hemodynamically stable. The patient is not requiring any pressors. Kidney function improved. Potassium level is also improved. There is a concern of anoxic encephalopathy. The patient has history of drug abuse in the past. Echocardiogram was ordered by cardiology. There is a minimal troponin leak on his blood work. The urine drug screen was positive for methamphetamine, cocaine and opiates. As such, the patient has history of drug abuse. Confirmed by urine drug screen. The patient's this morning he remains sedated. White cell count is at 12.2 with a hemoglobin of 12.1. The rest of the electrolytes are all within normal and the patient is a normal renal function. Blood gases from today still pending. The chest x-ray from today was completed and the patient has a quick positioning of the ET tube. There is a right lower lobe consolidation and also some atelectasis/effusion and left lower lobe. The patient is a triple-lumen catheter in the left subclavian vein. The patient remains on IV fluids running at 75 mL an hour. Patient is receiving vital AF boluses asked to feeds. Is having low-grade fever. No pressors. Echocardiogram results is not available in the records. 01/14/2021 on seeing the patient for a follow-up. The patient is post cardiac arrest and anoxic encephalopathy. He is still on sedation for now and propofol is running at 46 mcg/kg per minute. Yesterday we give the patient sedation holiday which she failed. He became very tachycardic and tachypneic and asynchronous with a mechanical ventilator. He was thrashing and he was not following any commands. Based on that, the child was discontinued. This morning, the family will be done. Meanwhile, the patient remains on a mechanical ventilator. He is an assist-control mode rate of 20 with tidal volume of 450 and FiO2 of 40% with a PEEP of 5. Blood gases from this morning is still pending. Otherwise, the rest of the labs are all within normal limits. The CAT scan of the brain was repeated yesterday and it showed no acute abnormalities. There is some 10 sinus air fluid levels, questionable sinusitis and some Fluid within the mastoid air cells as well. Also, EEG of the brain was also done and it showed abnormal EEG with background slowing suggestive of severe encephalopathy. There were some rare sharp and slow waves over the bilateral the liver tests concerning for epileptic discharges. The patient was seen by neurology already. He is currently on Keppra 750 mg every 12 hours. Is also on Unasyn for suspected aspiration pneumonia of the right lower lobe. Note that the chest x-ray from yesterday showed bilateral lower lobe pulmonary infiltrates. He remains nothing by mouth. IV fluids are running at 75 mL an hour. Otherwise, no other significant events overnight. He remains hemodynam ically stable on no pressors. No further cardiac arrhythmias. Echocardiogram was also done that showed a preserved LV function without any underlying abnormalities with an ejection fraction of 60-65%. On today's evaluation of 021 the patient remains sedated with propofol. Attempts to take him off the propofol is failed. The patient was given a sedation holiday. He did poorly with that. He would become agitated and restless and tachypneic and tachycardic and he would desaturate. No meaningful neurologic recovery to the point where the patient was follow commands or answer questions. He continues to have some episodic myoclonic jerks once taken off the propofol. This is discussed with neurology and it is kind of hypoxic encephalopathy and the patient remains on Keppra 750 mg every 12 hours. There repeat EEG from yesterday showed severe encephalopathy with occasional rare ep ileptiform discharges bilaterally from the frontal lobes. Meanwhile, the patient's is on a mechanical ventilator. On today's evaluation is an assist- control at the rate of 20 with a tidal volume of 450 and FiO2 of 40% with a PEEP of 10. We had increased his PEEP as the patient was becoming more hypoxic yesterday. His chest x-ray is showing worsening in consolidation lower lobes and the patient probably is developing a right-sided pleural effusion. PH is at 7.45 with a pCO2 of 34 and pO2 of 74. He was running a lower urine output and the patient was given a total of 2 L of IV fluid yesterday and the patient was also given IV Zosyn am was stopped Unasyn. The fluid balance over the past 24 hours and then +3.5 L. The patient is currently on no pressors. He is receiving enteral feeding for nutritional support and he is on vital HP Rate of 10 mL an hour. The sputum samples showed normal respiratory dimitri, strep agalactiae. 01/16/2021, the patient is being given a sedation holiday as usual every morning. The holiday that was given yesterday failed as the patient was unresponsive, and had developed a severe autonomic reaction slightly became tachycardic and tachypneic and he was desaturating. His been off sedation since 6:00 this morning and his been off the propofol. He is comfortable at this point in time. He remains unresponsive. Nevertheless, synchronous with the mechanical ventilator. He is gradually becoming more hypertensive. His current vent settings include an assist-control at the rate of 20 with a tidal volume of 450 and FiO2 of 40% with a PEEP of 10. Blood gases from today shows a pH of 7.46 with a pCO2 of 36 and pO2 of 72. Peak airway pressures 17. Chest x-ray from today is showing adequate positioning of the orotracheal tube. The patient also has a NG tube in place. There is evidence of bilateral lower lobe pneumonia worse on the right. Findings are essentially stable compared to yesterday. There may be development of a right-sided plural effusion. Hemodynamically, the patient is on IV fluids at the rate of 75 mL an hour of normal saline. Is producing adequate amount of urine output. He is on no pressors and is maintaining his own blood pressure. Is also receiving enteral feeding for nutritional support and currently is on vital high protein. This is running at 30 mL an hour. No seizure activity has been noted while being off the propofol this morning. A repeat CAT scan of the brain was done yesterday that showed no acute abnormalities. EEG was abnormal on 01/14/2021.. He is afebrile for now. He remains on a broad-spectrum antibiotic coverage with IV Zosyn. Uterine was consistent with normal dimitri, strep 01/17/2021, patient is being seen for follow-up. After being off sedation for a total of 3 hours, the patient became restless and he went into coughing spells and he started getting oxygen desaturation. He was placed back on propofol yesterday. His been on propofol since and around 7:00 this morning the sedation was again discontinued. A neuro evaluation was done. Based on neurology's evaluation, there are signs of encephalopathy. The patient remains unresponsive. No myoclonic jerks. No purposeful movements. Does not follow commands. Does not withdraw to any painful stimulation. Brainstem reflexes are present. He remains currently on assist control mode at the rate of 20 with a tidal volume of 450 and FiO2 of 40% with a PEEP of 10. Blood gases showing a pH of 7.46 with a pCO2 of 37 and pO2 of 82. The chest x-ray from today is showing lower lobe pulmonary infiltrates more so on the right and there is also right pleural effusion. The orotracheal tube remains in a good location. The patient remains on IV Zosyn. Sputum was positive for streptococcal growth. Fact, on today's evaluation, there is interval improvement in the right lower lobe consolidation compared to yesterday. He remains on IV Zosyn. He is receiving enteral feeding for nutritional support and the patient is currently on vital high protein at the rate of 50 mL an hour. He remains on Keppra. Hemodyn amically stable. T-max was 99.5. He had a bowel movement. White cell count is at 9.2 with a hemoglobin of 12, renal functions of the stable and there has been no other significant events over the past 24 hours. As mentioned, the chest x- ray is obviously improved on today's evaluation. 01/18/2021,The patient is being seen in follow-up in the intensive care unit. His been off sedation for the past 24 hours. He is calm and comfortable. He is grimacing to deep painful stimulation. He is also withdrawing to painful stimulation for now. No seizure activity has been noted. The patient has been off sedation for the past 24 hours and went To keep him off sedation for now. He remains on a mechanical ventilator. On today's evaluation is an assist- control mode at the rate of 20 with tidal volume of 450 and FiO2 is at 40% with a PEEP of 8. The blood pressure with a pH of 7.47 with a pCO2 of 33 and PaO2 of 116 and the chest x-ray showing improvement in the bilateral lower lobe pulmonar y infiltrates. He remains on IV Zosyn. Note that the patient had aspiration pneumonia as the patient aspirated twice initially at the time of admission and second 20 was here in the intensive care unit. Currently is receiving enteral feeding for nutritional support with vital high protein at the rate of 50 mL an hour. He is having bowel movements activity. No abdominal distention. No emesis. On his blood work, the patient's white cell count is at 11.2 with hemoglobin of 13. Correlation profile is within normal limits. Renal function is stable. Blood sugar is also well controlled. No other significant events otherwise. Neurologist on the case. CAT scan of the brain that was done earlier showed no abnormalities. As for the alpha-fetoprotein levels, this was low. 01/19/2021, the patient remains unresponsive secondary to anoxic encephalopathy post cardiac arrest. The patient has been off sedation. The patient has been off sedation for a total of 48 hours. I do not see any reasonable neurologic recovery. He is doing decerebrate posturing. No purposeful activity. Does not follow commands. Does not withdraw to painful stimulation. He does have a brainstem reflexes the patient has a positive cough and a gag and positive pupillary reflexes. He remains on a mechanical ventilator. Assist-control mode at the rate of 20 with a tidal volume of 450 and FiO2 of 40% with a PEEP of 5. Blood gases from today shows a pH of 7.48 with a pCO2 of 33 and pO2 of 107. Labs are all within normal limits. The chest x-ray from today is showing adequate positioning of the orotracheal tube. The patient was having issues with lower lobe pulmonary infiltrates/aspiration pneumonia and the chest x-ray is showing steady improvement and near complete clearing of the pulmonary in filtrates bilaterally. The patient has a left subclavian triple lumen catheter in place. The patient remains on a IV Zosyn. The patient is afebrile for now. He is hemodynamically stable on no pressors. He is having excessive respiratory secretions and the nursing staff have asked for scopolamine patch. I think this is related to pseudomonas growth which is sensitive to Zosyn and I'm suggesting continuing the antibiotic for 24 hours and hopefully this secretions will subside. White cell count is at 11.6. He is receiving enteral feeding for nutritional support. He is stooling.. I will cardiac and was within normal limits. His blood pressure is stable and the patient is currently on carbotaxol milligram an hour. The patient remains on Keppra. Neurologist on the case. Family is contemplating extubation and possible gift of life sometime early next week. Objective - Vital Signs Vital signs: Vital Signs Temp 99.8 F H 01/19/21 04:00 Pulse 86 01/19/21 07:00 Resp 27 H 01/19/21 07:00 BP 145/77 01/19/21 07:00 Pulse Ox 96 01/19/21 07:00 Intake & Output 01/18/21 01/19/21 01/19/21 18:59 06:59 18:59 Intake Total 2644.156 9000.266 129 Output Total 1630 1505 95 Balance -13.933 -67.734 34 Weight 89.3 kg Intake: IV 512 512 26 .9 pressure bag 72 72 6 Keppra 100 100 Piperacillin-Tazobactam 3 100 100 .375 gm In Sodium Chloride 0.9% 100 ml @ 25 mls/hr IVPB Q8HR [facility] Rx# :[id number] Sodium Chloride 0.9% 1, 240 240 20 000 ml @ 20 mls/hr IV . Q24H [facility] Rx#:[id number] Intake, IV Titration 179.067 198.266 50 Amount Clevidipine Butyrate 25 179.067 198.266 50 mg In Empty Bag 1 bag @ 1 MG/HR 2 mls/hr IV .Q24H [facility] Rx#:[id number] Tube Feeding 795 636 53 Other 130 91 Output: Urine 1630 1505 95 Other: Voiding Method Indwelling Catheter Indwelling Catheter # Bowel Movements 1 1 ABP, PAP, CO, CI - Last Documented Arterial Blood Pressure 138/57 - Exam No acute distress, sedated, and mechanically ventilated. The orogastric and orotracheal tube are both in place. Head exam was generally normal. There was no scleral icterus or corneal arcus. Mucous membranes were moist. Neck was supple and without jugular venous distension, thyromegaly, or carotid bruits. Carotids were easily palpable bilaterally. There was no adenopathy. HEENT examination is grossly unremarkable. There is an orally placed endotracheal tube and NG tube. Neck supple. Full range of motion. No adenopathy thyromegaly or neck vein distention. Cardiovascular examination reveals regular rhythm rate. S1-S2 normal. No S3 or S4. No discernible murmur noted. Heart sounds are distant. Lungs reveal mostly clear breath sounds. A few scattered rhonchi are noted. No wheezes or crackles. Breath sounds equal. The breath sounds are rather coarse at this point in time. Abdomen soft bowel sounds are heard. No masses or tenderness. Extremities are intact. No cyanosis clubbing or edema. Skin is without rash or lesion. Neurologic examination. The patient is currently ventilated and sedated. Unresponsive does not follow any commands unresponsive and does not follow any commands once of sedation. The cranial nerve reflexes are present. The patient has a positive cough and gag. He grimaces to deep painful stimulation this could be essentially a reflex.. He has been off propofol for the past 48 hours. The patient is also doing some decorticate posturing today. - Labs CBC & Chem 7: 01/19/21 03:55 01/19/21 03:55 Labs: Abnormal Lab Results - Last 24 Hours (Table) 01/18/21 01/18/21 01/19/21 Range/Units 11:57 17:50 03:55 WBC 11.6 H (3.8-10.6) k/uL RBC 3.91 L (4.30-5.90) m/uL Hgb 12.9 L (13.0-17.5) gm/dL Hct 36.7 L (39.0-53.0) % Neutrophils # 8.4 H (1.3-7.7) k/uL ABG pH (7.35-7.45) ABG pCO2 (35-45) mmHg ABG Total CO2 (19-24) mmol/L ABG O2 Saturation (94-97) % Sodium (137-145) mmol/L Chloride (98-107) mmol/L BUN (9-20) mg/dL Creatinine (0.66-1.25) mg/dL Glucose (74-99) mg/dL POC Glucose (mg/dL) 110 H 101 H (75-99) mg/dL 01/19/21 01/19/21 Range/Units 03:55 04:50 WBC (3.8-10.6) k/uL RBC (4.30-5.90) m/uL Hgb (13.0-17.5) gm/dL Hct (39.0-53.0) % Neutrophils # (1.3-7.7) k/uL ABG pH 7.48 H (7.35-7.45) ABG pCO2 33 L (35-45) mmHg ABG Total CO2 26 H (19-24) mmol/L ABG O2 Saturation 98.2 H (94-97) % Sodium 136 L (137-145) mmol/L Chloride 108 H (98-107) mmol/L BUN 21 H (9-20) mg/dL Creatinine 0.58 L (0.66-1.25) mg/dL Glucose 107 H (74-99) mg/dL POC Glucose (mg/dL) (75-99) mg/dL Microbiology - Last 24 Hours (Table) 01/15/21 09:56 Gram Stain - Final Sputum Sputum Culture - Final Sangita albicans Pseudomonas fluorescens/putida Assessment and Plan Plan: 1 [id number] cardiopulmonary arrest, with unknown downtime, status post cardiopulmonary resuscitation with return of spontaneous circulation (CPA/CPR/ROSC). The patient is currently sedated, intubated and mechanically ventilated in the emergency room. The patient is currently hemodynamically stable. Cardiac rhythm is sinus. Echocardiogram is within normal and the patient remains hemodynamically stable. 2 Anoxic brain injury, secondary to cardiac arrest, with a CAT scan of the brain showing no acute abnormalities other than some chronic sinus disease and the patient has EEG that shows diffuse slowing with some questionable epileptic foci bilaterally and for that reason the patient was started on Keppra. The patient is currently off sedation. Overall neuro status and neurologic examinations remain unchanged the patient is showing signs of anoxic encephalopathy. No seizure activity has been witnessed. No purposeful movement. Does not follow any commands. Cranial nerve reflexes are present. Neurologically, the patient remains unresponsive after being off propofol for the past 48 hours. He is doing some decorticate posturing on today's evaluation. No seizure activity has been noted and the patient remains on Keppra. 3 bilateral lower lobe pulmonary infiltrates, consider aspiration pneumonia currently on Zosyn. Cultures was positive for Pseudomonas and the patient is currently on IV Zosyn. Subsequent chest x-ray shows clearing of the pulmonary infiltrates, 4 troponin leak, normal echocardiogram 5 multiple drug abuse and the patient was positive for cocaine, opiates and methamphetamine Plan This is a case of severe anoxic encephalopathy. neurologic function is unchanged. Keep the patient off sedation. His been off propofol for the past 48 hours. Neurology follow-up Continue Keppra. EEG was noted and the repeat CAT scan was also noted. Enteral nutrition Continue IV Zosyn for bilateral lower lobe pneumonia of an aspiration type , the chest x-ray showing significant improvement. Sputum cultures positive for Pseudomonas Hemodynamically stable Family is to make it final decision for further care him a he remains a full code. Meanwhile, there is an special procedures tech and withdrawing support and proceeding with a gift of life sometime early next week. There was also vague history of a liver cancer this patient. I'm going to do an ultrasound of his liver and AFP level was low and the ultrasound the liver was completed and the patient was found to have fatty liver disease infiltration. No liver masses. Some intraluminal gallstones were present in a contracted gal lbladder. We'll continue to follow. Condition is critical. Critically care evaluation more than 30 minutes Time with Patient: Greater than 30
[2021-01-19] MEDS: levETIRAcetam IV 1,500 MG in SALINE 1 100ML.BAG IVPB SCH ×2 (10:12→20:26)
[2021-01-19] MEDS: PANTOPRAZOLE 40 MG/10 ML VIAL IVP SCH (10:13)
[2021-01-19] MEDS: CHLORHEXIDINE GLUCONATE 15 ML CUP MUCOUS MEM SCH ×2 (10:13→20:27)
[2021-01-19] MEDS: ASPIRIN 81 MG PO SCH (10:13)
[2021-01-19] MEDS: CYANOCOBALAMIN 500 MCG TAB PO SCH (10:16)
[2021-01-19] MEDS: THIAMINE 100 MG/ML 2 ML VIAL IVP SCH (10:18)
[2021-01-19] MEDS: METOPROLOL TARTRATE 25 MG TAB PO SCH ×2 (10:29→20:26)
--- NOTE | 2021-01-19 10:49 | P.PN ---
Subjective Progress Note Date: 01/19/21 She was seen at bedside and per the patient nurse he's been off sedation for about 48 hours and no improvement. She stated he has been having extensor posturing of upper and lower extremities. Objective - Vital Signs Vital signs: Vital Signs Temp 99.2 F 01/19/21 08:00 Pulse 80 01/19/21 10:00 Resp 25 H 01/19/21 10:00 BP 145/79 01/19/21 10:00 Pulse Ox 97 01/19/21 10:00 Intake & Output 01/18/21 01/19/21 01/19/21 18:59 06:59 18:59 Intake Total 0531.364 3797.266 445.333 Output Total 1630 1505 280 Balance -13.933 -67.734 165.333 Weight 89.3 kg Intake: IV 512 512 104 .9 pressure bag 72 72 24 Keppra 100 100 Piperacillin-Tazobactam 3 100 100 .375 gm In Sodium Chloride 0.9% 100 ml @ 25 mls/hr IVPB Q8HR [facility] Rx# :[id number] Sodium Chloride 0.9% 1, 240 240 80 000 ml @ 20 mls/hr IV . Q24H [facility]ONICA Rx#:[id number] Intake, IV Titration 179.067 198.266 99.333 Amount Clevidipine Butyrate 25 179.067 198.266 99.333 mg In Empty Bag 1 bag @ 1 MG/HR 2 mls/hr IV .Q24H VERONICA Rx#:[id number] Tube Feeding 795 636 212 Other 130 91 30 Output: Urine 1630 1505 280 Other: Voiding Method Indwelling Catheter Indwelling Catheter Indwelling Catheter # Bowel Movements 1 1 ABP, PAP, CO, CI - Last Documented Arterial Blood Pressure 141/54 - Exam GENERAL: The patient is lying in bed and does not seem in acute distress. HENT: NO nuchal rigidity. LUNG: Intubated on ventilator. Clear to auscultation bilaterally throughout. Not labored breathing. Breathing over the vent. NEUROLOGICAL: Has been off sedation for the past 48 hours per the patient's sister. Higher mental function: GCS: 4 (E1, VT1, M2). Patient is comatose, non responsive or following commands. Cranial nerves: Pupils are 2-3mm and sluggishly reactive to light bilaterally. Primary gaze is midline. Positive corneal reflex bilaterally. No facial weakness throughout. +ve occulocephalic reflex. +gag and cough. Motor: Strength: 0/5 throughout. No sponateous movement noted throughout. Has decerebrate posturing of upper and lower extremities to painful stimuli. Cerebellum: Could not assess. Sensation: Could not assess painful stimuli. Reflexes (right/left): Patellar 3+ bilaterally otherwise 2+ throughout. Plantars are upgoing bilaterally. - Labs CBC & Chem 7: 01/19/21 03:55 01/19/21 03:55 Labs: Abnormal Lab Results - Last 24 Hours (Table) 01/18/21 01/18/21 01/19/21 Range/Units 11:57 17:50 03:55 WBC 11.6 H (3.8-10.6) k/uL RBC 3.91 L (4.30-5.90) m/uL Hgb 12.9 L (13.0-17.5) gm/dL Hct 36.7 L (39.0-53.0) % Neutrophils # 8.4 H (1.3-7.7) k/uL ABG pH (7.35-7.45) ABG pCO2 (35-45) mmHg ABG Total CO2 (19-24) mmol/L ABG O2 Saturation (94-97) % Sodium (137-145) mmol/L Chloride (98-107) mmol/L BUN (9-20) mg/dL Creatinine (0.66-1.25) mg/dL Glucose (74-99) mg/dL POC Glucose (mg/dL) 110 H 101 H (75-99) mg/dL 01/19/21 01/19/21 Range/Units 03:55 04:50 WBC (3.8-10.6) k/uL RBC (4.30-5.90) m/uL Hgb (13.0-17.5) gm/dL Hct (39.0-53.0) % Neutrophils # (1.3-7.7) k/uL ABG pH 7.48 H (7.35-7.45) ABG pCO2 33 L (35-45) mmHg ABG Total CO2 26 H (19-24) mmol/L ABG O2 Saturation 98.2 H (94-97) % Sodium 136 L (137-145) mmol/L Chloride 108 H (98-107) mmol/L BUN 21 H (9-20) mg/dL Creatinine 0.58 L (0.66-1.25) mg/dL Glucose 107 H (74-99) mg/dL POC Glucose (mg/dL) (75-99) mg/dL Microbiology - Last 24 Hours (Table) 01/15/21 09:56 Gram Stain - Final Sputum Sputum Culture - Final Sangita albicans Pseudomonas fluorescens/putida Assessment and Plan Assessment: 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 Since AST is >2 of ALT is concerning of alcohol use)--resolved Low Vitamin B12 level (229 Normal is 200-944) Aspiration pneumonia Troponin leak Polysubstance use (cocaine, amphetamine and opiates) Plan: EEG 01/13/21: Is an abnormal routine EEG. The back was slowing is suggestive of severe encephalopathy. The rare to occasional sharp and slow wave over the bilateral frontal degenerative is concerning for epileptiform discharges. There is no seizure during this recording. The upper body jerks, predominantly left were captured during this recording without EEG correlation. Repeat EEG on 01/14/2021 and it was essentially about the same as 01/13/2021. The background slowing suggestive of severe encephalopathy. Occasional to rare epileptiform discharges over the bilateral frontal increases the risk of seizure. There are no focal slowing or seizure during this recording. CT of the head on 01/15/21 is reported as no acute intracranial abnormality. Patient is side is. Bilateral mastoiditis. No significant change. Continue Keppra 1500mg q 12 hours. Continue thiamine 100 mg daily. Vitamin B12 is 229 which is low normal (the normal ranges between 200 and 944). Continue vitamin B12 1000 g daily. Folate level is 19.6 which is considered normal TSH is 0.73 which is normal range. AST: 50 (normal), ALT 24 (normal) and ammonia level: 23 (normal). 2-D echo was reported as left ventricle size is normal. Mild concentric left ventricular hypertrophy. Ejection fraction between 60-65%. Cardiology team is on board. We'll defer the rest of the medical management to the primary team as well as ICU team. The patient prognosis is poor due to: It is unknown exact down time but was notified it appears to be prolonged cardiac arrest; has only brainstem reflexes, jerking of upper extremities (predominately left) concerning for seizure--jerking resolved). He is not brain and has only brainstem r eflexes. This was relayed to patient's sister (Abbie) on 01/18/21 patient's son (Jaime) multiple time. Pending family decision of how to proceed. Was notified by nurse that possibly by this coming Wednesday family will have a decision made. The plan is discussed with the patient nurse. Dr. Abad will take over the neurology coverage tomorrow AM. Giorgio Robles M.D. Neuro-hospitalist Time with Patient: Less than 30
[2021-01-19 11:27] LABS: Glucose,Whole Blood 112 mg/dL (75-99)
[2021-01-19] MEDS ORDERED: cloNIDine HCL 0.1 MG TAB PO SCH (16:30)
[2021-01-19 17:18] LABS: Glucose,Whole Blood 96 mg/dL (75-99)
[2021-01-19 23:41] LABS: Glucose,Whole Blood 92 mg/dL (75-99)
[2021-01-20] MEDS: PIPERACILLIN-TAZOBACTAM 3.375 GM in SODIUM CHLORIDE 0.9% 100 ML IVPB SCH ×3 (00:19→16:52)
[2021-01-20] MEDS: cloNIDine HCL 0.1 MG TAB PO SCH ×3 (00:19→16:52)
[2021-01-20] MEDS: HEPARIN SODIUM,PORCINE/PF 5,000 UNIT/0.5 ML SYRINGE SQ SCH ×3 (00:20→16:52)
[2021-01-20] MEDS: INSULIN ASPART (NovoLOG) 100 UNIT/ML VIAL SQ SCH ×4 (00:35→18:57)
[2021-01-20] MEDS: IPRATROPIUM-ALBUTEROL 3 ML NEB INHALATION SCH ×6 (01:10→19:28)
[2021-01-20 04:49] LABS: Basophils % (A) 0 %; Eosinophils # (A) 0.4 k/uL (0-0.7); Eosinophils % (A) 4 %; HCT 33.7 % (39.0-53.0); HGB 11.8 gm/dL (13.0-17.5); Lymphocytes % (A) 21 %; MCH 32.7 pg (25.0-35.0); MCV 93.4 fL (80.0-100.0); Mean Platelet Volume 7.8; Monocytes # (A) 0.5 k/uL (0-1.0); Monocytes % (A) 5 %; Neutrophils # (A) 6.6 k/uL (1.3-7.7); Neutrophils % (A) 69 %; Platelet Count 277 k/uL (150-450); RDW 12.7 % (11.5-15.5); WBC 9.5 k/uL (3.8-10.6)
[2021-01-20 05:08] LABS: ABG Base Excess 0.3 mmol/L; ABG HCO3 24 mmol/L (21-25); ABG Oxygen Saturation 99.4 % (94-97); ABG PCO2 32 mmHg (35-45); ABG PH 7.48 (7.35-7.45); ABG PO2 127 mmHg (83-108); ABG TCO2 25 mmol/L (19-24); Allen Test Performed? Yes
[2021-01-20] MEDS: SODIUM CHLORIDE 0.9% 1,000 ML IV SCH ×2 (05:08→23:10)
[2021-01-20 05:29] LABS: ALT 21 U/L (4-49); AST 41 U/L (17-59); African American GFR (CKD) >90 (>60 ml/min/1.73 sqM); Albumin 2.5 g/dL (3.5-5.0); Alkaline Phosphatase 43 U/L (38-126); Anion Gap 6 mmol/L; Blood Urea Nitrogen 22 mg/dL (9-20); Calcium 7.5 mg/dL (8.4-10.2); Carbon Dioxide 21 mmol/L (22-30); Chloride 110 mmol/L (98-107); Glucose 91 mg/dL (74-99); Non-African American GFR(CKD) >90 (>60 ml/min/1.73 sqM); Potassium 3.4 mmol/L (3.5-5.1); Sodium 137 mmol/L (137-145); Total Bilirubin 0.4 mg/dL (0.2-1.3)
[2021-01-20 05:49] LABS: Glucose,Whole Blood 110 mg/dL (75-99)
--- NOTE | 2021-01-20 08:16 | XR ---
EXAMINATION TYPE: XR chest 1V portable DATE OF EXAM: 01/20/2021 COMPARISON: Chest x-ray 01/19/2021 HISTORY: Intubated TECHNIQUE: Single frontal view of the chest is obtained. FINDINGS: Endotracheal tube, left subclavian central venous catheter, NG tube are overlying appropri ate positions. There are overlying leads. Bibasilar patchy increased density is noted within the lung s, there is no evident pneumothorax or pleural effusion. Cardiomediastinal silhouette is stable. IMPRESSION: Findings similar to prior exam, correlate for pneumonia
[2021-01-20] MEDS: CHLORHEXIDINE GLUCONATE 15 ML CUP MUCOUS MEM SCH ×2 (08:27→21:30)
[2021-01-20] MEDS: ASPIRIN 81 MG PO SCH (08:27)
[2021-01-20] MEDS: levETIRAcetam IV 1,500 MG in SALINE 1 100ML.BAG IVPB SCH ×2 (08:27→21:30)
[2021-01-20] MEDS: CYANOCOBALAMIN 500 MCG TAB PO SCH (08:27)
[2021-01-20] MEDS: THIAMINE 100 MG/ML 2 ML VIAL IVP SCH (08:28)
[2021-01-20] MEDS: PANTOPRAZOLE 40 MG/10 ML VIAL IVP SCH (08:28)
[2021-01-20] MEDS: METOPROLOL TARTRATE 12.5 MG TAB PO SCH ×2 (08:28→21:30)
[2021-01-20] MEDS: POTASSIUM BICARBONATE/CIT AC 20 MEQ TABLET.EFF NG-TUBE SCH ×2 (08:28→10:52)
--- NOTE | 2021-01-20 09:18 | P.PN ---
Subjective Progress Note Date: 01/20/21 Remains intubated on the ventilator. Objective - Vital Signs Vital signs: Vital Signs Temp 98.4 F 01/20/21 04:00 Pulse 50 L 01/20/21 08:00 Resp 25 H 01/20/21 08:00 BP 129/72 01/20/21 08:00 Pulse Ox 97 01/20/21 08:00 Intake & Output 01/19/21 01/20/21 01/20/21 18:59 06:59 18:59 Intake Total 0624.228 5885 309 Output Total 1420 1275 175 Balance -212.534 226 134 Weight 92.1 kg Intake: IV 312 652 226 .9 pressure bag 72 72 6 Keppra 100 100 Piperacillin-Tazobactam 3 100 100 .375 gm In Sodium Chloride 0.9% 100 ml @ 25 mls/hr IVPB Q8HR [facility] Rx# :[id number] Sodium Chloride 0.9% 1, 240 380 20 000 ml @ 20 mls/hr IV . Q24H [facility] Rx#:[id number] Intake, IV Titration 169.466 Amount Clevidipine Butyrate 25 169.466 mg In Empty Bag 1 bag @ 1 MG/HR 2 mls/hr IV .Q24H [facility] Rx#:[id number] Tube Feeding 636 719 53 Other 90 130 30 Output: Urine 1420 1275 175 Other: Voiding Method Indwelling Catheter Indwelling Catheter # Voids 75 # Bowel Movements 1 ABP, PAP, CO, CI - Last Documented Arterial Blood Pressure 113/41 - Exam Gen: Intubated, on ventilator HEENT: normocephalic, atraumatic Resp: Decreased breath sounds CVS: S1-S2 normal, no murmurs, rubs or gallops GI: soft, nontender nondistended , + BS MSK: No cce Neuro: Intubated on vent - Labs CBC & Chem 7: 01/20/21 04:20 01/20/21 04:20 Labs: Abnormal Lab Results - Last 24 Hours (Table) 01/19/21 01/20/21 01/20/21 Range/Units 11:24 04:20 04:20 RBC 3.60 L (4.30-5.90) m/uL Hgb 11.8 L (13.0-17.5) gm/dL Hct 33.7 L (39.0-53.0) % ABG pH (7.35-7.45) ABG pCO2 (35-45) mmHg ABG pO2 (83-108) mmHg ABG Total CO2 (19-24) mmol/L ABG O2 Saturation (94-97) % Potassium 3.4 L (3.5-5.1) mmol/L Chloride 110 H (98-107) mmol/L Carbon Dioxide 21 L (22-30) mmol/L BUN 22 H (9-20) mg/dL Creatinine 0.55 L (0.66-1.25) mg/dL POC Glucose (mg/dL) 112 H (75-99) mg/dL Calcium 7.5 L (8.4-10.2) mg/dL Total Protein 5.0 L (6.3-8.2) g/dL Albumin 2.5 L (3.5-5.0) g/dL 01/20/21 01/20/21 Range/Units 05:00 05:48 RBC (4.30-5.90) m/uL Hgb (13.0-17.5) gm/dL Hct (39.0-53.0) % ABG pH 7.48 H (7.35-7.45) ABG pCO2 32 L (35-45) mmHg ABG pO2 127 H (83-108) mmHg ABG Total CO2 25 H (19-24) mmol/L ABG O2 Saturation 99.4 H (94-97) % Potassium (3.5-5.1) mmol/L Chloride (98-107) mmol/L Carbon Dioxide (22-30) mmol/L BUN (9-20) mg/dL Creatinine (0.66-1.25) mg/dL POC Glucose (mg/dL) 110 H (75-99) mg/dL Calcium (8.4-10.2) mg/dL Total Protein (6.3-8.2) g/dL Albumin (3.5-5.0) g/dL Assessment and Plan Plan: Unwitnessed cardiac arrest, suspected secondary to aspiration -Cardiology consult, input appreciated -2-D echo ejection fraction 60-65% -Continue Zosyn Neurology following Continue on thiamine and Keppra Elevated troponin secondary to cardiac arrest -Cardiac monitoring Hyperglycemia Continue sliding scale Acute kidney injury scr up to 2.2 Resolved. Leukocytosis -Likely due to acute stressor wbc up to 21,000 resolved Substance abuse -Monitor for signs of withdrawal with meth and cocaine Right lung aspiration pneumonia with Pseudomonas and Sangita: continue on IV Zosyn Thrombocytopenia Monitor platelets, normalized DVT prophylaxis -Heparin metabolic acidosis 2/2 suzanne resolved Metabolic encephalopathy, multifactorial Neurology following Possible seizure-like activity, on Keppra Disposition: pending clinical progression Discussed with patient's daughter over the phone, plan for extubation sometime this week.
--- NOTE | 2021-01-20 10:21 | P.PN ---
Subjective Progress Note Date: 01/20/21 Principal diagnosis: cardiopulmonary arrest with unknown downtime, anoxic brain injury 01/13/2021, I am seeing this 50-year-old male patient who is post cardiac arrest. The patient was found on his driveway. He has aspirated and he had emesis on his head and face and neck. He was in asystole. Received CPR and compressions and epinephrine with a prolonged downtime. The patient was intubated and placed on a mechanical ventilator and the patient was brought into the hospital. Is negative for COVID: 19. The patient remains on mechanical ventilator. Currently is on sedation with propofol running at 35 mcg/kg per minute. The patient on a assist-control mode of ventilation volume cycle with a tidal volume of 450, rate of 20, FiO2 of 40% with a PEEP of 5. CAT scan of the brain and the spine were negative. The patient's wish showing a right lower lobe pulmonary infiltration consistent with with aspiration and the patient is currently on IV Unasyn. Hemodynamically stable. The patient is not requiring any pressors. Kidney function improved. Potassium level is also improved. There is a concern of anoxic encephalopathy. The patient has history of drug abuse in the past. Echocardiogram was ordered by cardiology. There is a minimal troponin leak on his blood work. The urine drug screen was positive for methamphetamine, cocaine and opiates. As such, the patient has history of drug abuse. Confirmed by urine drug screen. The patient's this morning he remains sedated. White cell count is at 12.2 with a hemoglobin of 12.1. The rest of the electrolytes are all within normal and the patient is a normal renal function. Blood gases from today still pending. The chest x-ray from today was completed and the patient has a quick positioning of the ET tube. There is a right lower lobe consolidation and also some atelectasis/effusion and left lower lobe. The patient is a triple-lumen catheter in the left subclavian vein. The patient remains on IV fluids running at 75 mL an hour. Patient is receiving vital AF boluses asked to feeds. Is having low-grade fever. No pressors. Echocardiogram results is not available in the records. 01/14/2021 on seeing the patient for a follow-up. The patient is post cardiac arrest and anoxic encephalopathy. He is still on sedation for now and propofol is running at 46 mcg/kg per minute. Yesterday we give the patient sedation holiday which she failed. He became very tachycardic and tachypneic and asynchronous with a mechanical ventilator. He was thrashing and he was not following any commands. Based on that, the child was discontinued. This morning, the family will be done. Meanwhile, the patient remains on a mechanical ventilator. He is an assist-control mode rate of 20 with tidal vol ume of 450 and FiO2 of 40% with a PEEP of 5. Blood gases from this morning is still pending. Otherwise, the rest of the labs are all within normal limits. The CAT scan of the brain was repeated yesterday and it showed no acute abnormalities. There is some 10 sinus air fluid levels, questionable sinusitis and some Fluid within the mastoid air cells as well. Also, EEG of the brain was also done and it showed abnormal EEG with background slowing suggestive of severe encephalopathy. There were some rare sharp and slow waves over the bilateral the liver tests concerning for epileptic discharges. The patient was seen by neurology already. He is currently on Keppra 750 mg every 12 hours. Is also on Unasyn for suspected aspiration pneumonia of the right lower lobe. Note that the chest x-ray from yesterday showed bilateral lower lobe pulmonary infiltrates. He remains nothing by mouth. IV fluids are running at 75 mL an hour. Otherwise, no other significant events overnight. He remains hemodynamically stable on no pressors. No further cardiac arrhythmias. Echocardiogram was also done that showed a preserved LV function without any underlying abnormalities with an ejection fraction of 60-65%. On today's evaluation of the patient remains sedated with propofol. Attempts to take him off the propofol is failed. The patient was given a sedation holiday. He did poorly with that. He would become agitated and restless and tachypneic and tachycardic and he would desaturate. No meaningful neurologic recovery to the point where the patient was follow commands or answer questions. He continues to have some episodic myoclonic jerks once taken off the propofol. This is discussed with neurology and it is kind of hypoxic encephalopathy and the patient remains on Keppra 750 mg every 12 hours. There repeat EEG from yesterday showed severe encephalopathy with occasional rare epileptiform discharges bilaterally from the frontal lobes. Meanwhile, the patient's is on a mechanical ventilator. On today's evaluation is an assist- control at the rate of 20 with a tidal volume of 450 and FiO2 of 40% with a PEEP of 10. We had increased his PEEP as the patient was becoming more hypoxic yesterday. His chest x-ray is showing worsening in consolidation lower lobes an d the patient probably is developing a right-sided pleural effusion. PH is at 7.45 with a pCO2 of 34 and pO2 of 74. He was running a lower urine output and the patient was given a total of 2 L of IV fluid yesterday and the patient was also given IV Zosyn am was stopped Unasyn. The fluid balance over the past 24 hours and then +3.5 L. The patient is currently on no pressors. He is receiving enteral feeding for nutritional support and he is on vital HP Rate of 10 mL an hour. The sputum samples showed normal respiratory dimitri, strep agalactiae. 01/16/2021, the patient is being given a sedation holiday as usual every morning. The holiday that was given yesterday failed as the patient was unresponsive, and had developed a severe autonomic reaction slightly became tachycardic and tachypneic and he was desaturating. His been off sedation since 6:00 this morning and his been off the propofol. He is comfortable at this point in time. He remains unresponsive. Nevertheless, synchronous with the mechanical ventilator. He is gradually becoming more hypertensive. His current vent settings include an assist-control at the rate of 20 with a tidal volume of 450 and FiO2 of 40% with a PEEP of 10. Blood gases from today shows a pH of 7.46 with a pCO2 of 36 and pO2 of 72. Peak airway pressures 17. Chest x-ray from today is showing adequate positioning of the orotracheal tube. The patient also has a NG tube in place. There is evidence of bilateral lower lobe pneumonia worse on the right. Findings are essentially stable compared to yesterday. There may be development of a right-sided plural effusion. Hemodynamically, the patient is on IV fluids at the rate of 75 mL an hour of normal saline. Is producing adequate amount of urine output. He is on no pressors and is maintaining his own blood pressure. Is also receiving enteral feeding for nutritional support and currently is on vital high protein. This is running at 30 mL an hour. No seizure activity has been noted while being off the propofol this morning. A repeat CAT scan of the brain was done yesterday t [facility] showed no acute abnormalities. EEG was abnormal on 01/14/2021.. He is afebrile for now. He remains on a broad-spectrum antibiotic coverage with IV Zosyn. Uterine was consistent with normal dimitri, strep 01/17/2021, patient is being seen for follow-up. After being off sedation for a total of 3 hours, the patient became restless and he went into coughing spells and he started getting oxygen desaturation. He was placed back on propofol yesterday. His been on propofol since and around 7:00 this morning the sedation was again discontinued. A neuro evaluation was done. Based on neurology's evaluation, there are signs of encephalopathy. The patient remains unresponsive. No myoclonic jerks. No purposeful movements. Does not follow commands. Does not withdraw to any painful stimulation. Brainstem reflexes are present. He remains currently on assist control mode at the rate of 20 with a tidal volume of 450 and FiO2 of 40% with a PEEP of 10. Blood gases showing a pH of 7.46 with a pCO2 of 37 and pO2 of 82. The chest x-ray from today is showing lower lobe pulmonary infiltrates more so on the right and there is also right pleural effusion. The orotracheal tube remains in a good location. The patient remains on IV Zosyn. Sputum was positive for streptococcal growth. Fact, on today's evaluation, there is interval improvement in the right lower lobe consolidation compared to yesterday. He remains on IV Zosyn. He is receiving enteral feeding for nutritional support and the patient is currently on vital high protein at the rate of 50 mL an hour. He remains on Keppra. Hemodynamically stable. T-max was 99.5. He had a bowel movement. White cell count is at 9.2 with a hemoglobin of 12, renal functions of the stable and there has been no other significant events over the past 24 hours. As mentioned, the chest x-ray is obviously improved on today's evaluation. 01/18/2021,The patient is being seen in follow-up in the intensive care unit. His been off sedation for the past 24 hours. He is calm and comfortable. He is grimacing to deep painful stimulation. He is also withdrawing to painful stimulation for now. No seizure activity has been noted. The patient has been off sedation for the past 24 hours and went To keep him off sedation for now. He remains on a mechanical ventilator. On today's evaluation is an assist- control mode at the rate of 20 with tidal volume of 450 and FiO2 is at 40% with a PEEP of 8. The blood pressure with a pH of 7.47 with a pCO2 of 33 and PaO2 of 116 and the chest x-ray showing improvement in the bilateral lower lobe pulmonary infiltrates. He remains on IV Zosyn. Note that the patient had aspiration pneumonia as the patient aspirated twice initially at the time of admission and second 20 was here in the intensive care unit. Currently is receiving enteral feeding for nutritional support with vital high protein at the rate of 50 mL an hour. He is having bowel movements activity. No abdominal distention. No emesis. On his blood work, the patient's white cell count is at 11.2 with hemoglobin of 13. Correlation profile is within normal limits. Renal function is stable. Blood sugar is also well controlled. No other significant events otherwise. Neurologist on the case. CAT scan of the brain that was done earlier showed no abnormalities. As for the alpha-fetoprotein levels, this was low. 01/19/2021, the patient remains unresponsive secondary to anoxic encephalopathy post cardiac arrest. The patient has been off sedation. The patient has been off sedation for a total of 48 hours. I do not see any reasonable neurologic recovery. He is doing decerebrate posturing. No purposeful activity. Does not follow commands. Does not withdraw to painful stimulation. He does have a brainstem reflexes the patient has a positive cough and a gag and positive pupillary reflexes. He remains on a mechanical ventilator. Assist-control mode at the rate of 20 with a tidal volume of 450 and FiO2 of 40% with a PEEP of 5. Blood gases from today shows a pH of 7.48 with a pCO2 of 33 and pO2 of 107. Labs are all within normal limits. The chest x-ray from today is showing adequate positioning of the orotracheal tube. The patient was having issues with lower lobe pulmonary infiltrates/aspiration pneumonia and the chest x-ray is showing steady improvement and near complete clearing of the pulmonary infiltrates bilaterally. The patient has a left subclavian triple lumen catheter in place. The patient remains on a IV Zosyn. The patient is afebrile for now. He is hemodynamically stable on no pressors. He is having excessive respiratory secretions and the nursing staff have asked for scopolamine patch. I think this is related to pseudomonas growth which is sensitive to Zosyn and I'm suggesting continuing the antibiotic for 24 hours and hopefully this secretions will subside. White cell count is at 11.6. He is receiving enteral feeding for nutritional support. He is stooling.. I will cardiac and was within normal limits. His blood pressure is stable and the patient is currently on carbotaxol milligram an hour. The patient remains on Keppra. Neurologist on the case. Family is contemplating extubation and possible gift of life sometime early next week. On 01/20/2021 patient seen in follow-up in the intensive care unit, patient has been off the sedation completely for 72 hours and he has not made any movement in his neurological status, he has not woken up, he has not followed any command, he does have a brainstem reflex and has a positive cough and gag and positive pupillary reflex however he does not withdraw to painful stimulation. Not follow any commands, there has been no seizure activity, he remains on mechanical ventilator with vent settings of VC plus with a rate 20, tidal legs were 50, FiO2 of 35% and PEEP of 5, and inspiratory time of 0.9 seconds. His morning blood gases have been reviewed showed pO2 of 127, pCO2 32, pH is 7.48. His anus IV drips include 0.9 normal saline at 20 ML per hour, he is not on any vasopressor support, he is receiving nutritional support in the form of vital high protein at a rate of 53 with a goal of 53 with scattered water flushes. This morning's blood gas shows stable findings with bibasilar patchy increased density within the lungs. His blood work has been reviewed showing white blood cell count of 9.5, hemoglobin of 11.8, platelet count of 277, sodium is 137, potassium is 3.4, chloride is 110, CO2 is 21, BUN of 22 creatinine of 0.55, LFTs were within normal limits. Patient remains on Keppra, there has been no seizure activity observed, he is in sinus mechanism, hemodynamically patient has been stable, his blood pressure is better controlled, he is not requiring any, proximal, he was started on metoprolol 25 mg twice daily in addition to Catapres 0.1 mg every 8 hours, which improved his blood pressure, patient is a bit bradycardic and we will adjust his metoprolol dose. Objective - Vital Signs Vital signs: Vital Signs Temp 98.4 F 01/20/21 04:00 Pulse 50 L 01/20/21 08:00 Resp 25 H 01/20/21 08:00 BP 129/72 01/20/21 08:00 Pulse Ox 97 01/20/21 08:00 Intake & Output 01/19/21 01/20/21 01/20/21 18:59 06:59 18:59 Intake Total 8403.567 5258 309 Output Total 1420 1275 175 Balance -212.534 226 134 Weight 92.1 kg Intake: IV 312 652 226 .9 pressure bag 72 72 6 Keppra 100 100 Piperacillin-Tazobactam 3 100 100 .375 gm In Sodium Chloride 0.9% 100 ml @ 25 mls/hr IVPB Q8HR [facility] Rx# :[id number] Sodium Chloride 0.9% 1, 240 380 20 000 ml @ 20 mls/hr IV . Q24H [facility]ON[facility] Rx#:[id number] Intake, IV Titration 169.466 Amount Clevidipine Butyrate 25 169.466 mg In Empty Bag 1 bag @ 1 MG/HR 2 mls/hr IV .Q24H [facility]ON[facility] Rx#:[id number] Tube Feeding 636 719 53 Other 90 130 30 Output: Urine 1420 1275 175 Other: Voiding Method Indwelling Catheter Indwelling Catheter # Voids 75 # Bowel Movements 1 ABP, PAP, CO, CI - Last Documented Arterial Blood Pressure 113/41 - Exam GENERAL EXAM: Comatose, 50-year-old white male intubated on mechanical ventilator, with assist control mode of ventilation, with VC plus mode of ventilation, with FiO2 35% and PEEP of 5 comfortable in no apparent distress. Patient is off sedation for last 72 hours, has not sustained wakefulness or followed any purposeful commands HEAD: Normocephalic/atraumatic. EYES: Normal reaction of pupils, equal size. Conjunctiva pink, sclera white. NOSE: Clear with pink turbinates. THROAT: No erythema or exudates. NECK: No masses, no JVD, no thyroid enlargement, no adenopathy. CHEST: No chest wall deformity. Symmetrical expansion. LUNGS: Equal air entry with no crackles, wheeze, rhonchi or dullness. CVS: Regular rate and rhythm, normal S1 and S2, no gallops, no murmurs, no rubs ABDOMEN: Soft, nontender. No hepatosplenomegaly, normal bowel sounds, no guarding or rigidity. EXTREMITIES: No clubbing, no edema, no cyanosis, 2+ pulses and upper and lower extremities. MUSCULOSKELETAL: Muscle strength and tone normal. SPINE: No scoliosis or deformity SKIN: No rashes CENTRAL NERVOUS SYSTEM: Comatose, off sedation, does not follow any commands, does have a gag and cough. - Labs CBC & Chem 7: 01/20/21 04:20 01/20/21 04:20 Labs: Abnormal Lab Results - Last 24 Hours (Table) 01/19/21 01/20/21 01/20/21 Range/Units 11:24 04:20 04:20 RBC 3.60 L (4.30-5.90) m/uL Hgb 11.8 L (13.0-17.5) gm/dL Hct 33.7 L (39.0-53.0) % ABG pH (7.35-7.45) ABG pCO2 (35-45) mmHg ABG pO2 (83-108) mmHg ABG Total CO2 (19-24) mmol/L ABG O2 Saturation (94-97) % Potassium 3.4 L (3.5-5.1) mmol/L Chloride 110 H (98-107) mmol/L Carbon Dioxide 21 L (22-30) mmol/L BUN 22 H (9-20) mg/dL Creatinine 0.55 L (0.66-1.25) mg/dL POC Glucose (mg/dL) 112 H (75-99) mg/dL Calcium 7.5 L (8.4-10.2) mg/dL Total Protein 5.0 L (6.3-8.2) g/dL Albumin 2.5 L (3.5-5.0) g/dL 01/20/21 01/20/21 Range/Units 05:00 05:48 RBC (4.30-5.90) m/uL Hgb (13.0-17.5) gm/dL Hct (39.0-53.0) % ABG pH 7.48 H (7.35-7.45) ABG pCO2 32 L (35-45) mmHg ABG pO2 127 H (83-108) mmHg ABG Total CO2 25 H (19-24) mmol/L ABG O2 Saturation 99.4 H (94-97) % Potassium (3.5-5.1) mmol/L Chloride (98-107) mmol/L Carbon Dioxide (22-30) mmol/L BUN (9-20) mg/dL Creatinine (0.66-1.25) mg/dL POC Glucose (mg/dL) 110 H (75-99) mg/dL Calcium (8.4-10.2) mg/dL Total Protein (6.3-8.2) g/dL Albumin (3.5-5.0) g/dL Assessment and Plan Plan: 1 [id number] cardiopulmonary arrest, with unknown downtime, status post cardiopulmonary resuscitation with return of spontaneous circulation (CPA/CPR/ROSC). The patient is currently sedated, intubated and mechanically ventilated in the emergency room. The patient is currently hemodynamically stable. Cardiac rhythm is sinus. Echocardiogram is within normal and the patient remains hemodynamically stable. 2 Anoxic brain injury, secondary to cardiac arrest, with a CAT scan of the brain showing no acute abnormalities other than some chronic sinus disease and the patient has EEG that shows diffuse slowing with some questionable epileptic foci bilaterally and for that reason the patient was started on Keppra. The patient is currently off sedation. Overall neuro status and neurologic examinations remain unchanged the patient is showing signs of anoxic encephalopathy. No seizure activity has been witnessed. No purposeful movement. Does not follow any commands. Cranial nerve reflexes are present. Neurologically, the patient remains unresponsive after being off propofol for the past 72 hours. He is doing some decorticate posturing on today's evaluation. No seizure activity has been noted and the patient remains on Keppra. 3 bilateral lower lobe pulmonary infiltrates, consider aspiration pneumonia currently on Zosyn. Cultures was positive for Pseudomonas and the patient is currently on IV Zosyn. Subsequent chest x-ray shows clearing of the pulmonary infiltrates, 4 troponin leak, normal echocardiogram 5 multiple drug abuse and the patient was positive for cocaine, opiates and methamphetamine Plan: Continue current vent settings, continue off sedation, Patient has not woken up or following any command Remains comatose Sedation has been off for 72 hours, we'll keep her off Hemodynamically stable We'll adjust the metoprolol to 12.5 mg daily, Cleviprex off and blood pressures better controlled Continue current Antibiotics Labs and chest x-ray reviewed GI and DVT prophylaxis Overall prognosis is extremely guarded and poor Family is considering comfort care and Gift of Life donation however patient may not be a good candidate due to the presence of brainstem reflexes I performed a history & physical examination of the patient and discussed their management with my nurse practitioner, Marj Davison. I reviewed the nurse practitioner's note and agree with the documented findings and plan of care. Lung sounds are positive for diminished breath sounds with crackles. The findings and the impression was discussed with the patient. I attest to the documentation by the nurse practitioner. Time with Patient: Greater than 30
[2021-01-20 11:44] LABS: Glucose,Whole Blood 97 mg/dL (75-99)
[2021-01-20 17:54] LABS: Glucose,Whole Blood 97 mg/dL (75-99)
[2021-01-20 21:30] LABS: Basophils # (A) 0.1 k/uL (0-0.2); Basophils % (A) 1 %; Eosinophils # (A) 0.3 k/uL (0-0.7); Eosinophils % (A) 4 %; HCT 36.6 % (39.0-53.0); HGB 12.6 gm/dL (13.0-17.5); Lymphocytes # (A) 2.2 k/uL (1.0-4.8); Lymphocytes % (A) 24 %; MCH 32.2 pg (25.0-35.0); MCHC 34.4 g/dL (31.0-37.0); MCV 93.8 fL (80.0-100.0); Mean Platelet Volume 7.5; Monocytes # (A) 0.5 k/uL (0-1.0); Monocytes % (A) 5 %; Neutrophils # (A) 5.9 k/uL (1.3-7.7); Neutrophils % (A) 65 %; Platelet Count 326 k/uL (150-450); RDW 12.8 % (11.5-15.5); WBC 9.1 k/uL (3.8-10.6)
[2021-01-20 21:36] LABS: Ionized Calcium 5.1 mg/dL (4.5-5.3)
[2021-01-20 21:39] LABS: ABG Base Excess -0.2 mmol/L; ABG HCO3 24 mmol/L (21-25); ABG Oxygen Saturation 98.5 % (94-97); ABG PCO2 34 mmHg (35-45); ABG PH 7.45 (7.35-7.45); ABG PO2 121 mmHg (83-108); ABG TCO2 25 mmol/L (19-24); Allen Test Performed? Yes
[2021-01-20 21:47] LABS: ALT 33 U/L (4-49); AST 56 U/L (17-59); African American GFR (CKD) >90 (>60 ml/min/1.73 sqM); Albumin 3.3 g/dL (3.5-5.0); Alkaline Phosphatase 56 U/L (38-126); Amylase 65 U/L (30-110); Anion Gap 7 mmol/L; Bilirubin, Delta 0.1 mg/dL (0.0-0.2); Bilirubin,Unconjugated 0.4 mg/dL (0.0-1.1); Blood Urea Nitrogen 21 mg/dL (9-20); Calcium 8.7 mg/dL (8.4-10.2); Carbon Dioxide 22 mmol/L (22-30); Chloride 107 mmol/L (98-107); Glucose 102 mg/dL (74-99); Lipase 434 U/L (23-300); Magnesium 2.2 mg/dL (1.6-2.3); Non-African American GFR(CKD) >90 (>60 ml/min/1.73 sqM); Phosphorus 3.4 mg/dL (2.5-4.5); Sodium 136 mmol/L (137-145); Total Bilirubin 0.5 mg/dL (0.2-1.3); Total Protein 6.4 g/dL (6.3-8.2)
[2021-01-20 21:51] LABS: D-Dimer 8.21 mg/L FEU (<0.60); Partial Thromboplastin Time 22.9 sec (22.0-30.0); Prothrombin Time 10.6 sec (9.0-12.0)
[2021-01-20 23:47] LABS: Glucose,Whole Blood 95 mg/dL (75-99)
--- NOTE | 2021-01-21 00:06 | CT ---
EXAMINATION TYPE: CT ChestAbdPelvis wo con DATE OF EXAM: 01/20/2021 COMPARISON: CT abdomen pelvis 12/10/2012 HISTORY: Evaluation for Gift of Life CT DLP: 1024.8 mGycm Automated exposure control for dose reduction was used. Images obtained from the thoracic inlet to the floor the pelvis with no contrast. There is bilateral pleural effusions and larger on the right side. Heart is borderline enlarged. Ther e is no pericardial effusion. There are a few paratracheal lymph nodes up to 1 cm. There is no medias tinal adenopathy. There is endotracheal tube and nasogastric tube noted. Nasogastric tube is in the f undus of the stomach. Liver spleen pancreas gallbladder stomach appear intact. The bile ducts are nondilated. There is no adrenal mass. Kidneys have normal size. There is no hydronephrosis. Ureters are not dilat ed. There is 2 mm calculus upper pole right kidney. Ureters are not dilated. There is no retroperiton eal adenopathy. There is Flores catheter in the urinary bladder. There is no inguinal hernia. There is no intestinal wall thickening. There are no dilated loops. There is no mesenteric edema. There is no ascites or free air. There is no bowel obstruction. Appendi x appears to be medial and appears normal. The thoracic and lumbar vertebra appear intact. There is no compression fracture. Disc spaces are nor mal. Bony pelvis is intact. The hip joints are intact. IMPRESSION: Pleural effusions at the lung bases and slightly larger on the right side. Infiltrate and atelectasis right lower lobe. Nonobstructing small right renal calculus. No acute abnormality in the abdomen pelvis..
[2021-01-21] MEDS: IPRATROPIUM-ALBUTEROL 3 ML NEB INHALATION SCH ×6 (00:40→20:43)
[2021-01-21] MEDS: PIPERACILLIN-TAZOBACTAM 3.375 GM in SODIUM CHLORIDE 0.9% 100 ML IVPB SCH ×4 (01:03→23:57)
[2021-01-21] MEDS: INSULIN ASPART (NovoLOG) 100 UNIT/ML VIAL SQ SCH ×4 (01:03→17:17)
[2021-01-21] MEDS: HEPARIN SODIUM,PORCINE/PF 5,000 UNIT/0.5 ML SYRINGE SQ SCH ×4 (01:08→23:57)
[2021-01-21] MEDS: cloNIDine HCL 0.1 MG TAB PO SCH ×4 (01:08→23:57)
[2021-01-21 04:54] LABS: D-Dimer 7.78 mg/L FEU (<0.60); Partial Thromboplastin Time 23.3 sec (22.0-30.0); Prothrombin Time 10.6 sec (9.0-12.0)
[2021-01-21 05:00] LABS: Ionized Calcium 4.9 mg/dL (4.5-5.3)
[2021-01-21 05:10] LABS: Basophils % (A) 0 %; Eosinophils # (A) 0.3 k/uL (0-0.7); Eosinophils % (A) 3 %; HCT 36.2 % (39.0-53.0); HGB 11.9 gm/dL (13.0-17.5); Lymphocytes # (A) 1.9 k/uL (1.0-4.8); Lymphocytes % (A) 23 %; MCH 31.5 pg (25.0-35.0); MCHC 32.8 g/dL (31.0-37.0); MCV 96.1 fL (80.0-100.0); Mean Platelet Volume 7.7; Monocytes # (A) 0.4 k/uL (0-1.0); Monocytes % (A) 5 %; Neutrophils # (A) 5.4 k/uL (1.3-7.7); Neutrophils % (A) 66 %; Platelet Count 338 k/uL (150-450); RBC 3.76 m/uL (4.30-5.90); RDW 13.5 % (11.5-15.5); WBC 8.2 k/uL (3.8-10.6)
[2021-01-21 05:14] LABS: ALT 37 U/L (4-49); AST 58 U/L (17-59); African American GFR (CKD) >90 (>60 ml/min/1.73 sqM); Albumin 3.2 g/dL (3.5-5.0); Alkaline Phosphatase 58 U/L (38-126); Amylase 65 U/L (30-110); Anion Gap 8 mmol/L; Bilirubin, Delta 0.1 mg/dL (0.0-0.2); Bilirubin,Unconjugated 0.4 mg/dL (0.0-1.1); Blood Urea Nitrogen 22 mg/dL (9-20); Calcium 8.7 mg/dL (8.4-10.2); Carbon Dioxide 21 mmol/L (22-30); Chloride 106 mmol/L (98-107); Glucose 107 mg/dL (74-99); Lipase 385 U/L (23-300); Magnesium 2.3 mg/dL (1.6-2.3); Non-African American GFR(CKD) >90 (>60 ml/min/1.73 sqM); Phosphorus 3.6 mg/dL (2.5-4.5); Sodium 135 mmol/L (137-145); Total Bilirubin 0.5 mg/dL (0.2-1.3); Total Protein 6.1 g/dL (6.3-8.2)
[2021-01-21 05:47] LABS: Glucose,Whole Blood 107 mg/dL (75-99)
[2021-01-21 05:49] LABS: ABG Base Excess -0.6 mmol/L; ABG HCO3 23 mmol/L (21-25); ABG Oxygen Saturation 99.4 % (94-97); ABG PCO2 29 mmHg (35-45); ABG PO2 135 mmHg (83-108); ABG TCO2 24 mmol/L (19-24)
[2021-01-21 05:51] LABS: Allen Test Performed? no
[2021-01-21 06:20] LABS: Appearance,Urine Clear (Clear); Bilirubin,Urine Negative (Negative); Blood,Urine Trace (Negative); Color,Urine Light Yellow; Glucose,Urine (UA) Negative (Negative); Hyaline Casts,Urine 1 /lpf (0-2); Ketones,Urine Negative (Negative); Leukocyte Esterase,Urine Negative (Negative); Nitrite,Urine Negative (Negative); PH, Urine 6.5 (5.0-8.0); Protein,Urine Negative (Negative); RBC,Urine 15 /hpf (0-5); Specific Gravity,Urine 1.022 (1.001-1.035); Urobilinogen,Urine <2.0 mg/dL (<2.0); WBC,Urine 4 /hpf (0-5)
--- NOTE | 2021-01-21 08:02 | XR ---
EXAMINATION TYPE: XR chest 1V portable DATE OF EXAM: 01/21/2021 COMPARISON: Chest x-ray 01/20/2021, CT chest abdomen pelvis 01/20/2021 HISTORY: Intubated TECHNIQUE: Single frontal view of the chest is obtained. FINDINGS: Endotracheal tube, orogastric tube, left-sided subclavian central venous catheter are over lying appropriate positions and are stable. Airspace disease persists in the right lung base. There i s no evident pneumothorax or sizable pleural effusion. Cardiomediastinal silhouette is unchanged. Yoel cified granuloma present in the right costophrenic angle. IMPRESSION: Correlate for basilar pneumonia versus atelectasis. Old granulomatous disease. Minimal e ffusion suspected on patient's chest CT.
[2021-01-21] MEDS: ASPIRIN 81 MG PO SCH (08:56)
[2021-01-21] MEDS: CHLORHEXIDINE GLUCONATE 15 ML CUP MUCOUS MEM SCH ×2 (08:56→19:58)
[2021-01-21] MEDS: METOPROLOL TARTRATE 12.5 MG TAB PO SCH ×2 (08:56→19:58)
[2021-01-21] MEDS: PANTOPRAZOLE 40 MG/10 ML VIAL IVP SCH (08:56)
[2021-01-21] MEDS: CYANOCOBALAMIN 500 MCG TAB PO SCH (08:56)
[2021-01-21] MEDS: THIAMINE 100 MG/ML 2 ML VIAL IVP SCH (08:56)
[2021-01-21] MEDS: levETIRAcetam IV 1,500 MG in SALINE 1 100ML.BAG IVPB SCH ×2 (08:58→19:58)
--- NOTE | 2021-01-21 09:55 | P.PN ---
Subjective Progress Note Date: 01/21/21 Remains intubated on the ventilator. No purposeful movements. Objective - Vital Signs Vital signs: Vital Signs Temp 97.3 F L 01/21/21 08:00 Pulse 51 L 01/21/21 08:00 Resp 19 01/21/21 08:00 BP 116/62 01/21/21 08:00 Pulse Ox 97 01/21/21 08:00 Intake & Output 01/20/21 01/21/21 01/21/21 18:59 06:59 18:59 Intake Total 1451 1427 242 Output Total 1495 1620 300 Balance -44 -193 -58 Weight 92.1 kg 89.5 kg Intake: IV 682 512 62 .9 pressure bag 62 72 12 Keppra 100 100 Piperacillin-Tazobactam 3 300 100 .375 gm In Sodium Chloride 0.9% 100 ml @ 25 mls/hr IVPB Q8HR VERONICA Rx# :[id number] Sodium Chloride 0.9% 1, 220 240 50 000 ml @ 20 mls/hr IV . Q24H VERONICA Rx#:[id number] Tube Feeding 649 825 150 Other 120 90 30 Output: Urine 1495 1620 300 Other: Voiding Method Indwelling Catheter Indwelling Catheter ABP, PAP, CO, CI - Last Documented Arterial Blood Pressure 122/52 - Exam Gen: Intubated, on ventilator HEENT: normocephalic Resp: Decreased breath sounds CVS: S1-S2 normal, no murmurs, rubs or gallops GI: soft, nontender nondistended , + BS MSK: No cce Neuro: Intubated on vent - Labs CBC & Chem 7: 01/21/21 04:00 01/21/21 04:00 Labs: Abnormal Lab Results - Last 24 Hours (Table) 01/19/21 01/20/21 01/20/21 Range/Units 03:55 21:00 21:26 RBC 3.90 L (4.30-5.90) m/uL Hgb 12.6 L (13.0-17.5) gm/dL Hct 36.6 L (39.0-53.0) % Fibrinogen (200-500) mg/dL D-Dimer (<0.60) mg/L FEU ABG pH (7.35-7.45) ABG pCO2 34 L (35-45) mmHg ABG pO2 121 H (83-108) mmHg ABG Total CO2 25 H (19-24) mmol/L ABG O2 Saturation 98.5 H (94-97) % Sodium (137-145) mmol/L Carbon Dioxide (22-30) mmol/L BUN (9-20) mg/dL Creatinine (0.66-1.25) mg/dL Glucose (74-99) mg/dL POC Glucose (mg/dL) (75-99) mg/dL Total Protein (6.3-8.2) g/dL Albumin (3.5-5.0) g/dL Lipase (23-300) U/L Procalcitonin 0.15 H (0.02-0.09) ng/mL Urine Blood (Negative) Urine RBC (0-5) /hpf 01/20/21 01/20/21 01/21/21 Range/Units 21:26 21:26 04:00 RBC 3.76 L (4.30-5.90) m/uL Hgb 11.9 L (13.0-17.5) gm/dL Hct 36.2 L (39.0-53.0) % Fibrinogen 624 H (200-500) mg/dL D-Dimer 8.21 H (<0.60) mg/L FEU ABG pH (7.35-7.45) ABG pCO2 (35-45) mmHg ABG pO2 (83-108) mmHg ABG Total CO2 (19-24) mmol/L ABG O2 Saturation (94-97) % Sodium 136 L (137-145) mmol/L Carbon Dioxide (22-30) mmol/L BUN 21 H (9-20) mg/dL Creatinine 0.61 L (0.66-1.25) mg/dL Glucose 102 H (74-99) mg/dL POC Glucose (mg/dL) (75-99) mg/dL Total Protein (6.3-8.2) g/dL Albumin 3.3 L (3.5-5.0) g/dL Lipase 434 H (23-300) U/L Procalcitonin (0.02-0.09) ng/mL Urine Blood (Negative) Urine RBC (0-5) /hpf 01/21/21 01/21/21 01/21/21 Range/Units 04:00 04:00 04:55 RBC (4.30-5.90) m/uL Hgb (13.0-17.5) gm/dL Hct (39.0-53.0) % Fibrinogen 562 H (200-500) mg/dL D-Dimer 7.78 H (<0.60) mg/L FEU ABG pH (7.35-7.45) ABG pCO2 (35-45) mmHg ABG pO2 (83-108) mmHg ABG Total CO2 (19-24) mmol/L ABG O2 Saturation (94-97) % Sodium 135 L (137-145) mmol/L Carbon Dioxide 21 L (22-30) mmol/L BUN 22 H (9-20) mg/dL Creatinine 0.59 L (0.66-1.25) mg/dL Glucose 107 H (74-99) mg/dL POC Glucose (mg/dL) (75-99) mg/dL Total Protein 6.1 L (6.3-8.2) g/dL Albumin 3.2 L (3.5-5.0) g/dL Lipase 385 H (23-300) U/L Procalcitonin (0.02-0.09) ng/mL Urine Blood Trace H (Negative) Urine RBC 15 H (0-5) /hpf 01/21/21 01/21/21 Range/Units 05:45 05:46 RBC (4.30-5.90) m/uL Hgb (13.0-17.5) gm/dL Hct (39.0-53.0) % Fibrinogen (200-500) mg/dL D-Dimer (<0.60) mg/L FEU ABG pH 7.50 H (7.35-7.45) ABG pCO2 29 L (35-45) mmHg ABG pO2 135 H (83-108) mmHg ABG Total CO2 (19-24) mmol/L ABG O2 Saturation 99.4 H (94-97) % Sodium (137-145) mmol/L Carbon Dioxide (22-30) mmol/L BUN (9-20) mg/dL Creatinine (0.66-1.25) mg/dL Glucose (74-99) mg/dL POC Glucose (mg/dL) 107 H (75-99) mg/dL Total Protein (6.3-8.2) g/dL Albumin (3.5-5.0) g/dL Lipase (23-300) U/L Procalcitonin (0.02-0.09) ng/mL Urine Blood (Negative) Urine RBC (0-5) /hpf Assessment and Plan Plan: Unwitnessed cardiac arrest, suspected secondary to aspiration -Cardiology consult, input appreciated -2-D echo ejection fraction 60-65% -Continue Zosyn Neurology following Continue on thiamine and Keppra Elevated troponin secondary to cardiac arrest -Cardiac monitoring Hyperglycemia Continue insulin sliding scale Acute kidney injury scr up to 2.2 Resolved. Leukocytosis -Likely due to acute stressor wbc up to 21,000 resolved Substance abuse -Monitor for signs of withdrawal with meth and cocaine Right lung aspiration pneumonia with Pseudomonas and Sangita: continue on IV Zosyn Thrombocytopenia Monitor platelets, normalized DVT prophylaxis -Heparin metabolic acidosis 2/2 suzanne resolved Metabolic encephalopathy, multifactorial Neurology following Possible seizure-like activity, on Keppra Disposition: plan for Terminal extubation 01/22/2021.
--- NOTE | 2021-01-21 11:49 | P.PN ---
Subjective Progress Note Date: 01/21/21 Principal diagnosis: cardiopulmonary arrest with unknown downtime, anoxic brain injury 01/13/2021, I am seeing this 50-year-old male patient who is post cardiac arrest. The patient was found on his driveway. He has aspirated and he had emesis on his head and face and neck. He was in asystole. Received CPR and compressions and epinephrine with a prolonged downtime. The patient was intubated and placed on a mechanical ventilator and the patient was brought into the hospital. Is negative for COVID: 19. The patient remains on mechanical ventilator. Currently is on sedation with propofol running at 35 mcg/kg per minute. The patient on a assist-control mode of ventilation volume cycle with a tidal volume of 450, rate of 20, FiO2 of 40% with a PEEP of 5. CAT scan of the brain and the spine were negative. The patient's wish showing a right lower lobe pulmonary infiltration consistent with with aspiration and the patient is currently on IV Unasyn. Hemodynamically stable. The patient is not requiring any pressors. Kidney function improved. Potassium level is also improved. There is a concern of anoxic encephalopathy. The patient has history of drug abuse in the past. Echocardiogram was ordered by cardiology. There is a minimal troponin leak on his blood work. The urine drug screen was positive for methamphetamine, cocaine and opiates. As such, the patient has history of drug abuse. Confirmed by urine drug screen. The patient's this morning he remains sedated. White cell count is at 12.2 with a hemoglobin of 12.1. The rest of the electrolytes are all within normal and the patient is a normal renal function. Blood gases from today still pending. The chest x-ray from today was completed and the patient has a quick positioning of the ET tube. There is a right lower lobe consolidation and also some atelectasis/effusion and left lower lobe. The patient is a triple-lumen catheter in the left subclavian vein. The patient remains on IV fluids running at 75 mL an hour. Patient is receiving vital AF boluses asked to feeds. Is having low-grade fever. No pressors. Echocardiogram results is not available in the records. 01/14/2021 on seeing the patient for a follow-up. The patient is post cardiac arrest and anoxic encephalopathy. He is still on sedation for now and propofol is running at 46 mcg/kg per minute. Yesterday we give the patient sedation holiday which she failed. He became very tachycardic and tachypneic and asynchronous with a mechanical ventilator. He was thrashing and he was not following any commands. Based on that, the child was discontinued. This morning, the family will be done. Meanwhile, the patient remains on a mechanical ventilator. He is an assist-control mode rate of 20 with tidal vol ume of 450 and FiO2 of 40% with a PEEP of 5. Blood gases from this morning is still pending. Otherwise, the rest of the labs are all within normal limits. The CAT scan of the brain was repeated yesterday and it showed no acute abnormalities. There is some 10 sinus air fluid levels, questionable sinusitis and some Fluid within the mastoid air cells as well. Also, EEG of the brain was also done and it showed abnormal EEG with background slowing suggestive of severe encephalopathy. There were some rare sharp and slow waves over the bilateral the liver tests concerning for epileptic discharges. The patient was seen by neurology already. He is currently on Keppra 750 mg every 12 hours. Is also on Unasyn for suspected aspiration pneumonia of the right lower lobe. Note that the chest x-ray from yesterday showed bilateral lower lobe pulmonary infiltrates. He remains nothing by mouth. IV fluids are running at 75 mL an hour. Otherwise, no other significant events overnight. He remains hemodynamically stable on no pressors. No further cardiac arrhythmias. Echocardiogram was also done that showed a preserved LV function without any underlying abnormalities with an ejection fraction of 60-65%. On today's evaluation of the patient remains sedated with propofol. Attempts to take him off the propofol is failed. The patient was given a sedation holiday. He did poorly with that. He would become agitated and restless and tachypneic and tachycardic and he would desaturate. No meaningful neurologic recovery to the point where the patient was follow commands or answer questions. He continues to have some episodic myoclonic jerks once taken off the propofol. This is discussed with neurology and it is kind of hypoxic encephalopathy and the patient remains on Keppra 750 mg every 12 hours. There repeat EEG from yesterday showed severe encephalopathy with occasional rare epileptiform discharges bilaterally from the frontal lobes. Meanwhile, the patient's is on a mechanical ventilator. On today's evaluation is an assist- control at the rate of 20 with a tidal volume of 450 and FiO2 of 40% with a PEEP of 10. We had increased his PEEP as the patient was becoming more hypoxic yesterday. His chest x-ray is showing worsening in consolidation lower lobes an d the patient probably is developing a right-sided pleural effusion. PH is at 7.45 with a pCO2 of 34 and pO2 of 74. He was running a lower urine output and the patient was given a total of 2 L of IV fluid yesterday and the patient was also given IV Zosyn am was stopped Unasyn. The fluid balance over the past 24 hours and then +3.5 L. The patient is currently on no pressors. He is receiving enteral feeding for nutritional support and he is on vital HP Rate of 10 mL an hour. The sputum samples showed normal respiratory dimitri, strep agalactiae. 01/16/2021, the patient is being given a sedation holiday as usual every morning. The holiday that was given yesterday failed as the patient was unresponsive, and had developed a severe autonomic reaction slightly became tachycardic and tachypneic and he was desaturating. His been off sedation since 6:00 this morning and his been off the propofol. He is comfortable at this point in time. He remains unresponsive. Nevertheless, synchronous with the mechanical ventilator. He is gradually becoming more hypertensive. His current vent settings include an assist-control at the rate of 20 with a tidal volume of 450 and FiO2 of 40% with a PEEP of 10. Blood gases from today shows a pH of 7.46 with a pCO2 of 36 and pO2 of 72. Peak airway pressures 17. Chest x-ray from today is showing adequate positioning of the orotracheal tube. The patient also has a NG tube in place. There is evidence of bilateral lower lobe pneumonia worse on the right. Findings are essentially stable compared to yesterday. There may be development of a right-sided plural effusion. Hemodynamically, the patient is on IV fluids at the rate of 75 mL an hour of normal saline. Is producing adequate amount of urine output. He is on no pressors and is maintaining his own blood pressure. Is also receiving enteral feeding for nutritional support and currently is on vital high protein. This is running at 30 mL an hour. No seizure activity has been noted while being off the propofol this morning. A repeat CAT scan of the brain was done yesterday t [facility] showed no acute abnormalities. EEG was abnormal on 01/14/2021.. He is afebrile for now. He remains on a broad-spectrum antibiotic coverage with IV Zosyn. Uterine was consistent with normal dimitri, strep 01/17/2021, patient is being seen for follow-up. After being off sedation for a total of 3 hours, the patient became restless and he went into coughing spells and he started getting oxygen desaturation. He was placed back on propofol yesterday. His been on propofol since and around 7:00 this morning the sedation was again discontinued. A neuro evaluation was done. Based on neurology's evaluation, there are signs of encephalopathy. The patient remains unresponsive. No myoclonic jerks. No purposeful movements. Does not follow commands. Does not withdraw to any painful stimulation. Brainstem reflexes are present. He remains currently on assist control mode at the rate of 20 with a tidal volume of 450 and FiO2 of 40% with a PEEP of 10. Blood gases showing a pH of 7.46 with a pCO2 of 37 and pO2 of 82. The chest x-ray from today is showing lower lobe pulmonary infiltrates more so on the right and there is also right pleural effusion. The orotracheal tube remains in a good location. The patient remains on IV Zosyn. Sputum was positive for streptococcal growth. Fact, on today's evaluation, there is interval improvement in the right lower lobe consolidation compared to yesterday. He remains on IV Zosyn. He is receiving enteral feeding for nutritional support and the patient is currently on vital high protein at the rate of 50 mL an hour. He remains on Keppra. Hemodynamically stable. T-max was 99.5. He had a bowel movement. White cell count is at 9.2 with a hemoglobin of 12, renal functions of the stable and there has been no other significant events over the past 24 hours. As mentioned, the chest x-ray is obviously improved on today's evaluation. 01/18/2021,The patient is being seen in follow-up in the intensive care unit. His been off sedation for the past 24 hours. He is calm and comfortable. He is grimacing to deep painful stimulation. He is also withdrawing to painful stimulation for now. No seizure activity has been noted. The patient has been off sedation for the past 24 hours and went To keep him off sedation for now. He remains on a mechanical ventilator. On today's evaluation is an assist- control mode at the rate of 20 with tidal volume of 450 and FiO2 is at 40% with a PEEP of 8. The blood pressure with a pH of 7.47 with a pCO2 of 33 and PaO2 of 116 and the chest x-ray showing improvement in the bilateral lower lobe pulmonary infiltrates. He remains on IV Zosyn. Note that the patient had aspiration pneumonia as the patient aspirated twice initially at the time of admission and second 20 was here in the intensive care unit. Currently is receiving enteral feeding for nutritional support with vital high protein at the rate of 50 mL an hour. He is having bowel movements activity. No abdominal distention. No emesis. On his blood work, the patient's white cell count is at 11.2 with hemoglobin of 13. Correlation profile is within normal limits. Renal function is stable. Blood sugar is also well controlled. No other significant events otherwise. Neurologist on the case. CAT scan of the brain that was done earlier showed no abnormalities. As for the alpha-fetoprotein levels, this was low. 01/19/2021, the patient remains unresponsive secondary to anoxic encephalopathy post cardiac arrest. The patient has been off sedation. The patient has been off sedation for a total of 48 hours. I do not see any reasonable neurologic recovery. He is doing decerebrate posturing. No purposeful activity. Does not follow commands. Does not withdraw to painful stimulation. He does have a brainstem reflexes the patient has a positive cough and a gag and positive pupillary reflexes. He remains on a mechanical ventilator. Assist-control mode at the rate of 20 with a tidal volume of 450 and FiO2 of 40% with a PEEP of 5. Blood gases from today shows a pH of 7.48 with a pCO2 of 33 and pO2 of 107. Labs are all within normal limits. The chest x-ray from today is showing adequate positioning of the orotracheal tube. The patient was having issues with lower lobe pulmonary infiltrates/aspiration pneumonia and the chest x-ray is showing steady improvement and near complete clearing of the pulmonary infiltrates bilaterally. The patient has a left subclavian triple lumen catheter in place. The patient remains on a IV Zosyn. The patient is afebrile for now. He is hemodynamically stable on no pressors. He is having excessive respiratory secretions and the nursing staff have asked for scopolamine patch. I think this is related to pseudomonas growth which is sensitive to Zosyn and I'm suggesting continuing the antibiotic for 24 hours and hopefully this secretions will subside. White cell count is at 11.6. He is receiving enteral feeding for nutritional support. He is stooling.. I will cardiac and was within normal limits. His blood pressure is stable and the patient is currently on carbotaxol milligram an hour. The patient remains on Keppra. Neurologist on the case. Family is contemplating extubation and possible gift of life sometime early next week. On 01/20/2021 patient seen in follow-up in the intensive care unit, patient has been off the sedation completely for 72 hours and he has not made any movement in his neurological status, he has not woken up, he has not followed any command, he does have a brainstem reflex and has a positive cough and gag and positive pupillary reflex however he does not withdraw to painful stimulation. Not follow any commands, there has been no seizure activity, he remains on mechanical ventilator with vent settings of VC plus with a rate 20, tidal legs were 50, FiO2 of 35% and PEEP of 5, and inspiratory time of 0.9 seconds. His morning blood gases have been reviewed showed pO2 of 127, pCO2 32, pH is 7.48. His anus IV drips include 0.9 normal saline at 20 ML per hour, he is not on any vasopressor support, he is receiving nutritional support in the form of vital high protein at a rate of 53 with a goal of 53 with scattered water flushes. This morning's blood gas shows stable findings with bibasilar patchy increased density within the lungs. His blood work has been reviewed showing white blood cell count of 9.5, hemoglobin of 11.8, platelet count of 277, sodium is 137, potassium is 3.4, chloride is 110, CO2 is 21, BUN of 22 creatinine of 0.55, LFTs were within normal limits. Patient remains on Keppra, there has been no seizure activity observed, he is in sinus mechanism, hemodynamically patient has been stable, his blood pressure is better controlled, he is not requiring any, proximal, he was started on metoprolol 25 mg twice daily in addition to Catapres 0.1 mg every 8 hours, which improved his blood pressure, patient is a bit bradycardic and we will adjust his metoprolol dose. On 01/21/2021 patient seen in follow-up in the intensive care unit, he has remained off sedation for 96 hours, and patient has not regained consciousness, or followed any command, he does breathe over the ventilator, Does have a cough and a gag and positive pupillary reflex, patient does not withdraw to painful s timulation. He is intubated on ventilator, with the VC plus 1 of ventilation, tidal volume 450, FiO2 of 35%, and PEEP of 5, this morning blood gases showed pO2 135, pCO2 of 29, pH of 7.50, he only has 0.9 normal saline running at 20 ML per hour, no sedatives, no vasoactive drips of any kind, he remains on nutritional support with vital ROLY at 75 ML per hour with a goal of 75, chest x- ray shows basilar pneumonia versus atelectasis, and minimal effusion compared to last CT chest. Today's labs have been reviewed showing white blood cell count of 8.2, hemoglobin of 11.9, INR 1, d-dimer 7.78, LFTs were within normal limits, lipase was trending down, to 385 on today's labs, urinalysis showed no clear evidence of infection. Sputum culture showed Pseudomonas fluorescence/putilda, and strep group B, crit abiotic coverage is with Zosyn. She has had no acute events overnight, he has not shown any seizure activity, neurology is following, patient is covered with Keppra. Objective - Vital Signs Vital signs: Vital Signs Temp 97.3 F L 01/21/21 08:00 Pulse 47 L 01/21/21 10:00 Resp 19 01/21/21 10:00 BP 164/89 01/21/21 09:00 Pulse Ox 97 01/21/21 10:00 Intake & Output 01/20/21 01/21/21 01/21/21 18:59 06:59 18:59 Intake Total 1451 1427 569 Output Total 1495 1620 480 Balance -44 -193 89 Weight 92.1 kg 89.5 kg Intake: IV 682 512 314 .9 pressure bag 62 72 24 Keppra 100 100 100 Piperacillin-Tazobactam 3 300 100 100 .375 gm In Sodium Chloride 0.9% 100 ml @ 25 mls/hr IVPB Q8HR [facility] Rx# :[id number] Sodium Chloride 0.9% 1, 220 240 90 000 ml @ 20 mls/hr IV . Q24H [facility] Rx#:[id number] Tube Feeding 649 825 225 Other 120 90 30 Output: Urine 1495 1620 480 Other: Voiding Method Indwelling Catheter Indwelling Catheter Indwelling Catheter ABP, PAP, CO, CI - Last Documented Arterial Blood Pressure 99/44 - Exam GENERAL EXAM: Comatose, 50-year-old white male on assist control mode of ventilation, with VC plus mode of ventilation, with FiO2 35% and PEEP of 5 comfortable in no apparent distress. Patient is off sedation for last 72 hours, has not sustained wakefulness or followed any purposeful commands HEAD: Normocephalic/atraumatic. EYES: Normal reaction of pupils, equal size. Conjunctiva pink, sclera white. NOSE: Clear with pink turbinates. THROAT: No erythema or exudates. NECK: No masses, no JVD, no thyroid enlargement, no adenopathy. CHEST: No chest wall deformity. Symmetrical expansion. LUNGS: Equal air entry with no crackles, wheeze, rhonchi or dullness. CVS: Regular rate and rhythm, normal S1 and S2, no gallops, no murmurs, no rubs ABDOMEN: Soft, nontender. No hepatosplenomegaly, normal bowel sounds, no guarding or rigidity. EXTREMITIES: No clubbing, no edema, no cyanosis, 2+ pulses and upper and lower extremities. MUSCULOSKELETAL: Muscle strength and tone normal. SPINE: No scoliosis or deformity SKIN: No rashes CENTRAL NERVOUS SYSTEM: Comatose, off sedation, does not follow any commands, does have a gag and cough. - Labs CBC & Chem 7: 01/21/21 04:00 01/21/21 04:00 Labs: Abnormal Lab Results - Last 24 Hours (Table) 01/19/21 01/20/21 01/20/21 Range/Units 03:55 21:00 21:26 RBC 3.90 L (4.30-5.90) m/uL Hgb 12.6 L (13.0-17.5) gm/dL Hct 36.6 L (39.0-53.0) % Fibrinogen (200-500) mg/dL D-Dimer (<0.60) mg/L FEU ABG pH (7.35-7.45) ABG pCO2 34 L (35-45) mmHg ABG pO2 121 H (83-108) mmHg ABG Total CO2 25 H (19-24) mmol/L ABG O2 Saturation 98.5 H (94-97) % Sodium (137-145) mmol/L Carbon Dioxide (22-30) mmol/L BUN (9-20) mg/dL Creatinine (0.66-1.25) mg/dL Glucose (74-99) mg/dL POC Glucose (mg/dL) (75-99) mg/dL Total Protein (6.3-8.2) g/dL Albumin (3.5-5.0) g/dL Lipase (23-300) U/L Procalcitonin 0.15 H (0.02-0.09) ng/mL Urine Blood (Negative) Urine RBC (0-5) /hpf 01/20/21 01/20/21 01/21/21 Range/Units 21:26 21:26 04:00 RBC 3.76 L (4.30-5.90) m/uL Hgb 11.9 L (13.0-17.5) gm/dL Hct 36.2 L (39.0-53.0) % Fibrinogen 624 H (200-500) mg/dL D-Dimer 8.21 H (<0.60) mg/L FEU ABG pH (7.35-7.45) ABG pCO2 (35-45) mmHg ABG pO2 (83-108) mmHg ABG Total CO2 (19-24) mmol/L ABG O2 Saturation (94-97) % Sodium 136 L (137-145) mmol/L Carbon Dioxide (22-30) mmol/L BUN 21 H (9-20) mg/dL Creatinine 0.61 L (0.66-1.25) mg/dL Glucose 102 H (74-99) mg/dL POC Glucose (mg/dL) (75-99) mg/dL Total Protein (6.3-8.2) g/dL Albumin 3.3 L (3.5-5.0) g/dL Lipase 434 H (23-300) U/L Procalcitonin (0.02-0.09) ng/mL Urine Blood (Negative) Urine RBC (0-5) /hpf 01/21/21 01/21/21 01/21/21 Range/Units 04:00 04:00 04:55 RBC (4.30-5.90) m/uL Hgb (13.0-17.5) gm/dL Hct (39.0-53.0) % Fibrinogen 562 H (200-500) mg/dL D-Dimer 7.78 H (<0.60) mg/L FEU ABG pH (7.35-7.45) ABG pCO2 (35-45) mmHg ABG pO2 (83-108) mmHg ABG Total CO2 (19-24) mmol/L ABG O2 Saturation (94-97) % Sodium 135 L (137-145) mmol/L Carbon Dioxide 21 L (22-30) mmol/L BUN 22 H (9-20) mg/dL Creatinine 0.59 L (0.66-1.25) mg/dL Glucose 107 H (74-99) mg/dL POC Glucose (mg/dL) (75-99) mg/dL Total Protein 6.1 L (6.3-8.2) g/dL Albumin 3.2 L (3.5-5.0) g/dL Lipase 385 H (23-300) U/L Procalcitonin (0.02-0.09) ng/mL Urine Blood Trace H (Negative) Urine RBC 15 H (0-5) /hpf 01/21/21 01/21/21 Range/Units 05:45 05:46 RBC (4.30-5.90) m/uL Hgb (13.0-17.5) gm/dL Hct (39.0-53.0) % Fibrinogen (200-500) mg/dL D-Dimer (<0.60) mg/L FEU ABG pH 7.50 H (7.35-7.45) ABG pCO2 29 L (35-45) mmHg ABG pO2 135 H (83-108) mmHg ABG Total CO2 (19-24) mmol/L ABG O2 Saturation 99.4 H (94-97) % Sodium (137-145) mmol/L Carbon Dioxide (22-30) mmol/L BUN (9-20) mg/dL Creatinine (0.66-1.25) mg/dL Glucose (74-99) mg/dL POC Glucose (mg/dL) 107 H (75-99) mg/dL Total Protein (6.3-8.2) g/dL Albumin (3.5-5.0) g/dL Lipase (23-300) U/L Procalcitonin (0.02-0.09) ng/mL Urine Blood (Negative) Urine RBC (0-5) /hpf Assessment and Plan Plan: 1 [id number] cardiopulmonary arrest, with unknown downtime, status post cardiopulmonary resuscitation with return of spontaneous circulation (CPA/ CPR/ROSC). The patient is currently sedated, intubated and mechanically ventilated in the emergency room. The patient is currently hemodynamically stable. Cardiac rhythm is sinus. Echocardiogram is within normal and the patient remains hemodynamically stable. 2 Anoxic brain injury, secondary to cardiac arrest, with a CAT scan of the brain showing no acute abnormalities other than some chronic sinus disease and the patient has EEG that shows diffuse slowing with some questionable epileptic foci bilaterally and for that reason the patient was started on Keppra. The patient is currently off sedation. Overall neuro status and neurologic examinations remain unchanged the patient is showing signs of anoxic encephalopathy. No seizure activity has been witnessed. No purposeful movement. Does not follow any commands. Cranial nerve reflexes are present. Neurologically, the patient remains unresponsive after being off propofol for the past 72 hours. He is doing some decorticate posturing on today's evaluation. No seizure activity has been noted and the patient remains on Keppra. 3 bilateral lower lobe pulmonary infiltrates, consider aspiration pneumonia currently on Zosyn. Cultures was positive for Pseudomonas and the patient is currently on IV Zosyn. Subsequent chest x-ray shows clearing of the pulmonary infiltrates, 4 troponin leak, normal echocardiogram 5 multi drug abuse and the patient was positive for cocaine, opiates and methamphetamine Plan: Patient has not shown an improvement in his neurological status, still remains comatose, and not following any command Continue current vent settings, continue off sedation, Patient has not woken up or following any command Remains comatose Sedation has been off for 96 hours, we'll keep the patient off Continue Zosyn, no fever, hemodynamically remained stable [facility] is considering the patient for organ donation, we placed the patient on pressure support of 8 and CPAP of 5, patient may be a poor candidate in view of low likelihood of passing away within 90 minutes of extubation, Remains a full code at this time Prognosis remains poor If the patient is ruled out for organ donation and the family wants to proceed with comfort care protocol, we may do so when the family is ready to proceed Otherwise will consider tracheostomy and PEG tube placement, and transfer to LTAC facility I performed a history & physical examination of the patient and discussed their management with my nurse practitioner, Marj Davison. I reviewed the nurse practitioner's note and agree with the documented findings and plan of care. Lung sounds are positive for diminished breath sounds with crackles. The findi ngs and the impression was discussed with the patient. I attest to the documentation by the nurse practitioner. Time with Patient: Greater than 30
[2021-01-21 11:51] LABS: Glucose,Whole Blood 101 mg/dL (75-99)
[2021-01-21 17:50] LABS: Glucose,Whole Blood 109 mg/dL (75-99)
--- NOTE | 2021-01-21 19:08 | P.PN ---
Subjective Progress Note Date: 01/21/21 Patient was seen by Dr. Giorgio Robles, please refer to his note for details. 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 Patient's urine drug screen was positive for cocaine, amphetamines and opiates. Patient had elevated LFTs. Patient has aspiration pneumonia, troponin leak. Patient has been off sedation since Wednesday 4 days ago. Patient is not showing meaningful response. Nurses reported that family has already decided Comfort Care and terminal weaning. Objective - Vital Signs Vital signs: Vital Signs Temp 98.1 F 01/21/21 16:00 Pulse 65 01/21/21 18:00 Resp 20 01/21/21 18:00 BP 100/62 01/21/21 18:00 Pulse Ox 97 01/21/21 18:00 Intake & Output 01/20/21 01/21/21 01/21/21 18:59 06:59 18:59 Intake Total 1451 1427 1657 Output Total 1495 1620 1200 Balance -44 -193 457 Weight 92.1 kg 89.5 kg Intake: IV 682 512 622 .9 pressure bag 62 72 72 Keppra 100 100 100 Piperacillin-Tazobactam 3 300 100 200 .375 gm In Sodium Chloride 0.9% 100 ml @ 25 mls/hr IVPB Q8HR [facility]ONICA Rx# :[id number] Sodium Chloride 0.9% 1, 220 240 250 000 ml @ 20 mls/hr IV . Q24H VERONICA Rx#:[id number] Tube Feeding 649 825 975 Other 120 90 60 Output: Urine 1495 1620 1200 Other: Voiding Method Indwelling Catheter Indwelling Catheter Indwelling Catheter ABP, PAP, CO, CI - Last Documented Arterial Blood Pressure 152/65 - Exam Patient is off sedation since 01/17/2021. Patient is a middle aged male, intubated, semi-comatose. Patient does not respond to calling his name. He does not opens his eyes with painful stimuli. Patient does not make any eye contact, no tracking. Patient partially opens his eyes, not to any external stimuli. Pupils are round and reacting. Oculocephalics are present. Corneals are present. Patient is breathing over the ventilator, has cough and gag. Patient's tone is equal. Reflexes are 3+ and patient has bilateral Babinski with triple flexion response. Patient has peripheral edema. Patient's GCS is 4. Cerebellar functions and sensation could not be assessed. - Labs CBC & Chem 7: 01/21/21 04:00 01/21/21 04:00 Labs: Abnormal Lab Results - Last 24 Hours (Table) 01/19/21 01/20/21 01/20/21 Range/Units 03:55 21:00 21:26 RBC 3.90 L (4.30-5.90) m/uL Hgb 12.6 L (13.0-17.5) gm/dL Hct 36.6 L (39.0-53.0) % Fibrinogen (200-500) mg/dL D-Dimer (<0.60) mg/L FEU ABG pH (7.35-7.45) ABG pCO2 34 L (35-45) mmHg ABG pO2 121 H (83-108) mmHg ABG Total CO2 25 H (19-24) mmol/L ABG O2 Saturation 98.5 H (94-97) % Sodium (137-145) mmol/L Carbon Dioxide (22-30) mmol/L BUN (9-20) mg/dL Creatinine (0.66-1.25) mg/dL Glucose (74-99) mg/dL POC Glucose (mg/dL) (75-99) mg/dL Total Protein (6.3-8.2) g/dL Albumin (3.5-5.0) g/dL Lipase (23-300) U/L Procalcitonin 0.15 H (0.02-0.09) ng/mL Urine Blood (Negative) Urine RBC (0-5) /hpf 01/20/21 01/20/21 01/21/21 Range/Units 21:26 21:26 04:00 RBC 3.76 L (4.30-5.90) m/uL Hgb 11.9 L (13.0-17.5) gm/dL Hct 36.2 L (39.0-53.0) % Fibrinogen 624 H (200-500) mg/dL D-Dimer 8.21 H (<0.60) mg/L FEU ABG pH (7.35-7.45) ABG pCO2 (35-45) mmHg ABG pO2 (83-108) mmHg ABG Total CO2 (19-24) mmol/L ABG O2 Saturation (94-97) % Sodium 136 L (137-145) mmol/L Carbon Dioxide (22-30) mmol/L BUN 21 H (9-20) mg/dL Creatinine 0.61 L (0.66-1.25) mg/dL Glucose 102 H (74-99) mg/dL POC Glucose (mg/dL) (75-99) mg/dL Total Protein (6.3-8.2) g/dL Albumin 3.3 L (3.5-5.0) g/dL Lipase 434 H (23-300) U/L Procalcitonin (0.02-0.09) ng/mL Urine Blood (Negative) Urine RBC (0-5) /hpf 01/21/21 01/21/21 01/21/21 Range/Units 04:00 04:00 04:55 RBC (4.30-5.90) m/uL Hgb (13.0-17.5) gm/dL Hct (39.0-53.0) % Fibrinogen 562 H (200-500) mg/dL D-Dimer 7.78 H (<0.60) mg/L FEU ABG pH (7.35-7.45) ABG pCO2 (35-45) mmHg ABG pO2 (83-108) mmHg ABG Total CO2 (19-24) mmol/L ABG O2 Saturation (94-97) % Sodium 135 L (137-145) mmol/L Carbon Dioxide 21 L (22-30) mmol/L BUN 22 H (9-20) mg/dL Creatinine 0.59 L (0.66-1.25) mg/dL Glucose 107 H (74-99) mg/dL POC Glucose (mg/dL) (75-99) mg/dL Total Protein 6.1 L (6.3-8.2) g/dL Albumin 3.2 L (3.5-5.0) g/dL Lipase 385 H (23-300) U/L Procalcitonin (0.02-0.09) ng/mL Urine Blood Trace H (Negative) Urine RBC 15 H (0-5) /hpf 01/21/21 01/21/21 01/21/21 Range/Units 05:45 05:46 11:49 RBC (4.30-5.90) m/uL Hgb (13.0-17.5) gm/dL Hct (39.0-53.0) % Fibrinogen (200-500) mg/dL D-Dimer (<0.60) mg/L FEU ABG pH 7.50 H (7.35-7.45) ABG pCO2 29 L (35-45) mmHg ABG pO2 135 H (83-108) mmHg ABG Total CO2 (19-24) mmol/L ABG O2 Saturation 99.4 H (94-97) % Sodium (137-145) mmol/L Carbon Dioxide (22-30) mmol/L BUN (9-20) mg/dL Creatinine (0.66-1.25) mg/dL Glucose (74-99) mg/dL POC Glucose (mg/dL) 107 H 101 H (75-99) mg/dL Total Protein (6.3-8.2) g/dL Albumin (3.5-5.0) g/dL Lipase (23-300) U/L Procalcitonin (0.02-0.09) ng/mL Urine Blood (Negative) Urine RBC (0-5) /hpf 01/21/21 Range/Units 17:48 RBC (4.30-5.90) m/uL Hgb (13.0-17.5) gm/dL Hct (39.0-53.0) % Fibrinogen (200-500) mg/dL D-Dimer (<0.60) mg/L FEU ABG pH (7.35-7.45) ABG pCO2 (35-45) mmHg ABG pO2 (83-108) mmHg ABG Total CO2 (19-24) mmol/L ABG O2 Saturation (94-97) % Sodium (137-145) mmol/L Carbon Dioxide (22-30) mmol/L BUN (9-20) mg/dL Creatinine (0.66-1.25) mg/dL Glucose (74-99) mg/dL POC Glucose (mg/dL) 109 H (75-99) mg/dL Total Protein (6.3-8.2) g/dL Albumin (3.5-5.0) g/dL Lipase (23-300) U/L Procalcitonin (0.02-0.09) ng/mL Urine Blood (Negative) Urine RBC (0-5) /hpf Assessment and Plan Assessment: 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 Since AST is >2 of ALT is concerning of alcohol use)--resolved Low Vitamin B12 level (229 Normal is 200-944) Aspiration pneumonia Troponin leak Polysubstance use (cocaine, amphetamine and opiates) Plan: EEG 01/13/21: Is an abnormal routine EEG. The back was slowing is suggestive of severe encephalopathy. The rare to occasional sharp and slow wave over the bilateral frontal degenerative is concerning for epileptiform discharges. There is no seizure during this recording. The upper body jerks, predominantly left were captured during this recording without EEG correlation. Repeat EEG on 01/14/2021 and it was essentially about the same as 01/13/2021. The background slowing suggestive of severe encephalopathy. Occasional to rare epileptiform discharges over the bilateral frontal increases the risk of seizur e. There are no focal slowing or seizure during this recording. CT of the head on 01/15/21 is reported as no acute intracranial abnormality. Patient has bilateral mastoiditis. No significant change. Continue Keppra 1500mg q 12 hours. Continue thiamine 100 mg daily. Vitamin B12 is 229 which is low normal (the normal ranges between 200 and 944). Continue vitamin B12 1000 g daily. Folate level is 19.6 which is considered normal TSH is 0.73 which is normal range. AST: 50 (normal), ALT 24 (normal) and ammonia level: 23 (normal). 2-D echo was reported as left ventricle size is normal. Mild concentric left ventricular hypertrophy. Ejection fraction between 60-65%. Cardiology team is on board. We'll defer the rest of the medical management to the primary team as well as ICU team. The patient prognosis is poor due to unknown exact down time but was notified it appears to be prolonged cardiac arrest; has only brainstem reflexes. No seizure-like activity noted at this time. Today is Day#11 post cardiac arrest with no significant clinical improvement also implies poor prognosis Family apparently has already made decision for comfort care, signed on the papers for terminal weaning, with possible organ donation to the [facility]. Neurology will sign off.
--- NOTE | 2021-01-21 22:56 | CT ---
EXAMINATION TYPE: CT ChestAbdPelvis w con DATE OF EXAM: 01/21/2021 COMPARISON: CT scan yesterday.. HISTORY: organ donation CT DLP: 1157.4 mGycm Automated exposure control for dose reduction was used. CONTRAST: Performed with IV Contrast, patient injected with 100 mL of Isovue 300. There is endotracheal tube in good position. There is nasogastric tube in the stomach. There is patch y infiltrates at both lung bases. There is some atelectasis at the lung bases. There is small right p leural effusion. Pulmonary abnormalities unchanged compared to yesterday. Heart size is top normal. T here is no pericardial effusion. There is no mediastinal adenopathy. There are no hilar masses. There are small paratracheal lymph nodes measuring less than 1 cm. There is calcified subcarinal lymph nod es. Liver spleen pancreas gallbladder appear intact. Bile ducts are nondilated. There is 2 mm calculus la teral right kidney. Kidneys show satisfactory contrast opacification. There is no hydronephrosis. Ure ters are not dilated. There is no retroperitoneal adenopathy. There is Flores catheter in the urinary bladder. There is small amount of air in the bladder. There is no inguinal hernia. There is no mesenteric edema. There is no ascites or free air. There is no bowel obstruction. Lumbar and thoracic vertebra show normal alignment. There is no compression fracture. The bony pelvis is int act. Hip joints are intact. The ribs are intact. Sternum is intact. IMPRESSION: Infiltrates and atelectasis without change compared to yesterday at the lung bases. Cardiomegaly unchanged. Small right pleural effusion unchanged. No acute abnormality within the abdomen pelvis.
[2021-01-21 23:43] LABS: Glucose,Whole Blood 103 mg/dL (75-99)
[2021-01-21] MEDS: SODIUM CHLORIDE 0.9% 1,000 ML IV SCH (23:58)
[2021-01-22] MEDS: IPRATROPIUM-ALBUTEROL 3 ML NEB INHALATION SCH ×5 (00:16→11:20)
[2021-01-22] MEDS: INSULIN ASPART (NovoLOG) 100 UNIT/ML VIAL SQ SCH ×3 (00:31→11:34)
[2021-01-22 04:26] LABS: Basophils # (A) 0.1 k/uL (0-0.2); Basophils % (A) 0 %; Eosinophils # (A) 0.3 k/uL (0-0.7); Eosinophils % (A) 2 %; HCT 36.2 % (39.0-53.0); HGB 12.7 gm/dL (13.0-17.5); Lymphocytes # (A) 2.1 k/uL (1.0-4.8); Lymphocytes % (A) 16 %; MCH 32.9 pg (25.0-35.0); MCHC 35.1 g/dL (31.0-37.0); MCV 93.6 fL (80.0-100.0); Mean Platelet Volume 7.5; Monocytes # (A) 0.7 k/uL (0-1.0); Monocytes % (A) 5 %; Neutrophils # (A) 9.7 k/uL (1.3-7.7); Neutrophils % (A) 75 %; Platelet Count 408 k/uL (150-450); RBC 3.87 m/uL (4.30-5.90); RDW 12.9 % (11.5-15.5)
[2021-01-22 04:41] LABS: ALT 39 U/L (4-49); AST 50 U/L (17-59); African American GFR (CKD) >90 (>60 ml/min/1.73 sqM); Albumin 3.6 g/dL (3.5-5.0); Alkaline Phosphatase 58 U/L (38-126); Anion Gap 7 mmol/L; Blood Urea Nitrogen 22 mg/dL (9-20); Calcium 8.9 mg/dL (8.4-10.2); Carbon Dioxide 24 mmol/L (22-30); Chloride 106 mmol/L (98-107); Glucose 122 mg/dL (74-99); Non-African American GFR(CKD) >90 (>60 ml/min/1.73 sqM); Sodium 137 mmol/L (137-145); Total Bilirubin 0.6 mg/dL (0.2-1.3); Total Protein 6.7 g/dL (6.3-8.2)
[2021-01-22] MEDS: CLEVIDIPINE BUTYRATE 25 MG in EMPTY BAG 1 BAG IV SCH (05:08)
[2021-01-22 05:36] LABS: Appearance,Urine Clear (Clear); Bacteria,Urine Rare /hpf; Bilirubin,Urine Negative (Negative); Blood,Urine Moderate (Negative); Color,Urine Yellow; Glucose,Urine (UA) Negative (Negative); Ketones,Urine Negative (Negative); Leukocyte Esterase,Urine Negative (Negative); Mucus,Urine Rare /hpf; Nitrite,Urine Negative (Negative); Protein,Urine Trace (Negative); RBC,Urine 74 /hpf (0-5); Urobilinogen,Urine <2.0 mg/dL (<2.0); WBC,Urine 5 /hpf (0-5)
[2021-01-22 05:44] LABS: Glucose,Whole Blood 103 mg/dL (75-99)
[2021-01-22 05:46] LABS: ABG Base Excess -0.6 mmol/L; ABG HCO3 23 mmol/L (21-25); ABG Oxygen Saturation 99.3 % (94-97); ABG PCO2 31 mmHg (35-45); ABG PH 7.48 (7.35-7.45); ABG PO2 130 mmHg (83-108); ABG TCO2 24 mmol/L (19-24); Allen Test Performed? Yes
[2021-01-22] MEDS: cloNIDine HCL 0.1 MG TAB PO SCH (06:56)
[2021-01-22] MEDS: PIPERACILLIN-TAZOBACTAM 3.375 GM in SODIUM CHLORIDE 0.9% 100 ML IVPB SCH (09:10)
[2021-01-22] MEDS: levETIRAcetam IV 1,500 MG in SALINE 1 100ML.BAG IVPB SCH (09:11)
[2021-01-22 11:33] LABS: Glucose,Whole Blood 105 mg/dL (75-99)
--- NOTE | 2021-01-22 12:07 | P.PN ---
Subjective Progress Note Date: 01/22/21 Principal diagnosis: cardiopulmonary arrest with unknown downtime, anoxic brain injury 01/13/2021, I am seeing this 50-year-old male patient who is post cardiac arrest. The patient was found on his driveway. He has aspirated and he had emesis on his head and face and neck. He was in asystole. Received CPR and compressions and epinephrine with a prolonged downtime. The patient was intubated and placed on a mechanical ventilator and the patient was brought into the hospital. Is negative for COVID: 19. The patient remains on mechanical ventilator. Currently is on sedation with propofol running at 35 mcg/kg per minute. The patient on a assist-control mode of ventilation volume cycle with a tidal volume of 450, rate of 20, FiO2 of 40% with a PEEP of 5. CAT scan of the brain and the spine were negative. The patient's wish showing a right lower lobe pulmonary infiltration consistent with with aspiration and the patient is currently on IV Unasyn. Hemodynamically stable. The patient is not requiring any pressors. Kidney function improved. Potassium level is also improved. There is a concern of anoxic encephalopathy. The patient has history of drug abuse in the past. Echocardiogram was ordered by cardiology. There is a minimal troponin leak on his blood work. The urine drug screen was positive for methamphetamine, cocaine and opiates. As such, the patient has history of drug abuse. Confirmed by urine drug screen. The patient's this morning he remains sedated. White cell count is at 12.2 with a hemoglobin of 12.1. The rest of the electrolytes are all within normal and the patient is a normal renal function. Blood gases from today still pending. The chest x-ray from today was completed and the patient has a quick positioning of the ET tube. There is a right lower lobe consolidation and also some atelectasis/effusion and left lower lobe. The patient is a triple-lumen catheter in the left subclavian vein. The patient remains on IV fluids running at 75 mL an hour. Patient is receiving vital AF boluses asked to feeds. Is having low-grade fever. No pressors. Echocardiogram results is not available in the records. 01/14/2021 on seeing the patient for a follow-up. The patient is post cardiac arrest and anoxic encephalopathy. He is still on sedation for now and propofol is running at 46 mcg/kg per minute. Yesterday we give the patient sedation holiday which she failed. He became very tachycardic and tachypneic and asynchronous with a mechanical ventilator. He was thrashing and he was not following any commands. Based on that, the child was discontinued. This morning, the family will be done. Meanwhile, the patient remains on a mechanical ventilator. He is an assist-control mode rate of 20 with tidal vol ume of 450 and FiO2 of 40% with a PEEP of 5. Blood gases from this morning is still pending. Otherwise, the rest of the labs are all within normal limits. The CAT scan of the brain was repeated yesterday and it showed no acute abnormalities. There is some 10 sinus air fluid levels, questionable sinusitis and some Fluid within the mastoid air cells as well. Also, EEG of the brain was also done and it showed abnormal EEG with background slowing suggestive of severe encephalopathy. There were some rare sharp and slow waves over the bilateral the liver tests concerning for epileptic discharges. The patient was seen by neurology already. He is currently on Keppra 750 mg every 12 hours. Is also on Unasyn for suspected aspiration pneumonia of the right lower lobe. Note that the chest x-ray from yesterday showed bilateral lower lobe pulmonary infiltrates. He remains nothing by mouth. IV fluids are running at 75 mL an hour. Otherwise, no other significant events overnight. He remains hemodynamically stable on no pressors. No further cardiac arrhythmias. Echocardiogram was also done that showed a preserved LV function without any underlying abnormalities with an ejection fraction of 60-65%. On today's evaluation of the patient remains sedated with propofol. Attempts to take him off the propofol is failed. The patient was given a sedation holiday. He did poorly with that. He would become agitated and restless and tachypneic and tachycardic and he would desaturate. No meaningful neurologic recovery to the point where the patient was follow commands or answer questions. He continues to have some episodic myoclonic jerks once taken off the propofol. This is discussed with neurology and it is kind of hypoxic encephalopathy and the patient remains on Keppra 750 mg every 12 hours. There repeat EEG from yesterday showed severe encephalopathy with occasional rare epileptiform discharges bilaterally from the frontal lobes. Meanwhile, the patient's is on a mechanical ventilator. On today's evaluation is an assist- control at the rate of 20 with a tidal volume of 450 and FiO2 of 40% with a PEEP of 10. We had increased his PEEP as the patient was becoming more hypoxic yesterday. His chest x-ray is showing worsening in consolidation lower lobes an d the patient probably is developing a right-sided pleural effusion. PH is at 7.45 with a pCO2 of 34 and pO2 of 74. He was running a lower urine output and the patient was given a total of 2 L of IV fluid yesterday and the patient was also given IV Zosyn am was stopped Unasyn. The fluid balance over the past 24 hours and then +3.5 L. The patient is currently on no pressors. He is receiving enteral feeding for nutritional support and he is on vital HP Rate of 10 mL an hour. The sputum samples showed normal respiratory dimitri, strep agalactiae. 01/16/2021, the patient is being given a sedation holiday as usual every morning. The holiday that was given yesterday failed as the patient was unresponsive, and had developed a severe autonomic reaction slightly became tachycardic and tachypneic and he was desaturating. His been off sedation since 6:00 this morning and his been off the propofol. He is comfortable at this point in time. He remains unresponsive. Nevertheless, synchronous with the mechanical ventilator. He is gradually becoming more hypertensive. His current vent settings include an assist-control at the rate of 20 with a tidal volume of 450 and FiO2 of 40% with a PEEP of 10. Blood gases from today shows a pH of 7.46 with a pCO2 of 36 and pO2 of 72. Peak airway pressures 17. Chest x-ray from today is showing adequate positioning of the orotracheal tube. The patient also has a NG tube in place. There is evidence of bilateral lower lobe pneumonia worse on the right. Findings are essentially stable compared to yesterday. There may be development of a right-sided plural effusion. Hemodynamically, the patient is on IV fluids at the rate of 75 mL an hour of normal saline. Is producing adequate amount of urine output. He is on no pressors and is maintaining his own blood pressure. Is also receiving enteral feeding for nutritional support and currently is on vital high protein. This is running at 30 mL an hour. No seizure activity has been noted while being off the propofol this morning. A repeat CAT scan of the brain was done yesterday t [facility] showed no acute abnormalities. EEG was abnormal on 01/14/2021.. He is afebrile for now. He remains on a broad-spectrum antibiotic coverage with IV Zosyn. Uterine was consistent with normal dimitri, strep 01/17/2021, patient is being seen for follow-up. After being off sedation for a total of 3 hours, the patient became restless and he went into coughing spells and he started getting oxygen desaturation. He was placed back on propofol yesterday. His been on propofol since and around 7:00 this morning the sedation was again discontinued. A neuro evaluation was done. Based on neurology's evaluation, there are signs of encephalopathy. The patient remains unresponsive. No myoclonic jerks. No purposeful movements. Does not follow commands. Does not withdraw to any painful stimulation. Brainstem reflexes are present. He remains currently on assist control mode at the rate of 20 with a tidal volume of 450 and FiO2 of 40% with a PEEP of 10. Blood gases showing a pH of 7.46 with a pCO2 of 37 and pO2 of 82. The chest x-ray from today is showing lower lobe pulmonary infiltrates more so on the right and there is also right pleural effusion. The orotracheal tube remains in a good location. The patient remains on IV Zosyn. Sputum was positive for streptococcal growth. Fact, on today's evaluation, there is interval improvement in the right lower lobe consolidation compared to yesterday. He remains on IV Zosyn. He is receiving enteral feeding for nutritional support and the patient is currently on vital high protein at the rate of 50 mL an hour. He remains on Keppra. Hemodynamically stable. T-max was 99.5. He had a bowel movement. White cell count is at 9.2 with a hemoglobin of 12, renal functions of the stable and there has been no other significant events over the past 24 hours. As mentioned, the chest x-ray is obviously improved on today's evaluation. 01/18/2021,The patient is being seen in follow-up in the intensive care unit. His been off sedation for the past 24 hours. He is calm and comfortable. He is grimacing to deep painful stimulation. He is also withdrawing to painful stimulation for now. No seizure activity has been noted. The patient has been off sedation for the past 24 hours and went To keep him off sedation for now. He remains on a mechanical ventilator. On today's evaluation is an assist- control mode at the rate of 20 with tidal volume of 450 and FiO2 is at 40% with a PEEP of 8. The blood pressure with a pH of 7.47 with a pCO2 of 33 and PaO2 of 116 and the chest x-ray showing improvement in the bilateral lower lobe pulmonary infiltrates. He remains on IV Zosyn. Note that the patient had aspiration pneumonia as the patient aspirated twice initially at the time of admission and second 20 was here in the intensive care unit. Currently is receiving enteral feeding for nutritional support with vital high protein at the rate of 50 mL an hour. He is having bowel movements activity. No abdominal distention. No emesis. On his blood work, the patient's white cell count is at 11.2 with hemoglobin of 13. Correlation profile is within normal limits. Renal function is stable. Blood sugar is also well controlled. No other significant events otherwise. Neurologist on the case. CAT scan of the brain that was done earlier showed no abnormalities. As for the alpha-fetoprotein levels, this was low. 01/19/2021, the patient remains unresponsive secondary to anoxic encephalopathy post cardiac arrest. The patient has been off sedation. The patient has been off sedation for a total of 48 hours. I do not see any reasonable neurologic recovery. He is doing decerebrate posturing. No purposeful activity. Does not follow commands. Does not withdraw to painful stimulation. He does have a brainstem reflexes the patient has a positive cough and a gag and positive pupillary reflexes. He remains on a mechanical ventilator. Assist-control mode at the rate of 20 with a tidal volume of 450 and FiO2 of 40% with a PEEP of 5. Blood gases from today shows a pH of 7.48 with a pCO2 of 33 and pO2 of 107. Labs are all within normal limits. The chest x-ray from today is showing adequate positioning of the orotracheal tube. The patient was having issues with lower lobe pulmonary infiltrates/aspiration pneumonia and the chest x-ray is showing steady improvement and near complete clearing of the pulmonary infiltrates bilaterally. The patient has a left subclavian triple lumen catheter in place. The patient remains on a IV Zosyn. The patient is afebrile for now. He is hemodynamically stable on no pressors. He is having excessive respiratory secretions and the nursing staff have asked for scopolamine patch. I think this is related to pseudomonas growth which is sensitive to Zosyn and I'm suggesting continuing the antibiotic for 24 hours and hopefully this secretions will subside. White cell count is at 11.6. He is receiving enteral feeding for nutritional support. He is stooling.. I will cardiac and was within normal limits. His blood pressure is stable and the patient is currently on carbotaxol milligram an hour. The patient remains on Keppra. Neurologist on the case. Family is contemplating extubation and possible gift of life sometime early next week. On 01/20/2021 patient seen in follow-up in the intensive care unit, patient has been off the sedation completely for 72 hours and he has not made any movement in his neurological status, he has not woken up, he has not followed any command, he does have a brainstem reflex and has a positive cough and gag and positive pupillary reflex however he does not withdraw to painful stimulation. Not follow any commands, there has been no seizure activity, he remains on mechanical ventilator with vent settings of VC plus with a rate 20, tidal legs were 50, FiO2 of 35% and PEEP of 5, and inspiratory time of 0.9 seconds. His morning blood gases have been reviewed showed pO2 of 127, pCO2 32, pH is 7.48. His anus IV drips include 0.9 normal saline at 20 ML per hour, he is not on any vasopressor support, he is receiving nutritional support in the form of vital high protein at a rate of 53 with a goal of 53 with scattered water flushes. This morning's blood gas shows stable findings with bibasilar patchy increased density within the lungs. His blood work has been reviewed showing white blood cell count of 9.5, hemoglobin of 11.8, platelet count of 277, sodium is 137, potassium is 3.4, chloride is 110, CO2 is 21, BUN of 22 creatinine of 0.55, LFTs were within normal limits. Patient remains on Keppra, there has been no seizure activity observed, he is in sinus mechanism, hemodynamically patient has been stable, his blood pressure is better controlled, he is not requiring any, proximal, he was started on metoprolol 25 mg twice daily in addition to Catapres 0.1 mg every 8 hours, which improved his blood pressure, patient is a bit bradycardic and we will adjust his metoprolol dose. On 01/21/2021 patient seen in follow-up in the intensive care unit, he has remained off sedation for 96 hours, and patient has not regained consciousness, or followed any command, he does breathe over the ventilator, Does have a cough and a gag and positive pupillary reflex, patient does not withdraw to painful s timulation. He is intubated on ventilator, with the VC plus 1 of ventilation, tidal volume 450, FiO2 of 35%, and PEEP of 5, this morning blood gases showed pO2 135, pCO2 of 29, pH of 7.50, he only has 0.9 normal saline running at 20 ML per hour, no sedatives, no vasoactive drips of any kind, he remains on nutritional support with vital ROLY at 75 ML per hour with a goal of 75, chest x- ray shows basilar pneumonia versus atelectasis, and minimal effusion compared to last CT chest. Today's labs have been reviewed showing white blood cell count of 8.2, hemoglobin of 11.9, INR 1, d-dimer 7.78, LFTs were within normal limits, lipase was trending down, to 385 on today's labs, urinalysis showed no clear evidence of infection. Sputum culture showed Pseudomonas fluorescence/putilda, and strep group B, crit abiotic coverage is with Zosyn. She has had no acute events overnight, he has not shown any seizure activity, neurology is following, patient is covered with Keppra. On 01/22/2021 patient seen in follow-up in the intensive care unit, he has remained off sedation close to 120 hours at this time, and has made no significant neurological recovery, remains unresponsive to noxious stimuli, but does breathe over the ventilator, yesterday she was given a pressure support trial and patient lasted on pressure-support trial for several hours, he was placed back on assist control mode of ventilation, he is currently on VC plus with a rate of 26, tidal volume is 450, FiO2 of 35%, and PEEP of 5. This morning's blood gases reviewed, showed pO2 of 130, pCO2 31, pH of 7.48, the rest of his labs were also reviewed, white blood cell count is 13, hemoglobin is 12.7, electrolytes and renal profile are unremarkable, LFTs within normal limits, urinalysis showed trace protein, moderate blood, but no definite sign of infection, he was tested for COVID-19 again and was found to be negative. CT chest abdomen and pelvis were completed showing infiltrates and atelectasis without change compared to yesterday's CT, cardiomegaly, small right pleural effusion, no acute abnormality within the abdomen and pelvis. IV fluids are 0.9, secondary to 20 ML per hour, he is off the proximal infusion, he is not on any vasopressor support, he remains on Zosyn for evidence of Pseudomonas and strep group B in the sputum. Objective - Vital Signs Vital signs: Vital Signs Temp 98.3 F 01/22/21 08:00 Pulse 67 01/22/21 11:00 Resp 20 01/22/21 11:00 BP 118/73 01/22/21 11:00 Pulse Ox 95 01/22/21 11:00 Intake & Output 01/21/21 01/22/21 01/22/21 18:59 06:59 18:59 Intake Total 1657 847 330 Output Total 1200 1580 855 Balance 508 -855 -036 Weight 87.6 kg Intake: IV 622 412 330 0.9 Normal Saline 72 72 30 pressure bag Keppra 100 Piperacillin-Tazobactam 3 200 100 100 .375 gm In Sodium Chloride 0.9% 100 ml @ 25 mls/hr IVPB Q8HR VERONICA Rx# :[id number] Sodium Chloride 0.9% 1, 250 240 100 000 ml @ 20 mls/hr IV . Q24H VERONICA Rx#:[id number] levETIRAcetam IV 1,500 mg 100 In Saline 1 100ml.bag @ 400 mls/hr IVPB Q12HR VERONICA Rx#:[id number] Tube Feeding 975 375 0 Other 60 60 Output: Urine 1200 1580 855 Other: Voiding Method Indwelling Catheter Indwelling Catheter Indwelling Catheter # Bowel Movements 1 ABP, PAP, CO, CI - Last Documented Arterial Blood Pressure 168/78 - Exam GENERAL EXAM: Comatose, 50-year-old white male on assist control mode of ventilation, with VC plus mode of ventilation, with FiO2 35% and PEEP of 5 comfortable in no apparent distress. Patient is off sedation for last 72 hours, has not sustained wakefulness or followed any purposeful commands HEAD: Normocephalic/atraumatic. EYES: Normal reaction of pupils, equal size. Conjunctiva pink, sclera white. NOSE: Clear with pink turbinates. THROAT: No erythema or exudates. NECK: No masses, no JVD, no thyroid enlargement, no adenopathy. CHEST: No chest wall deformity. Symmetrical expansion. LUNGS: Equal air entry with no crackles, wheeze, rhonchi or dullness. CVS: Regular rate and rhythm, normal S1 and S2, no gallops, no murmurs, no rubs ABDOMEN: Soft, nontender. No hepatosplenomegaly, normal bowel sounds, no guarding or rigidity. EXTREMITIES: No clubbing, no edema, no cyanosis, 2+ pulses and upper and lower extremities. MUSCULOSKELETAL: Muscle strength and tone normal. SPINE: No scoliosis or deformity SKIN: No rashes CENTRAL NERVOUS SYSTEM: Comatose, off sedation, does not follow any commands, does have a gag and cough. - Labs CBC & Chem 7: 01/22/21 04:00 01/22/21 04:00 Labs: Abnormal Lab Results - Last 24 Hours (Table) 01/21/21 01/21/21 01/22/21 Range/Units 17:48 23:40 04:00 WBC 13.0 H (3.8-10.6) k/uL RBC 3.87 L (4.30-5.90) m/uL Hgb 12.7 L (13.0-17.5) gm/dL Hct 36.2 L (39.0-53.0) % Neutrophils # 9.7 H (1.3-7.7) k/uL ABG pH (7.35-7.45) ABG pCO2 (35-45) mmHg ABG pO2 (83-108) mmHg ABG O2 Saturation (94-97) % BUN (9-20) mg/dL Glucose (74-99) mg/dL POC Glucose (mg/dL) 109 H 103 H (75-99) mg/dL Ur Specific [place] (1.001-1.035) Urine Protein (Negative) Urine Blood (Negative) Urine RBC (0-5) /hpf Urine Bacteria (None) /hpf Urine Mucus (None) /hpf 01/22/21 01/22/21 01/22/21 Range/Units 04:00 04:58 05:40 WBC (3.8-10.6) k/uL RBC (4.30-5.90) m/uL Hgb (13.0-17.5) gm/dL Hct (39.0-53.0) % Neutrophils # (1.3-7.7) k/uL ABG pH 7.48 H (7.35-7.45) ABG pCO2 31 L (35-45) mmHg ABG pO2 130 H (83-108) mmHg ABG O2 Saturation 99.3 H (94-97) % BUN 22 H (9-20) mg/dL Glucose 122 H (74-99) mg/dL POC Glucose (mg/dL) (75-99) mg/dL Ur Specific [place] 1.040 H (1.001-1.035) Urine Protein Trace H (Negative) Urine Blood Moderate H (Negative) Urine RBC 74 H (0-5) /hpf Urine Bacteria Rare H (None) /hpf Urine Mucus Rare H (None) /hpf 01/22/21 01/22/21 Range/Units 05:42 11:30 WBC (3.8-10.6) k/uL RBC (4.30-5.90) m/uL Hgb (13.0-17.5) gm/dL Hct (39.0-53.0) % Neutrophils # (1.3-7.7) k/uL ABG pH (7.35-7.45) ABG pCO2 (35-45) mmHg ABG pO2 (83-108) mmHg ABG O2 Saturation (94-97) % BUN (9-20) mg/dL Glucose (74-99) mg/dL POC Glucose (mg/dL) 103 H 105 H (75-99) mg/dL Ur Specific [place] (1.001-1.035) Urine Protein (Negative) Urine Blood (Negative) Urine RBC (0-5) /hpf Urine Bacteria (None) /hpf Urine Mucus (None) /hpf Assessment and Plan Plan: 1 [id number] cardiopulmonary arrest, with unknown downtime, status post cardiopulmonary resuscitation with return of spontaneous circulation (CPA/CPR/ROSC). The patient is currently sedated, intubated and mechanically ventilated in the emergency room. The patient is currently hemodynamically s table. Cardiac rhythm is sinus. Echocardiogram is within normal and the patient remains hemodynamically stable. 2 Anoxic brain injury, secondary to cardiac arrest, with a CAT scan of the brain showing no acute abnormalities other than some chronic sinus disease and the patient has EEG that shows diffuse slowing with some questionable epileptic foci bilaterally and for that reason the patient was started on Keppra. The patient is currently off sedation. Overall neuro status and neurologic examinations remain unchanged the patient is showing signs of anoxic encephalopathy. No seizure activity has been witnessed. No purposeful movement. Does not follow any commands. Cranial nerve reflexes are present. Neurologically, the patient remains unresponsive after being off propofol for the past 120 hours. No seizure activity has been noted and the patient remains on Keppra. 3 bilateral lower lobe pulmonary infiltrates, consider aspiration pneumonia currently on Zosyn. Cultures was positive for Pseudomonas and the patient is currently on IV Zosyn. Subsequent chest x-ray shows clearing of the pulmonary infiltrates, 4 troponin leak, normal echocardiogram 5 multi drug abuse and the patient was positive for cocaine, opiates and methamphetamine Plan: Continue current vent settings, continue off sedation, Patient has not shown an improvement in his neurological status, still remains comatose, and not following any command Continue Zosyn, no fever, hemodynamically remained stable [facility] of life is considering the patient for organ donation, the patient will be taken down to OR today Remains a full code at this time Prognosis remains poor I performed a history & physical examination of the patient and discussed their management with my nurse practitioner, Marj Davison. I reviewed the nurse practitioner's note and agree with the documented findings and plan of care. Lung sounds are positive for diminished breath sounds with crackles. The findings and the impression was discussed with the patient. I attest to the documentation by the nurse practitioner. Time with Patient: Less than 30
[2021-01-22] MEDS ORDERED: LORazepam 2 MG/ML INJ IV ONE (12:30)
[2021-01-22] MEDS ORDERED: MORPHINE SULFATE 4 MG/ML SYRINGE IVP ONE (12:30)
[2021-01-22] MEDS: THIAMINE 100 MG/ML 2 ML VIAL IVP SCH (13:13)
[2021-01-22] MEDS: PANTOPRAZOLE 40 MG/10 ML VIAL IVP SCH (13:13)
[2021-01-22] MEDS: CYANOCOBALAMIN 500 MCG TAB PO SCH (13:13)
[2021-01-22] MEDS: CHLORHEXIDINE GLUCONATE 15 ML CUP MUCOUS MEM SCH (13:13)
[2021-01-22] MEDS: METOPROLOL TARTRATE 12.5 MG TAB PO SCH (13:13)
[2021-01-22] MEDS: ASPIRIN 81 MG PO SCH (13:13)
[2021-01-22] MEDS: HEPARIN SODIUM,PORCINE/PF 5,000 UNIT/0.5 ML SYRINGE SQ SCH (13:13)
[2021-01-22] MEDS: LORazepam 2 MG/ML INJ IV PRN ×12 (13:18→14:14)
[2021-01-22] MEDS: MORPHINE SULFATE 4 MG/ML SYRINGE IV PRN ×9 (13:18→14:12)
[2021-01-22] MEDS ORDERED: LORazepam 2 MG/ML INJ ONE (13:39)
[2021-01-22] MEDS ORDERED: METOCLOPRAMIDE 5 MG/ML 2 ML VIAL IVP PRN (15:06)
--- NOTE | 2021-01-22 15:24 | P.PN ---
Progress Note - Text Progress Note Date: 01/22/21 Pt premedicated for comfort and transported to PACU at 1:00 PM with medical team, [facility] staff and family consisting of his daughter-Dia, son-Jaime, and his sister-Esther. Plan for potential organ donation. Heparin 30,000 Units given at 1:12 PM. 1:18 PM Pt being given Morphine 4 mg, Ativan 2 mg and being disconected from ventilator and extubated at this time. 1:22 PM Pt given another dose of Morphine 4 mg and Ativan 2 mg at this time. 1:27 PM Pt appeared uncomfortable and agitated, began coughing and moaning and was given another dose of Morphine 4 mg and Ativan 2 mg. 1:34 PM Pt appearing uncomfortable, HR and BP slightly increasing as well. An additional dose of Morphine 4 mg and Ativan 2 mg given at this time. 1:38 PM Pt again coughing, gagging and appeared uncomfortable. Morphine 4 mg and Ativan 2 mg given at this time. 1:46 PM Pt repositioned to supine position from semi-fowlers to promote comfort. Medication given Morphine 4 mg and Ativan 2 mg. Family remains at bedside. 1:48 PM BP 72/32, HR 60, RR 18, and SPO2 84%. 1:51 PM increased work of breathing, noted muscle fasiculations, pt given Morphine 4 mg and Ativan 2 mg. 1:58 PM Pt continues with increased work of breathing and muscle fasiculations. 4 mg Ativan administered at this time. 2:03 PM pt continues with increased work of breathing and tachypnea with RR increasing to 24 breaths per minute, Morphine 4 mg and Ativan 2 mg administered at this time. Family remains at bedside. 2:14 PM Pt appears to be resting comfortable at this time. BP 54/24, HR 59, RR 14, abd SPO2 84%. 2:38 PM Pt continues to be resting comfortably at this time. Vitals BP 53/24, HR 57, RR 13, and SPO2 85%. 2:43 PM HR 58, RR 12, BP 52/24, and SPO2 86%. 2:47 PM Pt no longer a Gift of Life candidate. Pt being transferred to Med/Surg and placed on Comfort Measures only. 3:00 PM Pt safely transferred back into his room, family remains at bedside. Comfort measures ordered along with consult to Hospice.
[2021-01-22] MEDS ORDERED: MORPHINE SULFATE (100 MG/2 ML) 100 MG in SODIUM CHLORIDE 0.9% 100 ML IV SCH ×2 (15:30→16:00)
[2021-01-22] MEDS: SCOPOLAMINE 1.5MG/72HR PATCH TRANSDERM SCH (16:10)
--- NOTE | 2021-01-22 17:40 | P.PN ---
Subjective Progress Note Date: 01/22/21 Patient was seen by me in the ICU this morning. He was sedated and intubated. Plan to proceed with gift of life later today around 1 PM Objective - Vital Signs Vital signs: Vital Signs Temp 98.4 F 01/22/21 12:00 Pulse 61 01/22/21 14:00 Resp 12 01/22/21 14:00 BP 121/67 01/22/21 13:00 Pulse Ox 83 L 01/22/21 14:00 Intake & Output 01/21/21 01/22/21 01/22/21 18:59 06:59 18:59 Intake Total 1657 847 382 Output Total 1200 1580 1030 Balance 788 -733 -158 Weight 87.6 kg Intake: IV 622 412 382 0.9 Normal Saline 72 72 42 pressure bag Keppra 100 Piperacillin-Tazobactam 3 200 100 100 .375 gm In Sodium Chloride 0.9% 100 ml @ 25 mls/hr IVPB Q8HR [facility] Rx# :[id number] Sodium Chloride 0.9% 1, 250 240 140 000 ml @ 20 mls/hr IV . Q24H [facility] Rx#:[id number] levETIRAcetam IV 1,500 mg 100 In Saline 1 100ml.bag @ 400 mls/hr IVPB Q12HR [facility] Rx#:[id number] Tube Feeding 975 375 0 Other 60 60 Output: Urine 1200 1580 1030 Other: Voiding Method Indwelling Catheter Indwelling Catheter Indwelling Catheter # Bowel Movements 1 ABP, PAP, CO, CI - Last Documented Arterial Blood Pressure 52/24 - Exam General: The patient is sedated and intubated Eye: there is normal conjunctiva bilaterally. Neck: The neck is supple, there is no JVD. Cardiovascular: Normal S1-S2, no S3-S4, no murmurs. Respiratory: Lungs with mechanical ventilator sounds Gastrointestinal: Abdomen is soft, nontender Musculoskeletal: There is no pedal edema. Skin: Skin is warm and dry - Labs CBC & Chem 7: 01/22/21 04:00 01/22/21 04:00 Labs: Abnormal Lab Results - Last 24 Hours (Table) 01/21/21 01/21/21 01/22/21 Range/Units 17:48 23:40 04:00 WBC 13.0 H (3.8-10.6) k/uL RBC 3.87 L (4.30-5.90) m/uL Hgb 12.7 L (13.0-17.5) gm/dL Hct 36.2 L (39.0-53.0) % Neutrophils # 9.7 H (1.3-7.7) k/uL ABG pH (7.35-7.45) ABG pCO2 (35-45) mmHg ABG pO2 (83-108) mmHg ABG O2 Saturation (94-97) % BUN (9-20) mg/dL Glucose (74-99) mg/dL POC Glucose (mg/dL) 109 H 103 H (75-99) mg/dL Ur Specific [place] (1.001-1.035) Urine Protein (Negative) Urine Blood (Negative) Urine RBC (0-5) /hpf Urine Bacteria (None) /hpf Urine Mucus (None) /hpf 01/22/21 01/22/21 01/22/21 Range/Units 04:00 04:58 05:40 WBC (3.8-10.6) k/uL RBC (4.30-5.90) m/uL Hgb (13.0-17.5) gm/dL Hct (39.0-53.0) % Neutrophils # (1.3-7.7) k/uL ABG pH 7.48 H (7.35-7.45) ABG pCO2 31 L (35-45) mmHg ABG pO2 130 H (83-108) mmHg ABG O2 Saturation 99.3 H (94-97) % BUN 22 H (9-20) mg/dL Glucose 122 H (74-99) mg/dL POC Glucose (mg/dL) (75-99) mg/dL Ur Specific [place] 1.040 H (1.001-1.035) Urine Protein Trace H (Negative) Urine Blood Moderate H (Negative) Urine RBC 74 H (0-5) /hpf Urine Bacteria Rare H (None) /hpf Urine Mucus Rare H (None) /hpf 01/22/21 01/22/21 Range/Units 05:42 11:30 WBC (3.8-10.6) k/uL RBC (4.30-5.90) m/uL Hgb (13.0-17.5) gm/dL Hct (39.0-53.0) % Neutrophils # (1.3-7.7) k/uL ABG pH (7.35-7.45) ABG pCO2 (35-45) mmHg ABG pO2 (83-108) mmHg ABG O2 Saturation (94-97) % BUN (9-20) mg/dL Glucose (74-99) mg/dL POC Glucose (mg/dL) 103 H 105 H (75-99) mg/dL Ur Specific [place] (1.001-1.035) Urine Protein (Negative) Urine Blood (Negative) Urine RBC (0-5) /hpf Urine Bacteria (None) /hpf Urine Mucus (None) /hpf Assessment and Plan Assessment: This is a 50-year-old male with past medical history noted below who presented to the emergency room status post cardiac arrest after he was found down on his driveway. Patient had a prolonged and complicated hospital stay and his family eventually agreed to pursue comfort care and gift of life. Patient was extubated earlier today in the OR and was treated with morphine and Ativan for comfort but did not within the 90 minute window for organ harvesting. Organ donation was consulted and patient was transferred back to a private room comfort measures. Below is a dentist of his medical problems 1. Cardiopulmonary arrest prior to presentation to the hospital requiring CPR 2. Acute hypoxic respiratory failure 3. Anoxic brain injury 4. Aspiration pneumonia 5. Troponin elevation 6. Polysubstance abuse 7. Acute kidney injury
[2021-01-23 08:26] VITALS: BMI 27.7
[2021-01-23] MEDS: MORPHINE SULFATE (100 MG/2 ML) 100 MG in SODIUM CHLORIDE 0.9% 100 ML IV SCH ×2 (10:39→22:48)
[2021-01-23] MEDS: ATROPINE OPHTH SOLN 1% 5ML BTL SUBLINGUAL PRN ×3 (12:14→20:29)
--- NOTE | 2021-01-23 14:29 | P.PN ---
Subjective Progress Note Date: 01/23/21 Patient is obtunded. He is maintained on the morphine drip. He appeared comfortable. No events reported by nursing staff. Objective - Vital Signs Vital signs: Vital Signs Temp 98.9 F 01/23/21 09:15 Pulse 66 01/23/21 09:15 Resp 12 01/23/21 09:15 BP 100/63 01/23/21 09:15 Pulse Ox 88 L 01/23/21 09:15 Intake & Output 01/22/21 01/23/21 01/23/21 18:59 06:59 18:59 Intake Total 382 Output Total 1030 500 Balance -648 -500 Weight 87.6 kg Intake: IV 382 0.9 Normal Saline 42 pressure bag Piperacillin-Tazobactam 3 100 .375 gm In Sodium Chloride 0.9% 100 ml @ 25 mls/hr IVPB Q8HR [facility] Rx# :[id number] Sodium Chloride 0.9% 1, 140 000 ml @ 20 mls/hr IV . Q24H [facility] Rx#:[id number] levETIRAcetam IV 1,500 mg 100 In Saline 1 100ml.bag @ 400 mls/hr IVPB Q12HR [facility] Rx#:[id number] Tube Feeding 0 Output: Urine 1030 500 Other: Voiding Method Indwelling Catheter Indwelling Catheter Indwelling Catheter # Bowel Movements 1 ABP, PAP, CO, CI - Last Documented Arterial Blood Pressure 52/24 - Exam General: The patient is obtunded Eye: there is normal conjunctiva bilaterally. Neck: The neck is supple, there is no JVD. Cardiovascular: Normal S1-S2, no S3-S4, no murmurs. Respiratory: Lungs clear to auscultation bilaterally Gastrointestinal: Abdomen is soft, nontender Musculoskeletal: There is no pedal edema. l. Skin: Skin is warm and dry - Labs CBC & Chem 7: 01/22/21 04:00 01/22/21 04:00 Assessment and Plan Assessment: This is a 50-year-old male with past medical history noted below who presented to the emergency room status post cardiac arrest after he was found down on his driveway. Patient had a prolonged and complicated hospital stay and his family eventually agreed to pursue comfort care and gift of life. Patient was extubated earlier today in the OR and was treated with morphine and Ativan for c omfort but did not within the 90 minute window for organ harvesting. Organ donation was canceled and patient was transferred back to a private room comfort measures. He is currently on a morphine drip. Below is a list of his medical problems 1. Cardiopulmonary arrest prior to presentation to the hospital requiring CPR 2. Acute hypoxic respiratory failure 3. Anoxic brain injury 4. Aspiration pneumonia 5. Troponin elevation 6. Polysubstance abuse 7. Acute kidney injury
[2021-01-23] MEDS: LORazepam 2 MG/ML INJ IV PRN ×3 (17:12→20:29)
[2021-01-24] MEDS: LORazepam 2 MG/ML INJ IV PRN ×5 (01:06→23:11)
[2021-01-24] MEDS: MORPHINE SULFATE (100 MG/2 ML) 100 MG in SODIUM CHLORIDE 0.9% 100 ML IV SCH ×3 (06:10→23:09)
[2021-01-24] MEDS: ATROPINE OPHTH SOLN 1% 5ML BTL SUBLINGUAL PRN ×2 (07:18→15:28)
[2021-01-24] MEDS: ACETAMINOPHEN SUPPOSITORY 650 MG SUPP RECTAL PRN (12:03)
--- NOTE | 2021-01-24 14:26 | P.PN ---
Subjective Patient is obtunded. He is maintained on the morphine drip. He appeared comfortable. No events reported by nursing staff. Objective - Vital Signs Vital signs: Vital Signs Temp 98.9 F 01/23/21 09:15 Pulse 66 01/23/21 09:15 Resp 12 01/23/21 20:00 BP 100/63 01/23/21 09:15 Pulse Ox 88 L 01/23/21 09:15 Intake & Output 01/23/21 01/24/21 01/24/21 18:59 06:59 18:59 Intake Total 77.3 150.500 95.833 Output Total 650 1000 Balance -572.7 -849.500 95.833 Weight 87.6 kg Intake: Intake, IV Titration 77.3 150.500 95.833 Amount Morphine Sulfate (100 mg/ 48 2 ml) 100 mg In Sodium Chloride 0.9% 100 ml @ 4 MG/HR 4.08 mls/hr IV . Q24H [facility] Rx#:[id number] Morphine Sulfate (100 mg/ 29.3 150.500 95.833 2 ml) 100 mg In Sodium Chloride 0.9% 100 ml @ Titrate IV .Q0M [facility] Rx#: [id number] Output: Urine 650 1000 Other: Voiding Method Indwelling Catheter Indwelling Catheter ABP, PAP, CO, CI - Last Documented Arterial Blood Pressure 52/24 - Exam General: The patient is obtunded Eye: there is normal conjunctiva bilaterally. Neck: The neck is supple, there is no JVD. Cardiovascular: Normal S1-S2, no S3-S4, no murmurs. Respiratory: Lungs clear to auscultation bilaterally Gastrointestinal: Abdomen is soft, nontender Musculoskeletal: There is no pedal edema. l. Skin: Skin is warm and dry - Labs CBC & Chem 7: 01/22/21 04:00 01/22/21 04:00 Assessment and Plan Assessment: This is a 50-year-old male with past medical history noted below who presented to the emergency room status post cardiac arrest after he was found down on his driveway. Patient had a prolonged and complicated hospital stay and his family eventually agreed to pursue comfort care and gift of life. Patient was extubated earlier today in the OR and was treated with morphine and Ativan for comfort but did not within the 90 minute window for organ harvesting. Organ donation was canceled and patient was transferred back to a private room comfort measures. He is currently on a morphine drip. Below is a list of his medical problems 1. Cardiopulmonary arrest prior to presentation to the hospital requiring CPR 2. Acute hypoxic respiratory failure 3. Anoxic brain injury 4. Aspiration pneumonia 5. Troponin elevation 6. Polysubstance abuse 7. Acute kidney injury
[2021-01-24 16:36] LABS: LD Isoenzymes 1 38 % (19-38); LD Isoenzymes 2 32 % (30-43); LD Isoenzymes 3 14 % (16-26); LD Isoenzymes 4 6 % (3-12); LD Isoenzymes 5 10 % (3-14); Lactacte Dehydrogenase(LD) ISO 350 U/L (120-250)
[2021-01-25] MEDS: LORazepam 2 MG/ML INJ IV PRN ×3 (02:15→11:51)
[2021-01-25] MEDS: MORPHINE SULFATE (100 MG/2 ML) 100 MG in SODIUM CHLORIDE 0.9% 100 ML IV SCH ×3 (05:44→18:33)
[2021-01-25] MEDS: ATROPINE OPHTH SOLN 1% 5ML BTL SUBLINGUAL PRN ×4 (08:24→20:00)
--- NOTE | 2021-01-25 14:33 | P.PN ---
Subjective Progress Note Date: 01/25/21 Patient appears comfortable today. He is obtunded. Morphine drip running at 15 mg per hour. Patient is receiving Ativan as needed. Skin is still warm Objective - Vital Signs Vital signs: Vital Signs Temp 99.3 F 01/25/21 02:00 Pulse 121 H 01/25/21 02:00 Resp 22 01/25/21 08:25 BP 102/60 01/25/21 02:00 Pulse Ox 88 L 01/23/21 09:15 Intake & Output 01/24/21 01/25/21 01/25/21 18:59 06:59 18:59 Intake Total 109.791 186.792 102 Output Total 950 200 900 Balance -840.209 -13.208 -798 Intake: Intake, IV Titration 109.791 186.792 102 Amount Morphine Sulfate (100 mg/ 109.791 186.792 102 2 ml) 100 mg In Sodium Chloride 0.9% 100 ml @ Titrate IV .Q0M [facility] Rx#: [id number] Output: Urine 950 200 900 Other: Voiding Method Indwelling Catheter Indwelling Catheter ABP, PAP, CO, CI - Last Documented Arterial Blood Pressure - Exam General: The patient is obtunded Eye: there is normal conjunctiva bilaterally. Neck: The neck is supple, there is no JVD. Cardiovascular: Normal S1-S2, no S3-S4, no murmurs. Respiratory: Lungs clear to auscultation bilaterally Gastrointestinal: Abdomen is soft, nontender Musculoskeletal: There is no pedal edema. l. Skin: Skin is warm and dry - Labs CBC & Chem 7: 01/22/21 04:00 01/22/21 04:00 Labs: Abnormal Lab Results - Last 24 Hours (Table) 01/21/21 Range/Units 04:00 LD Isoenzymes 350 H (120-250) U/L LD 3 14 L (16-26) % Assessment and Plan Assessment: This is a 50-year-old male with past medical history noted below who presented to the emergency room status post cardiac arrest after he was found down on his driveway. Patient had a prolonged and complicated hospital stay and his family eventually agreed to pursue comfort care and gift of life. Patient was extubated earlier today in the OR and was treated with morphine and Ativan for comfort but did not within the 90 minute window for organ harvesting. Organ donation was canceled and patient was transferred back to a private room comfort measures. He is currently on a morphine drip. Below is a list of his medical problems 1. Cardiopulmonary arrest prior to presentation to the hospital requiring CPR 2. Acute hypoxic respiratory failure 3. Anoxic brain injury 4. Aspiration pneumonia 5. Troponin elevation 6. Polysubstance abuse 7. Acute kidney injury
[2021-01-25] MEDS: SCOPOLAMINE 1.5MG/72HR PATCH TRANSDERM SCH (16:35)
[2021-01-26] MEDS: LORazepam 2 MG/ML INJ IV PRN ×4 (00:17→17:39)
[2021-01-26] MEDS: ATROPINE OPHTH SOLN 1% 5ML BTL SUBLINGUAL PRN ×4 (00:17→13:35)
[2021-01-26] MEDS: MORPHINE SULFATE (100 MG/2 ML) 100 MG in SODIUM CHLORIDE 0.9% 100 ML IV SCH ×4 (05:28→22:40)
--- NOTE | 2021-01-26 07:46 | P.DS ---
Providers Date of admission: 01/10/21 22:09 Expected date of discharge: 01/26/21 Attending physician: Olena Sung MD Consults: 01/10/21 22:09 Consult Physician Routine Consulting Provider: Kenney Henderson Consult Reason/Comments: Status post cardiac arrest Do you want consulting provider notified?: Yes Primary care physician: Stated None Hospital Course: This is a 50-year-old male with past medical history noted below who presented to the emergency room status post cardiac arrest after he was found down on his driveway. Patient had a prolonged and complicated hospital stay and his family eventually agreed to pursue comfort care and gift of life. Patient was extubated and made comfortable with morphine and Ativan but did not within the 90 minute window for organ harvesting. Organ donation was canceled and patient was transferred back to a private room comfort measures. He on 01/26/2021 around 2:45 AM. Below is a list of his medical problems 1. Cardiopulmonary arrest prior to presentation to the hospital requiring CPR 2. Acute hypoxic respiratory failure 3. Anoxic brain injury 4. Aspiration pneumonia 5. Troponin elevation 6. Polysubstance abuse 7. Acute kidney injury Plan - Discharge Summary Discharge Rx Participant: Yes New Discharge Prescriptions: No Action No Known Home Medications Discharge Medication List No Known Home Medications 01/10/21 [History] Follow up Appointment(s)/Referral(s): None,Stated [Primary Care Provider] - 1-2 days
--- NOTE | 2021-01-26 13:37 | P.PN ---
Subjective Progress Note Date: 01/26/21 Patient appears comfortable today. He is obtunded. Morphine drip running at 15 mg per hour. Patient is receiving Ativan as needed. Skin is still warm His sister is at bedside Discharge summary entered earlier today was by error Objective - Vital Signs Vital signs: Vital Signs Temp 99.3 F 01/25/21 02:00 Pulse 121 H 01/25/21 02:00 Resp 22 01/26/21 08:03 BP 102/60 01/25/21 02:00 Pulse Ox 88 L 01/23/21 09:15 Intake & Output 01/25/21 01/26/21 01/26/21 18:59 06:59 18:59 Intake Total 188.75 342 59 Output Total 1200 600 Balance -1011.25 -258 59 Intake: IV 240 Sodium Chloride 0.9% 1, 240 000 ml @ 20 mls/hr IV . Q24H [facility] Rx#:[id number] Intake, IV Titration 188.75 102 59 Amount Morphine Sulfate (100 mg/ 188.75 102 59 2 ml) 100 mg In Sodium Chloride 0.9% 100 ml @ Titrate IV .Q0M [facility] Rx#: [id number] Oral 0 0 Tube Feeding 0 Output: Urine 1200 600 Other: Voiding Method Indwelling Catheter Indwelling Catheter Indwelling Catheter # Voids 75 ABP, PAP, CO, CI - Last Documented Arterial Blood Pressure 52/24 - Exam General: The patient is obtunded Eye: there is normal conjunctiva bilaterally. Neck: The neck is supple, there is no JVD. Cardiovascular: Normal S1-S2, no S3-S4, no murmurs. Respiratory: Lungs clear to auscultation bilaterally Gastrointestinal: Abdomen is soft, nontender Musculoskeletal: There is no pedal edema. l. Skin: Skin is warm and dry - Labs CBC & Chem 7: 01/22/21 04:00 01/22/21 04:00 Assessment and Plan Assessment: This is a 50-year-old male with past medical history noted below who presented to the emergency room status post cardiac arrest after he was found down on his driveway. Patient had a prolonged and complicated hospital stay and his family eventually agreed to pursue comfort care and gift of life. Patient was extubated earlier today in the OR and was treated with morphine and Ativan for comfort but did not within the 90 minute window for organ harvesting. Organ donation was canceled and patient was transferred back to a private room comfort measures. He is currently on a morphine drip. Below is a list of his medical problems 1. Cardiopulmonary arrest prior to presentation to the hospital requiring CPR 2. Acute hypoxic respiratory failure 3. Anoxic brain injury 4. Aspiration pneumonia 5. Troponin elevation 6. Polysubstance abuse 7. Acute kidney injury
[2021-01-26] MEDS: ACETAMINOPHEN SUPPOSITORY 650 MG SUPP RECTAL PRN (17:30)
[2021-01-26] MEDS: ATROPINE OPHTH SOLN 1% 5ML BTL SUBLINGUAL SCH ×2 (17:41→21:16)
[2021-01-26 18:07] VITALS: BP 132/79
[2021-01-27] MEDS: MORPHINE SULFATE (100 MG/2 ML) 100 MG in SODIUM CHLORIDE 0.9% 100 ML IV SCH ×4 (06:24→22:21)
[2021-01-27] MEDS: ATROPINE OPHTH SOLN 1% 5ML BTL SUBLINGUAL SCH ×4 (06:55→21:36)
[2021-01-27] MEDS: ACETAMINOPHEN SUPPOSITORY 650 MG SUPP RECTAL PRN (09:51)
[2021-01-27] MEDS: LORazepam 2 MG/ML INJ IV PRN (10:02)
[2021-01-27] MEDS ORDERED: GLYCOPYRROLATE 0.2 MG/ML 2 ML VIAL IVP STA (17:31)
--- NOTE | 2021-01-27 17:37 | P.PN ---
Subjective Progress Note Date: 01/27/21 Patient was having some increased work of breathing earlier and is having significant amount of secretion and lung sounds very wet and gurgly across the room. Objective - Vital Signs Vital signs: Vital Signs Temp 101.8 F H 01/26/21 18:06 Pulse 108 H 01/27/21 11:03 Resp 12 01/27/21 11:53 BP 132/79 01/26/21 18:06 Pulse Ox 71 L 01/27/21 11:03 Intake & Output 01/26/21 01/27/21 01/27/21 18:59 06:59 18:59 Intake Total 143.5 452.5 173.567 Output Total 139 95 4014 Balance -106.5 402.5 -1226.433 Intake: IV 240 Sodium Chloride 0.9% 1, 240 000 ml @ 20 mls/hr IV . Q24H [facility] Rx#:[id number] Intake, IV Titration 143.5 212.5 173.567 Amount Morphine Sulfate (100 mg/ 143.5 212.5 78.25 2 ml) 100 mg In Sodium Chloride 0.9% 100 ml @ Titrate IV .Q0M [facility] Rx#: [id number] Morphine Sulfate (100 mg/ 95.317 2 ml) 100 mg In Sodium Chloride 0.9% 100 ml @ Titrate IV .Q0M [facility] Rx#: [id number] Oral 0 Tube Feeding 0 Output: Urine 013 56 1323 Uretheral (Flores) 1100 Other: Voiding Method Indwelling Catheter # Voids 75 ABP, PAP, CO, CI - Last Documented Arterial Blood Pressure 52/24 - Exam General: The patient is obtunded Eye: there is normal conjunctiva bilaterally. Neck: The neck is supple, there is no JVD. Cardiovascular: Normal S1-S2, no S3-S4, no murmurs. Respiratory: Lungs with diffuse rhonchi and rales Gastrointestinal: Abdomen is soft, nontender Musculoskeletal: There is no pedal edema. l. Skin: Skin is cold in both feet without mottling - Labs CBC & Chem 7: 01/22/21 04:00 01/22/21 04:00 Assessment and Plan Assessment: This is a 50-year-old male with past medical history noted below who presented to the emergency room status post cardiac arrest after he was found down on his driveway. Patient had a prolonged and complicated hospital stay and his family eventually agreed to pursue comfort care and gift of life. Patient was extubated earlier today in the OR and was treated with morphine and Ativan for comfort but did not within the 90 minute window for organ harvesting. Organ donation was canceled and patient was transferred back to a private room comfort measures. He is currently on a morphine drip. Below is a list of his medical problems 1. Cardiopulmonary arrest prior to presentation to the hospital requiring CPR 2. Acute hypoxic respiratory failure 3. Anoxic brain injury 4. Aspiration pneumonia 5. Troponin elevation 6. Polysubstance abuse 7. Acute kidney injury Today, his IV morphine drip was increased per protocol. I would order one-time dose of IV Robinul to help with secretions
[2021-01-28] MEDS: MORPHINE SULFATE (100 MG/2 ML) 100 MG in SODIUM CHLORIDE 0.9% 100 ML IV SCH ×5 (05:06→23:00)
[2021-01-28] MEDS: GLYCOPYRROLATE 0.2 MG/ML 2 ML VIAL IVP PRN ×4 (09:54→22:12)
[2021-01-28] MEDS: ATROPINE OPHTH SOLN 1% 5ML BTL SUBLINGUAL SCH ×4 (09:54→19:44)
[2021-01-28] MEDS: SCOPOLAMINE 1.5MG/72HR PATCH TRANSDERM SCH (09:55)
[2021-01-28 10:38] VITALS: PULSE 126; TEMP 101.4
[2021-01-28] MEDS: ACETAMINOPHEN SUPPOSITORY 650 MG SUPP RECTAL PRN (10:59)
--- NOTE | 2021-01-28 11:07 | P.PN ---
Subjective Progress Note Date: 01/28/21 Patient is having increasing secretions and his lungs with gurgling sounds across the room. Objective - Vital Signs Vital signs: Vital Signs Temp 101.4 F H 01/28/21 10:36 Pulse 126 H 01/28/21 10:36 Resp 26 H 01/28/21 10:36 BP 132/79 01/26/21 18:06 Pulse Ox 51 L 01/28/21 10:36 Intake & Output 01/27/21 01/28/21 01/28/21 18:59 06:59 18:59 Intake Total 173.567 204 Output Total 1400 1999 Balance -1226.433 -1796 Intake: Intake, IV Titration 173.567 204 Amount Morphine Sulfate (100 mg/ 78.25 2 ml) 100 mg In Sodium Chloride 0.9% 100 ml @ Titrate IV .Q0M [facility] Rx#: [id number] Morphine Sulfate (100 mg/ 95.317 204 2 ml) 100 mg In Sodium Chloride 0.9% 100 ml @ Titrate IV .Q0M [facility] Rx#: [id number] Output: Urine 1400 1999 Uretheral ([place]) 1100 Other: Voiding Method Indwelling Catheter ABP, PAP, CO, CI - Last Documented Arterial Blood Pressure 52/24 - Exam General: The patient is obtunded Eye: there is normal conjunctiva bilaterally. Neck: The neck is supple, there is no JVD. Cardiovascular: Normal S1-S2, no S3-S4, no murmurs. Respiratory: Lungs with diffuse gurgling sounds Gastrointestinal: Abdomen is soft, nontender Musculoskeletal: There is no pedal edema. l. Skin: Skin is cold in both feet without mottling - Labs CBC & Chem 7: 01/22/21 04:00 01/22/21 04:00 Assessment and Plan Assessment: This is a 50-year-old male with past medical history noted below who presented to the emergency room status post cardiac arrest after he was found down on his driveway. Patient had a prolonged and complicated hospital stay and his family eventually agreed to pursue comfort care and gift of life. Patient was extubated earlier today in the OR and was treated with morphine and Ativan for comfort but did not within the 90 minute window for organ harvesting. Organ donation was canceled and patient was transferred back to a private room comfort measures. He is currently on a morphine drip. Below is a list of his medical problems 1. Cardiopulmonary arrest prior to presentation to the hospital requiring CPR 2. Acute hypoxic respiratory failure 3. Anoxic brain injury 4. Aspiration pneumonia 5. Troponin elevation 6. Polysubstance abuse 7. Acute kidney injury Today, I added IV Robinul as needed to help with secretions. Patient has a scopolamine patch and is getting atropine around the clock. Continue IV morphi ne drip per protocol.
[2021-01-28] MEDS: LORazepam 2 MG/ML INJ IV PRN ×5 (12:57→22:31)
[2021-01-29] MEDS: LORazepam 2 MG/ML INJ IV PRN ×9 (00:01→17:04)
[2021-01-29] MEDS: MORPHINE SULFATE (100 MG/2 ML) 100 MG in SODIUM CHLORIDE 0.9% 100 ML IV SCH ×5 (01:06→07:10)
[2021-01-29] MEDS: GLYCOPYRROLATE 0.2 MG/ML 2 ML VIAL IVP PRN ×4 (03:20→14:30)
[2021-01-29] MEDS: ATROPINE OPHTH SOLN 1% 5ML BTL SUBLINGUAL SCH ×3 (03:24→17:08)
[2021-01-29] MEDS: MORPHINE SULFATE IV SCH ×3 (07:49→17:39)
[2021-01-29] MEDS: SODIUM CHLORIDE 0.9% IV SCH ×3 (07:49→17:39)
[2021-01-29 08:32] VITALS: RESP 24
--- NOTE | 2021-01-29 12:56 | P.PN ---
Subjective Progress Note Date: 01/29/21 Patient is having episodes of apnea. He is currently maximized on IV morphine drip titrated by nursing staff per protocol overnight. Objective - Vital Signs Vital signs: Vital Signs Temp 101.4 F H 01/28/21 10:36 Pulse 126 H 01/28/21 10:36 Resp 24 01/29/21 08:31 BP 132/79 01/26/21 18:06 Pulse Ox 51 L 01/28/21 10:36 Intake & Output 01/28/21 01/29/21 01/29/21 18:59 06:59 18:59 Intake Total 204 708.597 545.911 Output Total 550 625 Balance -346 83.597 545.911 Intake: Intake, IV Titration 204 708.597 545.911 Amount Morphine Sulfate (100 mg/ 204 708.597 62.211 2 ml) 100 mg In Sodium Chloride 0.9% 100 ml @ Titrate IV .Q0M VERONICA Rx#: [id number] Morphine Sulfate (100 mg/ 483.700 2 ml) 500 mg In Sodium Chloride 0.9% 500 ml 490 ml @ Titrate IV .Q0M VERONICA Rx#:[id number] Output: Urine 550 625 Other: Voiding Method Indwelling Catheter Indwelling Catheter ABP, PAP, CO, CI - Last Documented Arterial Blood Pressure 52/24 - Exam General: The patient is obtunded Eye: there is normal conjunctiva bilaterally. Neck: The neck is supple, there is no JVD. Cardiovascular: Normal S1-S2, no S3-S4, no murmurs. Respiratory: Lungs with diffuse gurgling sounds Gastrointestinal: Abdomen is soft, nontender Musculoskeletal: There is no pedal edema. l. Skin: Skin is cold in both feet without mottling - Labs CBC & Chem 7: 01/22/21 04:00 01/22/21 04:00 Assessment and Plan Assessment: This is a 50-year-old male with past medical history noted below who presented to the emergency room status post cardiac arrest after he was found down on his driveway. Patient had a prolonged and complicated hospital stay and his family eventually agreed to pursue comfort care and gift of life. Patient was extubated earlier today in the OR and was treated with morphine and Ativan for comfort but did not within the 90 minute window for organ harvesting. Organ donation was canceled and patient was transferred back to a private room comfort measures. He is currently on a morphine drip. Below is a list of his medical problems 1. Cardiopulmonary arrest prior to presentation to the hospital requiring CPR 2. Acute hypoxic respiratory failure 3. Anoxic brain injury 4. Aspiration pneumonia 5. Troponin elevation 6. Polysubstance abuse 7. Acute kidney injury
--- NOTE | 2021-01-30 11:11 | P.DS ---
Providers Date of admission: 01/10/21 22:09 Expected date of discharge: 01/30/21 Attending physician: Olena uSng MD Consults: 01/10/21 22:09 Consult Physician Routine Consulting Provider: Kenney Henderson Consult Reason/Comments: Status post cardiac arrest Do you want consulting provider notified?: Yes Primary care physician: Stated None Hospital Course: Patient on comfort care on 01/30/2021. For exact time of that please refer to nursing staff documentation. This is a 50-year-old male with past medical history noted below who presented to the emergency room status post cardiac arrest after he was found down on his driveway. Patient had a prolonged and complicated hospital stay and his family eventually agreed to pursue comfort care and gift of life. Patient was extubated in the OR and was treated with morphine and Ativan for comfort but did not within the 90 minute window for organ harvesting. Organ donation was canceled and patient was transferred back to a private room comfort measures. He was treated with IV morphine drip, IV Ativan, Below is a list of his medical problems 1. Cardiopulmonary arrest prior to presentation to the hospital requiring CPR 2. Acute hypoxic respiratory failure 3. Anoxic brain injury 4. Aspiration pneumonia 5. Troponin elevation 6. Polysubstance abuse 7. Acute kidney injury Plan - Discharge Summary Discharge Rx Participant: Yes New Discharge Prescriptions: No Action No Known Home Medications Discharge Medication List No Known Home Medications 01/10/21 [History] Follow up Appointment(s)/Referral(s): None,Stated [Primary Care Provider] - 1-2 days Discharge Disposition: - Preliminary Cause of Preliminary Cause of : Overdose
--- NOTE | 2021-02-05 13:02 | CDI ---
Documentation Clarification Form Mortality Review Date: 02/05/2021 12:42:28 PM From: Helena Meyers RN, CCDS Admit Date: 01/10/2021 10:09:00 PM Patient Name: Rian Fernando Visit Number: [id number] Discharge Date: 01/29/2021 09:31:00 PM ATTENTION: The Clinical Documentation Specialists (CDI) and [facility] Coding Staff appreciate your assistance in clarifying documentation. Please respond to the clarification below the line at the bottom and electronically sign. The CDI & [facility] Coding staff will review the response and follow-up if needed. Please note: Queries are made part of the Legal Health Record. If you have any questions, please contact the author of this message via ITS. Dr. Welch The patients principal diagnosis the diagnosis that was chiefly responsible for the admission - has not been clearly identified and clarification of the cause of cardiac arrest if known, is requested. History/Risk factors: Polysubstance abuse Clinical Indicators: 01/10 H&P: "patient was found lying in his driveway by his significant other who subsequently activated EMS. As per the ED physician, the patient was found by EMS with vomitus nearby. Unwitnessed cardiac arrest, suspected secondary to aspiration." 01/11 Pulmonary Consult: "Apparently there was also some vomit next to the patient, so I it was thought that he may be aspirated. When EMS arrived, he was asystole. CPR was initiated, but it was unclear how long he was down. Possible aspiration pneumonia, right upper lung." 01/13 Cardiology Progress note: It is unclear if it was related to drug overdose. IMPRESSION: No clear evidence to suggest primary ischemic event, could be related to drug overdose." 01/11 Echo: EF 60-65%, mild concentric LVH 01/10 CT Brain and C-spine: Negative 01/10 Admission Lab Findings: WBC 21.2, Neuts: 11.2, BUN 41, Creatinine 2.23, glucose 383, AST 414, ALT 104, trop .114/.147/.1, UDS: + Opiates, Methamphetamines, cocaine 01/10 CXR: "increased central upper lobe lung markings of uncertain etiology, greater on right side." 01/10 2021 Admission Vital Signs: Temp 97.3, HR 91, RR 18, B/P 167/97, Spo2 98% on 100% MV Treatment: Patient received CPR and ACLS in the field by EMS Patient was intubated and placed on MV In your professional opinion, can you please clarify which diagnosis, after study, was the reason chiefly responsible for the admission? [ ] Cardiac Arrest secondary to aspiration [ X ] Cardiac Arrest secondary to drug overdose [ ] Cardiac Arrest with unknown cause/unexplained [ ] Other, please specify [ ] Unable to determine (Template Last Revised: December 2020) MTDD
== END 2021-01-29 21:31 | disposition expired | DRG 917 ==
LOC: EC 20:16 → 2SICU 22:09 → 4SSUR 01-22 17:20
PROVIDERS: ADMIT Internal Medicine; ATTEND Internal Medicine
PROC: 5A1955Z Respiratory Ventilation, Greater than 96 Consecutive Hours (ICD-10-PCS; principal; 2021-01-10)
PROC: 0D9670Z Drainage of Stomach with Drainage Device, Via Natural or Artificial Opening (ICD-10-PCS; 2021-01-10)
PROC: 03HY32Z Insertion of Monitoring Device into Upper Artery, Percutaneous Approach (ICD-10-PCS; 2021-01-11)
PROC: 3E0G76Z Introduction of Nutritional Substance into Upper GI, Via Natural or Artificial Opening (ICD-10-PCS; 2021-01-11)
PROC: 4A133J1 Monitoring of Arterial Pulse, Peripheral, Percutaneous Approach (ICD-10-PCS; 2021-01-11)
PROC: 02H633Z Insertion of Infusion Device into Right Atrium, Percutaneous Approach (ICD-10-PCS; 2021-01-11)
PROC: 4A133B1 Monitoring of Arterial Pressure, Peripheral, Percutaneous Approach (ICD-10-PCS; 2021-01-11)
PROC: 3E043XZ Introduction of Vasopressor into Central Vein, Percutaneous Approach (ICD-10-PCS; 2021-01-14)
DX: T40.5X1A Poisoning by cocaine, accidental (unintentional), initial encounter (principal); J69.0 Pneumonitis due to inhalation of food and vomit; J96.01 Acute respiratory failure with hypoxia; B37.1 Pulmonary candidiasis; R40.20 Unspecified coma; G92 Toxic encephalopathy; J15.1 Pneumonia due to Pseudomonas; J90 Pleural effusion, not elsewhere classified; N17.9 Acute kidney failure, unspecified; G93.1 Anoxic brain damage, not elsewhere classified; E87.2 Acidosis; J98.11 Atelectasis; I46.8 Cardiac arrest due to other underlying condition; D69.6 Thrombocytopenia, unspecified; T43.621A Poisoning by amphetamines, accidental (unintentional), initial encounter; T40.601A Poisoning by unspecified narcotics, accidental (unintentional), initial encounter; F14.10 Cocaine abuse, uncomplicated; F13.10 Sedative, hypnotic or anxiolytic abuse, uncomplicated; F11.10 Opioid abuse, uncomplicated; Z51.5 Encounter for palliative care; Z66 Do not resuscitate; Z20.822 Contact with and (suspected) exposure to COVID-19; H70.93 Unspecified mastoiditis, bilateral; I95.9 Hypotension, unspecified; G25.3 Myoclonus; I11.9 Hypertensive heart disease without heart failure; E87.5 Hyperkalemia; R73.9 Hyperglycemia, unspecified; H26.9 Unspecified cataract; R77.8 Other specified abnormalities of plasma proteins; S00.81XA Abrasion of other part of head, initial encounter; Z98.41 Cataract extraction status, right eye; Z87.39 Personal history of other diseases of the musculoskeletal system and connective tissue; Z98.890 Other specified postprocedural states; Z88.6 Allergy status to analgesic agent; W19.XXXA Unspecified fall, initial encounter; Z82.5 Family history of asthma and other chronic lower respiratory diseases; Z80.9 Family history of malignant neoplasm, unspecified
CPT/HCPCS: 36415; 36600; 70450; 71045; 71250; 71260; 72125; 74176; 74177; 76705; 80048; 80053; 80306; 80320; 81001; 82105; 82140; 82150; 82248; 82330; 82533; 82607; 82746; 82747; 82803; 82805; 83036; 83605; 83625; 83690; 83735; 84100; 84132; 84145; 84443; 84450; 84460; 84484; 85025; 85027; 85379; 85384; 85610; 85730; 86850; 86900; 86901; 87040; 87070; 87077; 87186; 87205; 87635; 93005; 93306; 94002; 94003; 94640; 95816; 95819; 96365; 99291